=== PATIENT | male | born 1950 | race Caucasian/White ===

== ENCOUNTER 2017-11-27 15:08 | Emergency (ER) | payer MEDICARE | END 2017-11-27 15:33 | disposition home or self-care (01) | LOC: SCSER 15:08 | DX: L03.116 Cellulitis of left lower limb (principal); E11.22 Type 2 diabetes mellitus with diabetic chronic kidney disease; E78.5 Hyperlipidemia, unspecified; F32.9 Major depressive disorder, single episode, unspecified; N18.6 End stage renal disease; I12.0 Hypertensive chronic kidney disease with stage 5 chronic kidney disease or end stage renal disease; K21.9 Gastro-esophageal reflux disease without esophagitis; I25.2 Old myocardial infarction; Z79.899 Other long term (current) drug therapy | CPT/HCPCS: 99283 ==

== ENCOUNTER 2017-11-29 03:04 | Emergency (ER) | payer MEDICARE ==
[2017-11-29] MEDS ORDERED: Naproxen 500 MG TAB ONE (04:30)
--- NOTE | 2017-11-29 08:21 | RAD ---
THREE VIEWS RIGHT SHOULDER: INDICATION: Followup pain and injury. FINDINGS: There is postoperative change of the right shoulder. Moderate arthropathy is seen at the right shoul beena. There is a heterotopic density about the inferomedial aspect of the articular surface of the ri ght humeral head. IMPRESSION: Postoperative change and degenerative arthropathy of the right shoulder. There is a focal heterotopi c density about the inferomedial aspect of the articular surface of the right humeral head. POS: [facility]
--- NOTE | 2017-11-29 08:22 | RAD ---
LEFT KNEE 4 VIEWS: CLINICAL HISTORY: Fall with pain. FINDINGS: No fracture or dislocation of the left knee. No evidence of joint capsular distention. There is mil d osteoarthritis. IMPRESSION: No acute osseous abnormality. POS: [facility]
--- NOTE | 2017-11-29 16:49 | CT ---
PRELIMINARY REPORT/[facility]/EMERGENCY AFTER HOURS PROCEDURE: EXAM: CT Head Without Intravenous Contrast EXAM DATE/TIME: 11/29/2017 3:43 AM CLINICAL HISTORY: 66 years old, male; Injury or trauma; Fall; Initial encounter; Patient HX: Pt fell outside at 6pm, tr ipped, denies lightheadedness, dizziness prior to fall. Hit nose, r shoulder, and l knee. Took tramad ol and tizanidine after the fall. Started having double vision which got worse this evening which pro mpted him to come in. Pt was seen here yesterday for l knee pain, started on bactrim and keflex - sta blanca the redness and pain was mildly improved until he fell and hit it tonight. TECHNIQUE: Axial computed tomography images of the head/brain without intravenous contrast. COMPARISON: No relevant prior studies available. FINDINGS: Brain: No evidence of acute intracranial hemorrhage, extraxial fluid or midline shift. Mild prominenc e of the cerebral sulci and ventricles. Cerebellum atrophic; otherwise, posterior fossa structures wi thin normal limits. No significant white matter disease. Ventricles: See above. Bones/joints: Unremarkable. No acute fracture. Soft tissues: Unremarkable. Sinuses: Mild-moderate bilateral ethmoid, sphenoid and maxillary sinus fluid/soft tissue. Mastoid air cells: Unremarkable as visualized. No mastoid effusion. IMPRESSION: 1. No evidence of acute intracranial hemorrhage, extraxial fluid or midline shift. 2. Mild cerebral atrophy. 3. Mild-moderate bilateral ethmoid, sphenoid and maxillary sinus fluid/soft tissue. Thank you for allowing us to participate in the care of your patient. Dictated and Authenticated by: Deanna Kimble MD 11/29/2017 4:36 AM Central Time ([place] & [place]) FINAL REPORT HEAD CT NONCONTRAST: FINDINGS/IMPRESSION: I agree with the preliminary interpretation. No acute intracranial hemorrhage or mass effect. Opacification of paranasal sinuses. Correlate clinically. POS: [facility]
--- NOTE | 2017-11-29 16:50 | CT ---
PRELIMINARY REPORT/[facility]/EMERGENCY AFTER HOURS PROCEDURE: EXAM: CT Maxillofacial Without Intravenous Contrast EXAM DATE/TIME: 11/29/2017 3:46 AM CLINICAL HISTORY: 66 years old, male; Injury or trauma; Fall; Initial encounter; Concussion /head injury; Without loss of consciousness; Patient HX: Pt fell outside at 6pm, tripped, denies lightheadedness, dizziness prio r to fall. Hit nose, r shoulder, and l knee. Took tramadol and tizanidine after the fall. Started hav ing double vision which got worse this evening which prompted him to come in. Pt was seen here yester day for l knee pain, started on bactrim and keflex - states the redness and pain was mildly improved until he fell and hit it tonight. TECHNIQUE: Axial computed tomography images of the face without intravenous contrast. Coronal and sagittal reformatted images were created and reviewed. COMPARISON: No relevant prior studies available. FINDINGS: Bones/joints: No acute fractures identified. Multilevel mild cervical spondylosis. Soft tissues: Mild left facial and periorbital soft tissue swelling. Orbits: Unremarkable. Sinuses: Mild-moderate bilateral maxillary, ethmoid, sphenoid, frontal sinus fluid/soft tissue. Dental: Dental metallic fillings/hardware creates artifact. IMPRESSION: 1. Dental metallic fillings/hardware creates artifact. 2. No acute fractures identified. 3. Mild left facial and periorbital soft tissue swelling. 4. Mild-moderate bilateral maxillary, ethmoid, sphenoid, frontal sinus fluid/soft tissue. Thank you for allowing us to participate in the care of your patient. Dictated and Authenticated by: Deanna Kimble MD 11/29/2017 4:41 AM Central Time ([place] & [place]) FINAL REPORT CT FACE NONCONTRAST: FINDINGS/IMPRESSION: I agree with the preliminary interpretation. No discrete, displaced facial fracture. POS: [facility]
--- NOTE | 2017-12-20 18:01 | EKG ---
Test Reason : Blood Pressure : / mmHG Vent. Rate : 075 BPM Atrial Rate : 075 BPM P-R Int : 102 ms QRS Dur : 096 ms QT Int : 374 ms P-R-T Axes : 019 017 078 degrees QTc Int : 417 ms Sinus rhythm with occasional Premature ventricular complexes and Possible Premature atrial complexes with Abberant conduction Nonspecific ST and T wave abnormality Abnormal ECG Confirmed by IVY DIAZ D.O. ([id number]), story editor SMOOTH AGUIRRE ([id number]) on 12/20/2017 6:01:08 PM Referred By: JOE Confirmed By:IVY DIAZ D.O.
== END 2017-11-29 04:49 | disposition home or self-care (01) ==
LOC: SCSER 03:04
DX: S09.90XA Unspecified injury of head, initial encounter (principal); M25.562 Pain in left knee; M25.511 Pain in right shoulder; E78.5 Hyperlipidemia, unspecified; I25.2 Old myocardial infarction; F32.9 Major depressive disorder, single episode, unspecified; I12.0 Hypertensive chronic kidney disease with stage 5 chronic kidney disease or end stage renal disease; N18.6 End stage renal disease; W01.0XXA Fall on same level from slipping, tripping and stumbling without subsequent striking against object, initial encounter
CPT/HCPCS: 70450; 70486; 93005

== ENCOUNTER 2017-12-05 15:22 | Emergency (ER) | payer MEDICARE ==
[2017-12-05 16:02] LABS: #Basophils 0.2 thou/uL (0.0-0.2); #Eosinphils 0.1 thou/uL (0.0-0.7); #Lymphocytes 1.4 thou/uL (1.20-3.40); #Monocytes 0.8 thou/uL (0.11-0.59); #Neutrophils 10.4 thou/uL (1.40-6.50); %Basophils 1.2 % (0.0-1.0); %Eosinophils 1.1 % (0.0-10.0); %Lymphocytes 10.5 % (21.0-51.0); %Monocytes 6.1 % (0.0-10.0); Hemoglobin 12.4 g/dL (14.0-18.0); Mean Corpuscular HGB CONC 33.5 g/dL (32.0-36.0); Mean Corpuscular Hemoglobin 30.6 pg (27.0-31.0); Mean Corpuscular Volume 91.3 fl (80.0-94.0); Mean Platelet Volume 8.7 fL (7.4-10.4); Platelet Count 358 thou/uL (130-400); RBC Distribution Width 12.3 % (11.5-14.5); Red Blood Cell (RBC) Count 4.05 mill/uL (4.70-6.10); White Blood Cell (WBC) Count 12.9 thou/uL (4.8-10.8)
[2017-12-05 16:12] LABS: Anion Gap 19 mmol/L (10-20); BUN (Urea Nitrogen) 38 mg/dL (8.4-25.7); Calc. Creatinine Clearance 0 mL/min (70-130); Calcium 10.9 mg/dL (7.8-10.44); Carbon Dioxide 18 mmol/L (23-31); Chloride 98 mmol/L (98-107); Estimated GFR-MDRD 25; Glucose 425 mg/dL (80-115); Potassium 5.4 mmol/L (3.5-5.1); Sodium 130 mmol/L (136-145)
[2017-12-05 16:43] LABS: pH (venous) 7.28 (7.35-7.45)
[2017-12-05 16:52] LABS: Base Excess -7.8 mEq/L (-2 - +2); Hemoglobin (Hb) 11.7 g/dL (12.6-17.4)
[2017-12-05] MEDS ORDERED: Insulin Regular 300 UNITS/3 ML VIAL ONE (17:03)
[2017-12-05] MEDS ORDERED: Acetaminophen 500 MG TAB ONE (17:12)
[2017-12-05 17:30] LABS: Bilirubin Negative (Negative); Blood, Urine Negative (Negative); Clarity Clear (Clear); Glucose, Urine (Dipstick) 500 mg/dL (Negative); Leukocyte Negative (Negative); Nitrite Negative (Negative); Protein, Urine (Dipstick) Negative (Neg-Trace); Urobilinogen 0.2 mg/dL (0.2-1.0); pH, Urine 5.5 (5.0-9.0)
[2017-12-05 17:31] LABS: Specific Gravity, Urine 1.008 (1.005-1.030)
[2017-12-05] MEDS ORDERED: Albuterol Sulfate 2.5 mg/0.5 ml Neb ONE (17:44)
[2017-12-05] MEDS ORDERED: Sodium Chloride For Inhalation 0.9% 3 ML NEB ONE (17:44)
[2017-12-05 18:34] LABS: Anion Gap 17 mmol/L (10-20); BUN (Urea Nitrogen) 34 mg/dL (8.4-25.7); Calc. Creatinine Clearance 0 mL/min (70-130); Calcium 9.6 mg/dL (7.8-10.44); Carbon Dioxide 16 mmol/L (23-31); Chloride 106 mmol/L (98-107); Estimated GFR-MDRD 31; Glucose 270 mg/dL (80-115); Potassium 4.1 mmol/L (3.5-5.1); Sodium 135 mmol/L (136-145)
== END 2017-12-05 18:53 | disposition home or self-care (01) ==
LOC: SCSER 15:22
DX: E86.0 Dehydration (principal); I12.0 Hypertensive chronic kidney disease with stage 5 chronic kidney disease or end stage renal disease; N18.6 End stage renal disease; E11.9 Type 2 diabetes mellitus without complications; F32.9 Major depressive disorder, single episode, unspecified; K21.9 Gastro-esophageal reflux disease without esophagitis
CPT/HCPCS: 80048; 81003; 82010; 82805; 85025; 96360; 96361; J1815; J7611

== ENCOUNTER 2017-12-06 09:29 | Emergency (ER) | payer MEDICARE ==
[2017-12-06 10:19] LABS: Anion Gap 19 mmol/L (10-20); BUN (Urea Nitrogen) 27 mg/dL (8.4-25.7); Calc. Creatinine Clearance 0 mL/min (70-130); Calcium 10.1 mg/dL (7.8-10.44); Carbon Dioxide 16 mmol/L (23-31); Chloride 102 mmol/L (98-107); Estimated GFR-MDRD 35; Glucose 259 mg/dL (80-115); Potassium 4.2 mmol/L (3.5-5.1); Sodium 133 mmol/L (136-145)
--- NOTE | 2017-12-06 10:43 | CT ---
BRAIN CT WITHOUT IV CONTRAST: Date: 12/06/17 HISTORY: 66-year-old male with head injury following a fall 1 week ago with impact to right forehead and orbit region. FINDINGS: There is fluid in the right maxillary sinus, as well as some mucosal disease within the right ethmoid and the sphenoid sinuses. These sinus changes do not appear significantly changed from the prior 05/11 study. There is no focal intracranial mass or midline shift. No intra or extra-axial hemorrhage . IMPRESSION: Stable atrophy and chronic white matter ischemic change. No acute intracranial process. No mass or bl eed. Stable findings in the sinuses. POS: [facility]
[2017-12-06] MEDS ORDERED: Fentanyl 100 MCG/2 ML VIAL ONE (10:53)
== END 2017-12-06 11:16 | disposition home or self-care (01) ==
LOC: SCSER 09:29
DX: S06.0X9A Concussion with loss of consciousness of unspecified duration, initial encounter (principal); E78.5 Hyperlipidemia, unspecified; E11.9 Type 2 diabetes mellitus without complications; I25.2 Old myocardial infarction; I12.0 Hypertensive chronic kidney disease with stage 5 chronic kidney disease or end stage renal disease; N18.6 End stage renal disease; F32.9 Major depressive disorder, single episode, unspecified; Z79.4 Long term (current) use of insulin; Z79.899 Other long term (current) drug therapy; W19.XXXA Unspecified fall, initial encounter
CPT/HCPCS: 70450; 80048; 96372; J3010

== ENCOUNTER 2017-12-08 18:03 | Inpatient (IN) | payer MEDICARE ==
[2017-12-08] MEDS ORDERED: Ondansetron HCl/PF 4 MG/2 ML Vial ONE (19:17)
[2017-12-08] MEDS ORDERED: Morphine 4 MG/ML Carpuject ONE (19:17)
[2017-12-08] MEDS ORDERED: Fentanyl 100 MCG/2 ML VIAL ONE ×2 (19:19→21:21)
[2017-12-08 19:32] LABS: Hemoglobin 12.1 g/dL (14.0-18.0); Mean Corpuscular Hemoglobin 30.7 pg (27.0-31.0); Mean Corpuscular Volume 98.9 fl (80.0-94.0); Platelet Count 467 thou/uL (130-400); RBC Distribution Width 12.4 % (11.5-14.5); Red Blood Cell (RBC) Count 3.95 mill/uL (4.70-6.10); White Blood Cell (WBC) Count 20.5 thou/uL (4.8-10.8)
[2017-12-08 19:45] LABS: Band 8 % (5-11); Lymphocytes 7 % (21-51); MDiff Complete? YES; Monocytes 8 % (0-10); Myelocyte 1 % (0-0); Neutrophil 76 % (42-75); PLT Morphology Comment Appears Increased; Polychromasia SLIGHT = 2-3 cells (100X) (0-2/hpf)
[2017-12-08 19:48] LABS: ALT (SGPT) 12 U/L (8-55); AST (SGOT) 9 U/L (5-34); Albumin 3.5 g/dL (3.4-4.8); Alkaline Phosphatase 80 U/L (40-150); Anion Gap 33 mmol/L (10-20); BUN (Urea Nitrogen) 38 mg/dL (8.4-25.7); Bilirubin, Total 0.4 mg/dL (0.2-1.2); CRP (Inflammatory) 9.25 mg/dL (= or < 0.5); Calc. Creatinine Clearance 0 mL/min (70-130); Chloride 92 mmol/L (98-107); Estimated GFR-MDRD 22; Globulin 3.9 g/dL (2.4-3.5); Glucose 543 mg/dL (80-115); Potassium 5.6 mmol/L (3.5-5.1); Protein, Total 7.4 g/dL (5.8-8.1); Sodium 128 mmol/L (136-145)
[2017-12-08 19:57] LABS: Carbon Dioxide 9 mmol/L (23-31)
[2017-12-08 21:35] LABS: Magnesium 1.7 mg/dL (1.6-2.6); Phosphorus 5.5 mg/dL (2.3-4.7)
[2017-12-08 21:42] LABS: CKMB 0.8 ng/mL (0-6.6); Troponin I Less than 0.010 ng/mL (< 0.028)
[2017-12-08] MEDS ORDERED: Metoclopramide HCl 10 MG/2 ML VIAL ONE (21:43)
[2017-12-08] MEDS ORDERED: Insulin Regular 300 UNITS/3 ML VIAL ONE (21:43)
[2017-12-08] MEDS ORDERED: diphenhydrAMINE 50 MG/ML VIAL ONE (21:43)
[2017-12-08] MEDS ORDERED: Insulin Regular 100 units/100 ml in NS IVPB SCH (21:45)
--- NOTE | 2017-12-08 22:24 | MRI ---
NONCONTRAST BRAIN MRI: Clinical history: Vision loss. History of stage IV renal disease. FINDINGS: There is generalized mild parenchymal atrophy with mild compensatory dilatation of the ventricular sy stem. There is no acute territory infarction or intracranial mass effect. The inaja right intraocula r lens is absent.Mild increase in T2 signal of the right superior rectus muscle may relate to artifac t, There is no obvious expansile mass effect. There is prominent opacification of the right maxillar y sinus, as well as right sided ethmoid air cells. Fluid level is present superimposed upon mucosal t hickening of the sphenoid sinus. There is a moderate right mastoid effusion and mild left mastoid flu id. The imaged skull base flow voids are patent. No significant signal abnormalities of the brain par enchyma. IMPRESSION: 1. No acute intracranial abnormality. 2. Prominent paranasal sinus inflammatory disease with diffuse mucosal thickening as well as fluid le vels of the right maxillary sinus and sphenoid sinus. Correlate for evidence of acute sinusitis. 3. Bilateral mastoid fluid, right greater than left. 4. Absence of inaja right intraocular lens. Correlate clinically. 5. Incomplete assessment of the optic nerves on the basis of this exam. There is suggestion of a slig ht asymmetric dilatation of the right optic nerve. This may be further assessed with dedicated orbita l MRI as clinically indicated. POS: [facility]
[2017-12-08] MEDS: Sodium Bicarbonate 150 MEQ in Dextrose 5% in Water 1,000 ML IV SCH ×2 (22:48)
[2017-12-08 22:58] LABS: Anion Gap 29 mmol/L (10-20); BUN (Urea Nitrogen) 37 mg/dL (8.4-25.7); Calc. Creatinine Clearance 0 mL/min (70-130); Calcium 10.3 mg/dL (7.8-10.44); Chloride 98 mmol/L (98-107); Estimated GFR-MDRD 26; Glucose 450 mg/dL (80-115); Potassium 4.8 mmol/L (3.5-5.1); Sodium 131 mmol/L (136-145)
[2017-12-08 23:06] LABS: Carbon Dioxide 9 mmol/L (23-31)
[2017-12-09 00:59] LABS: Anion Gap 26 mmol/L (10-20); BUN (Urea Nitrogen) 36 mg/dL (8.4-25.7); Calc. Creatinine Clearance 0 mL/min (70-130); Calcium 10.2 mg/dL (7.8-10.44); Carbon Dioxide 10 mmol/L (23-31); Chloride 100 mmol/L (98-107); Estimated GFR-MDRD 27; Glucose 401 mg/dL (80-115); Potassium 4.8 mmol/L (3.5-5.1); Sodium 131 mmol/L (136-145)
[2017-12-09 01:03] LABS: Troponin I 0.014 ng/mL (< 0.028)
[2017-12-09] MEDS ORDERED: Ondansetron HCl/PF 4 MG/2 ML Vial IVP PRN (02:20)
[2017-12-09] MEDS ORDERED: Ondansetron ODT 4 MG TAB SL PRN (02:20)
[2017-12-09] MEDS ORDERED: Sodium Chloride 0.9% 1,000 ML IV SCH (02:20)
[2017-12-09] MEDS ORDERED: Acetaminophen 325 MG TAB PO PRN (02:20)
[2017-12-09 03:37] LABS: #Basophils 0.1 thou/uL (0.0-0.2); #Eosinphils 0.1 thou/uL (0.0-0.7); #Lymphocytes 1.2 thou/uL (1.20-3.40); #Monocytes 0.6 thou/uL (0.11-0.59); #Neutrophils 20.1 thou/uL (1.40-6.50); %Basophils 0.6 % (0.0-1.0); %Eosinophils 0.4 % (0.0-10.0); %Lymphocytes 5.2 % (21.0-51.0); %Monocytes 2.6 % (0.0-10.0); %Neutrophils 91.3 % (42.0-75.0); Hemoglobin 11.7 g/dL (14.0-18.0); Mean Corpuscular HGB CONC 32.8 g/dL (32.0-36.0); Mean Corpuscular Hemoglobin 31.5 pg (27.0-31.0); Mean Corpuscular Volume 96.1 fl (80.0-94.0); Mean Platelet Volume 7.9 fL (7.4-10.4); Platelet Count 403 thou/uL (130-400); RBC Distribution Width 12.3 % (11.5-14.5); White Blood Cell (WBC) Count 22.1 thou/uL (4.8-10.8)
[2017-12-09 03:55] LABS: Anion Gap 23 mmol/L (10-20); BUN (Urea Nitrogen) 35 mg/dL (8.4-25.7); Calc. Creatinine Clearance 30 mL/min (70-130); Carbon Dioxide 13 mmol/L (23-31); Chloride 101 mmol/L (98-107); Estimated GFR-MDRD 26; Glucose 345 mg/dL (80-115); Potassium 4.7 mmol/L (3.5-5.1); Sodium 132 mmol/L (136-145)
[2017-12-09 03:59] LABS: Troponin I 0.014 ng/mL (< 0.028)
[2017-12-09] MEDS: Sodium Bicarbonate 150 MEQ in Dextrose 5% in Water 1,000 ML IV SCH ×2 (04:15)
[2017-12-09] MEDS ORDERED: D5 1/2 NS w/20 mEq KCL 1,000 ML IV PRN (04:49)
[2017-12-09] MEDS ORDERED: Sodium Chloride 0.9% 1,000 ML IV PRN ×4 (04:49)
[2017-12-09] MEDS ORDERED: NS 0.9% w/ 20 MEQ KCL 1,000 ML IV PRN ×2 (04:49)
[2017-12-09] MEDS ORDERED: Dextrose 5 %-0.45 % NaCl 1,000 ML IV PRN (04:49)
[2017-12-09] MEDS ORDERED: methylPREDNISolone Sod Succ/PF 125 MG/2 ML VIAL IVP SCH (04:49)
[2017-12-09] MEDS ORDERED: Ondansetron ODT 4 MG TAB PO PRN (04:49)
[2017-12-09] MEDS ORDERED: hydrALAZINE 20 MG/ML VIAL SLOW IVP PRN (04:49)
[2017-12-09] MEDS ORDERED: cloNIDine 0.1 MG TAB PO PRN (04:49)
[2017-12-09] MEDS ORDERED: CCU Electrolyte Replacement 1 EACH IVPB ONE (04:49)
[2017-12-09] MEDS ORDERED: Potassium Chloride 40 MEQ in Sodium Chloride 0.9% 250 ML 250 ML IVPB PRN (05:20)
[2017-12-09] MEDS ORDERED: Potassium Phosphate 15 MMOL in Sodium Chloride 0.9% 250 ML 250 ML IV PRN (05:20)
[2017-12-09] MEDS ORDERED: CCU ELECTROLYTE REPLACEMENT PROTOCOL FS PRN (05:20)
[2017-12-09] MEDS ORDERED: Potassium Phosphate 12 MMOL in Sodium Chloride 0.9% 250 ML 250 ML IV PRN (05:20)
[2017-12-09] MEDS ORDERED: Potassium Chloride 20 MEQ TAB PO PRN (05:20)
[2017-12-09] MEDS ORDERED: Potassium Phosphate 9 MMOL in Sodium Chloride 0.9% 100 ML IVPB PRN (05:20)
[2017-12-09] MEDS ORDERED: Potassium Chloride 40 MEQ in Premix Bag 1 BAG IVPB PRN (05:20)
[2017-12-09] MEDS ORDERED: Magnesium 2 GM/NS 0.9% 100 ML 2 GM in Premix Bag 1 BAG IVPB PRN (05:20)
[2017-12-09] MEDS ORDERED: Magnesium Oxide 400 MG TAB PO PRN ×2 (05:20)
[2017-12-09] MEDS ORDERED: SODIUM CHLORIDE 0.9% IVPB SCH (05:30)
[2017-12-09] MEDS ORDERED: methylPREDNISolone Sod Succ 0.75 GM in Sodium Chloride 0.9% 250 ML 250 ML IVPB SCH (05:30)
[2017-12-09] MEDS ORDERED: HYDROCORTISONE SOD SUCC IVPB SCH (05:30)
--- NOTE | 2017-12-09 06:20 | HP ---
DATE OF ADMISSION: 12/09/2017 PRIMARY CARE PHYSICIAN: Alfonso Townsend MD CHIEF COMPLAINT: Right-sided vision loss and headache. HISTORY OF PRESENT ILLNESS: This is a 66-year-old male who presents to [facility], referred by his poultry trimmer on 12/08/2017. The patient apparently had complained o f vision loss of the right eye with associated severe head pain and right-sided headache. The patien t states the symptoms progressed over the last 3-4 days, worsening in the last 24 hours. The patient apparently suffered a fall, striking his face, knee, and shoulder while checking his septic system a t home. Patient underwent evaluation including CT imaging of the face showing questionable hairline fracture of the right orbital floor. The patient was evaluated by his primary neurosurgeon after und ergoing a recent back surgery. The patient also was apparently placed on pain medication as well as steroids for a suspected bronchitis in October, beginning a second course of prednisone within the l ast 3-4 days prior to this evaluation. The patient does complain of pain in the right eye region wit h loss of vision and visual clarity. The patient admits to some facial pain, headache, but no vomiti ng, weakness, difficulty with speech or fever. The patient apparently was referred by his neurosurge on to assess his vision at which point the patient was referred to the emergency room for urgent eval uation. The patient's history is complicated and significant for a sigmoid colon adenocarcinoma, sta tus post resection in late 2016. The patient underwent the surgical intervention without further jefry atment followed by the oncology service. In the emergency room, the patient underwent general evalua tion including MRI imaging of the brain, showing a questionable asymmetric dilation of the right opti c nerve with incomplete visualization. Also noted was paranasal sinus disease and fluid levels and a bsence of the osage right intraocular lens. No specific evidence of acute infarct cerebral mass or edema. The patient received multiple medications after patient's glucose was noted in the 400-500 ra nge with associated elevated beta hydroxybutyrate level of 10.29. The patient was treated for diabet ic ketoacidosis with IV fluids, bicarbonate infusion, and insulin drip. The patient was also treated for suspected temporal arteritis with 250 mg of IV Solu-Medrol and multiple doses of fentanyl for pa in control. The patient also received intravenous normal saline, IV Benadryl, Reglan, and Zofran. T he patient was referred to the hospitalist service for further evaluation. PAST MEDICAL HISTORY: 1. Sigmoid colon adenocarcinoma, status post resection. 2. Hyperlipidemia. 3. Hypertension. 4. Diabetes mellitus type 2, insulin requiring. 5. Gastroesophageal reflux. 6. History of pancreatitis. 7. History of myocardial infarction x2. 8. History of gastric ulcer. 9. Osteoarthritis. 10. Status post mechanical fall with closed head injury. 11. Question of hairline fracture of the right orbital floor, status post mechanical fall. PAST SURGICAL HISTORY: 1. Status post right total knee arthroplasty. 2. Status post bilateral shoulder repair. 3. Status post exploratory laparotomy for small bowel resection. 4. Status post left knee surgery. 5. Status post appendectomy. 6. Status post lumbar spine surgery. CURRENT MEDICATIONS: Based on previous admissions in 2013 and 2017; 1. Amlodipine 10 mg 1 tab p.o. daily. 2. Lipitor 20 mg p.o. at bedtime. 3. Wellbutrin-XL 300 mg p.o. daily. 4. Uloric 80 mg p.o. at bedtime. 5. Fenofibrate 145 mg p.o. at bedtime. 6. Amaryl 4 mg 1 tab p.o. b.i.d. 7. Humalog 20 units sliding scale with meals. 8. [place] 10/325 mg 1-2 tabs p.o. q.6 hours p.r.n. for pain. 9. Bystolic 10 mg p.o. daily. 10. Pravachol 20 mg p.o. at bedtime. 11. Aciphex 20 mg p.o. at bedtime. 12. Zanaflex 4 mg p.o. t.i.d. p.r.n. ALLERGIES: MORPHINE SULFATE. FAMILY HISTORY: Father with history of hypertension, diabetes, and coronary artery disease. Mother with history of diabetes, hypertension, and coronary artery disease. SOCIAL HISTORY: Patient is , accompanied by his in the hospital. Resides in [place], [place] . 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 No current alcohol, tobacco, or illicit drug use. REVIEW OF SYSTEMS: The following complete review of systems was negative, unless otherwise mentioned in the HPI or below: Constitutional: Weight loss or gain, ability to conduct usual activities. Sk in: Rash, itching. Eyes: Double vision, pain. ENT/Mouth: Nose bleeding, neck stiffness, pain, te nderness. Cardiovascular: Palpitations, dyspnea on exertion, orthopnea. Respiratory: Shortness of breath, wheezing, cough, hemoptysis, fever or night sweats. Gastrointestinal: Poor appetite, abdom inal pain, heartburn, nausea, vomiting, constipation, or diarrhea. Genitourinary: Urgency, frequenc y, dysuria, nocturia. Musculoskeletal: Pain, swelling. Neurologic/Psychiatric: Anxiety, depressio n. Allergy/Immunologic: Skin rash, bleeding tendency. PHYSICAL EXAMINATION: VITAL SIGNS: Currently, blood pressure 139/69, pulse 72, respiratory rate is 17, temperature 97.8 de grees Fahrenheit, O2 saturation 100% on room air. GENERAL APPEARANCE: This is a 66-year-old male, lethargic, in remp-ay-eroxmyve distress. HEENT: Right pupil approximately 7 mm compared to left pupil at 5 mm. Minimally reactive to light o f the right pupil. Tenderness to palpation of the right scalp and temporal region. No facial asymme try noted. Extraocular muscles are intact. No scleral icterus, no conjunctival injection. Nares pa tent. OP is clear. NECK: Supple. No cervical adenopathy, no thyromegaly, no carotid bruits, no JVD appreciated. Cervi monica spine with full active and passive range of motion. No meningeal signs appreciated. CHEST: Lungs are clear to auscultation bilaterally. CARDIOVASCULAR: S1, S2 without noted murmur. ABDOMEN: Rounded, soft, nontender, nondistended. Bowel sounds are positive in all four quadrants. There is no hepatosplenomegaly, no abdominal bruits, no rebound or guarding appreciated. Bowel sound s are positive in all four quadrants. EXTREMITIES: Warm and dry with fair turgor. No clubbing, cyanosis, or asymmetric edema appreciated. Pulses are palpable distally at the dorsalis pedis, posterior tibial, and popliteal arteries bilate rally. Capillary refill less than 2 seconds. NEUROLOGIC: Cranial nerves II through XII were grossly intact. PERTINENT LABORATORY AND X-RAY FINDINGS: Sodium 132, potassium 4.7, chloride 101, CO2 ranged between 10-13, BUN ranged between 35-36, creatinine ranged between 2.44-2.46, estimated GFR ranging between 26-27, lactic acid level 1.5, calcium 10.0. Phosphorous 5.5, magnesium 1.7. LFTs within normal limi ts. CRP 9.25. CBC showed a white blood cell count of 22.1, hemoglobin 12, hematocrit 36, MCV 96, pl atelet count 403 with 91% neutrophils. ESR ranged between 59 to 113. Beta hydroxybutyrate level 10. 29. CT of the brain without contrast dated on 12/06/2017 showed chronic white matter ischemic change s. No acute intracranial process noted. Right maxillary sinus with mucosal disease and fluid. Also involvement of the ethmoid and sphenoid sinuses with mucosal disease changes. MRI of the brain date d 12/08/2017 showed prominent paranasal sinus disease. Bilateral mastoid fluid, right greater than l eft. Absence of the osage right intraocular lens. Suggestion of slight asymmetric dilation of the right optic nerve. EKG dated 12/08/2017 by my interpretation shows sinus mechanism with heart rates in the 60s. Normal R-wave progression noted in the precordial leads. Normal axis. No acute ST-T wa ve changes appreciated. ASSESSMENT AND PLAN: 1. Diabetic ketoacidosis. We will continue DKA protocol with admission to the IM. We will contin ue aggressive IV fluid hydration per protocol. Serial beta hydroxybutyrate and BMP analysis. Contin ue insulin infusion and serial glucose assessment. Continue bicarbonate infusion due to severe metab olic acidosis. 2. Temporal arteritis. Initial management with Solu-Medrol 250 mg IV x1 dose in the emergency room. We will add additional 750 mg of Solu-Medrol to complete 1 gram. Continue 1 gram IV Solu-Medrol da alysa x3 days. We will consult Neurology Service in the a.m. for further evaluation and recommendation s. Ophthalmology has evaluated the patient in the emergency room and initiated an initial treatment. 3. Acute kidney injury on chronic kidney disease, stage 3-4. We will continue intravenous fluids as outlined previously. Avoid nephrotoxic agents and contrast media. Serial creatinine assessment. 4. Severe metabolic acidosis secondary to #1. We will continue bicarbonate infusion and monitor CO2 levels. 5. Hyponatremia. Secondary to severe hyperglycemia. We will continue serial sodium assessments. 6. Severe headache, secondarily to temporal arteritis. We will continue fentanyl 50-100 mcg IV q.4 hours. p.r.n. for pain. Continue IV fluids as outlined previously. 7. Leukocytosis with neutrophilia. Suspect multifactorial given patient's temporal arteritis and re cent prednisone therapy. Continue serial CBC assessment. 8. Maxillary and sphenoid and ethmoid sinusitis. 9. Acute on chronic. Continue Levaquin 500 mg IV q.24 hours. Flonase 1 spray in each naris daily. Mucinex 600 mg p.o. b.i.d. 10. Hypertension. Continue home blood pressure regimen and monitor clinically. 11. Prophylaxis. Sequential compression devices while in bed. Pepcid 20 mg IV q.12 hours. 12. Code status is FULL. Surrogate medical decision maker is patient's spouse.
[2017-12-09] MEDS ORDERED: Famotidine/PF 20 mg/2ml Vial SLOW IVP SCH (09:00)
[2017-12-09] MEDS ORDERED: methylPREDNISolone Sod Succ 1 GM in Sodium Chloride 0.9% 250 ML 250 ML IVPB SCH (09:00)
[2017-12-09 09:06] LABS: Anion Gap 19 mmol/L (10-20); BUN (Urea Nitrogen) 32 mg/dL (8.4-25.7); Calc. Creatinine Clearance 34 mL/min (70-130); Calcium 9.8 mg/dL (7.8-10.44); Carbon Dioxide 16 mmol/L (23-31); Chloride 104 mmol/L (98-107); Estimated GFR-MDRD 31; Glucose 289 mg/dL (80-115); Potassium 4.4 mmol/L (3.5-5.1); Sodium 135 mmol/L (136-145)
--- NOTE | 2017-12-09 10:39 | CON ---
DATE OF CONSULTATION: 12/09/2017 CONSULTING PHYSICIAN: Raghu Louie D.O. REASON FOR CONSULTATION: DKA. HISTORY OF PRESENT ILLNESS: This 66-year-old male who has been having difficulty for the last week w ith right-sided vision loss and headaches. He was started on steroids sometime last week. Symptoms have progressed. He apparently had a fall last week with imaging showing hairline fracture of the ri t orbital floor. Patient came in last night with extremely elevated blood sugar and had to be plac ed on insulin for management of DKA. He says he does not feel any better today. PAST MEDICAL HISTORY: 1. Sigmoid colon resection for adenocarcinoma. 2. Hyperlipidemia. 3. Hypertension. 4. Diabetes mellitus type 2, which requires insulin and oral hypoglycemics. 5. Gastroesophageal reflux and pancreatitis. 6. Myocardial infarction x2. 7. Gastric ulcer. 8. Osteoarthritis. 9. Recent fall with closed head injury. 10. Hairline fracture of the right orbital floor. 11. Knee arthroplasty. 12. Exploratory laparotomy for small bowel resection. 13. Left knee surgery. 14. Appendectomy. 15. Spinal surgery. MEDICATIONS PRIOR TO ADMISSION: Reviewed and include amlodipine, Lipitor, Wellbutrin, Uloric, fenofi brate, Amaryl, Humalog insulin, [place], Bystolic, Pravachol, Aciphex, Zanaflex and was also taking pre dnisone. ALLERGIES: MORPHINE. FAMILY MEDICAL HISTORY: Remarkable for hypertension, diabetes, and coronary artery disease. SOCIAL HISTORY: He is , lives in [place], works as a marketing sales consultant for chemical industry. Does not smoke. Does not use illicit drugs. REVIEW OF SYSTEMS: Remarkable for vision loss, headache, generalized malaise, and 12-point review is otherwise negative. PHYSICAL EXAMINATION: VITAL SIGNS: Temperature 98.6, pulse 64, respirations 20, O2 sat 96%, and blood pressure 141/65. GENERAL: He is awake and alert and in no acute distress at this time. HEENT: He has ptosis of the right eyelid. His right pupil is sluggishly reactive, 3 mm, left pupil reactive, 3 mm, 2 mm, nares clear. Oropharynx clear. NECK: Without adenopathy or JVD. LUNGS: Clear to auscultation without wheezing. CARDIOVASCULAR: S1, S2 regular, without murmur. ABDOMEN: Soft and nontender. EXTREMITIES: No clubbing, cyanosis, or edema. IMAGING STUDIES: Brain MRI showed no acute intracranial abnormality. He had paranasal sinus disease and bilateral mastoid fluid. Apparently, optic nerves could not be assessed. LABORATORY DATA: White blood cell count 22, hematocrit 35.6, platelet count 403. Sodium 135, potass ium 4.4, chloride 104, CO2 of 16, BUN 32, creatinine 2.2, glucose 289. Sedimentation rate 113. ASSESSMENT: 1. Diabetic ketoacidosis. 2. Temporal arteritis, presumed. RECOMMENDATIONS: 1. He is being evaluated by Neurology, Neurosurgery, and Ophthalmology and transfer to tertiary [facility] may be needed. 2. Continue management of DKA as you are doing. 3. Not much to add from Pulmonary Critical Care standpoint, I am available as needed.
[2017-12-09] MEDS: guaiFENesin ER 600 MG TAB PO SCH ×2 (11:08→21:04)
--- NOTE | 2017-12-09 11:21 | CON ---
DATE OF CONSULTATION: 12/09/2017 NEUROLOGY CONSULTATION CONSULTING PHYSICIAN: Hospitalist Service. IMPRESSION: 1. Probable temporal arteritis. 2. Diabetes. PLAN: 1. Prednisone 60 mg per day. 2. Temporal artery biopsy. 3. Rheumatology followup to pursue nonsteroidal treatment. Mr. Greer 66-year-old man with longstanding history of diabetes. He started experiencing right-s ided headache about 2 weeks ago. Subsequently, developed some double vision and diminished vision in the right eye. He was seen by Ophthalmology and referred over for further evaluation. His sed rate was 113. He had an MRI of the brain done which did not show any obvious retroorbital masses or infl ammatory changes or vascular malformations. He was started on Solu-Medrol and reports that the tempo ral pain is much better. Unfortunately, he has not had any improvement in his ptosis or vision loss. PAST MEDICAL HISTORY: Diabetes. FAMILY HISTORY: Noncontributory. SOCIAL HISTORY: Unremarkable. ALLERGIES: As per chart. REVIEW OF SYSTEMS: No lateralized weakness or numbness, no slurred speech or difficulty swallowing. PHYSICAL EXAMINATION: GENERAL: He is a thin elderly man lying in bed in no apparent distress. HEENT: There is complete ptosis of the right eye. There is complete ophthalmoplegia of the right ey e. He has no light perception in the right eye. There is minimal temporal tenderness on the right. There is no orbital swelling or inflammatory changes. NECK: Supple. NEUROLOGIC: He is alert and appropriate. His speech is fluent and clear. Cranial nerves are intact otherwise. Motor exam showed symmetric strength. Sensation was equal to touch. Gait was not teste d. No abnormal movements were seen. IMAGING DATA: MRI images of the brain shown some sinus inflammatory changes, but otherwise unremarka ble. Given this constellation of symptoms as well as sed rate of 113, temporal arteritis what appears to b e leading prospect. Other retroorbital inflammatory or malignant etiologies are less likely, but wou ld also be treated with steroids. There does not appear to be a vascular malformation that would acc ount for this. Overall, the chances of him regaining sight seemed fairly low. The most important is chavez would be to prevent spread of the inflammatory response to the left eye given the nonsteroidal tr eatments are beyond the comfort level of my experience, I would send him to Rheumatology for followup .
[2017-12-09 13:05] LABS: Anion Gap 18 mmol/L (10-20); BUN (Urea Nitrogen) 30 mg/dL (8.4-25.7); Calc. Creatinine Clearance 37 mL/min (70-130); Calcium 9.8 mg/dL (7.8-10.44); Carbon Dioxide 19 mmol/L (23-31); Chloride 104 mmol/L (98-107); Estimated GFR-MDRD 35; Glucose 227 mg/dL (80-115); Potassium 4.1 mmol/L (3.5-5.1); Sodium 137 mmol/L (136-145)
[2017-12-09] MEDS: Fluticasone Propionate Nasal Spray 16 gm Bottle NASAL SCH (14:24)
--- NOTE | 2017-12-09 14:40 | PDOC.PN ---
- Subjective Encounter Start Date: 12/09/17 Encounter Start Time: 14:38 Mr. Greer was seen today in follow-up. He was admitted with sudden vision loss in the right eye. He still can not see from the right eye. He says the headache has improved. - Objective Resuscitation Status: Resuscitation Status FULL:Full Resuscitation MAR Reviewed: Yes Vital Signs & Weight: Vital Signs (12 hours) Temp Pulse Resp BP Pulse Ox 12/09/17 12:00 98.9 F 71 20 141/65 H 96 12/09/17 08:00 98.6 F 64 20 141/65 H 96 12/09/17 04:00 73 16 141/65 H 97 Weight Weight 156 lb I&O: 12/08/17 12/09/17 12/10/17 06:59 06:59 06:59 Intake Total 1466 1910 Output Total 1075 Balance 1466 835 Result Diagrams: 12/09/17 03:26 12/09/17 12:38 Additional Labs: Accuchecks 12/09/17 12/09/17 12/09/17 14:08 12:54 11:07 POC Glucose 191 H 220 H 211 H 12/09/17 12/09/17 12/09/17 10:23 09:09 08:16 POC Glucose 259 H 237 H 257 H 12/09/17 12/09/17 12/09/17 06:55 06:01 05:17 POC Glucose 255 H 297 H 301 H 12/09/17 12/09/17 12/09/17 04:18 03:19 02:13 POC Glucose 297 H 320 H 292 H 12/09/17 01:01 POC Glucose 383 H Phys Exam - Physical Examination Respiratory: no wheezing Cardiovascular: RRR, no significant murmur Gastrointestinal: soft, non-tender, positive bowel sounds Musculoskeletal: no edema Dx/Plan (1) DKA, type 2 Code(s): E11.10 - TYPE 2 DIABETES MELLITUS WITH KETOACIDOSIS WITHOUT COMA Status: Acute (2) Temporal arteritis Code(s): M31.6 - OTHER GIANT CELL ARTERITIS Status: Acute (3) Mwdux-jb-iqvyobf kidney injury Code(s): N17.9 - ACUTE KIDNEY FAILURE, UNSPECIFIED; N18.9 - CHRONIC KIDNEY DISEASE, UNSPECIFIED Status: Acute (4) HTN (hypertension) Code(s): I10 - ESSENTIAL (PRIMARY) HYPERTENSION Status: Chronic Qualifiers: Hypertension type: essential hypertension Qualified Code(s): I10 - Essential (primary) hypertension - Plan * DKA- will continue Insulin drip until patient returns from CT scan. If this is negative than can try to advance diet, and wean off the drip * Right eye vision loss- Neurology evaluation noted- likely diagnosis is Temporal Arteritis- he is currently receiving high dose steroids * Acute renal failure- ? etiology this is improving * HTN- blood pressure is borderline elevated- will monitor.
--- NOTE | 2017-12-09 15:11 | CT ---
CT OF THE ABDOMEN AND PELVIS WITHOUT CONTRAST: INDICATION: Left abdominal pain with a history of renal failure and acidosis. FINDINGS: Pleural-based densities and linear parenchymal densities are seen at each visualized lower hemithorax . Fat stranding in the central abdomen is present which encompasses the duodenum as well as the panc reas. Solid abdominal organs are limited in assessment without IV contrast. There is free fluid of the abdomen, mild in volume. Fat-containing periumbilical hernia is present. No evidence of small b owel obstruction. Evidence of prior cholecystectomy. There is a hypodensity of the right renal pare nchyma at the superior pole as well as hypodensity of the renal hilum, indicating cyst formation. Th ere is a focal, exophytic hypodensity of the posterolateral left kidney, incompletely assessed on the basis of noncontrast imaging. Mild prominence of the prostate gland. There are patulous fat-inguin al rings bilaterally. Moderate cysts in the unopacified urinary bladder. There is vascular disease. No free air or portal venous gas is identified. The imaged osseous structures demonstrate degenera tive change. IMPRESSION: 1. Central abdominal inflammatory fat stranding and ascites. This most likely relates to pancreatit is given location. Alternatively, this could arise from inflammation of the proximal small bowel. R ecommend clinical correlation as well as evaluation with laboratory values for further analysis. 2. Limited assessment by noncontrast technique, with additional details described above. POS: [facility]
--- NOTE | 2017-12-09 16:02 | CON ---
DATE OF CONSULTAITON: 12/09/2017 NEPHROLOGY CONSULTATION NOTE REASON FOR CONSULTATION: Acute kidney injury and severe metabolic acidosis, consulted by the Emer[facility] Room. HISTORY OF PRESENT ILLNESS: This is a 66-year-old gentleman who presented to the hospital after righ t-sided visual loss and headache. The patient has a baseline creatinine of around 2, which had incre ased to 2.8 yesterday with severe metabolic acidosis. The patient is also having left-sided abdomina l pain. The patient also was admitted for DKA with severe acidosis. The patient at this time denies any nausea, vomiting or chest pain, but does have left-sided abdominal pain, which is exacerbated by touching. PAST MEDICAL HISTORY: Significant for adenocarcinoma of the colon, hyperlipidemia, hypertension, typ e 2 diabetes mellitus, GERD, pancreatitis, history of MO, history of gastric ulcer, osteoarthritis, m echanical fall injury, history of right knee arthroplasty, history of bilateral shoulder repair, hist ory of exploratory laparotomy, history of left knee surgery, appendectomy, history of chronic kidney disease stage 3-4, followed in [place], history of gout. HOME MEDICATIONS: List reviewed. ALLERGIES: Reviewed. FAMILY HISTORY: Negative for ESRD. SOCIAL HISTORY: No alcohol or drug use. PHYSICAL EXAMINATION: GENERAL: Patient is awake, alert. GENERAL APPEARANCE AND MENTAL STATUS: Fair. VITAL SIGNS: Afebrile, pulse 64, breathing 16, blood pressure 144/65. HEAD/NECK: Normocephalic. Atraumatic. EYES: EOMI. No deformity. EARS: Clear. No ulcers. NOSE: Intact. No lesions. MOUTH: Clear. No discharge. THROAT: Clear. No exudate. LUNGS: Clear. No crackles. CARDIAC: S1, S2. No rub. ABDOMEN: Benign. BS+. GENITALIA/RECTUM: Hooper absent. BACK/EXTREMITIES: Edema 0+ Ulcer-. NEUROLOGICAL: Alert and motor intact. SKIN: Rash- Bruise- LYMPHATICS: Edema- Ulcer-. LABORATORY DATA: Show bicarbonate is 9. ASSESSMENT AND RECOMMENDATIONS: 1. Acute kidney injury with chronic kidney disease, most likely due to decreased effective arterial blood volume. We will continue bicarbonate drip. 2. Anemia, stable. 3. Hyponatremia due to renal failure and hyperglycemia. 4. Metabolic acidosis, improving. Continue bicarbonate drip. 5. Hyperkalemia, resolved due of correction of acidosis. No indication for dialysis. Continue gent le hydration and follow labs closely. 6. Medication based on GFR are appropriate at this time. I would avoid NSAIDs. Above findings were discussed with the patient. The patient will follow up to see me once he is discharged from the [facility].
[2017-12-09 17:17] LABS: Calcium 9.8 mg/dL (7.8-10.44); Chloride 104 mmol/L (98-107); Potassium 3.9 mmol/L (3.5-5.1); Sodium 137 mmol/L (136-145)
[2017-12-09 17:18] LABS: Glucose 206 mg/dL (80-115)
[2017-12-09 17:19] LABS: Anion Gap 15 mmol/L (10-20); Carbon Dioxide 22 mmol/L (23-31)
[2017-12-09 17:21] LABS: Calc. Creatinine Clearance 40 mL/min (70-130); Estimated GFR-MDRD 38
[2017-12-09 17:22] LABS: BUN (Urea Nitrogen) 25 mg/dL (8.4-25.7)
[2017-12-09] MEDS ORDERED: Dextrose 5% in Water 1,000 ML IV PRN (17:53)
[2017-12-09] MEDS ORDERED: Dextrose 50% Abboject 50 ML SYRINGE SLOW IVP PRN (17:53)
[2017-12-09] MEDS: Sodium Chloride 0.9% 1,000 ML IV SCH (18:38)
[2017-12-09] MEDS: Acetaminophen 500 MG TAB PO PRN (18:38)
[2017-12-09] MEDS ORDERED: Insulin Detemir 100 UNITS/ML 20 UNITS in Pre-Filled Syringe 1 EACH SC SCH (21:00)
[2017-12-09] MEDS: Temazepam 15 MG CAP PO PRN (21:04)
[2017-12-09] MEDS: Pantoprazole 40 MG VIAL IVP SCH (22:59)
[2017-12-10] MEDS: tiZANidine HCl 4 MG TAB PO PRN ×2 (00:36→09:33)
[2017-12-10] MEDS: Acetaminophen 500 MG TAB PO PRN ×2 (00:36→09:33)
[2017-12-10] MEDS: Sodium Chloride 0.9% 1,000 ML IV SCH ×3 (02:30→19:05)
[2017-12-10 04:23] LABS: Band 4 % (5-11); Hemoglobin 9.9 g/dL (14.0-18.0); Lymphocytes 2 % (21-51); MDiff Complete? YES; Mean Corpuscular Hemoglobin 30.3 pg (27.0-31.0); Mean Corpuscular Volume 94.7 fl (80.0-94.0); Monocytes 6 % (0-10); Neutrophil 88 % (42-75); PLT Morphology Comment Appears Adequate; Platelet Count 313 thou/uL (130-400); RBC Distribution Width 12.4 % (11.5-14.5); Red Blood Cell (RBC) Count 3.26 mill/uL (4.70-6.10); White Blood Cell (WBC) Count 19.1 thou/uL (4.8-10.8)
[2017-12-10 04:37] LABS: Anion Gap 14 mmol/L (10-20); BUN (Urea Nitrogen) 24 mg/dL (8.4-25.7); Calc. Creatinine Clearance 45 mL/min (70-130); Calcium 8.9 mg/dL (7.8-10.44); Carbon Dioxide 21 mmol/L (23-31); Chloride 107 mmol/L (98-107); Estimated GFR-MDRD 43; Glucose 274 mg/dL (80-115); Potassium 3.9 mmol/L (3.5-5.1); Sodium 138 mmol/L (136-145)
[2017-12-10] MEDS ORDERED: predniSONE 20 MG TAB PO SCH (08:00)
[2017-12-10] MEDS ORDERED: Hydrocortisone Sod Succ/PF 1,000 MG in Sodium Chloride 0.9% 250 ML 250 ML IVPB SCH (09:00)
[2017-12-10] MEDS ORDERED: Prevnar 13-Val Conj/PF 0.5 ML SYRINGE IM ONE (09:00)
[2017-12-10] MEDS ORDERED: FLU VACC TS2017-18 (>65YR) 0.5 ML SYRINGE IM ONE (09:00)
[2017-12-10] MEDS ORDERED: methylPREDNISolone Sod Succ/PF 125 MG/2 ML VIAL IVP SCH (09:00)
[2017-12-10] MEDS: guaiFENesin ER 600 MG TAB PO SCH ×2 (09:13→22:20)
--- NOTE | 2017-12-10 10:00 | PDOC.PN ---
- Subjective Encounter Start Date: 12/10/17 Encounter Start Time: 09:58 Mr. Greer was seen today in follow-up. He is having a headache again, and says he has abdominal pain as well. He says it was worse after he drank a little apple juice last night. He has only had a little water since then. - Objective Resuscitation Status: Resuscitation Status FULL:Full Resuscitation MAR Reviewed: Yes Vital Signs & Weight: Vital Signs (12 hours) Temp Pulse Resp BP Pulse Ox 12/10/17 08:00 98.8 F 55 L 18 150/72 H 97 12/10/17 07:57 98.4 F 74 20 Weight Weight 156 lb I&O: 12/09/17 12/10/17 12/11/17 06:59 06:59 06:59 Intake Total 1466 4667 Output Total 3175 Balance 1466 1492 Result Diagrams: 12/10/17 03:43 12/10/17 03:43 Additional Labs: Accuchecks 12/10/17 12/09/17 12/09/17 05:59 21:00 19:13 POC Glucose 229 H 181 H 180 H 12/09/17 12/09/17 12/09/17 18:10 17:19 16:18 POC Glucose 196 H 212 H 196 H 12/09/17 12/09/17 12/09/17 15:04 14:08 12:54 POC Glucose 184 H 191 H 220 H 12/09/17 12/09/17 12/09/17 11:07 10:23 09:09 POC Glucose 211 H 259 H 237 H Phys Exam - Physical Examination Respiratory: no wheezing, no rales, no rhonchi, clear to auscultation bilateral Cardiovascular: RRR, no significant murmur, no rub Gastrointestinal: soft, positive bowel sounds + mid abdominal to left lower abdominal pain, no rebound or guarding Musculoskeletal: no edema Dx/Plan (1) DKA, type 2 Code(s): E11.10 - TYPE 2 DIABETES MELLITUS WITH KETOACIDOSIS WITHOUT COMA Status: Acute (2) Temporal arteritis Code(s): M31.6 - OTHER GIANT CELL ARTERITIS Status: Acute (3) Ygrbc-gb-xefiqrd kidney injury Code(s): N17.9 - ACUTE KIDNEY FAILURE, UNSPECIFIED; N18.9 - CHRONIC KIDNEY DISEASE, UNSPECIFIED Status: Acute (4) HTN (hypertension) Code(s): I10 - ESSENTIAL (PRIMARY) HYPERTENSION Status: Chronic Qualifiers: Hypertension type: essential hypertension Qualified Code(s): I10 - Essential (primary) hypertension (5) Abdominal pain Code(s): R10.9 - UNSPECIFIED ABDOMINAL PAIN Status: Acute (6) Duodenitis Code(s): K29.80 - DUODENITIS WITHOUT BLEEDING Status: Acute (7) Acute pancreatitis Code(s): K85.90 - ACUTE PANCREATITIS WITHOUT NECROSIS OR INFECTION, UNSP Status: Acute Qualifiers: Pancreatitis type: idiopathic - Plan * Abdominal Pain and Duodenitis, as Pancreatitis- will consult GI- He says he has seen Dr. Zamorano before * Will change his diet to NPO * DM- Will need to lower the dose of long acting scheduled insulin, and cover with a SSI. opefully we can avoid having to re-start the insulin drip * Temporal Arteritis- will change steroids to IV * Acute renal failure- renal function is improving- will continue to monitor
[2017-12-10] MEDS ORDERED: Lidocaine 1% w/Epinephrine 1:200K 30 ML VIAL ONE ×2 (10:48→19:58)
[2017-12-10 10:50] LABS: Cardiac Risk 3.7 (Less than 4.5)
[2017-12-10] MEDS ORDERED: Lidocaine 1% w/Epinephrine 1:100K 20 ML VIAL FS SCH (11:15)
[2017-12-10] MEDS: Fluticasone Propionate Nasal Spray 16 gm Bottle NASAL SCH (11:16)
--- NOTE | 2017-12-10 11:42 | PRG ---
DATE OF SERVICE: 12/10/2017 SUBJECTIVE: This is a 66-year-old gentleman being seen for acute kidney injury. The patient denies any nausea, vomiting or chest pain. PHYSICAL EXAMINATION: GENERAL: Patient is awake, alert. VITAL SIGNS: Afebrile, pulse 65, breathing at 16, blood pressure 141/65. GENERAL APPEARANCE AND MENTAL STATUS: Fair. HEAD/NECK: Normocephalic. Atraumatic. EYES: EOMI. No deformity. EARS: Clear. No ulcers. NOSE: Intact. No lesions. MOUTH: Clear. No discharge. THROAT: Clear. No exudate. LUNGS: Clear. No crackles. CARDIAC: S1, S2. No rub. ABDOMEN: Benign. BS+. GENITALIA/RECTUM: Hooper absent. BACK/EXTREMITIES: Edema 0+ Ulcer-. NEUROLOGICAL: Alert and motor intact. SKIN: Rash- Bruise- LYMPHATICS: Edema- Ulcer-. LABORATORY DATA: Show hemoglobin 9.9, creatinine 1.63. ASSESSMENT AND RECOMMENDATIONS: 1. Acute kidney injury, improving. 2. Hypertension, stable. 3. Anemia, stable. 4. Medications based on glomerular filtration rate are appropriate.
[2017-12-10] MEDS: HumaLOG 300 UNITS/3 ML VIAL SC PRN ×2 (12:20→17:53)
[2017-12-10] MEDS ORDERED: Propofol 200 MG/20 ML VIAL ONE (15:18)
[2017-12-10] MEDS ORDERED: Succinylcholine Chloride 20 MG/ML 10 ml SYRINGE FS ONE (15:18)
[2017-12-10] MEDS ORDERED: Ondansetron HCl/PF 4 MG/2 ML Vial ONE (15:18)
[2017-12-10] MEDS ORDERED: Lidocaine 1% PF 5 ML VIAL ONE (15:18)
--- NOTE | 2017-12-10 15:56 | CT ---
CT SINUSES WITHOUT CONTRAST 12/10/17 HISTORY: [facility] protocol for surgery. COMPARISON: None. FINDINGS: Only the axial images were submitted for interpretation. There is mucosal sinus thickening of the rig ht maxillary sinus as well as the right anterior and posterior ethmoids and right frontal sinus. No f racture. No malalignment. The temporomandibular joint alignment is normal. The mastoids are clear. Mo derate vascular calcifications of the supraclinoid carotid arteries. The orbits are unremarkable. Globes are normal. IMPRESSION: 1. Right maxillary, ethmoidal and frontal sinusitis. 2. Recent postsurgical change on the right temporal soft tissues. POS: [facility]
[2017-12-10] MEDS: Acetaminophen/Codeine 30-300mg Tablet PO PRN (17:05)
--- NOTE | 2017-12-10 17:27 | CON ---
DATE OF CONSULTATION: 12/10/2017. GI INPATIENT CONSULTATION NOTE REQUESTING PHYSICIAN: Dr. Bains. REASON FOR CONSULTATION: Pancreatitis and abnormal CT scan. HISTORY OF PRESENT ILLNESS: Valdemar Greer is a very pleasant 66-year-old gentleman whom I met darwin sarabia 04/2017 in hospital consultation for an episode of acute pancreatitis. Mr. Greer has had multi ple episodes of acute pancreatitis through the years, which have been idiopathic in origin. When I m et him in 04/2017, he had a fairly mild self-limited episode which had clinically resolved over the c ourse of 3-4 days. It was noted at that time, LFTs were normal. He is post-cholecystectomy and does not drink alcohol. He does have diabetes. I did send him for endoscopic ultrasound examination on 05/23/2017 and this was a normal post-cholecystectomy exam. 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 He underwent left hemicolectomy. This was early stage with negative lymph nodes and no adjuva nt chemotherapy was needed. The patient did well for the next couple of months. He reports about 10 days ago, he had a fall and hit his head. He has been dealing with severe headac hes as well as some double vision since that time. Through this time due to the pain, his appetite h as not been great and his oral intake has been minimal; however, he had not been having any abdominal pain until yesterday. He was admitted to the hospital 2 days ago with worsening headaches and visio n. Temporal arteritis is suspected and he actually had a temporal artery biopsy earlier today. He h as been treated with steroids. Through all of this yesterday, he had the fairly abrupt onset of worsening pain in the epigastrium as well as a little bi t of pain in the left lower quadrant. This has been associated with nausea and some dry heaves. He has not had a bowel movement for the past couple of days. Laboratory studies are showing significant diabetic ketoacidosis with declining beta hydroxybutyrate levels, acute kidney injury with creatinin e improving, leukocytosis with WBC 19 and elevated lipase is to 1341. LFTs remain normal in this adm ission. Triglycerides were only 129. He had an abdominal CT scan which shows mild amount of free fl uid in the abdomen and central mesenteric stranding consistent with pancreatitis. He is hemodynamica lly stable and getting appropriate for fluid resuscitation and electrolyte replacement. REVIEW OF SYSTEMS: Full review of systems including constitutional, head, eyes, ears, nose, throat, GI, , cardiovascular, respiratory, musculoskeletal, and neurologic systems is negative except as no josé in the HPI. PAST MEDICAL HISTORY: 1. Recurrent episodes of acute pancreatitis. 2. Cholecystectomy. 3. Normal endoscopic ultrasound in 04/2017. 4. Left-sided colon cancer, status post left hemicolectomy 07/2017, no adjuvant chemotherapy needed for a T2N0M0 lesion. 5. Hypertension. 6. Hyperlipidemia. 7. Diabetes type 2. 8. MD. 9. Back surgery. 10. Bilateral shoulder repair. 11. Right total knee arthroplasty. 12. Exploratory laparotomy for small bowel resection. 13. Left knee surgery. 14. Appendectomy. 15. History of gastric ulcer. ALLERGIES: MORPHINE. SOCIAL HISTORY: No alcohol, tobacco or drug use. FAMILY HISTORY: Negative for gastrointestinal malignancy. MEDICATIONS: Tylenol p.r.n., Norvasc, bupropion, fenofibrate, Mucinex, insulin sliding scale, IV lev ofloxacin, methylprednisolone 60 mg IV daily, Bystolic 10 mg daily, Zofran p.r.n., Protonix 40 mg IV q.24 hours, temazepam p.r.n., tizanidine p.r.n. PHYSICAL EXAMINATION: VITAL SIGNS: Temperature 99.1, pulse 56, blood pressure 140/74, 96% oxygen saturation on room air. GENERAL: Ill-appearing 66-year-old man lying in bed comfortably in no distress. SKIN: No jaundice, no rashes were palpable. HEENT: Eyes, his right eye is shut with recent right orbital fracture. He is able to open his left eye. Extraocular movements are intact. He is status post right temporal artery biopsy. This is hea ling well. ENT: Mucous membranes moist, no oral lesions. LYMPH: No submandibular, supraclavicular lymphadenopathy. THYROID: Nontender to palpation. HEART: Regular rate and rhythm. LUNGS: Clear to auscultation bilaterally. ABDOMEN: Nondistended. Bowel sounds are present. The abdomen is soft. There is tenderness to palp ation in the epigastrium and periumbilical area, but no guarding or rebound tenderness. EXTREMITIES: No peripheral edema. VESSELS: Radial pulses 2+ bilaterally. NEUROLOGICAL: Cranial nerves II-XII intact bilaterally. No focal deficits. LABORATORY STUDIES: Lipase 1341, triglycerides 129, BUN 24, creatinine 1.61, glucose 271. WBC 19, h emoglobin 9.9, platelets 313. Beta-hydroxybutyrate initially 10.29, now down to 3.28. CRP 9.25. Re cent sedimentation rate 133, troponin negative. Total bilirubin 0.4, alkaline phosphatase 80, AST 9, ALT 12. ASSESSMENT AND PLAN: 1. Acute recurrent pancreatitis. 2. Diabetic ketoacidosis. 3. Possible temporal arteritis. The patient has had extensive pancreatic workup within the past yea r including endoscopic ultrasound in 04/2017 which was a normal post-cholecystectomy exam. Note, he still does not drink alcohol. Triglycerides are in normal range and LFTs remain in normal range. Hi s pancreatitis is idiopathic. It does seem to occur during times of physical stress. His last prese ntation was directly following back surgery. At any rate, prior episodes have always been clinically mild and resolved without sequelae over the course of 3-4 days. Hopefully, that would be the case w ith this attack. Continue with the IV fluid resuscitation as you are doing. I would have the patien t remain n.p.o. for now. Continue workup for possible temporal arteritis and treatment of diabetic k etoacidosis. GI will follow along. Please call anytime with questions or concerns.
[2017-12-10] MEDS: Micafungin 100 MG in Sodium Chloride 0.9% 100 ML IVPB SCH (17:47)
[2017-12-10] MEDS: DEXTROSE 5% IVPB SCH ×2 (17:48)
[2017-12-10] MEDS: WATER IVPB SCH ×2 (17:48)
[2017-12-10] MEDS: AMBISOME IVPB SCH ×2 (17:48)
[2017-12-10] MEDS: Admixture Fee 1 EACH in Dextrose 5% in Water 10 ML FS SCH ×4 (19:05→22:19)
[2017-12-10] MEDS ORDERED: Fentanyl 100 MCG/2 ML VIAL ONE ×2 (19:53→21:35)
--- NOTE | 2017-12-10 19:57 | CON ---
DATE OF CONSULTATION: 12/10/2017 REASON: Right-sided ocular palsy with blindness and sinusitis in a pt with DKA. HISTORY OF PRESENT ILLNESS: A 66-year-old who has a history of type 2 diabetes mellitus, prior colon cancer, status post resection and in remission as well as hypertension who sustained a fall about 10 or 11 days prior to admission in the home setting and hit the right side of his head and shoulder. He was evaluated with a CT scan which showed a questionable hairline fracture of the right orbital floor and was given analgesic medication and prednisone. Following that , he developed progressively worsening pain in the right eye with then progressive loss of vision associated with worsening pain in the right side of face and temporal region. Patient was referred to Dr. Gaming, Ophthalmology and he was then sent for admission. Initial exam showed BP 130/60, pulse 72, respirations 17, temperature 97.8, O2 sat 100%. Pertinent findings in the exam included dilated right pupil, which was minimally reactive. There was tenderness on palpation of the right scalp and temporal region. Neck was supple. Lungs were clear. LABORATORY DATA: Sodium 132, potassium 4.7, CO2 of 10-13, and creatinine 2.4. Lactic acid 1.5. CRP 9.25. CBC with white cell count 22,000, platelets 403. The beta hydroxybutyrate was elevated. Initial assessment was diabetic ketoacidosis and question of temporal arteritis. I was contacted by Dr. Gaming today because he identified complete ocular motor palsy on the right side and has concern of the possibility of an infection in the right orbit apex. Currently, Mr. Greer is going for a CT scan. He has pain in the right side of face and orbital area, mostly when touched. He is completely blind in the right eye with not even light perception. No sore throat, odynophagia, dysphagia, or toothache. No neck pain. No cough or sputum production or chest pain, no abdominal pain or diarrhea. No genitourinary symptoms. No joint symptoms. PAST MEDICAL HISTORY: Colon cancer in remission after resection last year, hyperlipidemia, hypertension, type 2 diabetes, but now appears he is in DKA, so it will be a type 2 with exacerbation due to the acute infection, coronary artery disease and myocardial infarction x2, gastric ulcer, osteoarthritis, and a recent fall with a hairline fracture, orbital floor. PAST SURGICAL HISTORY: Includes right knee arthroplasty, appendectomy, hemicolectomy for management of colon cancer, shoulder repair. MEDICATIONS: Tylenol, Norvasc, Wellbutrin, Catapres, dextrose, Tricor, Flonase , glucagon, Mucinex, Apresoline, insulin, levofloxacin, methylprednisolone. ALLERGIES: MORPHINE SULFATE. FAMILY HISTORY: Hypertension, diabetes, coronary artery disease. SOCIAL HISTORY: , works in sales as a outside parts sales for [employer], never a smoker. PHYSICAL EXAMINATION: VITAL SIGNS: T-max 98.9, blood 140/74, pulse 56, respirations 18, O2 sat 96%. SKIN: Normal peripheral IV access. No lymphadenopathy. HEENT: Ocular movements show absence of ocular movements on the right side. Normal ocular movements in the left side. Right pupil is about 4 mm and fixed. Funduscopic exam shows sharp disks, some engorgement of the veins, little bit of cloudy posterior intraocular media. The left side is normal. Oral cavity normal, a little bit dry oral cavity. NECK: Supple. LUNGS: Symmetric clear breath sounds. HEART: S1, S2, regular rate. ABDOMEN: Soft, not distended or tender. No ascites. No bladder distention. No genital abnormalities. Pulses 2+ in dorsalis pedis. EXTREMITIES: Moves all extremities equally. NEUROLOGIC: Cognitive function appears to be intact. LABORATORY FINDINGS: White cell count of 20,000 and 19,000, hemoglobin 9.9, platelets 313, 88% neutrophils. Sodium 138, creatinine 1.61, which is improved from admission. The liver profile showed bilirubin 0.4. Transaminases and alkaline phosphatase normal. Lipase was 1341, glucose 464. The initial carbon dioxide was 9 and now is back to 26. MICROBIOLOGY: We have no microbiology sample submitted. IMAGING STUDIES: His abdomen and pelvis CT showed a central abdominal inflammatory fat stranding and ascites, probably from pancreatitis. Brain MRI, generalized parenchymal atrophy with dilation of the ventricular system compensatory, no infarct, mild increase in T2 signal right superior rectus muscle, no mass effect, prominent opacification of right maxillary sinus as well as right-sided ethmoid air cells. Fluid level present upon mucosal thickening of the sphenoid sinus, moderate right mastoid effusion. This was a noncontrast study. A brain CT, stable atrophy, chronic white matter change. ASSESSMENT AND PLAN: 1. Diabetes mellitus type 2, now with diabetic ketoacidosis probably from the acute infectious process. 2. Fall about 10 or 11 days to admission, right side. 3. 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 4. Pansinusitis with sphenoid sinusitis. 5. Leukocytosis. 6. Corticosteroid exposure. DISCUSSION: Differential diagnosis includes sphenoid sinusitis with extension into the right orbital apex with ocular motor palsy and blindness. The major etiologic agents typically involved in this presentation include fungal pathogens, particularly Rhizopus (mucormycosis), Aspergillus sp, as well as bacterial pathogens. Start amphotericin in the form of liposomal amphotericin plus micafungin and switch him to meropenem and vancomycin from levaquin. He will need ENT evaluation plus surgical debridement and cultures. Sometimes those patients require extensive debridement of the involved areas and may develop necrotizing features of the areas of involvement. This is naturally associated with high mortality rates if it is not treated promptly. SEVEN
[2017-12-10] MEDS ORDERED: Oxymetazoline HCl 0.05% ( 15 ML ) ONE (19:58)
[2017-12-10] MEDS ORDERED: Insulin Detemir 100 UNITS/ML 6 UNITS in Pre-Filled Syringe 1 EACH SC SCH (21:00)
[2017-12-10] MEDS ORDERED: Promethazine HCl 25 MG/ML VIAL SLOW IVP PRN (21:27)
[2017-12-10] MEDS ORDERED: Ondansetron HCl/PF 4 MG/2 ML Vial IVP PRN (21:27)
[2017-12-10] MEDS ORDERED: HYDROmorphone 2 MG/ML VIAL SLOW IVP PRN (21:27)
[2017-12-10] MEDS ORDERED: Promethazine HCl 25 MG/ML VIAL IM PRN (21:27)
[2017-12-10] MEDS ORDERED: Meropenem 1 GM in Sodium Chloride 0.9% 100 ML IVPB SCH (22:00)
--- NOTE | 2017-12-10 22:16 | CON ---
DATE OF CONSULTATION: 12/10/2017 Patient was seen in consultation by Dr. Gaming for evaluation of temporal arteritis. BRIEF HISTORY: This is a 66-year-old gentleman who was seen and treated for sinus infection last wee k, sometime during that time, he reported accidentally fallen and hitting his right temporal area his head. Since that time, he developed lateral rectus palsy on the right side, which now has developed into a full blood loss of vision and involvement of cranial nerves 2, 3, 4, 5, and 6. He reports hi s right forehead not moving since that episode is well, is markedly elevated ESR, which had concern f or temporal arteritis. Dr. Gaming has been on the case and observing his ophthalmologic status as w ell as Dr. Jb Cardenas has been evaluated for his neurological status. His previous CT scan, which confirmed paranasal sinus disease. PAST MEDICAL HISTORY: Hypertension. PAST SURGICAL HISTORY: No previous eye or nerve surgery. ALLERGIES: No known drug allergies. MEDICATIONS: IV LEVAQUIN, IV STEROIDS. PHYSICAL EXAMINATION: GENERAL: Patient is resting comfortably in bed. He has a right upper facial nerve paralysis on the right side, otherwise the lower facial nerve is symmetric and fully mobile bilaterally. Pupil is fix ed and dilated on the right side. HEENT: Extraocular muscles on the right side are immobile. There is no tension on the eye. His scl erae is healthy and the conjunctivae are healthy. Nasal cavity, no obvious polyps or debris. ORAL CAVITY AND OROPHARYNX: Very mild lateral pharyngeal banding. Tongue is soft fully mobile. Muc eva is intact. NECK: No lymphadenopathy or masses. EARS: TMs intact. Middle ears well aerated. FACE: There is tenderness on the right temporal artery area. PROCEDURE: At the bedside, risks, benefits, and alternatives were discussed with patient for tempora l artery biopsy. Patient was prepped with Betadine. A 1 mL of 1% lidocaine, 1:100,000 epinephrine w as injected overlying the temporal artery. Incision was made parallel with the hairline and it was c arried down through skin and subcutaneous tissue. The temporalis fascia was identified and temporal artery was identified. A 2 cm segment of this artery was then suture ligated, removed for biopsy and was sent for fresh analysis and taken directly into the path department. ASSESSMENT: 1. Multiple right cranial nerves neuropathies. 2. Paranasal sinus disease. There is possible concern for invasive fungal sinusitis. CT scan of th e sinus is going to be ordered urgently. We will follow up with him after completion of the CT scan of the sinuses. In the meantime, I will also await the pathology results for his right temporal russ ry biopsies.
[2017-12-10] MEDS: Fenofibrate Nanocrystallized 145 MG TAB PO SCH (22:20)
[2017-12-10] MEDS: Linezolid 600 MG in Premix Bag 1 BAG IVPB SCH (22:27)
[2017-12-10] MEDS: Pantoprazole 40 MG VIAL IVP SCH (22:28)
[2017-12-10] MEDS: Meropenem 1 GM in Sterile Water 20 ML SLOW IVP SCH (22:41)
[2017-12-11] MEDS: Acetaminophen/Codeine 30-300mg Tablet PO PRN ×4 (00:38→13:36)
[2017-12-11] MEDS ORDERED: Oxymetazoline HCl 0.05% ( 15 ML ) NASAL PRN (01:09)
[2017-12-11] MEDS: tiZANidine HCl 4 MG TAB PO PRN ×2 (02:26→17:02)
[2017-12-11] MEDS: Sodium Chloride 0.9% 1,000 ML IV SCH ×3 (02:31→20:22)
[2017-12-11 05:20] LABS: #Lymphocytes 1.1 thou/uL (1.20-3.40); #Monocytes 0.7 thou/uL (0.11-0.59); #Neutrophils 14.1 thou/uL (1.40-6.50); %Basophils 0.1 % (0.0-1.0); %Eosinophils 0.2 % (0.0-10.0); %Lymphocytes 6.9 % (21.0-51.0); %Monocytes 4.5 % (0.0-10.0); %Neutrophils 88.4 % (42.0-75.0); Hemoglobin 9.8 g/dL (14.0-18.0); Mean Corpuscular HGB CONC 32.8 g/dL (32.0-36.0); Mean Corpuscular Hemoglobin 31.4 pg (27.0-31.0); Mean Corpuscular Volume 95.8 fl (80.0-94.0); Mean Platelet Volume 8.6 fL (7.4-10.4); Platelet Count 277 thou/uL (130-400); RBC Distribution Width 12.4 % (11.5-14.5); Red Blood Cell (RBC) Count 3.11 mill/uL (4.70-6.10); White Blood Cell (WBC) Count 15.9 thou/uL (4.8-10.8)
[2017-12-11 05:43] LABS: Anion Gap 13 mmol/L (10-20); BUN (Urea Nitrogen) 26 mg/dL (8.4-25.7); Calc. Creatinine Clearance 56 mL/min (70-130); Calcium 8.6 mg/dL (7.8-10.44); Carbon Dioxide 23 mmol/L (23-31); Chloride 106 mmol/L (98-107); Estimated GFR-MDRD 55; Glucose 250 mg/dL (80-115); Potassium 4.1 mmol/L (3.5-5.1); Sodium 138 mmol/L (136-145)
[2017-12-11] MEDS: Meropenem 1 GM in Sterile Water 20 ML SLOW IVP SCH ×2 (07:15→13:37)
[2017-12-11] MEDS: Fluticasone Propionate Nasal Spray 16 gm Bottle NASAL SCH (09:26)
[2017-12-11] MEDS: Amlodipine 10 MG TAB PO SCH (09:26)
[2017-12-11] MEDS: Bupropion 150 MG XL TAB PO SCH (09:26)
[2017-12-11] MEDS: Linezolid 600 MG in Premix Bag 1 BAG IVPB SCH ×2 (09:27→20:27)
[2017-12-11] MEDS: Nebivolol HCl 5 MG TAB PO SCH (09:27)
[2017-12-11] MEDS: guaiFENesin ER 600 MG TAB PO SCH ×2 (09:27→20:25)
[2017-12-11] MEDS: Sodium Chloride 0.9% 1,000 ML TOP SCH ×5 (10:21→23:34)
--- NOTE | 2017-12-11 10:21 | PDOC.PN ---
- Subjective Encounter Start Date: 12/11/17 Encounter Start Time: 10:19 Mr. Greer was seen today in follow-up of DKA and acute pancreatitis. He says he feels a little less " bad" today than yesterday. He says his abdominal pain has improved, and he would like to try and eat something. - Objective Resuscitation Status: Resuscitation Status FULL:Full Resuscitation MAR Reviewed: Yes Vital Signs & Weight: Vital Signs (12 hours) Temp Pulse Resp BP Pulse Ox 12/11/17 09:26 60 12/11/17 08:00 98.2 F 60 20 12/11/17 07:36 98.2 F 60 20 138/60 98 12/11/17 04:00 98.4 F 61 18 146/65 H 98 12/11/17 00:00 98.9 F 60 18 156/66 H 99 Weight Weight 156 lb I&O: 12/10/17 12/11/17 12/12/17 06:59 06:59 06:59 Intake Total 4667 3030 Output Total 3175 2950 Balance 1492 80 Result Diagrams: 12/11/17 03:49 12/11/17 03:49 Additional Labs: Accuchecks 12/11/17 12/10/17 12/10/17 06:19 20:21 17:24 POC Glucose 222 H 224 H 172 H 12/10/17 11:21 POC Glucose 271 H Phys Exam - Physical Examination HEENT: PERRLA Respiratory: no wheezing, no rales, no rhonchi, clear to auscultation bilateral Cardiovascular: RRR, no significant murmur Gastrointestinal: soft, non-tender, no distention, positive bowel sounds Musculoskeletal: no edema Dx/Plan (1) DKA, type 2 Code(s): E11.10 - TYPE 2 DIABETES MELLITUS WITH KETOACIDOSIS WITHOUT COMA Status: Acute (2) Temporal arteritis Code(s): M31.6 - OTHER GIANT CELL ARTERITIS Status: Acute (3) Binew-rq-imhlzmm kidney injury Code(s): N17.9 - ACUTE KIDNEY FAILURE, UNSPECIFIED; N18.9 - CHRONIC KIDNEY DISEASE, UNSPECIFIED Status: Acute (4) HTN (hypertension) Code(s): I10 - ESSENTIAL (PRIMARY) HYPERTENSION Status: Chronic Qualifiers: Hypertension type: essential hypertension Qualified Code(s): I10 - Essential (primary) hypertension (5) Abdominal pain Code(s): R10.9 - UNSPECIFIED ABDOMINAL PAIN Status: Acute (6) Duodenitis Code(s): K29.80 - DUODENITIS WITHOUT BLEEDING Status: Acute (7) Acute pancreatitis Code(s): K85.90 - ACUTE PANCREATITIS WITHOUT NECROSIS OR INFECTION, UNSP Status: Acute Qualifiers: Pancreatitis type: idiopathic - Plan * Acute Pancreatitis- will advance diet to clear liquids * DKA- resolved- and will continue low dose Levemir, and SSI, and titrate as he is able to tolerate a more solid diet * Acute sinusitis- ENT as well as ID recommendations were noted- He went for urgent debridement of his sinus last night. He has been placed on Micafugin, Meropenem, Ambisome, and Zyvox by ID * Vision loss in the right eye- possible Temporal Arteritis- Continue High dose steroids and await biopsy results. * HTN- blood pressure is stable
[2017-12-11] MEDS: Sodium Chloride 0.9% 15 ML NEB NEB SCH ×3 (11:32→20:30)
[2017-12-11] MEDS: HumaLOG 300 UNITS/3 ML VIAL SC PRN ×2 (12:41→19:08)
--- NOTE | 2017-12-11 13:59 | PRG ---
DATE OF SERVICE: 12/11/2017 SUBJECTIVE: This is a 66-year-old gentleman being seen for acute kidney injury with improving creati nine. The patient denies any nausea, vomiting, or chest pain. PHYSICAL EXAMINATION: GENERAL: Patient is awake, alert. VITAL SIGNS: Afebrile, pulse 65, breathing 16, blood pressure 137/58. GENERAL APPEARANCE AND MENTAL STATUS: Fair. HEAD/NECK: Normocephalic. Atraumatic. EYES: EOMI. No deformity. EARS: Clear. No ulcers. NOSE: Intact. No lesions. MOUTH: Clear. No discharge. THROAT: Clear. No exudate. LUNGS: Clear. No crackles. CARDIAC: S1, S2. No rub. ABDOMEN: Benign. BS+. GENITALIA/RECTUM: Hooper absent. BACK/EXTREMITIES: Edema 0+ Ulcer-. NEUROLOGICAL: Alert and motor intact. SKIN: Rash- Bruise- LYMPHATICS: Edema- Ulcer-. LABORATORY DATA: Show hemoglobin 9.8, creatinine 1.3. RECOMMENDATIONS: 1. Acute kidney injury, resolved. 2. Hypertension, stable. 3. Anemia, stable. 4. Renal cysts. Follow up with Urology. I will sign off from this patient. Please reconsult as needed.
--- NOTE | 2017-12-11 14:14 | OP ---
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 PROCEDURES: 1. Bilateral endoscopic sinus surgery, total ethmoidectomies with removal of tissue on the right. 2. Bilateral endoscopic sinus surgery, maxillary antrostomies with removal of tissue on the right. 3. Bilateral frontal sinusotomies, endoscopic. 4. Bilateral endoscopic sinus surgery, sphenoidotomies with removal of tissue on the right. SURGEON: Omar Morel M.D. ESTIMATED BLOOD LOSS: 20 mL. COMPLICATIONS: None. ANESTHESIA: GETA. PROCEDURE IN DETAIL: The patient taken to the operating room and placed supine on the table. Genera l endotracheal anesthesia was obtained by the anesthesia staff. Tube was secured in the left lower l ip and placed in the beach chair position. Afrin pledgets were placed in the nasal cavity as the pat ient was prepped and draped in standard surgical fashion. Following that, 1% lidocaine with 1:100,00 0 epinephrine was injected into the inferior turbinates, middle turbinates, and lateral nasal wall bi laterally. Following this, the middle turbinates were then medialized with a Blackstone elevator. The un cinate process was identified and was anteriorly fractured using the ball-ended probe. The uncinate process was then removed using the straight microdebrider and straight Blakesley forceps bilaterally. Following this, the natural maxillary ostia was identified and was gently widened with a ball-ended probe. Tissue was then removed using the straight Blakesley forceps and the microdebrider. On the right side, there was noted to be necrotic tissue in the medial maxillary sinus wall. This was remov ed using a back biting forceps and a curved microdebrider removing the majority of the medial maxilla ry wall. There was atrophic mucosa present in the posterior wall; however, it did not appear to be n ecrotic. Following this, the ethmoidal bulla was identified bilaterally and was punctured on its med ial and inferior aspect with the microdebrider and was removed on the right side. The ethmoidal bull a along with the inferior portions of the ethmoidal cells appeared to have a necrotic mucosa and bone present. This was removed using upbiting Blakesley forceps and straight forceps. Following this, t he ground lamella was identified and was punctured into the posterior ethmoidal cells, and working fr om posterior to anterior the ethmoidal cells were opened using the microdebrider and Blakesley forcep s. The sphenoid ostia identified on the right side was noted to have purulent material from the sphe noid sinus and the posterior ethmoidal area. This was widened using the microdebrider. The entire p osterior ethmoidal cells were removed using straight Blakesley forceps and the straight microdebrider . The only remnant portion of necrotic mucosa and bone was on the right lateral wall of the sinus, w hich was unable to be safely surgically resected. The remainder of the mucosa of the sphenoid sinus was removed and large sphenoidotomies were created medially and anteriorly, clear of any necrotic bon e. These areas were sent for fungal stain, aerobic and fungal cultures as well as pathological giovani sis. Following this, the nasal cavity was irrigated. MeroPacks were placed within the middle meatus bilaterally.
[2017-12-11] MEDS: Ondansetron HCl/PF 4 MG/2 ML Vial IVP PRN (14:23)
[2017-12-11] MEDS: Lorazepam 0.5 MG TAB PO PRN (14:23)
[2017-12-11 15:54] LABS: Troponin I 0.018 ng/mL (< 0.028)
--- NOTE | 2017-12-11 16:15 | PRG ---
DATE OF SERVICE: 12/11/2017 SUBJECTIVE: Mr. Greer went to the OR for urgent debridement of his sinus last night. He has sta rted on some antifungal and his antibiotics were adjusted. He reports, he still has some epigastric bloating, abdominal discomfort, though it is a bit better today. No nausea or vomiting. He has not passed any bowel movements, but he is passing gas. He was advanced to a [facility] and he is tolerating this well. OBJECTIVE: VITAL SIGNS: Temperature 98.6, pulse 65, blood pressure 137/58, 100% oxygen saturation on room air. GENERAL: No acute distress. HEART: Regular rate and rhythm. LUNGS: Clear to auscultation bilaterally. ABDOMEN: Bowel sounds are present, soft, mild tenderness to palpation in the epigastrium, but no gua rding or rebound tenderness. EXTREMITIES: No peripheral edema. LABORATORY STUDIES: WBC down to 15.9, hemoglobin 9.8, platelets 277. Sodium 138, potassium 4.1, BUN 26, creatinine 1.3, glucose 217. ASSESSMENT AND PLAN: 1. Acute recurrent pancreatitis, clinically improving. 2. Diabetic ketoacidosis, resolved. 3. Sinusitis, severe. 4. Possible temporal arteritis. From a GI standpoint, the patient's pancreatitis seems to be clinically improving. Would remain on a clear liquid diet today, and if he is doing well tomorrow, consider advancing further as tolerated. No evidence of complications from his pancreatitis, without complication as well.
[2017-12-11] MEDS: Micafungin 100 MG in Sodium Chloride 0.9% 100 ML IVPB SCH (16:32)
[2017-12-11 19:00] LABS: Troponin I 0.012 ng/mL (< 0.028)
--- NOTE | 2017-12-11 19:59 | EKG ---
Test Reason : C/O CHEST PAIN Blood Pressure : / mmHG Vent. Rate : 074 BPM Atrial Rate : 074 BPM P-R Int : 122 ms QRS Dur : 094 ms QT Int : 388 ms P-R-T Axes : 062 048 256 degrees QTc Int : 430 ms Sinus rhythm with occasional Premature ventricular complexes Abnormal ECG When compared with ECG of 08-DEC-2017 20:50, (Unconfirmed) Premature ventricular complexes are now Present T wave inversion now evident in Lateral leads Confirmed by LUNA FELDMAN, DR. Trent ([id number]) on 12/11/2017 7:58:25 PM Referred By: SATHYA Confirmed By:DR. Miley CARRASCO MD
[2017-12-11] MEDS: Pantoprazole 40 MG VIAL IVP SCH (20:24)
[2017-12-11] MEDS: Fenofibrate Nanocrystallized 145 MG TAB PO SCH (20:25)
[2017-12-11] MEDS: Temazepam 15 MG CAP PO PRN (21:30)
[2017-12-11] MEDS: Insulin Detemir 100 UNITS/ML 10 UNITS in Pre-Filled Syringe 1 EACH SC SCH (21:30)
--- NOTE | 2017-12-11 22:08 | PRG ---
DATE OF SERVICE: 12/11/2017 BRIEF HISTORY: Patient is postoperative day #1, status post emergent endoscopic debridement of sinus es, nearly all tissue was removed, it was necrotic, pathology is still pending, they are anticipating the final report tomorrow, evaluate for fungal invasion. The patient's steroids have been stopped. His temporal arteritis has been ruled out. His sugars are much improved and his pancreatitis appear s to be improving as he was advanced on liquid diet today. He has had new movement in the right kishore orbital area, the muscles of the right forehead and right eyelid are now showing movement which was n ow present before. PHYSICAL EXAMINATION: HEENT: Nasal cavity slightly congested, no obvious purulence is noted. No bleeding. Extraocular mu scles on his right side still remain paralyzed. There is movement of the right eyelid. He is unable to completely open the eye; however, the right pupil still fixed, not responsive light. ASSESSMENT: Multiple right cranial nerves neuropathy secondary to a likely invasive fungal sinusitis . The patient's In status is now being reversed, his steroids have been stopped. He was also starte d on IV antifungals. At this point, it does not appear there is any progression of his fungal sinusi tis. PLAN: We recommend he continue IV fungals, stop steroids. We will continue close monitoring of this area. We will follow up with him tomorrow.
[2017-12-11] MEDS: WATER IVPB SCH ×2 (22:43)
[2017-12-11] MEDS: AMBISOME IVPB SCH ×2 (22:43)
[2017-12-11] MEDS: Admixture Fee 1 EACH in Dextrose 5% in Water 10 ML FS SCH ×2 (22:43)
[2017-12-11] MEDS: DEXTROSE 5% IVPB SCH ×2 (22:43)
[2017-12-12] MEDS: Acetaminophen/Codeine 30-300mg Tablet PO PRN ×2 (00:25→20:45)
[2017-12-12] MEDS: Meropenem 1 GM in Sterile Water 20 ML SLOW IVP SCH ×4 (00:26→23:29)
[2017-12-12] MEDS: Admixture Fee 1 EACH in Dextrose 5% in Water 10 ML FS SCH ×6 (01:58→20:46)
[2017-12-12] MEDS: tiZANidine HCl 4 MG TAB PO PRN (04:20)
[2017-12-12 04:52] LABS: Anion Gap 9 mmol/L (10-20); BUN (Urea Nitrogen) 22 mg/dL (8.4-25.7); Calc. Creatinine Clearance 52 mL/min (70-130); Calcium 8.4 mg/dL (7.8-10.44); Carbon Dioxide 24 mmol/L (23-31); Chloride 105 mmol/L (98-107); Estimated GFR-MDRD 50; Glucose 232 mg/dL (80-115); Potassium 3.7 mmol/L (3.5-5.1); Sodium 134 mmol/L (136-145)
[2017-12-12] MEDS: Sodium Chloride 0.9% 1,000 ML IV SCH ×3 (05:56→17:50)
[2017-12-12] MEDS ORDERED: Sodium Chloride 0.9% 300 ML IV SCH (06:30)
[2017-12-12] MEDS: HumaLOG 300 UNITS/3 ML VIAL SC PRN ×3 (07:29→17:03)
[2017-12-12] MEDS: guaiFENesin ER 600 MG TAB PO SCH ×2 (08:04→20:45)
[2017-12-12] MEDS: Bupropion 150 MG XL TAB PO SCH (08:05)
[2017-12-12] MEDS: Amlodipine 10 MG TAB PO SCH (08:06)
[2017-12-12] MEDS: Fluticasone Propionate Nasal Spray 16 gm Bottle NASAL SCH (08:06)
[2017-12-12] MEDS: Linezolid 600 MG in Premix Bag 1 BAG IVPB SCH ×2 (08:06→20:51)
[2017-12-12] MEDS: Nebivolol HCl 5 MG TAB PO SCH (08:06)
[2017-12-12] MEDS: Sodium Chloride 0.9% 15 ML NEB NEB SCH ×2 (08:07→10:23)
[2017-12-12] MEDS: Sodium Chloride 0.9% 1,000 ML TOP SCH ×2 (08:18→12:19)
[2017-12-12] MEDS ORDERED: Sodium Chloride 0.9% 1,000 ML IV SCH (09:45)
--- NOTE | 2017-12-12 10:49 | PDOC.PN ---
- Subjective Encounter Start Date: 12/12/17 Encounter Start Time: 10:43 Subjective: Seen and examined very hypotensive systolic in the 70's - Objective Resuscitation Status: Resuscitation Status FULL:Full Resuscitation Vital Signs & Weight: Vital Signs (12 hours) Temp Pulse Resp BP Pulse Ox 12/12/17 08:06 73 12/12/17 07:44 97.3 F L 73 18 92/55 L 95 12/12/17 07:34 74 16 94/54 L 97 12/12/17 06:47 74 14 91/59 L 97 12/12/17 06:15 72 14 89/51 L 93 L 12/12/17 04:51 99.0 F 90 16 117/65 91 L 12/12/17 00:00 98.3 F 91 16 130/67 92 L Weight Weight 156 lb I&O: 12/11/17 12/12/17 12/13/17 06:59 06:59 06:59 Intake Total 3030 4279 360 Output Total 2950 2100 Balance 80 2179 360 Result Diagrams: 12/11/17 03:49 12/12/17 04:06 Additional Labs: Accuchecks 12/12/17 12/12/17 12/11/17 05:39 04:18 20:30 POC Glucose 198 H 215 H 161 H 12/11/17 12/11/17 16:57 11:45 POC Glucose 208 H 217 H Phys Exam - Physical Examination Constitutional: NAD HEENT: PERRLA, sclera anicteric, TM's clear Neck: no nodes, no JVD, supple, full ROM Respiratory: no wheezing, no rales, no rhonchi, clear to auscultation bilateral Cardiovascular: RRR, no significant murmur, no rub Gastrointestinal: soft, non-tender, no distention, positive bowel sounds Dx/Plan (1) Hypotension Status: Acute (2) Sghig-mt-cananhh kidney injury Code(s): N17.9 - ACUTE KIDNEY FAILURE, UNSPECIFIED; N18.9 - CHRONIC KIDNEY DISEASE, UNSPECIFIED Status: Acute (3) Anxiety and depression Code(s): F41.9 - ANXIETY DISORDER, UNSPECIFIED; F32.9 - MAJOR DEPRESSIVE DISORDER, SINGLE EPISODE, UNSPECIFIED Status: Chronic (4) CKD (chronic kidney disease) stage 3, GFR 30-59 ml/min Code(s): N18.3 - CHRONIC KIDNEY DISEASE, STAGE 3 (MODERATE) Status: Chronic (5) DM type 2 (diabetes mellitus, type 2) Status: Chronic Qualifiers: Diabetes mellitus complication status: with kidney complications Diabetes mellitus complication detail: with chronic kidney disease Diabetes mellitus technician terminal and repeater insulin use: with technician terminal and repeater use Chronic kidney disease stage: stage 3 (moderate) Qualified Code(s): E11.22 - Type 2 diabetes mellitus with diabetic chronic kidney disease; N18.3 - Chronic kidney disease, stage 3 ( moderate); N18.3 - Chronic kidney disease, stage 3 (moderate); Z79.4 - technician terminal and repeater (current) use of insulin; Z79.4 - technician terminal and repeater (current) use of insulin; Z79.4 - technician terminal and repeater (current) use of insulin; Z79.4 - technician terminal and repeater (current) use of insulin (6) GERD (gastroesophageal reflux disease) Code(s): K21.9 - GASTRO-ESOPHAGEAL REFLUX DISEASE WITHOUT ESOPHAGITIS Status: Chronic (7) HTN (hypertension) Code(s): I10 - ESSENTIAL (PRIMARY) HYPERTENSION Status: Chronic Qualifiers: Hypertension type: essential hypertension Qualified Code(s): I10 - Essential (primary) hypertension (8) DKA, type 2 Code(s): E11.10 - TYPE 2 DIABETES MELLITUS WITH KETOACIDOSIS WITHOUT COMA Status: Acute - Plan plan discussed w/ family, san catheter, continue antibiotics, PT/OT, social work specialist, respiratory therapy Normal saline bolus -: check cortisol level -: D/c all Bp meds -: May need stress dose cortisol * .
--- NOTE | 2017-12-12 12:43 | PRG ---
DATE OF SERVICE: 12/12/2017 GI INPATIENT DAILY PROGRESS NOTE SUBJECTIVE: Mr. Greer has been a bit hypotensive through this morning with systolic blood pressu res in the 70s-90s. He has been tolerating his clear liquid diet pretty well. He reports no nausea or vomiting. Really, no abdominal pain either. His appetite is still poor. He has continued to pas s gas. OBJECTIVE: VITAL SIGNS: Temperature 97.3, pulse 73, blood pressure 97/55, 97% oxygen saturation on 2 liters evonne al cannula. GENERAL: No acute distress. HEART: Regular rate and rhythm. LUNGS: Clear to auscultation bilaterally. ABDOMEN: Soft and nontender to palpation. Bowel sounds present. EXTREMITIES: No peripheral edema. LABORATORY STUDIES: WBC down to 15.9, hemoglobin 9.8, platelets 277. Cortisol 11.8. ASSESSMENT AND PLAN: 1. Acute recurrent pancreatitis, clinically improving. 2. Diabetic ketoacidosis, resolved. 3. Sinusitis, severe. 4. Hypotension, likely at least some component of adrenal insufficiency given the recent discontinua tion of steroids. His pancreatitis seems to be continuing to improve. We will advance his diet to f ull liquid diet today. Continue with IV fluid resuscitation as needed. Dr. Ernst is covering for GI this weekend.
--- NOTE | 2017-12-12 13:01 | PRG ---
DATE OF SERVICE: 12/12/2017 SUBJECTIVE: The patient is about the same feeling a little weak, still with steady moderate headache s, particularly on the right side. No vision/light perception right eye, still unable to move the ri ght eye. No sore throat, odynophagia or dysphagia. No dyspnea or cough. No abdominal pain or chest pain. No genital symptoms. No joint symptoms. OBJECTIVE: VITAL SIGNS: T-max 99, is currently 97.3, BP 92/55, pulse 73, respirations 18 and O2 sat 97%. HEENT: Right orbit again with no movement, whatsoever. Sclerae are white. Pupil is fixed about 3.5 mm. The right temporal artery biopsy site appears normal. NECK: Supple. LUNGS: With symmetric clear breath sounds. HEART: S1 and S2, regular rate. ABDOMEN: Soft, not distended. EXTREMITIES: Moves all extremities equally. Cognitive function appears to be intact. LABORATORY DATA: White cell count 15.9, hemoglobin 9.8 and platelets 277. Sodium 134 and creatinine is up a bit to 1.41. The patient continues on amphotericin B liposomal product plus micafungin and broad-spectrum coverage. Cultures are still pending. I expect the cultures to be negative though if it turns out to be mucormycosis. ASSESSMENT AND DISCUSSION: Type 2 diabetes, progressive blindness, ophthalmoplegia right side comple te with ptosis, pansinusitis with necrotic features, status post debridement by Dr. Morel, diabetic ketoacidosis. 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 Continue current regimen, monitor potential complicati ons, particularly the renal insufficiency and hypokalemia, hypomagnesemia.
[2017-12-12] MEDS: Acetaminophen 500 MG TAB PO PRN (15:09)
[2017-12-12] MEDS: Sodium Chloride 0.9% 500 ML IVPB SCH (16:20)
[2017-12-12] MEDS: Micafungin 100 MG in Sodium Chloride 0.9% 100 ML IVPB SCH (16:20)
[2017-12-12] MEDS: Sodium Chloride 0.9% 15 ML NEB NASAL SCH ×2 (16:21→23:35)
[2017-12-12] MEDS: DEXTROSE 5% IVPB SCH ×2 (17:50)
[2017-12-12] MEDS: WATER IVPB SCH ×2 (17:50)
[2017-12-12] MEDS: AMBISOME IVPB SCH ×2 (17:50)
[2017-12-12] MEDS: Fenofibrate Nanocrystallized 145 MG TAB PO SCH (20:45)
[2017-12-12] MEDS: Pantoprazole 40 MG VIAL IVP SCH (20:51)
[2017-12-12] MEDS: Insulin Detemir 100 UNITS/ML 10 UNITS in Pre-Filled Syringe 1 EACH SC SCH (21:00)
[2017-12-12] MEDS ORDERED: traMADol HCl 50 MG TAB PO PRN (23:10)
[2017-12-13] MEDS: Temazepam 15 MG CAP PO PRN ×2 (02:22→21:35)
[2017-12-13] MEDS: Acetaminophen 500 MG TAB PO PRN (02:22)
[2017-12-13] MEDS: Sodium Chloride 0.9% 1,000 ML IV SCH ×3 (02:23→14:05)
[2017-12-13 05:35] LABS: Anion Gap 9 mmol/L (10-20); BUN (Urea Nitrogen) 21 mg/dL (8.4-25.7); Calc. Creatinine Clearance 59 mL/min (70-130); Calcium 8.2 mg/dL (7.8-10.44); Carbon Dioxide 19 mmol/L (23-31); Chloride 109 mmol/L (98-107); Estimated GFR-MDRD 53; Glucose 182 mg/dL (80-115); Magnesium 1.4 mg/dL (1.6-2.6); Potassium 3.4 mmol/L (3.5-5.1); Sodium 134 mmol/L (136-145)
[2017-12-13] MEDS: Meropenem 1 GM in Sterile Water 20 ML SLOW IVP SCH ×3 (06:13→23:21)
[2017-12-13] MEDS: HumaLOG 300 UNITS/3 ML VIAL SC PRN (06:19)
[2017-12-13] MEDS ORDERED: Ketorolac Tromethamine 60 MG/2 ML VIAL IVP SCH (06:45)
[2017-12-13] MEDS: Fluticasone Propionate Nasal Spray 16 gm Bottle NASAL SCH (08:31)
[2017-12-13] MEDS: Bupropion 150 MG XL TAB PO SCH (08:31)
[2017-12-13] MEDS: Linezolid 600 MG in Premix Bag 1 BAG IVPB SCH ×2 (08:32→21:38)
[2017-12-13] MEDS: Nebivolol HCl 5 MG TAB PO SCH (08:32)
[2017-12-13] MEDS: Sodium Chloride 0.9% 15 ML NEB NASAL SCH ×4 (08:32→21:38)
[2017-12-13] MEDS: guaiFENesin ER 600 MG TAB PO SCH ×2 (08:35→21:35)
--- NOTE | 2017-12-13 11:59 | CON ---
DATE OF SERVICE: 12/13/2017 SUBJECTIVE: The patient is doing fairly well. Physical Therapy has come by and now the patient is a ble to ambulate across the room and back, otherwise eye movement remains stable. There is some nichol nal movement of upper facial nerve branch on the right side. No extraocular muscles movement or visi on at this point. 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 OBJECTIVE: VITAL SIGNS: Stable, afebrile. GENERAL: Unchanged, right eyelid still remaining closed. He does show some twitching of the supraor bital and infraorbital muscles. The right globe is fixed, not responsive to light. Nasal cavity wit h some crusting and debris from his recent surgery, anterior rhinoscopy was performed at the bedside which shows a fairly viable tissue in the visualized portions of the sinuses, no obvious pale mucosa or necrotic debris is seen. There is some fresh red blood consistent with postoperative changes aft er regular endoscopic sinus surgery. ASSESSMENT: Invasive acute fungal sinusitis with cranial nerve involvement. PLAN: At this point, surgical debridement has been performed to its fullness extent. I see no new n ecrotic tissue at the maxillary sinus area. The only residual area of concern was the right lateral sphenoid sinus wall which would be surgically unresectable. Dr. Caal is on board and is helping wit h IV antifungals. His DKA status has been reversed and blood sugars remained blood 200. We will continue to observe for any necessary surgical debridement, otherwise continued IV antifungal s and care by the medical team and Infectious Disease team.
--- NOTE | 2017-12-13 12:50 | PDOC.PN ---
- Subjective Encounter Start Date: 12/13/17 Encounter Start Time: 12:48 Subjective: Seen and examined seems to be feeling a little bit better - Objective Resuscitation Status: Resuscitation Status FULL:Full Resuscitation Vital Signs & Weight: Vital Signs (12 hours) Temp Pulse Resp BP BP Pulse Ox 12/13/17 12:40 97.6 F 73 20 102/63 95 12/13/17 07:41 97.8 F 77 18 96 12/13/17 07:34 97.8 F 77 18 128/70 96 12/13/17 04:00 79 18 132/70 98 Weight Weight 170 lb 6.4 oz I&O: 12/12/17 12/13/17 12/14/17 06:59 06:59 06:59 Intake Total 4279 6440 480 Output Total 2100 2160 Balance 2179 4280 480 Result Diagrams: 12/11/17 03:49 12/13/17 05:01 Additional Labs: Accuchecks 12/13/17 12/13/17 12/12/17 10:52 06:19 21:00 POC Glucose 157 H 175 H 249 H 12/12/17 16:41 POC Glucose 180 H Phys Exam - Physical Examination Constitutional: NAD HEENT: PERRLA, sclera anicteric, TM's clear Neck: no nodes, no JVD, supple, full ROM Respiratory: no wheezing, no rales, no rhonchi, clear to auscultation bilateral Cardiovascular: RRR, no significant murmur, no rub Gastrointestinal: soft, non-tender, no distention, positive bowel sounds Musculoskeletal: no edema, pulses present Dx/Plan (1) Hypotension Status: Acute (2) [id number] kidney injury Code(s): N17.9 - ACUTE KIDNEY FAILURE, UNSPECIFIED; N18.9 - CHRONIC KIDNEY DISEASE, UNSPECIFIED Status: Acute (3) Anxiety and depression Code(s): F41.9 - ANXIETY DISORDER, UNSPECIFIED; F32.9 - MAJOR DEPRESSIVE DISORDER, SINGLE EPISODE, UNSPECIFIED Status: Chronic (4) CKD (chronic kidney disease) stage 3, GFR 30-59 ml/min Code(s): N18.3 - CHRONIC KIDNEY DISEASE, STAGE 3 (MODERATE) Status: Chronic (5) DM type 2 (diabetes mellitus, type 2) Status: Chronic Qualifiers: Diabetes mellitus complication status: with kidney complications Diabetes mellitus complication detail: with chronic kidney disease Diabetes mellitus termite renewal inspector insulin use: with termite renewal inspector use Chronic kidney disease stage: stage 3 (moderate) Qualified Code(s): E11.22 - Type 2 diabetes mellitus with diabetic chronic kidney disease; N18.3 - Chronic kidney disease, stage 3 ( moderate); N18.3 - Chronic kidney disease, stage 3 (moderate); Z79.4 - [facility] (current) use of insulin; Z79.4 - watermaster (current) use of insulin; Z79.4 - [facility] (current) use of insulin; Z79.4 - watermaster (current) use of insulin (6) GERD (gastroesophageal reflux disease) Code(s): K21.9 - GASTRO-ESOPHAGEAL REFLUX DISEASE WITHOUT ESOPHAGITIS Status: Chronic (7) HTN (hypertension) Code(s): I10 - ESSENTIAL (PRIMARY) HYPERTENSION Status: Chronic Qualifiers: Hypertension type: essential hypertension Qualified Code(s): I10 - Essential (primary) hypertension (8) DKA, type 2 Code(s): E11.10 - TYPE 2 DIABETES MELLITUS WITH KETOACIDOSIS WITHOUT COMA Status: Acute (9) Acute fungal sinusitis Code(s): J01.90 - ACUTE SINUSITIS, UNSPECIFIED; B49 - UNSPECIFIED MYCOSIS Status: Acute - Plan plan discussed w/ family, san catheter, continue antibiotics, PT/OT, social work program coordinator, respiratory therapy Appreciate ENT and ID input -: Continue antifungal per Dr Caal * .
[2017-12-13] MEDS ORDERED: AMBISOME IVPB SCH ×2 (13:00)
[2017-12-13] MEDS ORDERED: DEXTROSE 5% IVPB SCH ×2 (13:00)
[2017-12-13] MEDS ORDERED: WATER IVPB SCH ×2 (13:00)
[2017-12-13] MEDS ORDERED: Potassium Chloride 20 MEQ TAB PO SCH (13:15)
[2017-12-13] MEDS: Potassium Chloride 20 MEQ TAB PO SCH (16:31)
[2017-12-13] MEDS: Acetaminophen/Codeine 30-300mg Tablet PO PRN (16:31)
[2017-12-13] MEDS: Micafungin 100 MG in Sodium Chloride 0.9% 100 ML IVPB SCH (16:32)
[2017-12-13] MEDS: Sodium Chloride 0.9% 500 ML IVPB SCH (16:32)
[2017-12-13] MEDS: DEXTROSE 5% IVPB SCH ×2 (17:57)
[2017-12-13] MEDS: AMBISOME IVPB SCH ×2 (17:57)
[2017-12-13] MEDS: WATER IVPB SCH ×2 (17:57)
[2017-12-13] MEDS: Admixture Fee 1 EACH in Dextrose 5% in Water 10 ML FS SCH ×4 (17:58→21:35)
--- NOTE | 2017-12-13 18:04 | PRG ---
DATE OF SERVICE: 12/13/2017 SUBJECTIVE: Mr. Greer is feeling better. He had potato soup this morning and like that his stom ach pain is much better. He thinks his pancreatitis has resolved. PHYSICAL EXAMINATION: VITAL SIGNS: Temperature is 97, pulse 73, blood pressure 130/67. ABDOMEN: Soft and nontender. LABORATORY DATA: No CBC since . Today, sodium is 134, potassium 3.4, BUN and creatinine are 21 and 1.35. Magnesium was 1.4. Lipase was last checked on 12/10/2017 it was 1341. Liver tests were l ast checked on the and were normal. ASSESSMENT: 1. Pancreatitis of unclear etiology. This seems to be improving. History of diabetic ketoacidosis, resolved. 2. Sinusitis severe fungal, requiring surgery. 3. Hypertension, likely component of adrenal insufficiency. PLAN: We will advance diet to low fat. He has tolerated liquids. We will check lipase again tomorr ow as well as electrolytes and CBC.
[2017-12-13] MEDS: Fenofibrate Nanocrystallized 145 MG TAB PO SCH (21:35)
[2017-12-13] MEDS: Pantoprazole 40 MG VIAL IVP SCH (21:35)
[2017-12-13] MEDS: Insulin Detemir 100 UNITS/ML 10 UNITS in Pre-Filled Syringe 1 EACH SC SCH (21:45)
[2017-12-13] MEDS ORDERED: traMADol HCl 50 MG TAB PO PRN (23:01)
[2017-12-13] MEDS ORDERED: HYDROcodone/Acetaminophen 5/325 mg Tablet PO PRN (23:02)
[2017-12-14] MEDS: Acetaminophen/Codeine 30-300mg Tablet PO PRN ×3 (01:53→22:24)
[2017-12-14 04:38] LABS: Anion Gap 12 mmol/L (10-20); BUN (Urea Nitrogen) 18 mg/dL (8.4-25.7); Calc. Creatinine Clearance 60 mL/min (70-130); Calcium 8.8 mg/dL (7.8-10.44); Carbon Dioxide 20 mmol/L (23-31); Chloride 107 mmol/L (98-107); Estimated GFR-MDRD 54; Glucose 167 mg/dL (80-115); Lipase 118 U/L (8-78); Potassium 4.1 mmol/L (3.5-5.1); Sodium 135 mmol/L (136-145)
[2017-12-14 05:09] LABS: Band 5 % (5-11); Eosinophils 1 % (0-10); Hemoglobin 9.7 g/dL (14.0-18.0); Lymphocytes 11 % (21-51); MDiff Complete? YES; Mean Corpuscular HGB CONC 31.6 g/dL (32.0-36.0); Mean Corpuscular Hemoglobin 30.1 pg (27.0-31.0); Mean Corpuscular Volume 95.4 fl (80.0-94.0); Mean Platelet Volume 8.8 fL (7.4-10.4); Monocytes 2 % (0-10); Neutrophil 81 % (42-75); Platelet Count 248 thou/uL (130-400); RBC Distribution Width 12.4 % (11.5-14.5)
[2017-12-14] MEDS: Sodium Chloride 0.9% 1,000 ML IV SCH (05:34)
[2017-12-14] MEDS: Meropenem 1 GM in Sterile Water 20 ML SLOW IVP SCH (05:35)
[2017-12-14] MEDS: Bupropion 150 MG XL TAB PO SCH (08:51)
[2017-12-14] MEDS: Linezolid 600 MG in Premix Bag 1 BAG IVPB SCH ×2 (08:52→22:25)
[2017-12-14] MEDS: Nebivolol HCl 5 MG TAB PO SCH (08:52)
[2017-12-14] MEDS: Magnesium Oxide 400 MG TAB PO SCH (08:52)
[2017-12-14] MEDS: Potassium Chloride 20 MEQ TAB PO SCH ×2 (08:52→17:28)
[2017-12-14] MEDS: guaiFENesin ER 600 MG TAB PO SCH ×2 (08:52→21:09)
[2017-12-14] MEDS: Fluticasone Propionate Nasal Spray 16 gm Bottle NASAL SCH (08:56)
[2017-12-14] MEDS: Sodium Chloride 0.9% 15 ML NEB NASAL SCH ×4 (08:56→23:07)
--- NOTE | 2017-12-14 09:02 | PDOC.PN ---
- Subjective Encounter Start Date: 12/14/17 Encounter Start Time: 09:01 Subjective: Seen and examined c/o constipation - Objective Resuscitation Status: Resuscitation Status FULL:Full Resuscitation Vital Signs & Weight: Vital Signs (12 hours) Temp Pulse Resp BP Pulse Ox 12/14/17 04:01 95 18 138/73 95 12/14/17 00:01 98 F 98 16 143/80 H 94 L Weight Weight 168 lb 14.4 oz I&O: 12/13/17 12/14/17 12/15/17 06:59 06:59 06:59 Intake Total 6440 2770 Output Total 2160 1270 Balance 4280 1500 Result Diagrams: 12/14/17 04:08 12/14/17 03:30 Additional Labs: Accuchecks 12/14/17 12/13/17 12/13/17 05:41 21:46 17:17 POC Glucose 148 H 229 H 144 H 12/13/17 10:52 POC Glucose 157 H Phys Exam - Physical Examination Constitutional: NAD HEENT: PERRLA, moist MMs, sclera anicteric, TM's clear, oral pharynx no lesions Neck: no nodes, no JVD, supple, full ROM Respiratory: no wheezing, no rales, no rhonchi Cardiovascular: RRR, no significant murmur, no rub Gastrointestinal: soft, non-tender, positive bowel sounds Musculoskeletal: pulses present, edema present Neurological: non-focal, normal sensation, moves all 4 limbs Dx/Plan (1) Hypotension Status: Acute (2) Jcrzv-pu-ikjsrrm kidney injury Code(s): N17.9 - ACUTE KIDNEY FAILURE, UNSPECIFIED; N18.9 - CHRONIC KIDNEY DISEASE, UNSPECIFIED Status: Acute (3) Anxiety and depression Code(s): F41.9 - ANXIETY DISORDER, UNSPECIFIED; F32.9 - MAJOR DEPRESSIVE DISORDER, SINGLE EPISODE, UNSPECIFIED Status: Chronic (4) CKD (chronic kidney disease) stage 3, GFR 30-59 ml/min Code(s): N18.3 - CHRONIC KIDNEY DISEASE, STAGE 3 (MODERATE) Status: Chronic (5) DM type 2 (diabetes mellitus, type 2) Status: Chronic Qualifiers: Diabetes mellitus complication status: with kidney complications Diabetes mellitus complication detail: with chronic kidney disease Diabetes mellitus local company intermodal truck driver insulin use: with intermediate use Chronic kidney disease stage: stage 3 (moderate) Qualified Code(s): E11.22 - Type 2 diabetes mellitus with diabetic chronic kidney disease; N18.3 - Chronic kidney disease, stage 3 ( moderate); N18.3 - Chronic kidney disease, stage 3 (moderate); Z79.4 - petroleum terminal plant operator (current) use of insulin; Z79.4 - nursing home (current) use of insulin; Z79.4 - petroleum terminal plant operator (current) use of insulin; Z79.4 - nursing home (current) use of insulin (6) GERD (gastroesophageal reflux disease) Code(s): K21.9 - GASTRO-ESOPHAGEAL REFLUX DISEASE WITHOUT ESOPHAGITIS Status: Chronic (7) HTN (hypertension) Code(s): I10 - ESSENTIAL (PRIMARY) HYPERTENSION Status: Chronic Qualifiers: Hypertension type: essential hypertension Qualified Code(s): I10 - Essential (primary) hypertension (8) DKA, type 2 Code(s): E11.10 - TYPE 2 DIABETES MELLITUS WITH KETOACIDOSIS WITHOUT COMA Status: Acute (9) Acute fungal sinusitis Code(s): J01.90 - ACUTE SINUSITIS, UNSPECIFIED; B49 - UNSPECIFIED MYCOSIS Status: Acute - Plan plan discussed w/ family, san catheter, PT/OT, high school social science teacher Gradaually advancing diet -: D/c IVF -: Magcitrate 300mls x1 * .
[2017-12-14] MEDS ORDERED: Magnesium Citrate 300 ML BOT PO SCH (09:30)
[2017-12-14] MEDS ORDERED: Simethicone Chewable 80 MG TAB PO PRN (12:14)
--- NOTE | 2017-12-14 16:27 | PRG ---
DATE OF SERVICE: 12/14/2017 SUBJECTIVE: Awake, alert, oriented, having still headaches, lower back pain. He feels that perception of dryness of the right side of his lips and mouth, which makes a little hard to swallow crackers for example. No chest pain, dyspnea or abdominal pain. Constipated, voiding without difficulty. OBJECTIVE: VITAL SIGNS: T-max 98.2, BP 160/69, pulse 98, respirations 20, O2 sat 98%. GENERAL: Appears in no distress. Right eye again with no eye movements. Pupils still fixed, not moving. The upper eyelid is moving well, but is not able to open the eyelid or lift to expose the orbit. Oral cavity did not appear particularly dry. NECK: Supple. LUNGS: Clear to auscultation and percussion. HEART: Normal. ABDOMEN: Soft, not distended. EXTREMITIES: Moving all extremities equally. LABORATORY DATA: White cell count is 19,000, hemoglobin 9.7, platelets 248 with 81% neutrophils and sodium 135, creatinine 1.33, which is stable, a little bit less than previous. Magnesium was low, but is probably improving, now on replacement. The pathology showed findings that are consistent with mucormycosis. There was MRSA related from the sinus cultures. 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 Methicillin-resistant Staphylococcus aureus was isolated too. The patient to continue on AmBisome, the dose has been increased to 7.5 mg/kg daily and micafungin to be continued. Vancomycin will be continued. Meropenem has been discontinued. Once disease is controlled, we could step down to either posaconazole or isavuconazole as a step-down therapy to allow oral treatment for discharge planning. [facility]
--- NOTE | 2017-12-14 16:36 | PRG ---
DATE OF SERVICE: 12/14/2017 SUBJECTIVE: Mr. Greer today notes that he has had some discomfort in his left upper quadrant aft er eating. He does not feel like this is typical pancreatitis. He felt like he needed to have a bow el movement earlier, but could not. He was started on some hydrocodone yesterday, but this has been discontinued. His IV fluids were stopped yesterday and he was started on some mag citrate today for possible constipation. He reports his last bowel movement was on the . OBJECTIVE: VITAL SIGNS: Temperature is 98, pulse 98, blood pressure 160/69. GENERAL: Patient is sitting up and trying to brush his teeth. His notes that his mouth is dry on the right side. He has good secretions in the left, but has a difficult time swallowing dry foods . ABDOMEN: Slightly protuberant. There is no rebound. There is no guarding. LABORATORY DATA: Sodium 135, potassium 4.1, BUN and creatinine are 18 and 1.33. Lipase is 118 today . White count 19,000, hemoglobin 9.7, platelet count 254, 81 segs. ASSESSMENT: 1. Pancreatitis, resolved. 2. Constipation. 3. Ongoing leukocytosis of unclear etiology, possibly related to acute fungal sinusitis. 4. Diabetes type 2, recent DKA resolved. 5. Hypertension, improved. 6. Reflux. RECOMMENDATINOS: With abdominal pain, I have asked the nurse to give him suppository for his constipation if the mag c itrate does not work. The patient is going to back off to a liquid diet. Nurse placed him on to Ens ure Clear for nutrition. We will continue Protonix. If he is not eating, we will need to restart IV fluids. I have discussed this with the nurse.
[2017-12-14] MEDS: Micafungin 100 MG in Sodium Chloride 0.9% 100 ML IVPB SCH (17:27)
[2017-12-14] MEDS: Sodium Chloride 0.9% 500 ML IVPB SCH (17:29)
[2017-12-14] MEDS: HumaLOG 300 UNITS/3 ML VIAL SC PRN ×2 (18:43→21:08)
[2017-12-14] MEDS: Admixture Fee 1 EACH in Dextrose 5% in Water 10 ML FS SCH ×4 (19:07→22:23)
[2017-12-14] MEDS: AMBISOME IVPB SCH ×2 (19:07)
[2017-12-14] MEDS: DEXTROSE 5% IVPB SCH ×2 (19:07)
[2017-12-14] MEDS: WATER IVPB SCH ×2 (19:07)
[2017-12-14] MEDS: Insulin Detemir 100 UNITS/ML 10 UNITS in Pre-Filled Syringe 1 EACH SC SCH (21:06)
[2017-12-14] MEDS: Fenofibrate Nanocrystallized 145 MG TAB PO SCH (21:09)
[2017-12-14] MEDS: Temazepam 15 MG CAP PO PRN (21:15)
[2017-12-14] MEDS: Pantoprazole 40 MG VIAL IVP SCH (22:24)
[2017-12-15 04:46] LABS: Anion Gap 10 mmol/L (10-20); BUN (Urea Nitrogen) 17 mg/dL (8.4-25.7); Calc. Creatinine Clearance 62 mL/min (70-130); Calcium 8.9 mg/dL (7.8-10.44); Carbon Dioxide 22 mmol/L (23-31); Chloride 107 mmol/L (98-107); Estimated GFR-MDRD 57; Glucose 178 mg/dL (80-115); Potassium 4.2 mmol/L (3.5-5.1); Sodium 135 mmol/L (136-145)
[2017-12-15] MEDS: Bupropion 150 MG XL TAB PO SCH (08:50)
[2017-12-15] MEDS: Potassium Chloride 20 MEQ TAB PO SCH ×2 (08:50→17:15)
[2017-12-15] MEDS: Magnesium Oxide 400 MG TAB PO SCH (08:51)
[2017-12-15] MEDS: guaiFENesin ER 600 MG TAB PO SCH ×2 (08:51→21:36)
[2017-12-15] MEDS: Nebivolol HCl 5 MG TAB PO SCH (08:51)
[2017-12-15] MEDS: Fluticasone Propionate Nasal Spray 16 gm Bottle NASAL SCH (08:51)
[2017-12-15] MEDS: Linezolid 600 MG in Premix Bag 1 BAG IVPB SCH ×2 (08:51→21:54)
[2017-12-15] MEDS: Sodium Chloride 0.9% 15 ML NEB NASAL SCH ×3 (08:52→22:50)
[2017-12-15 09:10] LABS: Fungus Stain Final report (.)
[2017-12-15] MEDS: Acetaminophen/Codeine 30-300mg Tablet PO PRN ×2 (10:37→21:35)
[2017-12-15] MEDS: HumaLOG 300 UNITS/3 ML VIAL SC PRN (10:41)
--- NOTE | 2017-12-15 13:18 | PRG ---
DATE OF SERVICE: 12/15/2017 SUBJECTIVE: Mr. Greer had a large bowel movement last night, and with that he had resolution of his abdominal pain. He has had no recurrence of pain today. No nausea or vomiting. He has gone ailyn k to a low-fat diet and is tolerating this well. He is eating macaroni and cheese and potato soup an d feeling good. OBJECTIVE: VITAL SIGNS: Temperature 99.0, pulse 83, blood pressure 138/61, 98% oxygen saturation on room air. GENERAL: In no acute distress. HEART: Regular rate and rhythm. LUNGS: Clear to auscultation bilaterally. ABDOMEN: Nondistended, bowel sounds present, soft and nontender to palpation. EXTREMITIES: No peripheral edema. LABORATORY STUDIES: Sodium 135, potassium 4.2, BUN 17, creatinine 1.26, glucose 199, WBC 19, hemoglo bin 9.7, platelets 248. Lipase rechecked yesterday was down to 118. ASSESSMENT AND PLAN: 1. Acute recurrent pancreatitis, resolved. 2. Constipation, improved. The patient's pancreatitis seems to have clinically resolved. Abdominal pain yesterday was likely fr om acute constipation to which he has responded well to laxatives. Continue with his low-fat diet. Gastrointestinal will sign off at this time, but please call back any time with questions or concerns .
--- NOTE | 2017-12-15 13:35 | PRG ---
DATE OF SERVICE: 12/15/2017 The patient is getting ready to eat lunch. He is awake and oriented. Still with some headaches. The eye symptoms are the same on the right side, still with that sensation of dryness and numbness in the right side of his mouth. No chest symptoms. No abdominal pain. Voiding without difficulty. PHYSICAL EXAMINATION: VITAL SIGNS: T-max 99, blood pressure 130/60, pulse 83, respirations 17-19, O2 sat 98%. HEENT: The right eye is unchanged from previous findings. LUNGS: Lungs are clear. CARDIOVASCULAR: S1, S2, regular rate. ABDOMEN: Soft and not distended. EXTREMITIES: Moves all extremities equally. LABORATORY: Labs are from yesterday. White cell count 19,000. Chemistry from today with improvement in creatinine to 1.26, potassium is 4.2 still. 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 The patient will continue on AmBisome dose increased to 7.5 mg/kg and micafungin. Vancomycin will be continued as well. Eventual transition to a step down therapy with oral antifungals such as posaconazole or is isavuconazole. [facility]TD[facility]
--- NOTE | 2017-12-15 13:54 | PDOC.PN ---
- Subjective Encounter Start Date: 12/15/17 Encounter Start Time: 14:00 Subjective: No more abdominal pain since bowel movement. Taking food well. - Objective Resuscitation Status: Resuscitation Status FULL:Full Resuscitation MAR Reviewed: Yes Vital Signs & Weight: Vital Signs (12 hours) Temp Pulse Resp BP Pulse Ox 12/15/17 11:25 99.0 F 83 17 138/61 98 12/15/17 08:00 97.6 F 85 19 98 12/15/17 07:32 97.6 F 85 19 145/97 H 98 12/15/17 04:00 86 18 144/74 H 96 12/15/17 02:30 81 18 131/67 95 Weight Weight 168 lb 14.4 oz I&O: 12/14/17 12/15/17 12/16/17 06:59 06:59 06:59 Intake Total 2770 480 Output Total 1270 2250 Balance 1500 -1770 Result Diagrams: 12/14/17 04:08 12/15/17 03:50 Additional Labs: Accuchecks 12/15/17 12/15/17 12/14/17 10:41 05:59 21:07 POC Glucose 199 H 154 H 274 H 12/14/17 17:16 POC Glucose 213 H Phys Exam - Physical Examination Constitutional: NAD HEENT: moist MMs Right eye remains closed, some movement of surrounding facial muscles Respiratory: no wheezing, no rales, no rhonchi Cardiovascular: RRR, no significant murmur Gastrointestinal: soft, positive bowel sounds mild TTP PEREZ, no guarding or masses Neurological: moves all 4 limbs Psychiatric: normal affect, A&O x 3 Dx/Plan (1) Acute fungal sinusitis Code(s): J01.90 - ACUTE SINUSITIS, UNSPECIFIED; B49 - UNSPECIFIED MYCOSIS Status: Acute Comment: Mucormycosis, on IV antifungals (2) Acute pancreatitis Code(s): K85.90 - ACUTE PANCREATITIS WITHOUT NECROSIS OR INFECTION, UNSP Status: Resolved Qualifiers: Pancreatitis type: idiopathic (3) Jhner-ny-zehaszf kidney injury Code(s): N17.9 - ACUTE KIDNEY FAILURE, UNSPECIFIED; N18.9 - CHRONIC KIDNEY DISEASE, UNSPECIFIED Status: Acute Qualifiers: Chronic kidney disease stage: stage 3 (moderate) (4) DM type 2 (diabetes mellitus, type 2) Status: Chronic Qualifiers: Diabetes mellitus complication status: with kidney complications Diabetes mellitus complication detail: with chronic kidney disease Diabetes mellitus intermediate card tender insulin use: with intermediate card tender use Chronic kidney disease stage: stage 3 (moderate) Qualified Code(s): E11.22 - Type 2 diabetes mellitus with diabetic chronic kidney disease; N18.3 - Chronic kidney disease, stage 3 ( moderate); N18.3 - Chronic kidney disease, stage 3 (moderate); Z79.4 - termite technician (current) use of insulin; Z79.4 - termite technician (current) use of insulin; Z79.4 - termite technician (current) use of insulin; Z79.4 - termite technician (current) use of insulin (5) Dyslipidemia Code(s): E78.5 - HYPERLIPIDEMIA, UNSPECIFIED Status: Chronic (6) HTN (hypertension) Code(s): I10 - ESSENTIAL (PRIMARY) HYPERTENSION Status: Chronic Qualifiers: Hypertension type: essential hypertension Qualified Code(s): I10 - Essential (primary) hypertension - Plan cont current plan of care, continue antibiotics * . - Discharge Day Encounter end time: 14:20
[2017-12-15] MEDS: Sodium Chloride 0.9% 500 ML IVPB SCH (16:05)
[2017-12-15] MEDS: Micafungin 100 MG in Sodium Chloride 0.9% 100 ML IVPB SCH (17:15)
[2017-12-15] MEDS: WATER IVPB SCH ×2 (18:09)
[2017-12-15] MEDS: AMBISOME IVPB SCH ×2 (18:09)
[2017-12-15] MEDS: Admixture Fee 1 EACH in Dextrose 5% in Water 10 ML FS SCH ×4 (18:09→21:37)
[2017-12-15] MEDS: DEXTROSE 5% IVPB SCH ×2 (18:09)
[2017-12-15] MEDS: Temazepam 15 MG CAP PO PRN (21:36)
[2017-12-15] MEDS: Fenofibrate Nanocrystallized 145 MG TAB PO SCH (21:36)
[2017-12-15] MEDS: Insulin Detemir 100 UNITS/ML 10 UNITS in Pre-Filled Syringe 1 EACH SC SCH (21:38)
[2017-12-15] MEDS: Pantoprazole 40 MG VIAL IVP SCH (21:51)
[2017-12-16] MEDS: Acetaminophen/Codeine 30-300mg Tablet PO PRN ×4 (03:07→21:43)
[2017-12-16 05:02] LABS: Anion Gap 14 mmol/L (10-20); BUN (Urea Nitrogen) 17 mg/dL (8.4-25.7); Calc. Creatinine Clearance 54 mL/min (70-130); Calcium 8.8 mg/dL (7.8-10.44); Carbon Dioxide 20 mmol/L (23-31); Chloride 104 mmol/L (98-107); Estimated GFR-MDRD 49; Glucose 189 mg/dL (80-115); Potassium 4.8 mmol/L (3.5-5.1); Sodium 133 mmol/L (136-145)
[2017-12-16] MEDS: Potassium Chloride 20 MEQ TAB PO SCH ×2 (08:51→17:33)
[2017-12-16] MEDS: guaiFENesin ER 600 MG TAB PO SCH ×2 (08:52→20:59)
[2017-12-16] MEDS: Magnesium Oxide 400 MG TAB PO SCH (08:52)
[2017-12-16] MEDS: Nebivolol HCl 5 MG TAB PO SCH (08:52)
[2017-12-16] MEDS: Bupropion 150 MG XL TAB PO SCH (08:52)
[2017-12-16] MEDS: Fluticasone Propionate Nasal Spray 16 gm Bottle NASAL SCH (08:53)
[2017-12-16] MEDS: Linezolid 600 MG in Premix Bag 1 BAG IVPB SCH ×2 (08:59→22:11)
[2017-12-16] MEDS: Sodium Chloride 0.9% 15 ML NEB NASAL SCH ×4 (09:03→22:14)
[2017-12-16] MEDS: HumaLOG 300 UNITS/3 ML VIAL SC PRN ×3 (11:01→20:58)
--- NOTE | 2017-12-16 11:56 | PDOC.PN ---
- Subjective Encounter Start Date: 12/16/17 Encounter Start Time: 13:30 Subjective: Still can't open right eye or see anything with it. No more abdominal -: pain. Tolerating soft foods well. No other complaints. - Objective Resuscitation Status: Resuscitation Status FULL:Full Resuscitation MAR Reviewed: Yes Vital Signs & Weight: Vital Signs (12 hours) Temp Pulse Resp BP Pulse Ox 12/16/17 08:00 98.2 F 81 20 148/75 H 97 12/16/17 04:00 98.0 F 77 18 131/70 94 L 12/16/17 00:00 98.6 F 83 20 151/73 H 93 L Weight Weight 165 lb 3 oz I&O: 12/15/17 12/16/17 12/17/17 06:59 06:59 06:59 Intake Total 480 1920 Output Total 2250 1950 Balance -1769 Result Diagrams: 12/14/17 04:08 12/16/17 04:25 Additional Labs: Accuchecks 12/16/17 12/16/17 12/15/17 10:28 05:41 20:37 POC Glucose 208 H 171 H 167 H 12/15/17 16:27 POC Glucose 117 H Phys Exam - Physical Examination Constitutional: NAD HEENT: moist MMs right pupil fixed, unreactive, left pupil round and reactive Respiratory: no wheezing, no rales, no rhonchi, clear to auscultation bilateral Cardiovascular: RRR Gastrointestinal: soft, non-tender, positive bowel sounds Musculoskeletal: edema present trace pretibial Neurological: non-focal, moves all 4 limbs Psychiatric: normal affect, A&O x 3 Dx/Plan (1) Acute fungal sinusitis Code(s): J01.90 - ACUTE SINUSITIS, UNSPECIFIED; B49 - UNSPECIFIED MYCOSIS Status: Acute Comment: Mucormycosis, on IV antifungals (2) Acute pancreatitis Code(s): K85.90 - ACUTE PANCREATITIS WITHOUT NECROSIS OR INFECTION, UNSP Status: Resolved Qualifiers: Pancreatitis type: idiopathic (3) Rbdyx-vg-majsebv kidney injury Code(s): N17.9 - ACUTE KIDNEY FAILURE, UNSPECIFIED; N18.9 - CHRONIC KIDNEY DISEASE, UNSPECIFIED Status: Acute Qualifiers: Chronic kidney disease stage: stage 3 (moderate) (4) DM type 2 (diabetes mellitus, type 2) Status: Chronic Qualifiers: Diabetes mellitus complication status: with kidney complications Diabetes mellitus complication detail: with chronic kidney disease 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: with longterm use Chronic kidney disease stage: stage 3 (moderate) Qualified Code(s): E11.22 - Type 2 diabetes mellitus with diabetic chronic kidney disease; N18.3 - Chronic kidney disease, stage 3 ( moderate); N18.3 - Chronic kidney disease, stage 3 (moderate); Z79.4 - valet service attendant (current) use of insulin; Z79.4 - valet service attendant (current) use of insulin; Z79.4 - valet service attendant (current) use of insulin; Z79.4 - [facility] (current) use of insulin (5) Dyslipidemia Code(s): E78.5 - HYPERLIPIDEMIA, UNSPECIFIED Status: Chronic (6) HTN (hypertension) Code(s): I10 - ESSENTIAL (PRIMARY) HYPERTENSION Status: Chronic Qualifiers: Hypertension type: essential hypertension Qualified Code(s): I10 - Essential (primary) hypertension - Plan cont current plan of care, continue antibiotics * . - Discharge Day Encounter end time: 14:00
[2017-12-16] MEDS: Sodium Chloride 0.9% 500 ML IVPB SCH (16:41)
[2017-12-16] MEDS: Micafungin 100 MG in Sodium Chloride 0.9% 100 ML IVPB SCH (17:17)
[2017-12-16] MEDS: Admixture Fee 1 EACH in Dextrose 5% in Water 10 ML FS SCH ×4 (19:02→22:08)
[2017-12-16] MEDS: AMBISOME IVPB SCH ×2 (19:02)
[2017-12-16] MEDS: DEXTROSE 5% IVPB SCH ×2 (19:02)
[2017-12-16] MEDS: WATER IVPB SCH ×2 (19:02)
--- NOTE | 2017-12-16 19:26 | PRG ---
DATE OF SERVICE: 12/16/2017 SUBJECTIVE: Mr. Greer is about the same. Still quite intense headache in the right eye and retr oorbital. No vomiting. No sore throat. No dyspnea or chest pain. No abdominal pain or diarrhea. No genitourinary symptoms. OBJECTIVE: VITAL SIGNS: T-max 98.2, blood pressure 150/82, pulse 80, respirations 20, O2 saturation 97%. HEENT: The right orbit is unchanged. He is still not able to lift the eyelid although there are armando e contractions. NECK: Supple. LUNGS: Symmetric clear breath sounds. CARDIOVASCULAR: S1, S2, regular rate. No S3, no S4. ABDOMEN: Soft and not distended. EXTREMITIES: Moves all extremities equally. LABORATORY DATA: White cell count has not been repeated from two days ago. Sodium 133, creatinine 1 .43, little bit higher. Potassium 4.8. 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 There was necrosis in the optic nerve and the artery. The orbital artery may menendez ve been involved by the fungal infection. He may never recover his eyesight or movements in the righ t eye.
[2017-12-16] MEDS: Insulin Detemir 100 UNITS/ML 10 UNITS in Pre-Filled Syringe 1 EACH SC SCH (20:57)
[2017-12-16] MEDS: Fenofibrate Nanocrystallized 145 MG TAB PO SCH (20:59)
[2017-12-16] MEDS: Temazepam 15 MG CAP PO PRN (21:43)
[2017-12-16] MEDS: Pantoprazole 40 MG VIAL IVP SCH (22:09)
[2017-12-17] MEDS: Acetaminophen/Codeine 30-300mg Tablet PO PRN ×3 (02:12→23:13)
[2017-12-17 04:59] LABS: Anion Gap 11 mmol/L (10-20); BUN (Urea Nitrogen) 17 mg/dL (8.4-25.7); Calc. Creatinine Clearance 53 mL/min (70-130); Calcium 9.2 mg/dL (7.8-10.44); Carbon Dioxide 23 mmol/L (23-31); Chloride 105 mmol/L (98-107); Estimated GFR-MDRD 49; Glucose 108 mg/dL (80-115); Potassium 4.5 mmol/L (3.5-5.1); Sodium 134 mmol/L (136-145)
[2017-12-17] MEDS: Acetaminophen 500 MG TAB PO PRN (06:15)
[2017-12-17] MEDS ORDERED: Oxymetazoline HCl 0.05% ( 15 ML ) ONE (10:50)
[2017-12-17] MEDS ORDERED: Bacitracin Zinc Ointment 30 gm TUBE ONE (10:50)
[2017-12-17] MEDS ORDERED: Lidocaine 1% w/Epinephrine 1:200K 30 ML VIAL ONE (10:50)
[2017-12-17] MEDS ORDERED: Fentanyl 100 MCG/2 ML VIAL ONE (10:54)
[2017-12-17] MEDS ORDERED: Midazolam HCl 2 mg/2 ml Vial ONE (10:59)
[2017-12-17] MEDS ORDERED: Meperidine HCl/PF 25 MG/ML VIAL SLOW IVP PRN (11:50)
[2017-12-17] MEDS ORDERED: Promethazine HCl 25 MG/ML VIAL SLOW IVP PRN (11:50)
[2017-12-17] MEDS ORDERED: HYDROmorphone 2 MG/ML VIAL SLOW IVP PRN (11:50)
[2017-12-17] MEDS ORDERED: Ondansetron HCl/PF 4 MG/2 ML Vial IVP PRN (11:50)
--- NOTE | 2017-12-17 11:59 | PDOC.PN ---
- Subjective Encounter Start Date: 12/17/17 Encounter Start Time: 09:30 -: old records requested/rev Patient seen and examined. No new complaints. No overnight events - Objective Resuscitation Status: Resuscitation Status FULL:Full Resuscitation MAR Reviewed: Yes Vital Signs & Weight: Vital Signs (12 hours) Temp Pulse Resp BP Pulse Ox 12/17/17 08:01 98.0 F 67 18 96 12/17/17 08:00 98.2 F 77 18 136/76 96 12/17/17 04:34 98.0 F 67 18 145/70 H 95 12/17/17 00:05 97.8 F 71 18 147/77 H 97 Weight Weight 163 lb I&O: 12/16/17 12/17/17 12/18/17 06:59 06:59 06:59 Intake Total 1920 2070 Output Total 1950 3100 Balance -30 -1030 Result Diagrams: 12/14/17 04:08 12/17/17 04:25 Additional Labs: Accuchecks 12/17/17 12/16/17 12/16/17 06:13 20:58 17:19 POC Glucose 88 236 H 173 H EKG Reviewed by me: Yes (nsr) Phys Exam - Physical Examination Constitutional: NAD HEENT: moist MMs, sclera anicteric right eye opthalmoplegia Neck: no JVD, supple Respiratory: no wheezing, no rales, no rhonchi Cardiovascular: RRR, no significant murmur, no rub Gastrointestinal: soft, non-tender, no distention, positive bowel sounds Musculoskeletal: no edema, pulses present Neurological: non-focal, normal sensation, moves all 4 limbs Psychiatric: normal affect, A&O x 3 Skin: no rash, normal turgor Dx/Plan (1) Acute fungal sinusitis Code(s): J01.90 - ACUTE SINUSITIS, UNSPECIFIED; B49 - UNSPECIFIED MYCOSIS Status: Acute Comment: Mucormycosis, on IV antifungals 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, right eye (3) Mucormycosis rhinosinusitis Code(s): B46.5 - MUCORMYCOSIS, UNSPECIFIED Status: Acute (4) Anxiety and depression Code(s): F41.9 - ANXIETY DISORDER, UNSPECIFIED; F32.9 - MAJOR DEPRESSIVE DISORDER, SINGLE EPISODE, UNSPECIFIED Status: Chronic (5) CKD (chronic kidney disease) stage 3, GFR 30-59 ml/min Code(s): N18.3 - CHRONIC KIDNEY DISEASE, STAGE 3 (MODERATE) Status: Chronic (6) DM type 2 (diabetes mellitus, type 2) Status: Chronic Qualifiers: Diabetes mellitus complication status: with kidney complications Diabetes mellitus complication detail: with chronic kidney disease Diabetes mellitus extermination inspector insulin use: with extermination inspector use Chronic kidney disease stage: stage 3 (moderate) Qualified Code(s): E11.22 - Type 2 diabetes mellitus with diabetic chronic kidney disease; N18.3 - Chronic kidney disease, stage 3 ( moderate); N18.3 - Chronic kidney disease, stage 3 (moderate); Z79.4 - [facility] (current) use of insulin; Z79.4 - [facility] (current) use of insulin; Z79.4 - [facility] (current) use of insulin; Z79.4 - vermin exterminator (current) use of insulin (7) Dyslipidemia Code(s): E78.5 - HYPERLIPIDEMIA, UNSPECIFIED Status: Chronic (8) GERD (gastroesophageal reflux disease) Code(s): K21.9 - GASTRO-ESOPHAGEAL REFLUX DISEASE WITHOUT ESOPHAGITIS Status: Chronic (9) HTN (hypertension) Code(s): I10 - ESSENTIAL (PRIMARY) HYPERTENSION Status: Chronic Qualifiers: Hypertension type: essential hypertension Qualified Code(s): I10 - Essential (primary) hypertension (10) Acute pancreatitis Code(s): K85.90 - ACUTE PANCREATITIS WITHOUT NECROSIS OR INFECTION, UNSP Status: Resolved Qualifiers: Pancreatitis type: idiopathic (11) DKA, type 2 Code(s): E11.10 - TYPE 2 DIABETES MELLITUS WITH KETOACIDOSIS WITHOUT COMA Status: Resolved (12) Hypotension Status: Resolved - Plan cont current plan of care, continue antibiotics * today plan for sinus surgery * continue vancomycin and ambisome * medication reviewed as below * symptomatic treatment * ID, ENT following. Review of Systems - Review of Systems Constitutional: negative: fever, chills, sweats, weakness, malaise, other ENT: Nose Congestion. negative: Ear Pain, Ear Discharge, Nose Pain, Nose Discharge, Mouth Pain, Mouth Swelling, Throat Pain, Throat Swelling, Other Respiratory: negative: Cough, Dry, Shortness of Breath, Hemoptysis, SOB with Excertion, Pleuritic Pain, Sputum, Wheezing Cardiovascular: negative: chest pain, palpitations, orthopnea, paroxysmal nocturnal dyspnea, edema, light headedness, other Gastrointestinal: negative: Nausea, Vomiting, Abdominal Pain, Diarrhea, Constipation, Melena, Hematochezia, Other Genitourinary: negative: Dysuria, Frequency, Incontinence, Hematuria, Retention , Other Musculoskeletal: negative: Neck Pain, Shoulder Pain, Arm Pain, Back Pain, Hand Pain, Leg Pain, Foot Pain, Other Skin: negative: Rash, Lesions, Steve, Bruising, Other - Medications/Allergies Allergies/Adverse Reactions: Allergies Allergy/AdvReac Type Severity Reaction Status Date / Time morphine Allergy Verified 06/25/17 16:00 tizanidine [From Zanaflex] AdvReac hypotension Verified 12/12/17 16:32 Medications: Current Medications Acetaminophen (Tylenol) 1,000 mg PO Q6H PRN PRN Reason: Headache/Fever or Mild Pain Last Admin: 12/17/17 06:15 Dose: 1,000 mg Acetaminophen/Codeine Phosphate (Tylenol #3) 1 tab PO Q4H PRN PRN Reason: Moderate Pain (4-6) Last Admin: 12/11/17 00:38 Dose: 1 tab Acetaminophen/Codeine Phosphate (Tylenol #3) 2 tab PO Q4H PRN PRN Reason: .SEVERE Pain 7-10 Last Admin: 12/17/17 02:12 Dose: 2 tab Bupropion HCl (Wellbutrin Xl) 300 mg PO DAILY [facility] Last Admin: 12/16/17 08:52 Dose: 300 mg Clonidine (Catapres) 0.1 mg PO Q4H PRN PRN Reason: Systolic BP > 180 Dextrose/Water (Dextrose 50%) 25 gm SLOW IVP PRN PRN PRN Reason: Hypoglycemia Fenofibrate (Tricor) 145 mg PO HS [facility] Last Admin: 12/16/17 20:59 Dose: 145 mg Fentanyl (Pacu-Sublimaze) 50 mcg SLOW IVP Q10MIN PRN PRN Reason: Moderate to Severe Pain (6-10) Stop: 12/17/17 14:50 Fluticasone Propionate (Flonase Nasal Lenore) 0 gm NASAL DAILY [facility] Last Admin: 12/16/17 08:53 Dose: 1 spray Glucagon (Glucagon) 1 mg IM PRN PRN PRN Reason: Hypoglycemia Guaifenesin (Mucinex) 600 mg PO Q12HR [facility] Last Admin: 12/16/17 20:59 Dose: 600 mg Hydralazine HCl (Apresoline) 10 mg SLOW IVP Q4H PRN PRN Reason: Systolic BP > 180 Hydromorphone HCl (Pacu-Dilaudid) 0.2 mg SLOW IVP Q10MIN PRN PRN Reason: Moderate to Severe Pain (6-10) Stop: 12/17/17 14:50 Potassium Chloride 40 meq/ (Sodium Chloride) 270 mls @ 135 mls/hr IVPB ASDIR PRN PRN Reason: FOR SERUM K+ 2.5 - 3.5 Potassium Chloride 40 meq/ (Device) 100 mls @ 50 mls/hr IVPB ASDIR PRN PRN Reason: FOR SERUM K+ 2.5 - 3.5 Magnesium Sulfate 1 gm/ Sodium (Chloride) 102 mls @ 102 mls/hr IV PRN PRN PRN Reason: MAG LEVEL 1.4 - 2.0 Magnesium Sulfate 2 gm/ Device 100 mls @ 100 mls/hr IVPB ASDIR PRN PRN Reason: MAGNESIUM < 1.4 Potassium Phosphate 9 mmol/ (Sodium Chloride) 103 mls @ 25.75 mls/hr IVPB ASDIR PRN PRN Reason: Phosphate 1.0-1.8 Potassium Phosphate 12 mmol/ (Sodium Chloride) 254 mls @ 63.5 mls/hr IV ASDIR PRN PRN Reason: Serum phosphate 0.5-0.9 Potassium Phosphate 15 mmol/ (Sodium Chloride) 255 mls @ 63.75 mls/hr IV ASDIR PRN PRN Reason: Serum Phos < 0.5 Dextrose/Water (D5w) 1,000 mls @ 0 mls/hr IV .Q0M PRN; As Directed PRN Reason: Hypoglycemia Linezolid 600 mg/ Device 300 mls @ 150 mls/hr IVPB Q12HR [facility] Last Admin: 12/16/17 22:11 Dose: 300 mls Micafungin Sodium 100 mg/ (Sodium Chloride) 100 mls @ 100 mls/hr IVPB Q24HR [facility] Last Admin: 12/16/17 17:17 Dose: 100 mls Miscellaneous Medication 1 (each/ Dextrose/Water) 10 mls @ 0 mls/hr FS 1800, 2000 [facility] PRN Reason: As Directed Last Admin: 12/16/17 22:08 Dose: 10 mls Insulin Detemir 10 units/ (Miscellaneous Medication) 0.1 mls @ 0 mls/hr SC HS [facility] Last Admin: 12/16/17 20:57 Dose: 0.1 mls Sodium Chloride (Normal Saline 0.9%) 500 mls @ 0 mls/hr IVPB 1600 [facility] PRN Reason: As Directed Last Admin: 12/16/17 16:41 Dose: Not Given Amphotericin B 600 mg/ (Dextrose/Water) 250 mls @ 125 mls/hr IVPB Q24HR [facility] Last Admin: 12/16/17 19:02 Dose: 250 mls Insulin Human Lispro (Humalog) 0 units SC .MODERATE SLIDING SC PRN PRN Reason: Moderate Correctional Scale Last Admin: 12/16/17 17:17 Dose: 2 unit Insulin Human Lispro (Humalog) 0 units SC .BEDTIME SLIDING SC PRN PRN Reason: Bedtime Correctional Scale Last Admin: 12/16/17 20:58 Dose: 2 unit Lorazepam (Ativan) 0.5 mg PO Q4H PRN PRN Reason: Anxiety Last Admin: 12/11/17 14:23 Dose: 0.5 mg Magnesium Oxide (Magnesium Oxide) 400 mg PO BIDPRN PRN PRN Reason: FOR SERUM MAG 1.4 - 2.0 Magnesium Oxide (Magnesium Oxide) 800 mg PO PRN PRN PRN Reason: FOR SERUM MAG < 1.4 Magnesium Oxide (Magnesium Oxide) 400 mg PO DAILY [facility] Last Admin: 12/16/17 08:52 Dose: 400 mg Meperidine HCl (Pacu-Demerol) 25 mg SLOW IVP ONE PRN PRN Reason: Shivering Stop: 12/17/17 14:50 Miscellaneous Medication (Phos-Nak) 1 pkt PO TIDPRN PRN PRN Reason: FOR PHOS LEVEL 1.0 - 1.8 Miscellaneous Medication (Phos-Nak) 2 pkt PO TIDPRN PRN PRN Reason: FOR PHOS LEVEL 0.5 - 1.0 Nebivolol (Bystolic) 10 mg PO DAILY [facility] Last Admin: 12/16/17 08:52 Dose: 10 mg Ccu Electrolyte (Replacement Protocol) 0 each FS PRN PRN PRN Reason: FOR ELECTROLYTE REPLACEMENT Ondansetron HCl (Zofran Odt) 4 mg PO Q6H PRN PRN Reason: Nausea/Vomiting Ondansetron HCl (Zofran) 4 mg IVP Q6H PRN PRN Reason: Nausea/Vomiting Last Admin: 12/11/17 14:23 Dose: 4 mg Ondansetron HCl (Pacu-Zofran) 4 mg IVP ONE PRN PRN Reason: Nausea/Vomiting Stop: 12/17/17 14:50 Oxymetazoline HCl (Oxymetazoline Hcl) 0 sprays NASAL Q2H PRN PRN Reason: NASAL BLEEDING Pantoprazole Sodium (Protonix) 40 mg IVP 2100 [facility] Last Admin: 12/16/17 22:09 Dose: 40 mg Potassium Chloride (K-Dur) 40 meq PO ASDIR PRN PRN Reason: FOR SERUM K+ 2.5 - 3.5 Potassium Chloride (Klor-Con) 40 meq PER TUBE ASDIR PRN PRN Reason: FOR SERUM K+ 2.5-3.5 Potassium Chloride (K-Dur) 20 meq PO BID-WM [facility] Last Admin: 12/16/17 17:33 Dose: 20 meq Promethazine HCl (Pacu-Phenergan) 6.25 mg SLOW IVP ONE PRN PRN Reason: Nausea/Vomiting Stop: 12/17/17 14:50 Simethicone (Mylicon Chewable) 80 mg PO TIDPRN PRN PRN Reason: Gas Pain Last Admin: 12/14/17 13:42 Dose: 80 mg Sodium Chloride (Sodium Chloride 0.9%) 30 ml NASAL QID [facility] Last Admin: 12/16/17 22:14 Dose: Not Given Temazepam (Restoril) 15 mg PO HSPRN PRN PRN Reason: Insomnia Last Admin: 12/16/17 21:43 Dose: 15 mg Tramadol HCl (Ultram) 50 mg PO Q6H PRN PRN Reason: Pain Last Admin: 12/12/17 23:29 Dose: 50 mg
[2017-12-17] MEDS: Linezolid 600 MG in Premix Bag 1 BAG IVPB SCH ×2 (15:36→21:05)
[2017-12-17] MEDS: Magnesium Oxide 400 MG TAB PO SCH (15:37)
[2017-12-17] MEDS: Bupropion 150 MG XL TAB PO SCH (15:37)
[2017-12-17] MEDS: Sodium Chloride 0.9% 15 ML NEB NASAL SCH ×4 (15:37→21:05)
[2017-12-17] MEDS: Nebivolol HCl 5 MG TAB PO SCH (15:37)
[2017-12-17] MEDS: Fluticasone Propionate Nasal Spray 16 gm Bottle NASAL SCH (15:37)
[2017-12-17] MEDS: Potassium Chloride 20 MEQ TAB PO SCH ×2 (15:37→17:00)
[2017-12-17] MEDS: guaiFENesin ER 600 MG TAB PO SCH ×2 (15:37→21:03)
[2017-12-17] MEDS ORDERED: Lidocaine 1% PF 5 ML VIAL ONE (15:39)
[2017-12-17] MEDS ORDERED: Succinylcholine Chloride 20 MG/ML 10 ml SYRINGE FS ONE (15:39)
[2017-12-17] MEDS ORDERED: Metoclopramide HCl 10 MG/2 ML VIAL ONE (15:39)
[2017-12-17] MEDS ORDERED: Propofol 200 MG/20 ML VIAL ONE (15:39)
[2017-12-17] MEDS ORDERED: PHENYLEPHRINE-NS 100 MCG/ML 10 ML SYRINGE ONE (15:39)
[2017-12-17] MEDS ORDERED: Dexamethasone 20 MG/5 ML VIAL ONE (15:39)
[2017-12-17] MEDS ORDERED: Ondansetron HCl/PF 4 MG/2 ML Vial ONE ×2 (15:39)
[2017-12-17] MEDS: Micafungin 100 MG in Sodium Chloride 0.9% 100 ML IVPB SCH (17:00)
[2017-12-17] MEDS: Sodium Chloride 0.9% 500 ML IVPB SCH (17:00)
[2017-12-17] MEDS: Admixture Fee 1 EACH in Dextrose 5% in Water 10 ML FS SCH ×4 (19:46→23:11)
[2017-12-17] MEDS: DEXTROSE 5% IVPB SCH ×2 (19:47)
[2017-12-17] MEDS: WATER IVPB SCH ×2 (19:47)
[2017-12-17] MEDS: AMBISOME IVPB SCH ×2 (19:47)
[2017-12-17] MEDS: Insulin Detemir 100 UNITS/ML 10 UNITS in Pre-Filled Syringe 1 EACH SC SCH (21:00)
[2017-12-17] MEDS: HumaLOG 300 UNITS/3 ML VIAL SC PRN (21:02)
[2017-12-17] MEDS: Fenofibrate Nanocrystallized 145 MG TAB PO SCH (21:03)
[2017-12-17] MEDS: Pantoprazole 40 MG VIAL IVP SCH (21:03)
[2017-12-18] MEDS: HumaLOG 300 UNITS/3 ML VIAL SC PRN ×2 (06:00→20:14)
[2017-12-18 07:57] LABS: Anion Gap 13 mmol/L (10-20); BUN (Urea Nitrogen) 25 mg/dL (8.4-25.7); Calc. Creatinine Clearance 46 mL/min (70-130); Calcium 8.8 mg/dL (7.8-10.44); Carbon Dioxide 23 mmol/L (23-31); Chloride 103 mmol/L (98-107); Estimated GFR-MDRD 41; Glucose 249 mg/dL (80-115); Potassium 4.7 mmol/L (3.5-5.1); Sodium 134 mmol/L (136-145)
[2017-12-18] MEDS: Potassium Chloride 20 MEQ TAB PO SCH ×2 (09:16→16:43)
[2017-12-18] MEDS: guaiFENesin ER 600 MG TAB PO SCH ×2 (09:16→20:02)
[2017-12-18] MEDS: Sodium Chloride 0.9% 15 ML NEB NASAL SCH ×4 (09:17→20:04)
[2017-12-18] MEDS: Bupropion 150 MG XL TAB PO SCH (09:17)
[2017-12-18] MEDS: Magnesium Oxide 400 MG TAB PO SCH (09:17)
[2017-12-18] MEDS: Nebivolol HCl 5 MG TAB PO SCH (09:17)
[2017-12-18] MEDS: Linezolid 600 MG in Premix Bag 1 BAG IVPB SCH (09:17)
[2017-12-18] MEDS: Fluticasone Propionate Nasal Spray 16 gm Bottle NASAL SCH (09:18)
[2017-12-18] MEDS: Acetaminophen/Codeine 30-300mg Tablet PO PRN ×2 (10:09→20:17)
--- NOTE | 2017-12-18 15:42 | PDOC.PN ---
- Subjective Encounter Start Date: 12/18/17 Encounter Start Time: 15:30 Subjective: No complaints. Eating well with abdominal pain. - Objective Resuscitation Status: Resuscitation Status FULL:Full Resuscitation MAR Reviewed: Yes Vital Signs & Weight: Vital Signs (12 hours) Temp Pulse Pulse Pulse Resp BP BP 12/18/17 12:02 97.6 F 75 18 12/18/17 10:50 74 73 127/70 129/71 12/18/17 07:54 97.8 F 82 18 12/18/17 07:44 97.8 F 82 18 12/18/17 04:25 98.4 F 84 19 BP BP Pulse Ox Pulse Ox Pulse Ox 12/18/17 12:02 129/71 100 12/18/17 10:50 98 98 12/18/17 07:54 95 12/18/17 07:44 125/68 98 12/18/17 04:25 124/63 95 Weight Admit Weight 156 lb Weight 165 lb 3.2 oz I&O: 12/17/17 12/18/17 12/19/17 06:59 06:59 06:59 Intake Total 2070 1070 Output Total 3100 580 Balance -1030 490 Result Diagrams: 12/14/17 04:08 12/18/17 05:57 Additional Labs: Accuchecks 12/18/17 12/18/17 12/17/17 11:24 05:41 21:01 POC Glucose 253 H 232 H 317 H 12/17/17 17:21 POC Glucose 158 H Phys Exam - Physical Examination Constitutional: NAD HEENT: moist 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 Caal managing (2) Acute pancreatitis Code(s): K85.90 - ACUTE PANCREATITIS WITHOUT NECROSIS OR INFECTION, UNSP Status: Resolved Qualifiers: Pancreatitis type: idiopathic (3) [id number]-[id number] kidney injury Code(s): N17.9 - ACUTE KIDNEY FAILURE, UNSPECIFIED; N18.9 - CHRONIC KIDNEY DISEASE, UNSPECIFIED Status: Acute Qualifiers: Chronic kidney disease stage: stage 3 (moderate) Comment: creatinine back up today (4) DM type 2 (diabetes mellitus, type 2) Status: Chronic Qualifiers: Diabetes mellitus complication status: with kidney complications Diabetes mellitus complication detail: with chronic kidney disease Diabetes mellitus silver cleaner insulin use: with silver cleaner use Chronic kidney disease stage: stage 3 (moderate) Qualified Code(s): E11.22 - Type 2 diabetes mellitus with diabetic chronic kidney disease; N18.3 - Chronic kidney disease, stage 3 ( moderate); N18.3 - Chronic kidney disease, stage 3 (moderate); Z79.4 - assisted (current) use of insulin; Z79.4 - test fixture designer (current) use of insulin; Z79.4 - test fixture designer (current) use of insulin; Z79.4 - assisted (current) use of insulin (5) Dyslipidemia Code(s): E78.5 - HYPERLIPIDEMIA, UNSPECIFIED Status: Chronic (6) HTN (hypertension) Code(s): I10 - ESSENTIAL (PRIMARY) HYPERTENSION Status: Chronic Qualifiers: Hypertension type: essential hypertension Qualified Code(s): I10 - Essential (primary) hypertension - Plan cont current plan of care, continue antibiotics * . - Discharge Day Encounter end time: 16:00
[2017-12-18] MEDS: Micafungin 100 MG in Sodium Chloride 0.9% 100 ML IVPB SCH (16:44)
[2017-12-18] MEDS: Sodium Chloride 0.9% 500 ML IVPB SCH (16:45)
--- NOTE | 2017-12-18 17:27 | PRG ---
DATE OF SERVICE: 12/18/2017 SUBJECTIVE: The patient is sitting up at the bedside, feeling better, was able to walk longer distan shun today. Headache is markedly improved. The eye findings are unchanged. No swallowing difficulty . No dyspnea or chest pain, no abdominal pain or diarrhea. OBJECTIVE: VITAL SIGNS: Temperature is normal, BP 120/66, pulse 74, respirations 18 to 20, O2 saturation 99%. EYES: Patient in the right eye, still with unable to open the lid, eye is fixed, not moving. Pupils fixed. The oral cavity is normal. NECK: Supple. LUNGS: Clear. S1, S2, regular rate. ABDOMEN: Soft, and not distended. Moves all extremities equally. LABORATORY DATA: White cell count is 19,000, has not been repeated for the past 3 days, the creatini ne has bumped a little bit to 1.69 today. 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 We will switch him to isavuconazole loading dose first and then transitioned to the maintenance phase given orally. Continue treatment for a protracted period of time. Discontinue AmBisome and mi cafungin. Continue Zyvox for the time being.
[2017-12-18] MEDS: Admixture Fee 1 EACH in Dextrose 5% in Water 10 ML FS SCH ×4 (19:38→23:33)
[2017-12-18] MEDS: DEXTROSE 5% IVPB SCH ×2 (19:42)
[2017-12-18] MEDS: AMBISOME IVPB SCH ×2 (19:42)
[2017-12-18] MEDS: WATER IVPB SCH ×2 (19:42)
[2017-12-18] MEDS: Linezolid 600 MG TAB PO SCH (20:02)
[2017-12-18] MEDS: Fenofibrate Nanocrystallized 145 MG TAB PO SCH (20:02)
[2017-12-18] MEDS: Pantoprazole 40 MG VIAL IVP SCH (20:02)
[2017-12-18] MEDS: Insulin Detemir 100 UNITS/ML 10 UNITS in Pre-Filled Syringe 1 EACH SC SCH (20:03)
[2017-12-18] MEDS: Docusate 100 MG CAP PO SCH (20:04)
[2017-12-18] MEDS: Temazepam 15 MG CAP PO PRN (23:38)
[2017-12-19] MEDS: Acetaminophen/Codeine 30-300mg Tablet PO PRN ×4 (00:11→21:55)
[2017-12-19 05:27] LABS: Anion Gap 12 mmol/L (10-20); BUN (Urea Nitrogen) 27 mg/dL (8.4-25.7); Calc. Creatinine Clearance 35 mL/min (70-130); Calcium 8.8 mg/dL (7.8-10.44); Carbon Dioxide 23 mmol/L (23-31); Chloride 100 mmol/L (98-107); Estimated GFR-MDRD 30; Glucose 282 mg/dL (80-115); Magnesium 1.4 mg/dL (1.6-2.6); Phosphorus 3.8 mg/dL (2.3-4.7); Potassium 4.5 mmol/L (3.5-5.1); Sodium 130 mmol/L (136-145)
[2017-12-19] MEDS: HumaLOG 300 UNITS/3 ML VIAL SC PRN (05:34)
[2017-12-19 07:34] LABS: #Eosinphils 0.2 thou/uL (0.0-0.7); #Lymphocytes 1.7 thou/uL (1.20-3.40); #Monocytes 0.7 thou/uL (0.11-0.59); #Neutrophils 9.9 thou/uL (1.40-6.50); %Basophils 0.2 % (0.0-1.0); %Eosinophils 1.5 % (0.0-10.0); %Lymphocytes 13.4 % (21.0-51.0); %Monocytes 5.6 % (0.0-10.0); %Neutrophils 79.2 % (42.0-75.0); Mean Corpuscular Hemoglobin 31.5 pg (27.0-31.0); Mean Corpuscular Volume 95.4 fl (80.0-94.0); Mean Platelet Volume 7.1 fL (7.4-10.4); Platelet Count 284 thou/uL (130-400); RBC Distribution Width 12.5 % (11.5-14.5); Red Blood Cell (RBC) Count 2.54 mill/uL (4.70-6.10); White Blood Cell (WBC) Count 12.5 thou/uL (4.8-10.8)
[2017-12-19] MEDS: Potassium Chloride 20 MEQ TAB PO SCH ×2 (07:45→16:40)
[2017-12-19] MEDS: Docusate 100 MG CAP PO SCH ×2 (07:45→22:12)
[2017-12-19] MEDS: guaiFENesin ER 600 MG TAB PO SCH ×2 (07:45→21:55)
[2017-12-19] MEDS: Linezolid 600 MG TAB PO SCH ×2 (07:45→21:59)
[2017-12-19] MEDS: Nebivolol HCl 5 MG TAB PO SCH (07:45)
[2017-12-19] MEDS: Bupropion 150 MG XL TAB PO SCH (07:48)
[2017-12-19] MEDS: Fluticasone Propionate Nasal Spray 16 gm Bottle NASAL SCH (07:50)
[2017-12-19] MEDS: Sodium Chloride 0.9% 15 ML NEB NASAL SCH ×4 (09:04→22:12)
[2017-12-19] MEDS: Ondansetron HCl/PF 4 MG/2 ML Vial IVP PRN ×2 (09:05→22:01)
[2017-12-19] MEDS: Magnesium Oxide 400 MG TAB PO SCH ×2 (09:07→21:59)
[2017-12-19] MEDS: Glimepiride 4 MG TAB PO SCH ×2 (09:07→21:54)
[2017-12-19] MEDS: Sodium Chloride 0.9% 1,000 ML IV SCH ×2 (11:52→22:12)
--- NOTE | 2017-12-19 12:12 | PDOC.PN ---
- Subjective Encounter Start Date: 12/19/17 Encounter Start Time: 12:11 Subjective: "feeling great" today. No acute events overnight. - Objective Resuscitation Status: Resuscitation Status FULL:Full Resuscitation MAR Reviewed: Yes Vital Signs & Weight: Vital Signs (12 hours) Temp Pulse Resp BP Pulse Ox 12/19/17 08:00 97.5 F L 77 20 97 12/19/17 07:10 97.5 F L 77 20 129/77 94 L 12/19/17 04:00 97.7 F 81 16 133/72 94 L Weight Admit Weight 156 lb Weight 166 lb 1.6 oz I&O: 12/18/17 12/19/17 12/20/17 06:59 06:59 06:59 Intake Total 1070 1390 240 Output Total 580 Balance 490 1390 240 Result Diagrams: 12/19/17 04:41 12/19/17 04:41 Additional Labs: Accuchecks 12/19/17 12/19/17 12/18/17 11:21 04:44 19:16 POC Glucose 117 H 278 H 384 H 12/18/17 12/18/17 16:49 11:24 POC Glucose 350 H 253 H Phys Exam - Physical Examination Constitutional: NAD HEENT: PERRLA, moist MMs, sclera anicteric Visually impaired R eye Neck: supple, full ROM Respiratory: no wheezing, no rales, no rhonchi, clear to auscultation bilateral Cardiovascular: RRR, no significant murmur, no rub Gastrointestinal: soft, non-tender, no distention, positive bowel sounds Musculoskeletal: no edema, pulses present Neurological: non-focal, moves all 4 limbs Psychiatric: normal affect, A&O x 3 Skin: no rash, normal turgor Dx/Plan (1) DM type 2 (diabetes mellitus, type 2) Status: Chronic Qualifiers: Diabetes mellitus complication status: with kidney complications Diabetes mellitus complication detail: with chronic kidney disease Diabetes mellitus director long term care insulin use: with care home use Chronic kidney disease stage: stage 3 (moderate) Qualified Code(s): E11.22 - Type 2 diabetes mellitus with diabetic chronic kidney disease; N18.3 - Chronic kidney disease, stage 3 ( moderate); N18.3 - Chronic kidney disease, stage 3 (moderate); Z79.4 - prison (current) use of insulin; Z79.4 - director long term care (current) use of insulin; Z79.4 - director long term care (current) use of insulin; Z79.4 - prison (current) use of insulin Comment: Uncontrolled. Started home Amaryl. Continue sliding scale insulin. (2) Acute fungal sinusitis Code(s): J01.90 - ACUTE SINUSITIS, UNSPECIFIED; B49 - UNSPECIFIED MYCOSIS Status: Acute Plan: cONTINUE antibiotics. Comment: Mucormycosis, on IV antifungals, Dr. Caal managing (3) Dyslipidemia Code(s): E78.5 - HYPERLIPIDEMIA, UNSPECIFIED Status: Chronic (4) Acute pancreatitis Code(s): K85.90 - ACUTE PANCREATITIS WITHOUT NECROSIS OR INFECTION, UNSP Status: Resolved Qualifiers: Pancreatitis type: idiopathic Acute pancreatitis complication: no infection or necrosis Qualified Code(s): K85.00 - Idiopathic acute pancreatitis without necrosis or infection Comment: RESOLVED. (5) HTN (hypertension) Code(s): I10 - ESSENTIAL (PRIMARY) HYPERTENSION Status: Chronic Qualifiers: Hypertension type: essential hypertension Qualified Code(s): I10 - Essential (primary) hypertension Comment: Well controlled. Continue home meds. (6) [id number] kidney injury Code(s): N17.9 - ACUTE KIDNEY FAILURE, UNSPECIFIED; N18.9 - CHRONIC KIDNEY DISEASE, UNSPECIFIED Status: Acute Qualifiers: Acute renal failure type: unspecified Chronic kidney disease stage: stage 3 (moderate) Qualified Code(s): N17.9 - Acute kidney failure, unspecified; N18.3 - Chronic kidney disease, stage 3 (moderate); N18.3 - Chronic kidney disease, stage 3 (moderate) Plan: Bolus NS Continue IVF Comment: creatinine trending upwards. Saud lgive a bolus of NS. Retroperitoneal US if not improving Continue IVF and encourage on oral fluid intake. - Plan cont current plan of care, continue antibiotics, PT/OT, DVT proph w/heparin * .
[2017-12-19] MEDS ORDERED: Sodium Chloride 0.9% 500 ML IV SCH (12:15)
--- NOTE | 2017-12-19 13:18 | OP ---
PREOPERATIVE DIAGNOSIS: Invasive right fungal sinusitis. SURGEON: Omar Morel M.D. ESTIMATED BLOOD LOSS: 10 mL COMPLICATIONS: None. ANESTHESIA: GETA. PROCEDURE: The patient was taken to the operating room and placed supine on the table. General endo tracheal anesthesia was obtained by the Anesthesia staff. The patient was then placed in the beach c hair position. Afrin pledgets were placed in the nasal cavity. Following this, the patient was prep ped and draped for standard nasal procedure. The Afrin pledgets were then removed and the 0 degree s cope was advanced in the nasal cavity. The straight suction along with the curved suction was used t o remove any residual clotted blood and previous nasal packing material. There was some remnant muco sa left on the medial maxillary wall as well as some small areas in the ethmoidal sinuses. These wer e removed gently using the straight microdebrider and straight Blakesley forceps. There were only mi nimal amounts of necrotic tissue present. These areas were resected until fresh bleeding was encount ered. In general, the ethmoidal cells had been cleared of any invasive fungal disease on the right s juan m and the right sphenoid sinus was further opened inferiorly until bleeding tissue was encountered. There was still a very mild amount of remnant concern for necrotic tissue in the right lateral sphe noid sinus wall. Other than that nasal cavity was irrigated. The patient tolerated the procedure we ll.
[2017-12-19] MEDS: Heparin 5,000 UNITS/ML VIAL SC SCH ×2 (14:17→21:57)
--- NOTE | 2017-12-19 18:13 | PRG ---
DATE OF SERVICE: 12/19/2017 SUBJECTIVE: Patient was seen and examined at bedside and overnight events noted. Patient denies any shortness of breath or chest pain or palpitation. No history of nausea or vomiting or diarrhea or f ever or chills or cramps. OBJECTIVE: GENERAL: This is a well-built white male in no apparent distress. The patient complaining of nausea during examination today. VITAL SIGNS: Temperature 97, pulse 77, respiratory rate 20, blood pressure 133/72. HEENT: Atraumatic, normocephalic, Oral mucosa is moist. Neck: Supple. Cardiovascular: S1and S2 heard. Rate and rhythm regular. Respiratory: Clear to auscultation. Gastrointestinal: Abdomen is soft Musculoskeletal: No tenderness. No edema. Dermatologic: No skin rash. Neurologic: Alert and awake and oriented X3. No focal neurologic deficits. Moving all the extremit ies. Psychiatric: Mood and affect normal. LABORATORY DATA: Creatinine is 2.2, with baseline around 1.2 to 1.4. Sodium is 130. ASSESSMENT AND PLAN: 1. Acute kidney injury on chronic kidney disease. Renal function is getting worse, most likely ____ _ patient is also having some nausea. We will start back on IV fluids. Avoid nephrotoxins. His med ication list reviewed, all the medicines. We will stop fenofibrate and okay to continue other medications. Continue supportive care. 2. Hypokalemia, on potassium supplements. 3. Edema, controlled. 4. Hypertension. 5. Anemia. 6. History of renal cysts. 7. Plan is to start IV fluids as tolerated. We will follow.
[2017-12-19] MEDS: Pantoprazole 40 MG VIAL IVP SCH (21:55)
[2017-12-19] MEDS: Insulin Detemir 100 UNITS/ML 10 UNITS in Pre-Filled Syringe 1 EACH SC SCH (22:01)
[2017-12-20] MEDS: Acetaminophen/Codeine 30-300mg Tablet PO PRN ×4 (04:06→23:40)
[2017-12-20 04:47] LABS: #Eosinphils 0.1 thou/uL (0.0-0.7); #Lymphocytes 1.4 thou/uL (1.20-3.40); #Monocytes 0.4 thou/uL (0.11-0.59); #Neutrophils 6.8 thou/uL (1.40-6.50); %Basophils 0.2 % (0.0-1.0); %Eosinophils 0.9 % (0.0-10.0); %Lymphocytes 16.3 % (21.0-51.0); %Monocytes 4.9 % (0.0-10.0); %Neutrophils 77.7 % (42.0-75.0); Hemoglobin 7.9 g/dL (14.0-18.0); Mean Corpuscular HGB CONC 32.7 g/dL (32.0-36.0); Mean Corpuscular Hemoglobin 31.1 pg (27.0-31.0); Mean Corpuscular Volume 95.2 fl (80.0-94.0); Mean Platelet Volume 6.9 fL (7.4-10.4); Platelet Count 277 thou/uL (130-400); RBC Distribution Width 12.4 % (11.5-14.5); Red Blood Cell (RBC) Count 2.54 mill/uL (4.70-6.10); White Blood Cell (WBC) Count 8.7 thou/uL (4.8-10.8)
[2017-12-20 05:02] LABS: Anion Gap 10 mmol/L (10-20); BUN (Urea Nitrogen) 24 mg/dL (8.4-25.7); Calc. Creatinine Clearance 41 mL/min (70-130); Calcium 8.8 mg/dL (7.8-10.44); Carbon Dioxide 25 mmol/L (23-31); Chloride 104 mmol/L (98-107); Estimated GFR-MDRD 36; Glucose 141 mg/dL (80-115); Potassium 4.2 mmol/L (3.5-5.1); Sodium 135 mmol/L (136-145)
[2017-12-20] MEDS: Ondansetron HCl/PF 4 MG/2 ML Vial IVP PRN ×2 (06:43→10:52)
[2017-12-20] MEDS: Sodium Chloride 0.9% 1,000 ML IV SCH ×2 (08:01→13:56)
[2017-12-20] MEDS: Bupropion 150 MG XL TAB PO SCH (08:02)
[2017-12-20] MEDS: Glimepiride 4 MG TAB PO SCH ×2 (08:02→19:53)
[2017-12-20] MEDS: guaiFENesin ER 600 MG TAB PO SCH ×2 (08:02→19:53)
[2017-12-20] MEDS: Nebivolol HCl 5 MG TAB PO SCH (08:02)
[2017-12-20] MEDS: Potassium Chloride 20 MEQ TAB PO SCH ×2 (08:03→17:51)
[2017-12-20] MEDS: Magnesium Oxide 400 MG TAB PO SCH ×2 (08:03→19:54)
[2017-12-20] MEDS: Heparin 5,000 UNITS/ML VIAL SC SCH ×3 (08:03→19:54)
[2017-12-20] MEDS: Docusate 100 MG CAP PO SCH ×2 (08:03→19:53)
[2017-12-20] MEDS: Sodium Chloride 0.9% 15 ML NEB NASAL SCH ×4 (08:13→21:39)
[2017-12-20] MEDS: Fluticasone Propionate Nasal Spray 16 gm Bottle NASAL SCH (08:13)
[2017-12-20] MEDS: Linezolid 600 MG TAB PO SCH (09:26)
[2017-12-20] MEDS ORDERED: [UNRECOGNIZED DRUG - OTHER] SLOW IVP PRN (12:51)
--- NOTE | 2017-12-20 12:53 | PDOC.PN ---
- Subjective Encounter Start Date: 12/20/17 Encounter Start Time: 13:01 Subjective: c/o abdominal pain, started this am with nausea. NO fevers, chills. - Objective Resuscitation Status: Resuscitation Status FULL:Full Resuscitation MAR Reviewed: Yes Vital Signs & Weight: Vital Signs (12 hours) Temp Pulse Resp BP Pulse Ox 12/20/17 11:44 97.6 F 76 16 138/71 88 L 12/20/17 08:00 97.8 F 77 16 98 12/20/17 07:14 97.8 F 77 16 127/77 91 L Weight Admit Weight 156 lb Weight 165 lb 3.2 oz I&O: 12/19/17 12/20/17 12/21/17 06:59 06:59 06:59 Intake Total 1390 720 360 Balance 1390 720 360 Result Diagrams: 12/20/17 04:02 12/20/17 04:02 Additional Labs: Accuchecks 12/20/17 12/20/17 12/19/17 10:53 04:08 19:45 POC Glucose 110 142 H 207 H 12/19/17 16:14 POC Glucose 173 H Phys Exam - Physical Examination Mild distress 2/2 abdominal pain HEENT: PERRLA, moist MMs, sclera anicteric Neck: supple, full ROM Respiratory: no wheezing, no rales, no rhonchi, clear to auscultation bilateral Cardiovascular: RRR, no significant murmur, no rub Gastrointestinal: soft, no distention, positive bowel sounds epigastric tenderness,no rebound or guarding. Musculoskeletal: no edema, pulses present Neurological: non-focal, moves all 4 limbs Psychiatric: normal affect, A&O x 3 Dx/Plan (1) Mucormycosis rhinosinusitis Code(s): B46.5 - MUCORMYCOSIS, UNSPECIFIED Status: Acute Comment: s/p necrotic tissue removal (2 visits to the OR; 12/11 and 12/19) On PO Zyvix and Isavuconazonium f/u ID recs regarding duration of therapy. 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 Achieving better control- at goal today. Continue sliding scale insulin. (3) Acute pancreatitis Code(s): K85.90 - ACUTE PANCREATITIS WITHOUT NECROSIS OR INFECTION, UNSP Status: Resolved Qualifiers: Pancreatitis type: idiopathic Acute pancreatitis complication: no infection or necrosis Qualified Code(s): K85.00 - Idiopathic acute pancreatitis without necrosis or infection Comment: c/o Andominal pain Obtain lipase, make NPO and ensure adequate pain control. (4) HTN (hypertension) Code(s): I10 - ESSENTIAL (PRIMARY) HYPERTENSION Status: Chronic Qualifiers: Hypertension type: essential hypertension Qualified Code(s): I10 - Essential (primary) hypertension Comment: Well controlled. Continue home meds. (5) Sxurv-nr-mnfdpzz kidney injury Code(s): N17.9 - ACUTE KIDNEY FAILURE, UNSPECIFIED; N18.9 - CHRONIC KIDNEY DISEASE, UNSPECIFIED Status: Acute Qualifiers: Acute renal failure type: unspecified Chronic kidney disease stage: stage 3 (moderate) Qualified Code(s): N17.9 - Acute kidney failure, unspecified; N18.3 - Chronic kidney disease, stage 3 (moderate); N18.3 - Chronic kidney disease, stage 3 (moderate) Comment: creatinine improving after bolus of NS. Continue IVF. (6) Hypoxia Code(s): R09.02 - HYPOXEMIA Status: Acute Comment: Unclear origin. Likely 2/ 2 recent procedure. No resp symptoms. Obtain CXR Nebs PRN - Plan cont current plan of care, continue antibiotics, PT/OT, socially responsible investment adviser, respiratory therapy * .
[2017-12-20] MEDS ORDERED: Albuterol Sulfate 2.5 mg/3 ml Neb NEB PRN (12:59)
[2017-12-20] MEDS: Lorazepam 0.5 MG TAB PO PRN (13:15)
--- NOTE | 2017-12-20 14:07 | RAD ---
CHEST 1 VIEW: Date: 12/20/17 HISTORY: Hypoxia. COMPARISON: Chest 1 view dated 02/04/10. FINDINGS: There is left basilar air space opacity with small effusion. No pneumothorax. Cardiac silhouette is u nremarkable. Moderate to severe degenerative disease of both shoulder joints. IMPRESSION: Left basilar air space opacity with small effusion. This is concerning for infection. Follow-up is st johnyg[facility] recommended. POS: [facility]
[2017-12-20] MEDS ORDERED: Morphine 2 MG/ML SYRINGE SLOW IVP PRN (15:02)
--- NOTE | 2017-12-20 15:03 | PRG ---
DATE OF SERVICE: 12/20/2017 GI INPATIENT DAILY PROGRESS NOTE SUBJECTIVE: Mr. Greer had been doing really well from a GI perspective over the past several day s. Even last night, he was eating solid food with no problems, nausea and vomiting or pain. However , overnight he became nauseated again and had an episode of vomiting, then starting around 10:00 this morning he began to have severe abdominal pain. He says this is in the epigastrium and periumbilica l area. He had another episode of vomiting today, this is nonbloody emesis. He says he had a normal bowel movement today without bleeding. He had a chest x-ray and this shows left-sided lung infiltra te, no recent abdominal imaging. It appears he has indeed been on daily IV Protonix 40 mg through time. His antifungal medications have been switched around a bit. OBJECTIVE: VITAL SIGNS: Temperature 97.6, pulse 76, blood pressure 138/71, 88% oxygen saturation. GENERAL: A 66-year-old man lying in bed in mild to moderate discomfort from abdominal pain. HEART: Regular rate and rhythm. LUNGS: Clear to auscultation bilaterally. ABDOMEN: Nondistended. Bowel sounds are hypoactive. Tender to palpation in the epigastrium and per iumbilical area, possible nonpulsatile mass felt in the epigastrium. EXTREMITIES: No peripheral edema. LABORATORY STUDIES: WBC down to 8.7, hemoglobin 7.9, and platelets 277. Sodium 135, potassium 4.2, BUN 24, creatinine 1.87, and glucose 110. Lipase was rechecked today and is down to normal range at only 76. ASSESSMENT AND PLAN: 1. Acute periumbilical abdominal pain, severe, just recurred this morning. 2. Recent acute recurrent pancreatitis, though now seems to be resolved. 3. Severe fungal sinusitis, status post multiple debridement procedures now on antifungal medication s. The acute onset of recurrent abdominal pain today is a little bit puzzling. His lipase level was normal at this time. Need to consider possibility of complication of his pancreatitis such as enlar ging pseudocyst or hemorrhage in the pancreatic bed. He has been on GI prophylaxis this whole time. I have gone ahead and ordered a repeat CT of the abdomen with contrast for this evening. If this is unrevealing, then we will consider upper endoscopy tomorrow. Remain n.p.o. at this time. Pain cont rol as needed. Please call with questions or concerns.
[2017-12-20] MEDS: Fentanyl 100 MCG/2 ML VIAL SLOW IVP SCH ×7 (16:55→23:21)
--- NOTE | 2017-12-20 17:27 | CT ---
ABDOMEN CT WITHOUT CONTRAST PELVIC CT WITHOUT CONTRAST 12/20/17 COMPARISON: 12/09/17. HISTORY: Abdominal pain. Recent pancreatitis. TECHNIQUE: An abdomen and pelvic CT are performed without IV or oral contrast. Coronal reformatted images are jean-baptiste bmitted for interpretation. FINDINGS: ABDOMEN CT: Interval development of bilateral small pleural effusions. Adjacent parenchymal changes due to atelec tasis or pneumonia. Additionally, there is opacification of the lingula which may be atelectasis, asp iration or pneumonia. Heart size is normal. There is a small amount of pericardial fluid. The descend ing thoracic aorta and abdominal aorta have an overall normal caliber. No periaortic fat stranding. No gastrohepatic, retrocrural or periportal lymphadenopathy. Gallbladder is surgically absent. Limited evaluation of the solid organs due to the absence of IV contrast administration. Grossly no s olid organ abnormality, with the exception of the pancreas. There continues to be peripancreatic infl ammatory change with mild edematous change of the pancreatic parenchyma. No definite evidence of absc ess, cyst or pseudocyst. Evaluation is limited by the lack of IV contrast administration. Redemonstration of hypodensity within the right renal pelvis and involving the superior cortex of the right kidney. Bilaterally, no hydronephrosis, nephrolithiasis or perinephric fat stranding. No evide nce of obstructive uropathy bilaterally. Stable hypodensity emanating from the mid pole left kidney. Small amount of fluid in both pericolic gutters. No mesenteric mass, lymphadenopathy or free air. Jose tral abdominal wall hernia containing mesenteric fat is noted. Adequate contrast opacification of the stomach, duodenum, and small bowel loops. No evidence of bowel obstruction. Ileocecal junction is normal. Fecalization of the terminal ileum is felt to be due to i ncompetent ileocecal valve, rather than an obstructive process. The cecal apex is unremarkable. The visualized colon is also unremarkable. No evidence of colonic obstruction. There is a suture chain at the level of the distal sigmoid colon and rectum. PELVIC CT: No mass, lymphadenopathy, free air or free fluid. No lytic or blastic lesions in the osseous structures. IMPRESSION: Redemonstration of inflammatory changes due to pancreatitis. No evidence of abscess, cyst or pseudocy st. Evaluation is limited by noncontrast technique. POS: [facility]
[2017-12-20] MEDS: Admixture Fee 1 EACH in Dextrose 5% in Water 10 ML FS SCH ×4 (17:54→21:14)
--- NOTE | 2017-12-20 17:59 | PRG ---
DATE OF SERVICE: 12/20/2017 SUBJECTIVE: The patient has developed diffuse abdominal pain. Dr. Zamorano has ordered a CT of abdomen and pelvis having liquid stools as well and some vomiting x1. No headaches. The eye symptoms are im proved with less pain, but still unable to see from the right side. No eye movements. OBJECTIVE: VITAL SIGNS: T-max 98.9, currently 97.6, little bit diaphoretic. HEENT: The right eye without any movements. As previously noted, the pupil is fixed and eyelid does not lift. Oral cavity is normal. LUNGS: With symmetric, clear breath sounds. CARDIOVASCULAR: S1, S2, regular rate. ABDOMEN: Moderately distended and diffusely tender with rebound tenderness. Bowel sounds are presen t. No bladder distention. EXTREMITIES: he is able to move extremities. LABORATORY DATA: The white cell count is down to 8.7, hemoglobin 7.9, platelets 277, 77% neutrophils . The creatinine is down to 1.87, GFR 36. C. diff test has not been submitted on stool yet. 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 The patient has been switched to his isavuconazole, but now is having s ome gastrointestinal issues which could be secondary to Clostridium difficile colitis or an alternate process. Clostridium difficile colitis is the more likely scenario. CT abdomen and pelvis is pendi ng. We will check his stool for Clostridium difficile and I have asked the pharmacist to switch his isavuconazole the intravenous route soon as possible. In view of the questions regarding ability to absorb his isavuconazole via the oral route. Discontinue linezolid.
[2017-12-20] MEDS ORDERED: AMBISOME IVPB SCH ×2 (18:00)
[2017-12-20] MEDS ORDERED: WATER IVPB SCH ×2 (18:00)
[2017-12-20] MEDS ORDERED: DEXTROSE 5% IVPB SCH ×2 (18:00)
--- NOTE | 2017-12-20 19:52 | PRG ---
DATE OF SERVICE: 12/20/2017 SUBJECTIVE: Patient was seen and examined at bedside and overnight events noted. Patient denies any shortness of breath or chest pain or palpitation. No history of nausea or vomiting or diarrhea or f ever or chills or cramps. OBJECTIVE: GENERAL: This is a well-built male, in no apparent distress. VITAL SIGNS: Temperature 98.0, pulse 82, respiration 18, blood pressure 138/71. HEENT: Atraumatic, normocephalic, oral mucosa is moist. NECK: Supple. CARDIOVASCULAR: S1, S2 heard, rate and rhythm regular. RESPIRATORY: Clear to auscultation. GASTROINTESTINAL: Abdomen is soft. MUSCULOSKELETAL: No tenderness, no edema. DERMATOLOGIC: No skin rash. NEUROLOGIC: Alert and awake and oriented x3. No focal neurologic deficits. Moving all the extremit ies. PSYCHIATRIC: Mood and affect normal. LABORATORY DATA: Potassium is 4.2, BUN 74, creatinine is 1.8. ASSESSMENT AND PLAN: 1. Acute kidney injury on chronic kidney disease, much better. 2. Cardiorenal syndrome. 3. Edema. 4. Hypertension. 5. History of renal cysts. Renal function seems to be getting better. This patient is having some edema. We will reduce IV flu ids to 50 mL per hour. Avoid nephrotoxins.
[2017-12-20] MEDS: Pantoprazole 40 MG VIAL IVP SCH (19:55)
[2017-12-20] MEDS: Insulin Detemir 100 UNITS/ML 10 UNITS in Pre-Filled Syringe 1 EACH SC SCH (20:02)
[2017-12-21] MEDS: Fentanyl 100 MCG/2 ML VIAL SLOW IVP SCH ×4 (01:01→02:10)
[2017-12-21] MEDS ORDERED: diphenhydrAMINE 25 MG CAP PO PRN (01:52)
[2017-12-21] MEDS ORDERED: diphenhydrAMINE 50 MG/ML VIAL IM PRN (01:52)
[2017-12-21] MEDS ORDERED: Fentanyl 5000 MCG/250 ML CADD IVPB PRN (01:52)
[2017-12-21] MEDS ORDERED: Naloxone HCl 0.4 mg/ml Vial IV PRN (01:52)
[2017-12-21] MEDS ORDERED: Ondansetron HCl/PF 4 MG/2 ML Vial IVP PRN ×2 (01:52→11:09)
[2017-12-21] MEDS ORDERED: diphenhydrAMINE 50 MG/ML VIAL IVP PRN (01:52)
[2017-12-21] MEDS ORDERED: Promethazine HCl 25 MG/ML VIAL IM PRN ×2 (01:52→11:09)
[2017-12-21] MEDS ORDERED: Communication Order-Pharmacy FS SCH (02:00)
[2017-12-21 05:08] LABS: #Eosinphils 0.1 thou/uL (0.0-0.7); #Lymphocytes 1.5 thou/uL (1.20-3.40); #Monocytes 0.7 thou/uL (0.11-0.59); #Neutrophils 16.1 thou/uL (1.40-6.50); %Basophils 0.2 % (0.0-1.0); %Eosinophils 0.6 % (0.0-10.0); %Lymphocytes 8.3 % (21.0-51.0); %Monocytes 3.8 % (0.0-10.0); %Neutrophils 87.1 % (42.0-75.0); Hemoglobin 8.1 g/dL (14.0-18.0); Mean Corpuscular HGB CONC 32.6 g/dL (32.0-36.0); Mean Corpuscular Hemoglobin 30.9 pg (27.0-31.0); Mean Corpuscular Volume 94.6 fl (80.0-94.0); Mean Platelet Volume 7.1 fL (7.4-10.4); Platelet Count 307 thou/uL (130-400); RBC Distribution Width 12.5 % (11.5-14.5); Red Blood Cell (RBC) Count 2.63 mill/uL (4.70-6.10); White Blood Cell (WBC) Count 18.4 thou/uL (4.8-10.8)
[2017-12-21 05:34] LABS: Anion Gap 14 mmol/L (10-20); BUN (Urea Nitrogen) 18 mg/dL (8.4-25.7); Calc. Creatinine Clearance 43 mL/min (70-130); Calcium 8.6 mg/dL (7.8-10.44); Carbon Dioxide 21 mmol/L (23-31); Chloride 100 mmol/L (98-107); Estimated GFR-MDRD 38; Glucose 187 mg/dL (80-115); Iron 70 ug/dL (65-175); Iron Binding Capacity, Total 176 mcg/dL (261-462); Potassium 4.1 mmol/L (3.5-5.1); Sodium 131 mmol/L (136-145)
[2017-12-21 06:06] LABS: Folate (Folic Acid) 5.3 ng/mL (7.0-31.4)
[2017-12-21] MEDS: Nebivolol HCl 5 MG TAB PO SCH (07:26)
[2017-12-21] MEDS: Docusate 100 MG CAP PO SCH ×2 (07:48→21:12)
[2017-12-21] MEDS: Fluticasone Propionate Nasal Spray 16 gm Bottle NASAL SCH (07:48)
[2017-12-21] MEDS: Potassium Chloride 20 MEQ TAB PO SCH ×2 (07:48→16:06)
[2017-12-21] MEDS: Bupropion 150 MG XL TAB PO SCH (07:48)
[2017-12-21] MEDS: guaiFENesin ER 600 MG TAB PO SCH ×2 (07:49→21:13)
[2017-12-21] MEDS: Glimepiride 4 MG TAB PO SCH (07:49)
[2017-12-21] MEDS: Heparin 5,000 UNITS/ML VIAL SC SCH ×3 (07:49→21:12)
[2017-12-21] MEDS: Magnesium Oxide 400 MG TAB PO SCH ×2 (07:49→21:13)
[2017-12-21] MEDS: Sodium Chloride 0.9% 1,000 ML IV SCH (07:50)
[2017-12-21] MEDS ORDERED: Fentanyl 100 MCG/2 ML VIAL ONE (09:41)
[2017-12-21] MEDS ORDERED: Promethazine HCl 25 MG/ML VIAL SLOW IVP PRN (11:09)
[2017-12-21] MEDS: Sodium Chloride 0.9% 15 ML NEB NASAL SCH ×4 (11:59→21:00)
--- NOTE | 2017-12-21 13:43 | PDOC.PN ---
- Subjective Encounter Start Date: 12/21/17 Encounter Start Time: 13:41 Subjective: Pain better controlled with GRADER MARKER pump. -: CT abdomen redemonstrated inflammatory changes 2/2 pancreatitis. - Objective Resuscitation Status: Resuscitation Status FULL:Full Resuscitation MAR Reviewed: Yes Vital Signs & Weight: Vital Signs (12 hours) Temp Pulse Resp BP Pulse Ox 12/21/17 12:00 97.8 F 82 18 163/78 H 100 12/21/17 07:42 97.8 F 84 16 12/21/17 07:39 97.8 F 84 16 150/84 H 95 12/21/17 04:00 97.8 F 86 18 163/78 H 99 Weight Admit Weight 156 lb Weight 165 lb 3.2 oz I&O: 12/20/17 12/21/17 12/22/17 06:59 06:59 06:59 Intake Total 720 1690 Balance 720 1690 Result Diagrams: 12/21/17 04:22 12/21/17 04:22 Additional Labs: Accuchecks 12/21/17 12/21/17 12/20/17 11:43 00:49 19:53 POC Glucose 135 H 239 H 265 H 12/20/17 17:16 POC Glucose 178 H Radiology Reviewed by me: Yes Phys Exam - Physical Examination Constitutional: NAD HEENT: PERRLA, moist MMs, sclera anicteric Neck: supple, full ROM Respiratory: no wheezing, no rales, no rhonchi, clear to auscultation bilateral Cardiovascular: RRR, no significant murmur, no rub Gastrointestinal: positive bowel sounds Diffuse tenderness, worse in epigastric region. Mild guarding but no reboun Musculoskeletal: edema present 1+ b/l lower extremities Psychiatric: normal affect, A&O x 3 Skin: no rash, normal turgor Dx/Plan (1) Acute pancreatitis Code(s): K85.90 - ACUTE PANCREATITIS WITHOUT NECROSIS OR INFECTION, UNSP Status: Resolved Qualifiers: Pancreatitis type: idiopathic Acute pancreatitis complication: no infection or necrosis Qualified Code(s): K85.00 - Idiopathic acute pancreatitis without necrosis or infection Comment: Lipase not elevated but CT adomen redemonstrated inflammatory changes from pancreatitis. Had EGD 12/21. Will f/u with results. Maintain NPO status Continue pain control (2) Mucormycosis rhinosinusitis Code(s): B46.5 - MUCORMYCOSIS, UNSPECIFIED Status: Acute Comment: s/p necrotic tissue removal (2 visits to the OR; 12/11 and 12/19) Pt was placed on PO Zyvox and Isavuconazonium (discontinued 12/21) (3) DM type 2 (diabetes mellitus, type 2) Status: Chronic Qualifiers: Diabetes mellitus complication status: with kidney complications Diabetes mellitus complication detail: with chronic kidney disease Diabetes mellitus intermodal truck driver insulin use: with senior living use Chronic kidney disease stage: stage 3 (moderate) Qualified Code(s): E11.22 - Type 2 diabetes mellitus with diabetic chronic kidney disease; N18.3 - Chronic kidney disease, stage 3 ( moderate); N18.3 - Chronic kidney disease, stage 3 (moderate); Z79.4 - equipment operator intermodal yard (current) use of insulin; Z79.4 - [facility] (current) use of insulin; Z79.4 - equipment operator intermodal yard (current) use of insulin; Z79.4 - equipment operator intermodal yard (current) use of insulin Comment: Achieving better control- at goal today. Continue sliding scale insulin. Amaryl held 2/2 NPO status (4) HTN (hypertension) Code(s): I10 - ESSENTIAL (PRIMARY) HYPERTENSION Status: Chronic Qualifiers: Hypertension type: essential hypertension Qualified Code(s): I10 - Essential (primary) hypertension Comment: Well controlled. Continue home meds. (5) Dopqi-nd-uoireel kidney injury Code(s): N17.9 - ACUTE KIDNEY FAILURE, UNSPECIFIED; N18.9 - CHRONIC KIDNEY DISEASE, UNSPECIFIED Status: Acute Qualifiers: Acute renal failure type: unspecified Chronic kidney disease stage: stage 3 (moderate) Qualified Code(s): N17.9 - Acute kidney failure, unspecified; N18.3 - Chronic kidney disease, stage 3 (moderate); N18.3 - Chronic kidney disease, stage 3 (moderate) Comment: creatinine improving after bolus of NS. Continue IVF. (6) Hypoxia Code(s): R09.02 - HYPOXEMIA Status: Resolved Comment: CXR negative Nebs PRN Resolved. - Plan cont current plan of care, PT/OT * .
--- NOTE | 2017-12-21 13:46 | OP ---
DATE OF PROCEDURE: 12/21/2017 GI ENDOSCOPY NOTE SURGEON: Julio Zamorano M.D. CHURN DRILLER HELPER SURGEON: None. PROCEDURE: Esophagogastroduodenoscopy with biopsies. INDICATION: Abdominal pain. MEDICATIONS: See anesthesia record. FINDINGS: After discussion of the risks, benefits and alternatives of the procedure, informed consen t was obtained and witnessed. Pre-endoscopic cardiopulmonary examination was satisfactory. Timeout was performed before sedation was achieved. Sedation was achieved with anesthesia assistance in the endoscopy unit. A Pentax adult upper endoscope was placed into the oropharynx and passed through the cricopharyngeus under direct visualization. The esophageal mucosa appeared normal throughout with a normal-appearing Z-line. The endoscope was then advanced into the stomach. Forward and retroflexed views of the entire gastric mucosa were obtained. There was a large amount of retained fluid within the gastric fundus. This was able to be completely suctioned. The gastric mucosa appeared essentia lly normal throughout. The endoscope was advanced through a widely patent pylorus and into the first and second portions of the duodenum. At the apex of the duodenal bulb, there is erosive duodenitis characterized primarily by edema, but also by some erythema and friability and shallow erosion. The second portion of the duodenum appears normal. Biopsies were obtained from the duodenal bulb apex fo r histology. The upper endoscope was then completely withdrawn and the patient allowed to recover. The patient tolerated the procedure well. There were no immediate post-procedure complications. IMPRESSION: 1. Erosive duodenitis with edema at the apex of the duodenal bulb, biopsied. 2. Retained fluid in the gastric fundus, completely suctioned. 3. Otherwise, normal esophagogastroduodenoscopy. RECOMMENDATIONS: 1. Increase the Protonix to twice daily dosing. 2. N.p.o. today and hopefully advance diet tomorrow. 3. Note, the essentially negative CT showing only persistence of inflammatory changes of the pancrea s, as well as negative Clostridium difficile testing. Overall, symptoms likely attributable to ongoi ng pancreatitis as well as associated duodenitis with edema in that area.
[2017-12-21] MEDS ORDERED: Sodium Chloride 0.45% 1,000 ML IV SCH (14:00)
[2017-12-21] MEDS ORDERED: Lidocaine 1% PF 5 ML VIAL ONE (16:42)
[2017-12-21] MEDS ORDERED: Propofol 200 MG/20 ML VIAL ONE (16:42)
--- NOTE | 2017-12-21 17:23 | PRG ---
DATE OF SERVICE: 12/21/2017 SUBJECTIVE: Patient was seen and examined at bedside and overnight events noted. Patient denies any shortness of breath or chest pain or palpitation. No history of nausea or vomiting or diarrhea or f ever or chills or cramps. OBJECTIVE: GENERAL: This is an elderly male in no apparent distress. VITAL SIGNS: Temperature 97.8, pulse 82, respiratory rate 18, blood pressure 163/78. HEENT: Atraumatic, normocephalic. Oral mucosa is moist. NECK: Supple. CARDIOVASCULAR: S1, S2 heard. Rate and rhythm regular. RESPIRATORY: Clear to auscultation. GASTROINTESTINAL: Abdomen is soft. MUSCULOSKELETAL: 2+ edema. DERMATOLOGIC: No skin rash. NEUROLOGIC: Alert and awake and oriented x3. No focal neurologic deficits. Moving all the extremiti es. PSYCHIATRIC: Mood and affect normal. LABORATORY DATA: Potassium is 4.1, BUN is 18, and creatinine is 1.7. ASSESSMENT AND PLAN: 1. Acute kidney injury on chronic kidney disease. Renal function continues to get better, we will s top IV fluids. Patient is getting edema. 2. Edema. We will stop IV fluids. 3. Cardiorenal syndrome. 4. Hypotension. 5. History of renal cysts. 6. Renal function is getting better. We will stop IV fluids. Avoid nephrotoxins and okay to use La six if needed. Limit fluid and salt intake.
[2017-12-21] MEDS: ISAVUCONAZONIUM SULFATE IVPB SCH (19:11)
[2017-12-21] MEDS: SODIUM CHLORIDE 0.9% IVPB SCH (19:11)
[2017-12-21] MEDS: Insulin Detemir 100 UNITS/ML 10 UNITS in Pre-Filled Syringe 1 EACH SC SCH (21:11)
[2017-12-21] MEDS: Pantoprazole 40 MG VIAL IVP SCH (21:13)
--- NOTE | 2017-12-21 21:33 | PRG ---
DATE OF SERVICE: 12/21/2017 SUBJECTIVE: The patient had an EGD by Dr. Zamorano and it showed duodenitis with edema at the apex of the duodenal bulb, retained fluid in the gastric fundus, has been placed n.p.o. and is on Protonix. His abdomen and pelvis CT showed inflammatory changes due to pancreatitis, but no abscess or pseudocyst. He is feeling a little better now, the eye is about the same. No respiratory symptoms , moving all extremities. OBJECTIVE: VITAL SIGNS: He is afebrile. Blood pressure 160/78, pulse 82, respirations 18 , O2 sat 100. GENERAL: He appears in no distress. 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 Pupil is fixed in the right side. Oral cavity is normal. LUNGS: Clear. HEART: S1, S2, regular rate. ABDOMEN: Slightly distended and mild to moderately tender in the epigastric area. Bowel sounds are diminished. EXTREMITIES: Moves all extremities equally. LABORATORY DATA: White cell count 18,000, hemoglobin 8.1, platelets 307, and lipase was actually down to 76. 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 and follow. We will switch him to IV AmBisome again. Hopefully, we will be able to put him on isavuconazole intravenously starting Friday. [facility]
[2017-12-22] MEDS: SODIUM CHLORIDE 0.9% IVPB SCH (02:14)
[2017-12-22] MEDS: ISAVUCONAZONIUM SULFATE IVPB SCH (02:14)
[2017-12-22] MEDS: Lorazepam 0.5 MG TAB PO PRN (02:20)
[2017-12-22 05:28] LABS: #Lymphocytes 1.1 thou/uL (1.20-3.40); #Monocytes 0.7 thou/uL (0.11-0.59); #Neutrophils 11.4 thou/uL (1.40-6.50); %Basophils 0.2 % (0.0-1.0); %Eosinophils 0.3 % (0.0-10.0); %Lymphocytes 8.1 % (21.0-51.0); %Monocytes 5.2 % (0.0-10.0); %Neutrophils 86.3 % (42.0-75.0); Mean Corpuscular HGB CONC 32.2 g/dL (32.0-36.0); Mean Corpuscular Volume 96.3 fl (80.0-94.0); Mean Platelet Volume 7.2 fL (7.4-10.4); Platelet Count 213 thou/uL (130-400); RBC Distribution Width 12.6 % (11.5-14.5); Red Blood Cell (RBC) Count 2.59 mill/uL (4.70-6.10); White Blood Cell (WBC) Count 13.2 thou/uL (4.8-10.8)
[2017-12-22 05:33] LABS: Anion Gap 18 mmol/L (10-20); BUN (Urea Nitrogen) 14 mg/dL (8.4-25.7); Calc. Creatinine Clearance 51 mL/min (70-130); Calcium 8.6 mg/dL (7.8-10.44); Carbon Dioxide 18 mmol/L (23-31); Chloride 98 mmol/L (98-107); Estimated GFR-MDRD 46; Glucose 149 mg/dL (80-115); Potassium 4.6 mmol/L (3.5-5.1); Sodium 129 mmol/L (136-145)
[2017-12-22] MEDS: Heparin 5,000 UNITS/ML VIAL SC SCH ×3 (07:41→22:43)
[2017-12-22] MEDS: Pantoprazole 40 MG VIAL IVP SCH ×2 (07:41→20:10)
[2017-12-22] MEDS: Fluticasone Propionate Nasal Spray 16 gm Bottle NASAL SCH (08:05)
[2017-12-22] MEDS: Bupropion 150 MG XL TAB PO SCH (08:05)
[2017-12-22] MEDS: Potassium Chloride 20 MEQ TAB PO SCH ×2 (08:05→16:49)
[2017-12-22] MEDS: Docusate 100 MG CAP PO SCH ×2 (08:05→22:42)
[2017-12-22] MEDS: Magnesium Oxide 400 MG TAB PO SCH ×2 (08:06→22:43)
[2017-12-22] MEDS: Folic Acid 1 MG TAB PO SCH (08:06)
[2017-12-22] MEDS: guaiFENesin ER 600 MG TAB PO SCH ×2 (08:06→22:43)
[2017-12-22] MEDS: Nebivolol HCl 5 MG TAB PO SCH (08:06)
--- NOTE | 2017-12-22 10:03 | PRG ---
DATE OF SERVICE: 12/22/2017 SUBJECTIVE: This is a 66-year-old gentleman being seen for acute kidney injury. The patient denies any nausea, vomiting, or chest pain. PHYSICAL EXAMINATION: GENERAL: Patient is awake, alert. VITAL SIGNS: Afebrile, pulse 92, breathing at 16, blood pressure 144/75. HEAD/NECK: Normocephalic. Atraumatic. EYES: EOMI. No deformity. EARS: Clear. No ulcers. NOSE: Intact. No lesions. MOUTH: Clear. No discharge. THROAT: Clear. No exudate. LUNGS: Clear. No crackles. CARDIAC: S1, S2. No rub. ABDOMEN: Benign. BS+. GENITALIA/RECTUM: Hooper absent. BACK/EXTREMITIES: Edema 0+ Ulcer- NEUROLOGICAL: Alert and motor intact. SKIN: Rash- Bruise- LYMPHATICS: Edema- Ulcer- LABORATORY DATA: Show hemoglobin 8 and creatinine 1.5. ASSESSMENT AND PLAN: 1. Acute kidney injury with chronic kidney disease, stable. 2. Hypertension, stable. 3. Anemia, stable. 4. Medications based on glomerular filtration rate are appropriate. No indication for dialysis at t his time.
--- NOTE | 2017-12-22 10:08 | PRG ---
DATE OF SERVICE: 12/22/2017 SUBJECTIVE: Mr. Greer was able to get some sleep last night. He still did have to use the fenta nyl SODA DRIER FEEDER a couple of times. He says he is feeling a bit better today, but abdominal pain persists. N o nausea, but he does not have any appetite either. PHYSICAL EXAMINATION: VITAL SIGNS: Temperature 98.4, pulse 83, blood pressure 144/75, 93% oxygen saturation on room air. GENERAL: No acute distress. HEART: Regular rate and rhythm. LUNGS: Clear to auscultation bilaterally. ABDOMEN: Bowel sounds present but hypoactive. Soft, tender to palpation in the epigastrium. No gua rding or rebound tenderness. EXTREMITIES: No peripheral edema. LABORATORY STUDIES: Sodium 129, potassium 4.6, BUN 14, creatinine down to 1.52. WBC 13.2, hemoglobi n 8.0, platelets 213. ASSESSMENT AND PLAN: 1. Pancreatitis. 2. Erosive duodenitis. Continue with a PPI twice daily. Would keep him n.p.o. this morning, but if doing better with less p ain requirement this afternoon, he could potentially be advanced to clear liquids.
[2017-12-22] MEDS: Sodium Chloride 0.9% 15 ML NEB NASAL SCH ×3 (10:58→17:32)
--- NOTE | 2017-12-22 12:56 | PDOC.PN ---
- Subjective Encounter Start Date: 12/22/17 Encounter Start Time: 12:53 Subjective: No complaints today. In much less pain -: No acute events overnight. - Objective Resuscitation Status: Resuscitation Status FULL:Full Resuscitation MAR Reviewed: Yes Vital Signs & Weight: Vital Signs (12 hours) Temp Pulse Resp BP BP Pulse Ox Pulse Ox 12/22/17 11:48 98.5 F 85 20 134/70 96 12/22/17 10:00 90 L 12/22/17 08:34 98.4 F 83 18 144/75 H 93 L 12/22/17 08:00 98.5 F 83 18 12/22/17 04:00 98.5 F 83 18 145/70 H 93 L Pulse Ox 12/22/17 11:48 12/22/17 10:00 91 L 12/22/17 08:34 12/22/17 08:00 12/22/17 04:00 Weight Admit Weight 156 lb Weight 162 lb 2 oz I&O: 12/21/17 12/22/17 12/23/17 06:59 06:59 06:59 Intake Total 1690 461.4 Balance 1690 461.4 Result Diagrams: 12/22/17 04:33 12/22/17 04:33 Additional Labs: Accuchecks 12/22/17 12/22/17 12/21/17 11:23 04:28 19:53 POC Glucose 134 H 133 H 124 H 12/21/17 17:09 POC Glucose 128 H Phys Exam - Physical Examination Constitutional: NAD HEENT: PERRLA, moist MMs, sclera anicteric R vision impairment Neck: supple, full ROM Respiratory: no wheezing, no rales, no rhonchi, clear to auscultation bilateral Cardiovascular: RRR, no significant murmur, no rub Gastrointestinal: soft, no distention, positive bowel sounds Mild tenderness but no ebound or guarding Musculoskeletal: edema present (1+ (improved)) Neurological: non-focal, moves all 4 limbs Psychiatric: normal affect, A&O x 3 Skin: no rash, normal turgor Dx/Plan (1) Acute pancreatitis Code(s): K85.90 - ACUTE PANCREATITIS WITHOUT NECROSIS OR INFECTION, UNSP Status: Resolved Qualifiers: Pancreatitis type: idiopathic Acute pancreatitis complication: no infection or necrosis Qualified Code(s): K85.00 - Idiopathic acute pancreatitis without necrosis or infection Comment: Improving Lipase not elevated but CT adomen redemonstrated inflammatory changes from pancreatitis. Had EGD 12/21. Will f/u with results. 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.5 - MUCORMYCOSIS, UNSPECIFIED Status: Acute Comment: s/p necrotic tissue removal (2 visits to the OR; 12/11 and 12/19) Pt was placed on PO Zyvox and Isavuconazonium (discontinued 12/21) Plan by ID to recommence Isavuconazole on Friday (3) DM type 2 (diabetes mellitus, type 2) Status: Chronic Qualifiers: Diabetes mellitus complication status: with kidney complications Diabetes mellitus complication detail: with chronic kidney disease Diabetes mellitus intermediate manager insulin use: with penitentiary use Chronic kidney disease stage: stage 3 (moderate) Qualified Code(s): E11.22 - Type 2 diabetes mellitus with diabetic chronic kidney disease; N18.3 - Chronic kidney disease, stage 3 ( moderate); N18.3 - Chronic kidney disease, stage 3 (moderate); Z79.4 - middle or intermediate school principal (current) use of insulin; Z79.4 - long-term (current) use of insulin; Z79.4 - middle or intermediate school principal (current) use of insulin; Z79.4 - long-term (current) use of insulin Comment: At goal Continue sliding scale insulin. Amaryl held 2/ NPO status (4) HTN (hypertension) Code(s): I10 - ESSENTIAL (PRIMARY) HYPERTENSION Status: Chronic Qualifiers: Hypertension type: essential hypertension Qualified Code(s): I10 - Essential (primary) hypertension Comment: Well controlled. Continue home meds. (5) Yurrf-ca-lpbeeou kidney injury Code(s): N17.9 - ACUTE KIDNEY FAILURE, UNSPECIFIED; N18.9 - CHRONIC KIDNEY DISEASE, UNSPECIFIED Status: Acute Qualifiers: Acute renal failure type: unspecified Chronic kidney disease stage: stage 3 (moderate) Qualified Code(s): N17.9 - Acute kidney failure, unspecified; N18.3 - Chronic kidney disease, stage 3 (moderate); N18.3 - Chronic kidney disease, stage 3 (moderate) Comment: IMproving with hydration. (6) Hypoxia Code(s): R09.02 - HYPOXEMIA Status: Resolved Comment: CXR negative Nebs PRN Resolved. - Plan cont current plan of care, plan discussed w/ family, PT/OT, DVT proph w/heparin * .
--- NOTE | 2017-12-22 17:40 | PRG ---
DATE OF SERVICE: 12/22/2017 SUBJECTIVE: Pain has improved markedly, has not required fentanyl very often. In fact has not had o ne today yet. No headaches, so the visual changes are the same in the right eye, no vomiting. Oral intake has been restarted with broth. No diarrhea. OBJECTIVE: VITAL SIGNS: Normal except for slight tachycardia, right ophthalmoplegia. SKIN: As previously noted, pupils not reactive on the right side. No light perception. LUNGS: Clear. HEART: S1, S2, regular rate. ABDOMEN: Not tender or distended, able to move all extremities. LABORATORY DATA: White cell count down to 13.2, hemoglobin 8, platelets 213. Sodium 129, creatinine 1.52. 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 After that, we will need a followup imaging study of probably a CT of the orbit and the sinu ses for followup. Duration of therapy will be quite a few months.
[2017-12-22] MEDS: Insulin Detemir 100 UNITS/ML 10 UNITS in Pre-Filled Syringe 1 EACH SC SCH (20:10)
[2017-12-22] MEDS: Zolpidem Tartrate 5 MG TAB PO PRN (20:20)
[2017-12-22] MEDS: Acetaminophen 500 MG TAB PO PRN (20:20)
[2017-12-23] MEDS: SODIUM CHLORIDE 0.9% IVPB SCH (02:49)
[2017-12-23] MEDS: ISAVUCONAZONIUM SULFATE IVPB SCH (02:49)
[2017-12-23 05:50] LABS: #Eosinphils 0.1 thou/uL (0.0-0.7); #Lymphocytes 0.7 thou/uL (1.20-3.40); #Neutrophils 12.7 thou/uL (1.40-6.50); %Eosinophils 0.5 % (0.0-10.0); %Lymphocytes 4.8 % (21.0-51.0); %Monocytes 7.2 % (0.0-10.0); %Neutrophils 87.4 % (42.0-75.0); Hemoglobin 8.1 g/dL (14.0-18.0); Mean Corpuscular HGB CONC 32.4 g/dL (32.0-36.0); Mean Corpuscular Hemoglobin 30.8 pg (27.0-31.0); Mean Platelet Volume 7.1 fL (7.4-10.4); Platelet Count 172 thou/uL (130-400); RBC Distribution Width 12.4 % (11.5-14.5); Red Blood Cell (RBC) Count 2.64 mill/uL (4.70-6.10); White Blood Cell (WBC) Count 14.5 thou/uL (4.8-10.8)
[2017-12-23 06:07] LABS: Anion Gap 13 mmol/L (10-20); BUN (Urea Nitrogen) 13 mg/dL (8.4-25.7); Calc. Creatinine Clearance 42 mL/min (70-130); Calcium 8.9 mg/dL (7.8-10.44); Carbon Dioxide 23 mmol/L (23-31); Chloride 101 mmol/L (98-107); Estimated GFR-MDRD 38; Potassium 3.8 mmol/L (3.5-5.1); Sodium 133 mmol/L (136-145)
[2017-12-23 06:14] LABS: Glucose 44 mg/dL (80-115)
[2017-12-23] MEDS: Potassium Chloride 20 MEQ TAB PO SCH ×2 (07:51→20:48)
[2017-12-23] MEDS: Magnesium Oxide 400 MG TAB PO SCH ×2 (07:52→20:13)
[2017-12-23] MEDS: Nebivolol HCl 5 MG TAB PO SCH (07:52)
[2017-12-23] MEDS: Folic Acid 1 MG TAB PO SCH (07:52)
[2017-12-23] MEDS: guaiFENesin ER 600 MG TAB PO SCH ×2 (07:52→20:13)
[2017-12-23] MEDS: Docusate 100 MG CAP PO SCH ×2 (07:52→20:12)
[2017-12-23] MEDS: Pantoprazole 40 MG VIAL IVP SCH ×2 (07:53→20:13)
[2017-12-23] MEDS: Bupropion 150 MG XL TAB PO SCH (07:57)
[2017-12-23] MEDS: Heparin 5,000 UNITS/ML VIAL SC SCH ×3 (07:58→20:12)
[2017-12-23] MEDS: Sodium Chloride 0.9% 15 ML NEB NASAL SCH ×5 (08:02→22:09)
[2017-12-23 08:51] VITALS: BMI 24.6
[2017-12-23] MEDS ORDERED: Fentanyl 100 MCG/2 ML VIAL SLOW IVP PRN (11:17)
--- NOTE | 2017-12-23 12:23 | PRG ---
DATE OF SERVICE: 12/23/2017 SUBJECTIVE: This is a 66-year-old gentleman being seen for acute kidney injury. The patient denies any nausea, vomiting, or chest pain. PHYSICAL EXAMINATION: GENERAL: Patient is awake and alert. VITAL SIGNS: Afebrile, pulse 91, breathing 16, and blood pressure 114/63. GENERAL APPEARANCE AND MENTAL STATUS: Fair. HEAD/NECK: Normocephalic. Atraumatic. EYES: EOMI. No deformity. EARS: Clear. No ulcers. NOSE: Intact. No lesions. MOUTH: Clear. No discharge. THROAT: Clear. No exudate. LUNGS: Clear. No crackles. CARDIAC: S1, S2. No rub. ABDOMEN: Benign. BS+. GENITALIA/RECTUM: Hooper absent. BACK/EXTREMITIES: Edema 0+ Ulcer- NEUROLOGICAL: Alert and motor intact. SKIN: Rash- Bruise-. LYMPHATICS: Edema- Ulcer-. LABORATORY DATA: Hemoglobin 8.1, creatinine 1.8. RECOMMENDATIONS: 1. Acute kidney injury with chronic kidney disease, most likely and progressive chronic kidne y disease, no urgent indication for dialysis. Continue hydration. 2. Anemia, stable. 3. Hypertension, stable. 4. Medications based on GFR are appropriate.
--- NOTE | 2017-12-23 14:57 | PDOC.PN ---
- Subjective Encounter Start Date: 12/23/17 Encounter Start Time: 15:19 Subjective: Looks better today. Reports no complaints. -: No acute events overnight. -: Tolerating clears. - Objective Resuscitation Status: Resuscitation Status FULL:Full Resuscitation MAR Reviewed: Yes Vital Signs & Weight: Vital Signs (12 hours) Temp Pulse Resp BP Pulse Ox 12/23/17 12:00 99.1 F 81 18 125/72 94 L 12/23/17 08:00 98.0 F 91 16 12/23/17 07:47 98.0 F 91 16 114/63 96 12/23/17 07:36 98.8 F 92 20 128/67 92 L 12/23/17 04:00 98.6 F 87 20 105/63 92 L Weight Admit Weight 156 lb Weight 162 lb 2 oz I&O: 12/22/17 12/23/17 12/24/17 06:59 06:59 06:59 Intake Total 461.4 1 Balance 461.4 1 Result Diagrams: 12/23/17 05:29 12/23/17 05:29 Additional Labs: Accuchecks 12/23/17 12/23/17 12/23/17 11:46 07:08 06:24 POC Glucose 183 H 82 38 L* 12/23/17 12/22/17 12/22/17 04:04 19:32 16:33 POC Glucose 185 H 146 H 138 H Phys Exam - Physical Examination Constitutional: NAD HEENT: PERRLA, moist MMs, sclera anicteric Neck: supple, full ROM Respiratory: no wheezing, no rales, no rhonchi, clear to auscultation bilateral Cardiovascular: RRR, no significant murmur, no rub Gastrointestinal: soft, non-tender, no distention, positive bowel sounds Musculoskeletal: no edema, pulses present Neurological: non-focal, moves all 4 limbs Psychiatric: normal affect, A&O x 3 Skin: no rash, normal turgor Dx/Plan (1) Acute pancreatitis Code(s): K85.90 - ACUTE PANCREATITIS WITHOUT NECROSIS OR INFECTION, UNSP Status: Resolved Qualifiers: Pancreatitis type: idiopathic Acute pancreatitis complication: no infection or necrosis Qualified Code(s): K85.00 - Idiopathic acute pancreatitis without necrosis or infection Plan: Able to tolerate clears. Will advance diet. Continue IVF for now. Comment: Improving Lipase not elevated but CT adomen redemonstrated inflammatory changes from pancreatitis. Continue pain control Tolerating diet. Will advance. (2) Mucormycosis rhinosinusitis Code(s): B46.5 - MUCORMYCOSIS, UNSPECIFIED Status: Acute Comment: s/p necrotic tissue removal (2 visits to the OR; 12/11 and 12/19) Pt was placed on PO Zyvox and Isavuconazonium (discontinued 12/21) Cresemba restarted IV 12/23. Will be transitioned to PO. Duration of tx expected to be months. Will need repeat imaging (CT orbit and sinuses) before discharge. (3) Jhckp-ry-zhouozd kidney injury Code(s): N17.9 - ACUTE KIDNEY FAILURE, UNSPECIFIED; N18.9 - CHRONIC KIDNEY DISEASE, UNSPECIFIED Status: Acute Qualifiers: Acute renal failure type: unspecified Chronic kidney disease stage: stage 3 (moderate) Qualified Code(s): N17.9 - Acute kidney failure, unspecified; N18.3 - Chronic kidney disease, stage 3 (moderate); N18.3 - Chronic kidney disease, stage 3 (moderate) Comment: Fluctuating renal function. Nephrology on board. Recommend to continue hydration. (4) DM type 2 (diabetes mellitus, type 2) Status: Chronic Qualifiers: Diabetes mellitus complication status: with kidney complications Diabetes mellitus complication detail: with chronic kidney disease Diabetes mellitus longterm insulin use: with longterm use Chronic kidney disease stage: stage 3 (moderate) Qualified Code(s): E11.22 - Type 2 diabetes mellitus with diabetic chronic kidney disease; N18.3 - Chronic kidney disease, stage 3 ( moderate); N18.3 - Chronic kidney disease, stage 3 (moderate); Z79.4 - FPC (current) use of insulin; Z79.4 - FPC (current) use of insulin; Z79.4 - FPC (current) use of insulin; Z79.4 - FPC (current) use of insulin Plan: Well controlled. Comment: At goal Continue sliding scale insulin. Amaryl held 2/2 NPO status (5) HTN (hypertension) Code(s): I10 - ESSENTIAL (PRIMARY) HYPERTENSION Status: Chronic Qualifiers: Hypertension type: essential hypertension Qualified Code(s): I10 - Essential (primary) hypertension Comment: Well controlled. Continue home meds. - Plan cont current plan of care, plan discussed w/ family, PT/OT, DVT proph w/lovenox * .
--- NOTE | 2017-12-23 16:39 | PRG ---
DATE OF SERVICE: 12/23/2017 GI INPATIENT DAILY PROGRESS NOTE SUBJECTIVE: Mr. Greer has had essentially resolution of his abdominal pain and nausea. He is no t having to use the WIRELESS TELEGRAPHER at all. He has had some bowel movements and has been passing gas. He was ad vanced to a clear liquid diet this morning and he tolerated that very well for breakfast and lunch. He did have an episode of low blood sugars overnight which has since been corrected. He continues to feel overall weak. OBJECTIVE: VITAL SIGNS: Temperature 99.1, pulse 81, blood pressure 125/72, 94% oxygen saturation on room air. GENERAL: No acute distress. HEART: Regular rate and rhythm. LUNGS: Clear to auscultation bilaterally. ABDOMEN: Bowel sounds present, soft, nontender to palpation throughout today. EXTREMITIES: No peripheral edema. LABORATORY STUDIES: Glucose 183, sodium 133, potassium 3.8, BUN 13, creatinine 1.80. WBC 14.5; hemo globin 8.1, this has been stable for the past 4 days; platelets 172. ASSESSMENT AND PLAN: 1. Pancreatitis. 2. Duodenitis. Symptomatically, he is improving again. Okay to advance diet slowly as tolerated. He wants to stick with a full liquid diet tonight and can cautiously advance to more solid food tomor row if he does well overnight. Hopefully, as he advances his diet, blood sugar fluctuations will be less pronounced. 3. Anemia. This has been stable over the past 4 days. There is no evidence of gastrointestinal ble eding. Suspect this is likely mostly reactive to his systemic illness.
[2017-12-23] MEDS: Fluticasone Propionate Nasal Spray 16 gm Bottle NASAL SCH (17:58)
[2017-12-23] MEDS: HumaLOG 300 UNITS/3 ML VIAL SC PRN (17:59)
[2017-12-23] MEDS: Insulin Detemir 100 UNITS/ML 10 UNITS in Pre-Filled Syringe 1 EACH SC SCH (20:50)
[2017-12-23] MEDS: Zolpidem Tartrate 5 MG TAB PO PRN (22:48)
[2017-12-24] MEDS: ISAVUCONAZONIUM SULFATE IVPB SCH (02:06)
[2017-12-24] MEDS: SODIUM CHLORIDE 0.9% IVPB SCH (02:06)
[2017-12-24 05:52] LABS: #Eosinphils 0.1 thou/uL (0.0-0.7); #Lymphocytes 0.7 thou/uL (1.20-3.40); #Monocytes 0.7 thou/uL (0.11-0.59); #Neutrophils 5.5 thou/uL (1.40-6.50); %Basophils 0.3 % (0.0-1.0); %Lymphocytes 10.1 % (21.0-51.0); %Monocytes 9.5 % (0.0-10.0); %Neutrophils 79.1 % (42.0-75.0); Hemoglobin 7.3 g/dL (14.0-18.0); Mean Corpuscular HGB CONC 32.4 g/dL (32.0-36.0); Mean Corpuscular Volume 95.9 fl (80.0-94.0); Mean Platelet Volume 7.8 fL (7.4-10.4); Platelet Count 142 thou/uL (130-400); RBC Distribution Width 12.5 % (11.5-14.5); Red Blood Cell (RBC) Count 2.35 mill/uL (4.70-6.10); White Blood Cell (WBC) Count 6.9 thou/uL (4.8-10.8)
[2017-12-24] MEDS: HumaLOG 300 UNITS/3 ML VIAL SC PRN ×4 (05:53→20:47)
[2017-12-24 06:06] LABS: Anion Gap 16 mmol/L (10-20); BUN (Urea Nitrogen) 13 mg/dL (8.4-25.7); Calc. Creatinine Clearance 46 mL/min (70-130); Calcium 8.2 mg/dL (7.8-10.44); Carbon Dioxide 19 mmol/L (23-31); Chloride 102 mmol/L (98-107); Estimated GFR-MDRD 42; Glucose 306 mg/dL (80-115); Potassium 4.6 mmol/L (3.5-5.1); Sodium 132 mmol/L (136-145)
[2017-12-24] MEDS: Potassium Chloride 20 MEQ TAB PO SCH ×2 (08:56→17:12)
[2017-12-24] MEDS: Bupropion 150 MG XL TAB PO SCH (08:56)
[2017-12-24] MEDS: Nebivolol HCl 5 MG TAB PO SCH (08:56)
[2017-12-24] MEDS: Folic Acid 1 MG TAB PO SCH (08:57)
[2017-12-24] MEDS: Docusate 100 MG CAP PO SCH ×2 (08:57→20:41)
[2017-12-24] MEDS: Pantoprazole 40 MG VIAL IVP SCH ×2 (08:58→20:40)
[2017-12-24] MEDS: Magnesium Oxide 400 MG TAB PO SCH ×2 (08:58→20:41)
[2017-12-24] MEDS: guaiFENesin ER 600 MG TAB PO SCH ×2 (08:58→20:41)
[2017-12-24] MEDS: Heparin 5,000 UNITS/ML VIAL SC SCH ×3 (08:58→20:41)
[2017-12-24] MEDS: Sodium Chloride 0.9% 15 ML NEB NASAL SCH ×4 (08:59→20:56)
--- NOTE | 2017-12-24 10:06 | PRG ---
DATE OF SERVICE: 12/24/2017 SUBJECTIVE: This is a 67-year-old male being seen for acute kidney injury. The patient denies any n ausea, vomiting or chest pain. PHYSICAL EXAMINATION: GENERAL: Patient is awake, alert. VITAL SIGNS: Afebrile, pulse 80, breathing at 16, blood pressure 126/72. HEAD/NECK: Normocephalic. Atraumatic. EYES: EOMI. No deformity. EARS: Clear. No ulcers. NOSE: Intact. No lesions. MOUTH: Clear. No discharge. THROAT: Clear. No exudate. LUNGS: Clear. No crackles. CARDIAC: S1, S2. No rub. ABDOMEN: Benign. BS+. GENITALIA/RECTUM: Hooper absent. BACK/EXTREMITIES: Edema 0+ Ulcer- NEUROLOGICAL: Alert and motor intact. SKIN: Rash- Bruise- LYMPHATICS: Edema- Ulcer- LABORATORY DATA: Show hemoglobin 7.3, creatinine 1.6. ASSESSMENT AND RECOMMENDATIONS: 1. Chronic kidney disease, stage 3, stable. 2. Hypertension, stable. 3. Acute kidney injury, stable. 4. Anemia, would recommend transfusion.
[2017-12-24] MEDS: Fluticasone Propionate Nasal Spray 16 gm Bottle NASAL SCH (12:54)
--- NOTE | 2017-12-24 14:55 | PDOC.PN ---
- Subjective Encounter Start Date: 12/24/17 Encounter Start Time: 15:00 Subjective: No acute events. Tolerating diet well. No complaints. - Objective Resuscitation Status: Resuscitation Status FULL:Full Resuscitation Vital Signs & Weight: Vital Signs (12 hours) Temp Pulse Resp BP Pulse Ox 12/24/17 11:17 98.4 F 85 16 131/80 92 L 12/24/17 08:00 98.4 F 85 16 92 L Weight Admit Weight 156 lb Weight 162 lb 2 oz I&O: 12/23/17 12/24/17 12/25/17 06:59 06:59 06:59 Intake Total 1 900 Output Total 1000 Balance 1 -100 Result Diagrams: 12/24/17 05:01 12/24/17 05:01 Additional Labs: Accuchecks 12/24/17 12/24/17 12/23/17 11:14 04:24 19:26 POC Glucose 223 H 328 H 195 H 12/23/17 16:39 POC Glucose 286 H Phys Exam - Physical Examination Constitutional: NAD HEENT: PERRLA, moist MMs, sclera anicteric Neck: supple, full ROM Respiratory: no wheezing, no rales, no rhonchi, clear to auscultation bilateral Cardiovascular: RRR, no significant murmur, no rub Gastrointestinal: soft, non-tender, no distention, positive bowel sounds Musculoskeletal: no edema, pulses present Neurological: non-focal, moves all 4 limbs Psychiatric: normal affect, A&O x 3 Skin: no rash, normal turgor Dx/Plan (1) Mucormycosis rhinosinusitis Code(s): B46.5 - MUCORMYCOSIS, UNSPECIFIED Status: Acute Comment: s/p necrotic tissue removal (2 visits to the OR; 12/11 and 12/19) Cresemba restarted IV 12/23. Will be transitioned to PO. Duration of tx expected to be months. Will need repeat imaging (CT orbit and sinuses) before discharge. (2) Acute pancreatitis Code(s): K85.90 - ACUTE PANCREATITIS WITHOUT NECROSIS OR INFECTION, UNSP Status: Resolved Qualifiers: Pancreatitis type: idiopathic Acute pancreatitis complication: no infection or necrosis Qualified Code(s): K85.00 - Idiopathic acute pancreatitis without necrosis or infection Comment: Improving Lipase not elevated but CT adomen redemonstrated inflammatory changes from pancreatitis. Continue pain control (3) Kyvpz-ul-nulzubn kidney injury Code(s): N17.9 - ACUTE KIDNEY FAILURE, UNSPECIFIED; N18.9 - CHRONIC KIDNEY DISEASE, UNSPECIFIED Status: Acute Qualifiers: Acute renal failure type: unspecified Chronic kidney disease stage: stage 3 (moderate) Qualified Code(s): N17.9 - Acute kidney failure, unspecified; N18.3 - Chronic kidney disease, stage 3 (moderate); N18.3 - Chronic kidney disease, stage 3 (moderate) Comment: Fluctuating renal function. Nephrology on board. Ensure adequate hydration. (4) DM type 2 (diabetes mellitus, type 2) Status: Chronic Qualifiers: Diabetes mellitus complication status: with kidney complications Diabetes mellitus complication detail: with chronic kidney disease Diabetes mellitus care home insulin use: with terminal operations manager use Chronic kidney disease stage: stage 3 (moderate) Qualified Code(s): E11.22 - Type 2 diabetes mellitus with diabetic chronic kidney disease; N18.3 - Chronic kidney disease, stage 3 ( moderate); N18.3 - Chronic kidney disease, stage 3 (moderate); Z79.4 - terminal operations manager (current) use of insulin; Z79.4 - retirement (current) use of insulin; Z79.4 - terminal operations manager (current) use of insulin; Z79.4 - terminal operations manager (current) use of insulin Comment: At goal Continue sliding scale insulin. Amaryl held initially 2/2 NPO status Will resume. (5) HTN (hypertension) Code(s): I10 - ESSENTIAL (PRIMARY) HYPERTENSION Status: Chronic Qualifiers: Hypertension type: essential hypertension Qualified Code(s): I10 - Essential (primary) hypertension Comment: Well controlled. Continue home meds. (6) Normocytic anemia Code(s): D64.9 - ANEMIA, UNSPECIFIED Status: Acute Comment: Hb trended downwards. Anemia panel revealed anemia of chronic inflammation. EGD showed erosive duodenitis. Will monitor and transfuse if Hb < 7 - Plan cont current plan of care, PT/OT * .
--- NOTE | 2017-12-24 18:54 | PRG ---
DATE OF SERVICE: 12/24/2017 SUBJECTIVE: He has developed pain retroorbital again, he grades as 7 out of 10. Otherwise, no respi ratory symptoms or abdominal pain. Voiding without difficulty. PHYSICAL EXAMINATION: VITAL SIGNS: His temperature is normal. HEENT: Right eye exam shows again the ophthalmoplegia. Pupil is not reactive, but no hyperemia note d. LUNGS: Clear. ABDOMEN: Soft. NEUROLGIC: Moves all extremities. LABORATORY DATA: White cell count down to 6.9, hemoglobin 7.3, platelets 142, 79% neutrophils. Sodi um 132, creatinine 1.63, GFR at 42. Last imaging study of the area included sinus CT from 12/10. Th is was without contrast. 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 Currently on Cresemba, to be transitioned to oral intake soon. Also, pancreatitis and duodenitis wit h improvement. Now there has been recrudescence of the pain and we will repeat CT of the orbit and C T of sinus to evaluate that area.
--- NOTE | 2017-12-24 19:48 | PRG ---
DATE OF SERVICE: 12/24/2017 GI INPATIENT DAILY PROGRESS NOTE SUBJECTIVE: Mr. Greer says his abdominal pain and nausea have completely resolved. He has kt nued to pass gas. He is not having any melena or hematochezia. He continues to feel overall weak. He has been tolerating his full liquid diet without any difficulty. PHYSICAL EXAMINATION: VITAL SIGNS: Temperature 98.9, pulse 85, blood pressure 130/69, 93% oxygen saturation on room air. GENERAL: No acute distress. HEART: Regular rate and rhythm. LUNGS: Clear to auscultation bilaterally. ABDOMEN: Bowel sounds present, soft and nontender to palpation. EXTREMITIES: No peripheral edema. LABORATORY STUDIES: WBC down to 6.9, hemoglobin 7.3, platelets 142. Sodium 132, potassium 4.6, BUN 13, creatinine 1.63. ASSESSMENT AND PLAN: 1. Pancreatitis, clinically resolving. 2. Duodenitis. He seems to be doing well again from a GI perspective. Continue the PPI. We will go ahead and advan ce his diet tomorrow morning. GI will sign off at this time, but please call back any time with ques tions or concerns.
[2017-12-24] MEDS: Temazepam 15 MG CAP PO PRN (20:40)
[2017-12-24] MEDS: Acetaminophen 500 MG TAB PO PRN (20:41)
[2017-12-24] MEDS: Insulin Detemir 100 UNITS/ML 10 UNITS in Pre-Filled Syringe 1 EACH SC SCH (20:41)
--- NOTE | 2017-12-24 20:48 | CT ---
CT OF THE SINUSES PERFORMED WITHOUT CONTRAST ENHANCEMENT: 12/24/17 HISTORY: Followup sinus infection, mucormycosis. COMPARISON: 12/10/17 study. The visualized brain parenchyma shows atrophic changes. There has been progression of the sinus disea se. The right sided fluid and mucosal changes are felt to be fairly stable. However now, there is muc h more extensive opacification of the left maxillary sinus. Sphenoid air cells remain opacified as do the posterior ethmoid air cells. There are postoperative changes of the right ethmoid air cells note d since the prior examination with interval clearing of the changes in this area. IMPRESSION: Postoperative changes of the right ethmoid air cells. The right maxillary sinus changes are stable an d there has now been development of fairly extensive left sided mucosal change and some associated fl uid and small air bubbles. Left posterior ethmoid air cell changes have progressed as compared to the prior exam and the sphenoid changes are similar. There is also frontal sinus disease which is more l eft sided. This is more extensive than on the previous examination. POS: RICHARDSON
--- NOTE | 2017-12-25 00:15 | PRG ---
DATE OF SERVICE: 12/24/2017. SUBJECTIVE: The patient continues to improve. He is still on anti-fungal and antibiotics. He repor ts much improved movement of his upper facial nerve now. Facial nerve root is completely intact; how ever, he is unable to open his right eye. Still persistent blindness in his right side. No visual i mprovement at all. Headache is much improved now, a 1-2/10. PHYSICAL EXAMINATION: NOSE: Nasal cavity was visualized anteriorly. Mucosa appeared to be healing well. Minimal amounts of crusting, which would appear fairly atypical for a postoperative period patient. No concerns for any invasive fungal mucosa or residue at this time. ORAL CAVITY AND OROPHARYNX: Mild lateral pharyngeal banding. NECK: No lymphadenopathy or masses. 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 He is stable and is much improved from before. Unfortunately, his blindness and ability to open the eye is not resolving . He is still showing some clinical improvement in his other cranial nerve systems that were affecte d. We will continue to follow up with him. Otherwise, if he is discharged in the next few days, we will make sure he follows up with us as outpatient.
[2017-12-25 05:08] LABS: #Eosinphils 0.1 thou/uL (0.0-0.7); #Lymphocytes 1.3 thou/uL (1.20-3.40); #Monocytes 0.7 thou/uL (0.11-0.59); #Neutrophils 3.4 thou/uL (1.40-6.50); %Basophils 0.6 % (0.0-1.0); %Eosinophils 1.6 % (0.0-10.0); %Lymphocytes 23.4 % (21.0-51.0); %Monocytes 12.4 % (0.0-10.0); %Neutrophils 62.1 % (42.0-75.0); Hemoglobin 7.3 g/dL (14.0-18.0); Mean Corpuscular HGB CONC 33.3 g/dL (32.0-36.0); Mean Corpuscular Hemoglobin 31.5 pg (27.0-31.0); Mean Corpuscular Volume 94.5 fl (80.0-94.0); Mean Platelet Volume 8.1 fL (7.4-10.4); Platelet Count 165 thou/uL (130-400); RBC Distribution Width 12.3 % (11.5-14.5); Red Blood Cell (RBC) Count 2.32 mill/uL (4.70-6.10); White Blood Cell (WBC) Count 5.5 thou/uL (4.8-10.8)
[2017-12-25 05:31] LABS: Anion Gap 10 mmol/L (10-20); BUN (Urea Nitrogen) 10 mg/dL (8.4-25.7); Calc. Creatinine Clearance 58 mL/min (70-130); Calcium 8.8 mg/dL (7.8-10.44); Carbon Dioxide 26 mmol/L (23-31); Chloride 105 mmol/L (98-107); Estimated GFR-MDRD 56; Potassium 3.9 mmol/L (3.5-5.1); Sodium 137 mmol/L (136-145)
[2017-12-25 05:35] LABS: Glucose 47 mg/dL (80-115)
[2017-12-25] MEDS: Heparin 5,000 UNITS/ML VIAL SC SCH ×3 (08:47→21:25)
[2017-12-25] MEDS: Pantoprazole 40 MG VIAL IVP SCH ×2 (08:47→21:27)
[2017-12-25] MEDS: Magnesium Oxide 400 MG TAB PO SCH ×2 (08:47→21:27)
[2017-12-25] MEDS: Potassium Chloride 20 MEQ TAB PO SCH ×2 (08:47→17:46)
[2017-12-25] MEDS: guaiFENesin ER 600 MG TAB PO SCH ×2 (08:48→21:25)
[2017-12-25] MEDS: Nebivolol HCl 5 MG TAB PO SCH (08:48)
[2017-12-25] MEDS: Folic Acid 1 MG TAB PO SCH (08:48)
[2017-12-25] MEDS: Glimepiride 4 MG TAB PO SCH (08:48)
[2017-12-25] MEDS: Bupropion 150 MG XL TAB PO SCH (08:49)
[2017-12-25] MEDS: Docusate 100 MG CAP PO SCH ×2 (08:49→21:24)
[2017-12-25] MEDS: Fluticasone Propionate Nasal Spray 16 gm Bottle NASAL SCH (08:50)
[2017-12-25] MEDS: Sodium Chloride 0.9% 15 ML NEB NASAL SCH ×4 (10:54→21:45)
--- NOTE | 2017-12-25 13:30 | PDOC.PN ---
- Subjective Encounter Start Date: 12/25/17 Encounter Start Time: 13:33 Subjective: No complaints. Sleeping comfortably in bed. Easily arousible. -: No acute events overnight. - Objective Resuscitation Status: Resuscitation Status FULL:Full Resuscitation MAR Reviewed: Yes Vital Signs & Weight: Vital Signs (12 hours) Temp Pulse Resp BP BP Pulse Ox 12/25/17 08:00 97.7 F 72 16 143/78 H 92 L 12/25/17 04:00 98.4 F 76 16 126/78 95 Weight Admit Weight 156 lb Weight 162 lb 2 oz I&O: 12/24/17 12/25/17 12/26/17 06:59 06:59 06:59 Intake Total 900 1289 240 Output Total 1000 975 Balance -100 314 240 Result Diagrams: 12/25/17 04:14 12/25/17 04:14 Additional Labs: Accuchecks 12/25/17 12/25/17 12/25/17 11:37 06:21 05:58 POC Glucose 223 H 99 63 L 12/24/17 12/24/17 20:12 16:11 POC Glucose 315 H 243 H Phys Exam - Physical Examination Constitutional: NAD HEENT: PERRLA, moist MMs, sclera anicteric R Ophthalmoplegia, severely visually impaired. Neck: supple, full ROM Respiratory: no wheezing, no rales, no rhonchi, clear to auscultation bilateral Cardiovascular: RRR, no significant murmur, no rub Gastrointestinal: soft, non-tender, no distention, positive bowel sounds Musculoskeletal: pulses present, edema present trace b/l lower extremities. Neurological: non-focal, moves all 4 limbs Psychiatric: normal affect, A&O x 3 Skin: no rash, normal turgor Dx/Plan (1) Mucormycosis rhinosinusitis Code(s): B46.5 - MUCORMYCOSIS, UNSPECIFIED Status: Acute Comment: Invasive fungal infection s/p necrotic tissue removal (2 visits to the OR; 12/11 and 12/19) Cresemba restarted IV 12/23. Transitioned to PO 12/24. Duration of tx expected to be months. Will likely need repeat imaging (CT orbit and sinuses) before discharge per ID. f/u ID recs. (2) [id number] kidney injury Code(s): N17.9 - ACUTE KIDNEY FAILURE, UNSPECIFIED; N18.9 - CHRONIC KIDNEY DISEASE, UNSPECIFIED Status: Resolved Qualifiers: Acute renal failure type: unspecified Chronic kidney disease stage: stage 3 (moderate) Qualified Code(s): N17.9 - Acute kidney failure, unspecified; N18.3 - Chronic kidney disease, stage 3 (moderate); N18.3 - Chronic kidney disease, stage 3 (moderate) Comment: Resolved. Nephrology on board. Ensure adequate hydration. (3) Acute pancreatitis Code(s): K85.90 - ACUTE PANCREATITIS WITHOUT NECROSIS OR INFECTION, UNSP Status: Resolved Qualifiers: Pancreatitis type: idiopathic Acute pancreatitis complication: no infection or necrosis Qualified Code(s): K85.00 - Idiopathic acute pancreatitis without necrosis or infection Comment: Resolved. Tolerating regular meals. Continue pain control and encourage patient to keep hydrated. (4) DM type 2 (diabetes mellitus, type 2) Status: Chronic Qualifiers: Diabetes mellitus complication status: with kidney complications Diabetes mellitus complication detail: with chronic kidney disease Diabetes mellitus advertising copywriter insulin use: with custodial use Chronic kidney disease stage: stage 3 (moderate) Qualified Code(s): E11.22 - Type 2 diabetes mellitus with diabetic chronic kidney disease; N18.3 - Chronic kidney disease, stage 3 ( moderate); N18.3 - Chronic kidney disease, stage 3 (moderate); Z79.4 - retirement (current) use of insulin; Z79.4 - search engine optimization specialist (current) use of insulin; Z79.4 - search engine optimization specialist (current) use of insulin; Z79.4 - search engine optimization specialist (current) use of insulin Comment: Continue sliding scale insulin. Amaryl held 2/2 hypoglycemia episodes. (5) HTN (hypertension) Code(s): I10 - ESSENTIAL (PRIMARY) HYPERTENSION Status: Chronic Qualifiers: Hypertension type: essential hypertension Qualified Code(s): I10 - Essential (primary) hypertension Comment: Well controlled. Continue home meds. (6) Normocytic anemia Code(s): D64.9 - ANEMIA, UNSPECIFIED Status: Acute Comment: Hb trended downwards. Anemia panel revealed anemia of chronic inflammation. EGD showed erosive duodenitis. Will monitor and transfuse if Hb < 7 (7) Hypoglycemia Code(s): E16.2 - HYPOGLYCEMIA, UNSPECIFIED Status: Acute Comment: Amaryl held. Insulin detemir also discontinued. Continue SSI. Monitor. - Plan cont current plan of care, plan discussed w/ family, PT/OT f/u with ID for discharge recs * .
--- NOTE | 2017-12-25 13:33 | PRG ---
DATE OF SERVICE: 12/25/2017 SUBJECTIVE: This is a 67-year-old gentleman being seen for acute kidney injury. The patient denies any nausea, vomiting or chest pain. PHYSICAL EXAMINATION: GENERAL: Patient is awake, alert. VITAL SIGNS: Afebrile, pulse 77, breathing at 16, blood pressure 126/70. GENERAL APPEARANCE AND MENTAL STATUS: Fair. HEAD/NECK: Normocephalic, atraumatic. EYES: EOMI. No deformity. EARS: Clear. No ulcers. NOSE: Intact. No lesions. MOUTH: Clear. No discharge. THROAT: Clear. No exudate. LUNGS: Clear. No crackles. CARDIAC: S1, S2. No rub. ABDOMEN: Benign. BS+. GENITALIA/RECTUM: Hooper absent. BACK/EXTREMITIES: Edema 0+ Ulcer-. NEUROLOGICAL: Alert and motor intact. SKIN: Rash- Bruise- LYMPHATICS: Edema- Ulcer-. LABORATORY DATA: Show hemoglobin 7.3, creatinine 1.2. RECOMMENDATIONS: 1. Acute kidney injury, stable. 2. Hypertension, stable. 3. Anemia, stable. 4. Medications based on glomerular filtration rate are appropriate. I will sign off on this patient. Please reconsult as needed.
[2017-12-25] MEDS: Acetaminophen 500 MG TAB PO PRN ×2 (14:34→22:07)
[2017-12-25] MEDS: HumaLOG 300 UNITS/3 ML VIAL SC PRN (17:47)
[2017-12-25] MEDS: Temazepam 15 MG CAP PO PRN (22:08)
[2017-12-26 05:09] LABS: Anion Gap 12 mmol/L (10-20); BUN (Urea Nitrogen) 10 mg/dL (8.4-25.7); Calc. Creatinine Clearance 47 mL/min (70-130); Calcium 8.5 mg/dL (7.8-10.44); Carbon Dioxide 23 mmol/L (23-31); Chloride 102 mmol/L (98-107); Estimated GFR-MDRD 44; Glucose 289 mg/dL (80-115); Potassium 4.9 mmol/L (3.5-5.1); Sodium 132 mmol/L (136-145)
[2017-12-26 06:08] LABS: #Basophils 0.1 thou/uL (0.0-0.2); #Eosinphils 0.2 thou/uL (0.0-0.7); #Lymphocytes 1.4 thou/uL (1.20-3.40); #Monocytes 0.5 thou/uL (0.11-0.59); #Neutrophils 3.2 thou/uL (1.40-6.50); %Basophils 1.1 % (0.0-1.0); %Eosinophils 2.9 % (0.0-10.0); %Lymphocytes 26.1 % (21.0-51.0); %Monocytes 8.6 % (0.0-10.0); %Neutrophils 61.3 % (42.0-75.0); Hemoglobin 7.7 g/dL (14.0-18.0); Mean Corpuscular HGB CONC 32.2 g/dL (32.0-36.0); Mean Corpuscular Hemoglobin 30.6 pg (27.0-31.0); Mean Corpuscular Volume 94.9 fl (80.0-94.0); Mean Platelet Volume 8.4 fL (7.4-10.4); PLT Morphology Comment Appears Adequate; Platelet Count 201 thou/uL (130-400); RBC Distribution Width 12.4 % (11.5-14.5); RBC Morphology Normal; Red Blood Cell (RBC) Count 2.52 mill/uL (4.70-6.10); White Blood Cell (WBC) Count 5.2 thou/uL (4.8-10.8)
[2017-12-26] MEDS: HumaLOG 300 UNITS/3 ML VIAL SC PRN ×2 (06:25→12:38)
[2017-12-26] MEDS: Sodium Chloride 0.9% 15 ML NEB NASAL SCH ×4 (08:47→20:33)
[2017-12-26] MEDS: Docusate 100 MG CAP PO SCH ×2 (08:47→20:31)
[2017-12-26] MEDS: Bupropion 150 MG XL TAB PO SCH (08:50)
[2017-12-26] MEDS: guaiFENesin ER 600 MG TAB PO SCH ×2 (08:50→20:30)
[2017-12-26] MEDS: Potassium Chloride 20 MEQ TAB PO SCH ×2 (08:50→17:09)
[2017-12-26] MEDS: Folic Acid 1 MG TAB PO SCH (08:51)
[2017-12-26] MEDS: Nebivolol HCl 5 MG TAB PO SCH (08:51)
[2017-12-26] MEDS: Pantoprazole 40 MG VIAL IVP SCH ×2 (08:51→20:31)
[2017-12-26] MEDS: Heparin 5,000 UNITS/ML VIAL SC SCH ×3 (08:51→20:31)
[2017-12-26] MEDS: Magnesium Oxide 400 MG TAB PO SCH ×2 (08:51→20:30)
[2017-12-26] MEDS: Fluticasone Propionate Nasal Spray 16 gm Bottle NASAL SCH (08:52)
--- NOTE | 2017-12-26 14:11 | PDOC.PN ---
- Subjective Encounter Start Date: 12/26/17 Encounter Start Time: 10:50 Subjective: feels better, is amb in room - Objective Resuscitation Status: Resuscitation Status FULL:Full Resuscitation MAR Reviewed: Yes Vital Signs & Weight: Vital Signs (12 hours) Temp Pulse Resp BP Pulse Ox 12/26/17 11:19 98.8 F 78 18 137/82 92 L 12/26/17 08:00 98.7 F 77 18 95 12/26/17 07:53 98.7 F 77 18 136/79 95 12/26/17 04:00 98.5 F 76 16 139/76 94 L Weight Admit Weight 156 lb Weight 162 lb 2 oz I&O: 12/25/17 12/26/17 12/27/17 06:59 06:59 06:59 Intake Total 1289 660 420 Output Total 975 Balance 314 660 420 Result Diagrams: 12/26/17 04:09 12/26/17 04:09 Additional Labs: Accuchecks 12/26/17 12/26/17 12/25/17 11:06 06:23 21:40 POC Glucose 303 H 304 H 196 H 12/25/17 16:11 POC Glucose 290 H Phys Exam - Physical Examination HEENT: moist MMs, sclera anicteric right eye blind Neck: no JVD, supple Respiratory: no wheezing, no rales Cardiovascular: RRR, no significant murmur Gastrointestinal: soft, non-tender, positive bowel sounds Musculoskeletal: no edema, pulses present Neurological: non-focal, moves all 4 limbs Psychiatric: A&O x 3 Dx/Plan (1) Mucormycosis rhinosinusitis Code(s): B46.5 - MUCORMYCOSIS, UNSPECIFIED Status: Acute Comment: Invasive fungal infection s/p necrotic tissue removal (2 visits to the OR; 12/11 and 12/19) Cresemba restarted IV 12/23. Transitioned to PO 12/24. Duration of tx expected to be months. Will likely need repeat imaging (CT orbit and sinuses) before discharge per ID. f/u ID recs. 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 (3) Anxiety and depression Code(s): F41.9 - ANXIETY DISORDER, UNSPECIFIED; F32.9 - MAJOR DEPRESSIVE DISORDER, SINGLE EPISODE, UNSPECIFIED Status: Chronic (4) CKD (chronic kidney disease) stage 3, GFR 30-59 ml/min Code(s): N18.3 - CHRONIC KIDNEY DISEASE, STAGE 3 (MODERATE) Status: Chronic (5) DM type 2 (diabetes mellitus, type 2) Status: Chronic Qualifiers: Diabetes mellitus complication status: with kidney complications Diabetes mellitus complication detail: with chronic kidney disease Diabetes mellitus identity management developer insulin use: with senior care use Chronic kidney disease stage: stage 3 (moderate) Qualified Code(s): E11.22 - Type 2 diabetes mellitus with diabetic chronic kidney disease; N18.3 - Chronic kidney disease, stage 3 ( moderate); N18.3 - Chronic kidney disease, stage 3 (moderate); Z79.4 - focusing machine operator (current) use of insulin; Z79.4 - halfway (current) use of insulin; Z79.4 - focusing machine operator (current) use of insulin; Z79.4 - halfway (current) use of insulin Comment: Continue sliding scale insulin. Amaryl held 2/2 hypoglycemia episodes. (6) Dyslipidemia Code(s): E78.5 - HYPERLIPIDEMIA, UNSPECIFIED Status: Chronic (7) GERD (gastroesophageal reflux disease) Code(s): K21.9 - GASTRO-ESOPHAGEAL REFLUX DISEASE WITHOUT ESOPHAGITIS Status: Chronic Qualifiers: Esophagitis presence: with esophagitis Qualified Code(s): K21.0 - Gastro- esophageal reflux disease with esophagitis (8) HTN (hypertension) Code(s): I10 - ESSENTIAL (PRIMARY) HYPERTENSION Status: Chronic Qualifiers: Hypertension type: essential hypertension Qualified Code(s): I10 - Essential (primary) hypertension Comment: Well controlled. Continue home meds. (9) Acute pancreatitis Code(s): K85.90 - ACUTE PANCREATITIS WITHOUT NECROSIS OR INFECTION, UNSP Status: Resolved Qualifiers: Pancreatitis type: idiopathic Acute pancreatitis complication: no infection or necrosis Qualified Code(s): K85.00 - Idiopathic acute pancreatitis without necrosis or infection Comment: Resolved. Tolerating regular meals. Continue pain control and encourage patient to keep hydrated. (10) Acute blood loss anemia Code(s): D62 - ACUTE POSTHEMORRHAGIC ANEMIA Status: Acute Comment: Hb drop from 12g to 7g from admission - Plan hemostable -: is on cresemba 372mg daily -: transfuse if Hb less than 7g -: dc plan per ID and ent advice * . Review of Systems - Medications/Allergies Allergies/Adverse Reactions: Allergies Allergy/AdvReac Type Severity Reaction Status Date / Time morphine Allergy Verified 06/25/17 16:00 tizanidine [From Zanaflex] AdvReac hypotension Verified 12/12/17 16:32 Medications: Current Medications Acetaminophen (Tylenol) 1,000 mg PO Q6H PRN PRN Reason: Headache/Fever or Mild Pain Last Admin: 12/25/17 22:07 Dose: 1,000 mg Albuterol Sulfate (Ventolin) 2.5 mg NEB [id number] PRN PRN Reason: Wheezing Bupropion HCl (Wellbutrin Xl) 300 mg PO DAILY [facility] Last Admin: 12/26/17 08:50 Dose: 300 mg Clonidine (Catapres) 0.1 mg PO Q4H PRN PRN Reason: Systolic BP > 180 Dextrose/Water (Dextrose 50%) 25 gm SLOW IVP PRN PRN PRN Reason: Hypoglycemia Diphenhydramine HCl (Benadryl) 25 mg IVP Q3H PRN PRN Reason: Itching Diphenhydramine HCl (Benadryl) 25 mg PO Q3H PRN PRN Reason: Itching Diphenhydramine HCl (Benadryl) 25 mg IM Q3H PRN PRN Reason: Itching Docusate Sodium (Colace) 100 mg PO BID [facility] Last Admin: 12/26/17 08:47 Dose: Not Given Fentanyl (Sublimaze) 50 mcg SLOW IVP Q1H PRN PRN Reason: PAIN 7-10 Last Admin: 12/25/17 03:25 Dose: 50 mcg Fluticasone Propionate (Flonase Nasal [place]) 0 gm NASAL DAILY [facility] Last Admin: 12/26/17 08:52 Dose: 1 spray Folic Acid (Folvite) 1 mg PO DAILY [facility] Last Admin: 12/26/17 08:51 Dose: 1 mg Glucagon (Glucagon) 1 mg IM PRN PRN PRN Reason: Hypoglycemia Guaifenesin (Mucinex) 600 mg PO Q12HR [facility] Last Admin: 12/26/17 08:50 Dose: 600 mg Heparin Sodium (Porcine) (Heparin) 5,000 units SC TID [facility] Last Admin: 12/26/17 14:03 Dose: 5,000 units Hydralazine HCl (Apresoline) 10 mg SLOW IVP Q4H PRN PRN Reason: Systolic BP > 180 Dextrose/Water (D5w) 1,000 mls @ 0 mls/hr IV .Q0M PRN; As Directed PRN Reason: Hypoglycemia Insulin Human Lispro (Humalog) 0 units SC .MODERATE SLIDING SC PRN PRN Reason: Moderate Correctional Scale Last Admin: 12/26/17 12:38 Dose: 8 unit Insulin Human Lispro (Humalog) 0 units SC .BEDTIME SLIDING SC PRN PRN Reason: Bedtime Correctional Scale Last Admin: 12/24/17 20:47 Dose: 4 unit Lorazepam (Ativan) 0.5 mg PO Q4H PRN PRN Reason: Anxiety Last Admin: 12/22/17 02:20 Dose: 0.5 mg Magnesium Oxide (Magnesium Oxide) 400 mg PO BID [facility] Last Admin: 12/26/17 08:51 Dose: 400 mg Miscellaneous (Cresemba) 372 mg PO 2100 [facility] Last Admin: 12/25/17 21:25 Dose: 372 mg Naloxone HCl (Narcan) 0.2 mg IV Q5MIN PRN PRN Reason: Opiate Reversal Nebivolol (Bystolic) 10 mg PO DAILY [facility] Last Admin: 12/26/17 08:51 Dose: 10 mg Ondansetron HCl (Zofran Odt) 4 mg PO Q6H PRN PRN Reason: Nausea/Vomiting Ondansetron HCl (Zofran) 4 mg IVP Q6H PRN PRN Reason: Nausea/Vomiting Oxymetazoline HCl (Oxymetazoline Hcl) 0 sprays NASAL Q2H PRN PRN Reason: NASAL BLEEDING Pantoprazole Sodium (Protonix) 40 mg IVP Q12HR [facility] Last Admin: 12/26/17 08:51 Dose: 40 mg [facility] Last Admin: 12/26/17 08:50 Dose: 20 meq Promethazine HCl (Phenergan) 12.5 mg IM Q4H PRN PRN Reason: Nausea/Vomiting Simethicone (Mylicon Chewable) 80 mg PO TIDPRN PRN PRN Reason: Gas Pain Last Admin: 12/14/17 13:42 Dose: 80 mg Sodium Chloride (Sodium Chloride 0.9%) 30 ml NASAL QID [facility] Last Admin: 12/26/17 10:32 Dose: Not Given Sodium Chloride (Flush - Normal Saline) 10 ml IVF Q12HR [facility] Last Admin: 12/26/17 08:52 Dose: 10 ml Sodium Chloride (Flush - Normal Saline) 10 ml IVF PRN PRN PRN Reason: Saline Flush Sodium Chloride (Flush - Normal Saline) 10 ml IVF 0200,0330 [facility] Last Admin: 12/26/17 03:30 Dose: Not Given Temazepam (Restoril) 15 mg PO HSPRN PRN PRN Reason: Insomnia Last Admin: 12/25/17 22:08 Dose: 15 mg Zolpidem Tartrate (Ambien) 5 mg PO HSPRN PRN PRN Reason: Insomnia Last Admin: 12/23/17 22:48 Dose: 5 mg
[2017-12-26] MEDS: Acetaminophen 500 MG TAB PO PRN (20:30)
[2017-12-26] MEDS: Temazepam 15 MG CAP PO PRN (20:30)
[2017-12-27 05:52] LABS: Anion Gap 15 mmol/L (10-20); Carbon Dioxide 20 mmol/L (23-31); Chloride 101 mmol/L (98-107); Potassium 4.3 mmol/L (3.5-5.1); Sodium 132 mmol/L (136-145)
[2017-12-27 05:53] LABS: BUN (Urea Nitrogen) 13 mg/dL (8.4-25.7); Calc. Creatinine Clearance 48 mL/min (70-130); Calcium 8.9 mg/dL (7.8-10.44); Estimated GFR-MDRD 45; Glucose 312 mg/dL (80-115)
[2017-12-27] MEDS: HumaLOG 300 UNITS/3 ML VIAL SC PRN ×2 (06:28→17:43)
[2017-12-27] MEDS: Nebivolol HCl 5 MG TAB PO SCH (09:47)
[2017-12-27] MEDS: Potassium Chloride 20 MEQ TAB PO SCH ×2 (09:47→17:45)
[2017-12-27] MEDS: Bupropion 150 MG XL TAB PO SCH (09:47)
[2017-12-27] MEDS: guaiFENesin ER 600 MG TAB PO SCH ×2 (09:47→20:45)
[2017-12-27] MEDS: Docusate 100 MG CAP PO SCH ×2 (09:47→20:45)
[2017-12-27] MEDS: Folic Acid 1 MG TAB PO SCH (09:48)
[2017-12-27] MEDS: Magnesium Oxide 400 MG TAB PO SCH ×2 (09:48→20:45)
[2017-12-27] MEDS: Heparin 5,000 UNITS/ML VIAL SC SCH ×3 (09:49→20:48)
[2017-12-27] MEDS: Fluticasone Propionate Nasal Spray 16 gm Bottle NASAL SCH (09:54)
[2017-12-27] MEDS: Sodium Chloride 0.9% 15 ML NEB NASAL SCH ×4 (10:13→23:08)
[2017-12-27] MEDS ORDERED: Insulin Detemir 100 UNITS/ML 10 UNITS in Pre-Filled Syringe 1 EACH SC SCH (10:15)
--- NOTE | 2017-12-27 12:57 | PDOC.PN ---
- Subjective Encounter Start Date: 12/27/17 Encounter Start Time: 08:20 Subjective: no new complaints -: is amb and eating better - Objective Resuscitation Status: Resuscitation Status FULL:Full Resuscitation MAR Reviewed: Yes Vital Signs & Weight: Vital Signs (12 hours) Temp Pulse Resp BP BP Pulse Ox 12/27/17 11:58 98.6 F 76 18 127/81 95 12/27/17 08:00 98.6 F 76 18 127/80 95 Weight Admit Weight 156 lb Weight 162 lb 2 oz I&O: 12/26/17 12/27/17 12/28/17 06:59 06:59 06:59 Intake Total 660 1000 Balance 660 1000 Result Diagrams: 12/26/17 04:09 12/27/17 04:25 Additional Labs: Accuchecks 12/27/17 12/27/17 12/26/17 10:51 06:24 20:36 POC Glucose 224 H 332 H 260 H 12/26/17 16:13 POC Glucose 146 H Phys Exam - Physical Examination HEENT: moist MMs, 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 Transitioned to PO 12/24. Duration of tx expected to be months. Will likely need repeat imaging (CT orbit and sinuses) before discharge per ID. f/u ID recs. 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 (3) Anxiety and depression Code(s): F41.9 - ANXIETY DISORDER, UNSPECIFIED; F32.9 - MAJOR DEPRESSIVE DISORDER, SINGLE EPISODE, UNSPECIFIED Status: Chronic (4) CKD (chronic kidney disease) stage 3, GFR 30-59 ml/min Code(s): N18.3 - CHRONIC KIDNEY DISEASE, STAGE 3 (MODERATE) Status: Chronic (5) DM type 2 (diabetes mellitus, type 2) Status: Chronic Qualifiers: Diabetes mellitus complication status: with kidney complications Diabetes mellitus complication detail: with chronic kidney disease Diabetes mellitus terminal computer operator insulin use: with terminal computer operator use Chronic kidney disease stage: stage 3 (moderate) Qualified Code(s): E11.22 - Type 2 diabetes mellitus with diabetic chronic kidney disease; N18.3 - Chronic kidney disease, stage 3 ( moderate); N18.3 - Chronic kidney disease, stage 3 (moderate); Z79.4 - longterm (current) use of insulin; Z79.4 - exterminator helper (current) use of insulin; Z79.4 - exterminator helper (current) use of insulin; Z79.4 - longterm (current) use of insulin Comment: Continue sliding scale insulin. Amaryl held 2/2 hypoglycemia episodes. (6) Dyslipidemia Code(s): E78.5 - HYPERLIPIDEMIA, UNSPECIFIED Status: Chronic (7) GERD (gastroesophageal reflux disease) Code(s): K21.9 - GASTRO-ESOPHAGEAL REFLUX DISEASE WITHOUT ESOPHAGITIS Status: Chronic Qualifiers: Esophagitis presence: with esophagitis Qualified Code(s): K21.0 - Gastro- esophageal reflux disease with esophagitis (8) HTN (hypertension) Code(s): I10 - ESSENTIAL (PRIMARY) HYPERTENSION Status: Chronic Qualifiers: Hypertension type: essential hypertension Qualified Code(s): I10 - Essential (primary) hypertension Comment: Well controlled. Continue home meds. (9) Acute pancreatitis Code(s): K85.90 - ACUTE PANCREATITIS WITHOUT NECROSIS OR INFECTION, UNSP Status: Resolved Qualifiers: Pancreatitis type: idiopathic Acute pancreatitis complication: no infection or necrosis Qualified Code(s): K85.00 - Idiopathic acute pancreatitis without necrosis or infection Comment: Resolved. Tolerating regular meals. Continue pain control and encourage patient to keep hydrated. (10) Acute blood loss anemia Code(s): D62 - ACUTE POSTHEMORRHAGIC ANEMIA Status: Acute Comment: Hb drop from 12g to 7g from admission - Plan on cresemba 372mg daily -: start levemir 10u bid -: dc fentanyl -: dc plan per ID and ENT advice * . Review of Systems - Medications/Allergies Allergies/Adverse Reactions: Allergies Allergy/AdvReac Type Severity Reaction Status Date / Time morphine Allergy Verified 06/25/17 16:00 tizanidine [From Zanaflex] AdvReac hypotension Verified 12/12/17 16:32 Medications: Current Medications Acetaminophen (Tylenol) 1,000 mg PO Q6H PRN PRN Reason: Headache/Fever or Mild Pain Last Admin: 12/26/17 20:30 Dose: 1,000 mg Albuterol Sulfate (Ventolin) 2.5 mg NEB [id number] PRN PRN Reason: Wheezing Bupropion HCl (Wellbutrin Xl) 300 mg PO DAILY [facility] Last Admin: 12/27/17 09:47 Dose: 300 mg Clonidine (Catapres) 0.1 mg PO Q4H PRN PRN Reason: Systolic BP > 180 Dextrose/Water (Dextrose 50%) 25 gm SLOW IVP PRN PRN PRN Reason: Hypoglycemia Docusate Sodium (Colace) 100 mg PO BID [facility] Last Admin: 12/27/17 09:47 Dose: 100 mg Fluticasone Propionate (Flonase Nasal [place]) 0 gm NASAL DAILY [facility] Last Admin: 12/27/17 09:54 Dose: 1 spray Folic Acid (Folvite) 1 mg PO DAILY [facility] Last Admin: 12/27/17 09:48 Dose: 1 mg Glucagon (Glucagon) 1 mg IM PRN PRN PRN Reason: Hypoglycemia Guaifenesin (Mucinex) 600 mg PO Q12HR [facility] Last Admin: 12/27/17 09:47 Dose: 600 mg Heparin Sodium (Porcine) (Heparin) 5,000 units SC TID [facility] Last Admin: 12/27/17 09:49 Dose: 5,000 units Hydralazine HCl (Apresoline) 10 mg SLOW IVP Q4H PRN PRN Reason: Systolic BP > 180 Dextrose/Water (D5w) 1,000 mls @ 0 mls/hr IV .Q0M PRN; As Directed PRN Reason: Hypoglycemia Insulin Detemir 10 units/ (Miscellaneous Medication) 0.1 mls @ 0 mls/hr SC BID [facility] Insulin Human Lispro (Humalog) 0 units SC .MODERATE SLIDING SC PRN PRN Reason: Moderate Correctional Scale Last Admin: 12/27/17 06:28 Dose: 8 unit Insulin Human Lispro (Humalog) 0 units SC .BEDTIME SLIDING SC PRN PRN Reason: Bedtime Correctional Scale Last Admin: 12/24/17 20:47 Dose: 4 unit Lorazepam (Ativan) 0.5 mg PO Q4H PRN PRN Reason: Anxiety Last Admin: 12/22/17 02:20 Dose: 0.5 mg Magnesium Oxide (Magnesium Oxide) 400 mg PO BID [facility] Last Admin: 12/27/17 09:48 Dose: 400 mg Miscellaneous (Cresemba) 372 mg PO 2100 [facility] Last Admin: 12/26/17 20:30 Dose: 372 mg Nebivolol (Bystolic) 10 mg PO DAILY [facility] Last Admin: 12/27/17 09:47 Dose: 10 mg Ondansetron HCl (Zofran Odt) 4 mg PO Q6H PRN PRN Reason: Nausea/Vomiting Oxymetazoline HCl (Oxymetazoline Hcl) 0 sprays NASAL Q2H PRN PRN Reason: NASAL BLEEDING Pantoprazole Sodium (Protonix) 40 mg PO BID [facility] Potassium Chloride (K-Dur) 20 meq PO BID[facility] Last Admin: 12/27/17 09:47 Dose: 20 meq Simethicone (Mylicon Chewable) 80 mg PO TIDPRN PRN PRN Reason: Gas Pain Last Admin: 12/14/17 13:42 Dose: 80 mg Sodium Chloride (Sodium Chloride 0.9%) 30 ml NASAL QID [facility] Last Admin: 12/27/17 10:13 Dose: 30 ml Sodium Chloride (Flush - Normal Saline) 10 ml IVF Q12HR [facility] Last Admin: 12/27/17 09:49 Dose: 10 ml Sodium Chloride (Flush - Normal Saline) 10 ml IVF PRN PRN PRN Reason: Saline Flush Sodium Chloride (Flush - Normal Saline) 10 ml IVF 0200,0330 [facility] Last Admin: 12/27/17 03:32 Dose: Not Given Temazepam (Restoril) 15 mg PO HSPRN PRN PRN Reason: Insomnia Last Admin: 12/26/17 20:30 Dose: 15 mg
--- NOTE | 2017-12-27 13:07 | EKG ---
Test Reason : Blood Pressure : / mmHG Vent. Rate : 062 BPM Atrial Rate : 062 BPM P-R Int : 132 ms QRS Dur : 090 ms QT Int : 404 ms P-R-T Axes : 065 033 058 degrees QTc Int : 410 ms Normal sinus rhythm Possible Left atrial enlargement Nonspecific ST abnormality Abnormal ECG Confirmed by CITLALY FELDMAN, RAMIN ([id number]), film editor MARCO LERNER ([id number]) on 12/27/2017 1:07:20 PM Referred By: Confirmed By:RAMIN BOUCHER MD
--- NOTE | 2017-12-27 13:08 | PRG ---
DATE OF SERVICE: 12/27/2017 SUBJECTIVE: Mr. Greer has moderate pain in the right orbital region. Otherwise, he feels well, eating, has no abdominal pain, no respiratory symptoms. OBJECTIVE: VITAL SIGNS: Essentially normal. Blood pressure 120/81. HEENT: The right eye findings are unchanged with ophthalmoplegia and blindness. LUNGS: Clear. HEART: S1 and S2, regular rate. ABDOMEN: Soft, not distended. EXTREMITIES: Moves all extremities equally. LABORATORY DATA: Showed a white cell count of 5.2, hemoglobin 7.7, platelets 201, 61% neutrophils an d 26% lymphocytes. Creatinine is stabilized at 1.54, sodium 132 and potassium 4.3. 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 I believe the patient is stable to be discharged and we will go ahead and write antifungal prescription and follow up in the clinic in 2-3 weeks.
[2017-12-27] MEDS: Insulin Detemir 100 UNITS/ML 10 UNITS in Pre-Filled Syringe 1 EACH SC SCH (20:48)
[2017-12-27] MEDS: Lorazepam 0.5 MG TAB PO PRN (23:09)
[2017-12-28] MEDS: Temazepam 15 MG CAP PO PRN ×2 (01:32→21:13)
[2017-12-28] MEDS: HumaLOG 300 UNITS/3 ML VIAL SC PRN ×2 (05:41→20:56)
[2017-12-28 06:21] LABS: Anion Gap 10 mmol/L (10-20); BUN (Urea Nitrogen) 14 mg/dL (8.4-25.7); Calc. Creatinine Clearance 46 mL/min (70-130); Calcium 8.6 mg/dL (7.8-10.44); Carbon Dioxide 24 mmol/L (23-31); Chloride 103 mmol/L (98-107); Estimated GFR-MDRD 43; Glucose 143 mg/dL (80-115); Potassium 4.1 mmol/L (3.5-5.1); Sodium 133 mmol/L (136-145)
[2017-12-28] MEDS: Heparin 5,000 UNITS/ML VIAL SC SCH ×3 (08:16→20:57)
[2017-12-28] MEDS: Bupropion 150 MG XL TAB PO SCH (08:17)
[2017-12-28] MEDS: Potassium Chloride 20 MEQ TAB PO SCH ×2 (08:17→18:21)
[2017-12-28] MEDS: Nebivolol HCl 5 MG TAB PO SCH (08:17)
[2017-12-28] MEDS: guaiFENesin ER 600 MG TAB PO SCH ×2 (08:18→20:50)
[2017-12-28] MEDS: Folic Acid 1 MG TAB PO SCH (08:18)
[2017-12-28] MEDS: Docusate 100 MG CAP PO SCH ×2 (08:18→20:50)
[2017-12-28] MEDS: Magnesium Oxide 400 MG TAB PO SCH ×2 (08:18→20:50)
[2017-12-28] MEDS: Fluticasone Propionate Nasal Spray 16 gm Bottle NASAL SCH (08:18)
[2017-12-28] MEDS: Sodium Chloride 0.9% 15 ML NEB NASAL SCH ×3 (08:19→20:55)
[2017-12-28] MEDS: Insulin Detemir 100 UNITS/ML 10 UNITS in Pre-Filled Syringe 1 EACH SC SCH ×2 (08:25→20:57)
[2017-12-28] MEDS ORDERED: Glimepiride 4 MG TAB PO SCH (09:00)
--- NOTE | 2017-12-28 11:08 | PDOC.PN ---
- Subjective Encounter Start Date: 12/28/17 Encounter Start Time: 08:50 -: old records requested/rev Patient seen and examined. No new complaints. No overnight events - Objective Resuscitation Status: Resuscitation Status FULL:Full Resuscitation MAR Reviewed: Yes Vital Signs & Weight: Vital Signs (12 hours) Temp Pulse Resp BP Pulse Ox 12/28/17 08:00 97.9 F 91 16 97 12/28/17 07:48 97.9 F 91 16 130/83 97 Weight Admit Weight 156 lb Weight 162 lb 2 oz I&O: 12/27/17 12/28/17 12/29/17 06:59 06:59 06:59 Intake Total 1000 490 Balance 1000 490 Result Diagrams: 12/26/17 04:09 12/28/17 04:47 Additional Labs: Accuchecks 12/28/17 12/27/17 12/27/17 04:19 19:23 16:01 POC Glucose 155 H 195 H 217 H Phys Exam - Physical Examination Constitutional: NAD HEENT: moist MMs right eye opthalmoplegia Neck: no JVD, supple Respiratory: no wheezing, no rales, no rhonchi Cardiovascular: RRR, no significant murmur, no rub Gastrointestinal: soft, non-tender, no distention, positive bowel sounds Musculoskeletal: no edema, pulses present Neurological: non-focal, normal sensation, moves all 4 limbs Psychiatric: normal affect, A&O x 3 Skin: no rash, normal turgor Dx/Plan (1) Acute fungal sinusitis Code(s): J01.90 - ACUTE SINUSITIS, UNSPECIFIED; B49 - UNSPECIFIED MYCOSIS Status: Acute Comment: 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 (3) Mucormycosis rhinosinusitis Code(s): B46.5 - MUCORMYCOSIS, UNSPECIFIED Status: Acute Comment: (4) Anxiety and depression Code(s): F41.9 - ANXIETY DISORDER, UNSPECIFIED; F32.9 - MAJOR DEPRESSIVE DISORDER, SINGLE EPISODE, UNSPECIFIED Status: Chronic (5) CKD (chronic kidney disease) stage 3, GFR 30-59 ml/min Code(s): N18.3 - CHRONIC KIDNEY DISEASE, STAGE 3 (MODERATE) Status: Chronic (6) DM type 2 (diabetes mellitus, type 2) Status: Chronic Qualifiers: Diabetes mellitus complication status: with kidney complications Diabetes mellitus complication detail: with chronic kidney disease Diabetes mellitus intermediate teacher insulin use: with intermediate teacher use Chronic kidney disease stage: stage 3 (moderate) Qualified Code(s): E11.22 - Type 2 diabetes mellitus with diabetic chronic kidney disease; N18.3 - Chronic kidney disease, stage 3 ( moderate); N18.3 - Chronic kidney disease, stage 3 (moderate); Z79.4 - MCC (current) use of insulin; Z79.4 - buttermaker continuous churn (current) use of insulin; Z79.4 - buttermaker continuous churn (current) use of insulin; Z79.4 - buttermaker continuous churn (current) use of insulin Comment: (7) Dyslipidemia Code(s): E78.5 - HYPERLIPIDEMIA, UNSPECIFIED Status: Chronic (8) GERD (gastroesophageal reflux disease) Code(s): K21.9 - GASTRO-ESOPHAGEAL REFLUX DISEASE WITHOUT ESOPHAGITIS Status: Chronic Qualifiers: Esophagitis presence: with esophagitis Qualified Code(s): K21.0 - Gastro- esophageal reflux disease with esophagitis (9) HTN (hypertension) Code(s): I10 - ESSENTIAL (PRIMARY) HYPERTENSION Status: Chronic Qualifiers: Hypertension type: essential hypertension Qualified Code(s): I10 - Essential (primary) hypertension Comment: Well controlled. Continue home meds. (10) Acute pancreatitis Code(s): K85.90 - ACUTE PANCREATITIS WITHOUT NECROSIS OR INFECTION, UNSP Status: Resolved Qualifiers: Pancreatitis type: idiopathic Acute pancreatitis complication: no infection or necrosis Qualified Code(s): K85.00 - Idiopathic acute pancreatitis without necrosis or infection Comment: (11) DKA, type 2 Code(s): E11.10 - TYPE 2 DIABETES MELLITUS WITH KETOACIDOSIS WITHOUT COMA Status: Resolved (12) Hypotension Status: Resolved - Plan cont current plan of care * cresemba is not available locally in outside pharmacy so will keep in hospital until he fills his prescription. * otherwise he is medically stable * medication reviewed as below * symptomatic treatment Review of Systems - Review of Systems ENT: negative: Ear Pain, Ear Discharge, Nose Pain, Nose Discharge, Nose Congestion, Mouth Pain, Mouth Swelling, Throat Pain, Throat Swelling, Other Respiratory: negative: Cough, Dry, Shortness of Breath, Hemoptysis, SOB with Excertion, Pleuritic Pain, Sputum, Wheezing Cardiovascular: negative: chest pain, palpitations, orthopnea, paroxysmal nocturnal dyspnea, edema, light headedness, other Gastrointestinal: negative: Nausea, Vomiting, Abdominal Pain, Diarrhea, Constipation, Melena, Hematochezia, Other Genitourinary: negative: Dysuria, Frequency, Incontinence, Hematuria, Retention , Other Musculoskeletal: negative: Neck Pain, Shoulder Pain, Arm Pain, Back Pain, Hand Pain, Leg Pain, Foot Pain, Other Skin: negative: Rash, Lesions, Steve, Bruising, Other - Medications/Allergies Allergies/Adverse Reactions: Allergies Allergy/AdvReac Type Severity Reaction Status Date / Time morphine Allergy Verified 06/25/17 16:00 tizanidine [From Zanaflex] AdvReac hypotension Verified 12/12/17 16:32 Medications: Current Medications Acetaminophen (Tylenol) 1,000 mg PO Q6H PRN PRN Reason: Headache/Fever or Mild Pain Last Admin: 12/26/17 20:30 Dose: 1,000 mg Albuterol Sulfate (Ventolin) 2.5 mg NEB [id number] PRN PRN Reason: Wheezing Bupropion HCl (Wellbutrin Xl) 300 mg PO DAILY [facility] Last Admin: 12/28/17 08:17 Dose: 300 mg Clonidine (Catapres) 0.1 mg PO Q4H PRN PRN Reason: Systolic BP > 180 Dextrose/Water (Dextrose 50%) 25 gm SLOW IVP PRN PRN PRN Reason: Hypoglycemia Docusate Sodium (Colace) 100 mg PO BID [facility] Last Admin: 12/28/17 08:18 Dose: Not Given Fluticasone Propionate (Flonase Nasal [place]) 0 gm NASAL DAILY [facility] Last Admin: 12/28/17 08:18 Dose: 1 spray Folic Acid (Folvite) 1 mg PO DAILY [facility] Last Admin: 12/28/17 08:18 Dose: 1 mg Glucagon (Glucagon) 1 mg IM PRN PRN PRN Reason: Hypoglycemia Guaifenesin (Mucinex) 600 mg PO Q12HR [facility] Last Admin: 12/28/17 08:18 Dose: 600 mg Heparin Sodium (Porcine) (Heparin) 5,000 units SC TID [facility] Last Admin: 12/28/17 08:16 Dose: 5,000 units Hydralazine HCl (Apresoline) 10 mg SLOW IVP Q4H PRN PRN Reason: Systolic BP > 180 Dextrose/Water (D5w) 1,000 mls @ 0 mls/hr IV .Q0M PRN; As Directed PRN Reason: Hypoglycemia Insulin Detemir 10 units/ (Miscellaneous Medication) 0.1 mls @ 0 mls/hr SC BID [facility] Last Admin: 12/28/17 08:25 Dose: 0.1 mls Insulin Human Lispro (Humalog) 0 units SC .MODERATE SLIDING SC PRN PRN Reason: Moderate Correctional Scale Last Admin: 12/28/17 05:41 Dose: 2 unit Insulin Human Lispro (Humalog) 0 units SC .BEDTIME SLIDING SC PRN PRN Reason: Bedtime Correctional Scale Last Admin: 12/24/17 20:47 Dose: 4 unit Lorazepam (Ativan) 0.5 mg PO Q4H PRN PRN Reason: Anxiety Last Admin: 12/27/17 23:09 Dose: 0.5 mg Magnesium Oxide (Magnesium Oxide) 400 mg PO BID [facility] Last Admin: 12/28/17 08:18 Dose: 400 mg Miscellaneous (Cresemba) 372 mg PO 2100 [facility] Last Admin: 12/27/17 20:45 Dose: 372 mg Nebivolol (Bystolic) 10 mg PO DAILY [facility] Last Admin: 12/28/17 08:17 Dose: 10 mg Ondansetron HCl (Zofran Odt) 4 mg PO Q6H PRN PRN Reason: Nausea/Vomiting Oxymetazoline HCl (Oxymetazoline Hcl) 0 sprays NASAL Q2H PRN PRN Reason: NASAL BLEEDING Pantoprazole Sodium (Protonix) 40 mg PO BID [facility] Last Admin: 12/28/17 08:17 Dose: 40 mg Potassium Chloride (K-Dur) 20 meq PO BID-[facility] Last Admin: 12/28/17 08:17 Dose: 20 meq Simethicone (Mylicon Chewable) 80 mg PO TIDPRN PRN PRN Reason: Gas Pain Last Admin: 12/14/17 13:42 Dose: 80 mg Sodium Chloride (Sodium Chloride 0.9%) 30 ml NASAL QID [facility] Last Admin: 12/28/17 08:19 Dose: Not Given Sodium Chloride (Flush - Normal Saline) 10 ml IVF Q12HR [facility] Last Admin: 12/28/17 08:19 Dose: 10 ml Sodium Chloride (Flush - Normal Saline) 10 ml IVF PRN PRN PRN Reason: Saline Flush Sodium Chloride (Flush - Normal Saline) 10 ml IVF 0200,0330 [facility] Last Admin: 12/28/17 05:39 Dose: Not Given Temazepam (Restoril) 15 mg PO HSPRN PRN PRN Reason: Insomnia Last Admin: 12/28/17 01:32 Dose: 15 mg
[2017-12-28] MEDS: Acetaminophen 500 MG TAB PO PRN (21:13)
[2017-12-29 05:28] LABS: Anion Gap 11 mmol/L (10-20); BUN (Urea Nitrogen) 15 mg/dL (8.4-25.7); Calc. Creatinine Clearance 45 mL/min (70-130); Carbon Dioxide 24 mmol/L (23-31); Chloride 105 mmol/L (98-107); Estimated GFR-MDRD 42; Glucose 82 mg/dL (80-115); Potassium 4.2 mmol/L (3.5-5.1); Sodium 136 mmol/L (136-145)
[2017-12-29] MEDS: Insulin Detemir 100 UNITS/ML 10 UNITS in Pre-Filled Syringe 1 EACH SC SCH (08:58)
[2017-12-29] MEDS: Bupropion 150 MG XL TAB PO SCH (09:00)
[2017-12-29] MEDS: Potassium Chloride 20 MEQ TAB PO SCH (09:00)
[2017-12-29] MEDS: guaiFENesin ER 600 MG TAB PO SCH (09:00)
[2017-12-29] MEDS: Magnesium Oxide 400 MG TAB PO SCH (09:00)
[2017-12-29] MEDS: Nebivolol HCl 5 MG TAB PO SCH (09:00)
[2017-12-29] MEDS: Folic Acid 1 MG TAB PO SCH (09:00)
[2017-12-29] MEDS: Fluticasone Propionate Nasal Spray 16 gm Bottle NASAL SCH (09:01)
[2017-12-29] MEDS: Docusate 100 MG CAP PO SCH (09:01)
[2017-12-29] MEDS: Sodium Chloride 0.9% 15 ML NEB NASAL SCH ×2 (09:07→16:53)
[2017-12-29] MEDS: Heparin 5,000 UNITS/ML VIAL SC SCH ×2 (09:13→16:53)
--- NOTE | 2017-12-29 11:39 | PDOC.PN ---
- Subjective Encounter Start Date: 12/29/17 Encounter Start Time: 08:10 Patient seen and examined. No new complaints. No overnight events - Objective Resuscitation Status: Resuscitation Status FULL:Full Resuscitation MAR Reviewed: Yes Vital Signs & Weight: Vital Signs (12 hours) Temp Pulse Resp BP Pulse Ox 12/29/17 11:26 98.4 F 81 18 138/83 97 12/29/17 08:00 98.5 F 89 22 H 94 L 12/29/17 07:27 98.5 F 89 22 H 137/83 94 L Weight Admit Weight 156 lb Weight 162 lb 2 oz I&O: 12/28/17 12/29/17 12/30/17 06:59 06:59 06:59 Intake Total 490 490 Balance 490 490 Result Diagrams: 12/26/17 04:09 12/29/17 03:55 Additional Labs: Accuchecks 12/29/17 12/28/17 12/28/17 04:27 19:08 16:49 POC Glucose 80 297 H 212 H 12/28/17 11:37 POC Glucose 166 H Phys Exam - Physical Examination Constitutional: NAD HEENT: moist MMs right eye opthalmoplegia Neck: no JVD, supple Respiratory: no wheezing, no rales, no rhonchi Cardiovascular: RRR, no significant murmur, no rub Gastrointestinal: soft, non-tender, no distention, positive bowel sounds Musculoskeletal: no edema, pulses present Neurological: non-focal, normal sensation Lymphatic: no nodes Psychiatric: normal affect, A&O x 3 Skin: no rash, normal turgor Dx/Plan (1) Acute fungal sinusitis Code(s): J01.90 - ACUTE SINUSITIS, UNSPECIFIED; B49 - UNSPECIFIED MYCOSIS Status: Acute Comment: 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 (3) Mucormycosis rhinosinusitis Code(s): B46.5 - MUCORMYCOSIS, UNSPECIFIED Status: Acute Comment: (4) Anxiety and depression Code(s): F41.9 - ANXIETY DISORDER, UNSPECIFIED; F32.9 - MAJOR DEPRESSIVE DISORDER, SINGLE EPISODE, UNSPECIFIED Status: Chronic (5) CKD (chronic kidney disease) stage 3, GFR 30-59 ml/min Code(s): N18.3 - CHRONIC KIDNEY DISEASE, STAGE 3 (MODERATE) Status: Chronic (6) DM type 2 (diabetes mellitus, type 2) Status: Chronic Qualifiers: Diabetes mellitus complication status: with kidney complications Diabetes mellitus complication detail: with chronic kidney disease Diabetes mellitus termite exterminator insulin use: with halfway use Chronic kidney disease stage: stage 3 (moderate) Qualified Code(s): E11.22 - Type 2 diabetes mellitus with diabetic chronic kidney disease; N18.3 - Chronic kidney disease, stage 3 ( moderate); N18.3 - Chronic kidney disease, stage 3 (moderate); Z79.4 - bed bug exterminator (current) use of insulin; Z79.4 - bed bug exterminator (current) use of insulin; Z79.4 - half-way (current) use of insulin; Z79.4 - bed bug exterminator (current) use of insulin Comment: (7) Dyslipidemia Code(s): E78.5 - HYPERLIPIDEMIA, UNSPECIFIED Status: Chronic (8) GERD (gastroesophageal reflux disease) Code(s): K21.9 - GASTRO-ESOPHAGEAL REFLUX DISEASE WITHOUT ESOPHAGITIS Status: Chronic Qualifiers: Esophagitis presence: with esophagitis Qualified Code(s): K21.0 - Gastro- esophageal reflux disease with esophagitis (9) HTN (hypertension) Code(s): I10 - ESSENTIAL (PRIMARY) HYPERTENSION Status: Chronic Qualifiers: Hypertension type: essential hypertension Qualified Code(s): I10 - Essential (primary) hypertension Comment: Well controlled. Continue home meds. (10) Acute pancreatitis Code(s): K85.90 - ACUTE PANCREATITIS WITHOUT NECROSIS OR INFECTION, UNSP Status: Resolved Qualifiers: Pancreatitis type: idiopathic Acute pancreatitis complication: no infection or necrosis Qualified Code(s): K85.00 - Idiopathic acute pancreatitis without necrosis or infection Comment: (11) DKA, type 2 Code(s): E11.10 - TYPE 2 DIABETES MELLITUS WITH KETOACIDOSIS WITHOUT COMA Status: Resolved (12) Hypotension Status: Resolved - Plan cont current plan of care * discussed with dr newton * once [facility] arranged, will consider discharge to home and follow up with ENT and ID * medication reviewed as below * symptomatic treatment. Review of Systems - Review of Systems ENT: negative: Ear Pain, Ear Discharge, Nose Pain, Nose Discharge, Nose Congestion, Mouth Pain, Mouth Swelling, Throat Pain, Throat Swelling, Other Respiratory: negative: Cough, Dry, Shortness of Breath, Hemoptysis, SOB with Excertion, Pleuritic Pain, Sputum, Wheezing Cardiovascular: negative: chest pain, palpitations, orthopnea, paroxysmal nocturnal dyspnea, edema, light headedness, other Gastrointestinal: negative: Nausea, Vomiting, Abdominal Pain, Diarrhea, Constipation, Melena, Hematochezia, Other Genitourinary: negative: Dysuria, Frequency, Incontinence, Hematuria, Retention , Other Musculoskeletal: negative: Neck Pain, Shoulder Pain, Arm Pain, Back Pain, Hand Pain, Leg Pain, Foot Pain, Other Skin: negative: Rash, Lesions, Steve, Bruising, Other - Medications/Allergies Allergies/Adverse Reactions: Allergies Allergy/AdvReac Type Severity Reaction Status Date / Time morphine Allergy Verified 06/25/17 16:00 tizanidine [From Zanaflex] AdvReac hypotension Verified 12/12/17 16:32 Medications: Current Medications Acetaminophen (Tylenol) 1,000 mg PO Q6H PRN PRN Reason: Headache/Fever or Mild Pain Last Admin: 12/28/17 21:13 Dose: 1,000 mg Albuterol Sulfate (Ventolin) 2.5 mg NEB [id number] PRN PRN Reason: Wheezing Bupropion HCl (Wellbutrin Xl) 300 mg PO DAILY [facility] Last Admin: 12/29/17 09:00 Dose: 300 mg Clonidine (Catapres) 0.1 mg PO Q4H PRN PRN Reason: Systolic BP > 180 Dextrose/Water (Dextrose 50%) 25 gm SLOW IVP PRN PRN PRN Reason: Hypoglycemia Docusate Sodium (Colace) 100 mg PO BID [facility] Last Admin: 12/29/17 09:01 Dose: Not Given Fluticasone Propionate (Flonase Nasal [place]) 0 gm NASAL DAILY [facility] Last Admin: 12/29/17 09:01 Dose: 1 spray Folic Acid (Folvite) 1 mg PO DAILY [facility] Last Admin: 12/29/17 09:00 Dose: 1 mg Glucagon (Glucagon) 1 mg IM PRN PRN PRN Reason: Hypoglycemia Guaifenesin (Mucinex) 600 mg PO Q12HR [facility] Last Admin: 12/29/17 09:00 Dose: 600 mg Heparin Sodium (Porcine) (Heparin) 5,000 units SC TID [facility] Last Admin: 12/29/17 09:13 Dose: 5,000 units Hydralazine HCl (Apresoline) 10 mg SLOW IVP Q4H PRN PRN Reason: Systolic BP > 180 Dextrose/Water (D5w) 1,000 mls @ 0 mls/hr IV .Q0M PRN; As Directed PRN Reason: Hypoglycemia Insulin Detemir 10 units/ (Miscellaneous Medication) 0.1 mls @ 0 mls/hr SC BID [facility] Last Admin: 12/29/17 08:58 Dose: 0.1 mls Insulin Human Lispro (Humalog) 0 units SC .MODERATE SLIDING SC PRN PRN Reason: Moderate Correctional Scale Last Admin: 12/28/17 05:41 Dose: 2 unit Insulin Human Lispro (Humalog) 0 units SC .BEDTIME SLIDING SC PRN PRN Reason: Bedtime Correctional Scale Last Admin: 12/28/17 20:56 Dose: 3 unit Lorazepam (Ativan) 0.5 mg PO Q4H PRN PRN Reason: Anxiety Last Admin: 12/27/17 23:09 Dose: 0.5 mg Magnesium Oxide (Magnesium Oxide) 400 mg PO BID [facility] Last Admin: 12/29/17 09:00 Dose: 400 mg Miscellaneous (Cresemba) 372 mg PO 2100 [facility] Last Admin: 12/28/17 20:50 Dose: 372 mg Nebivolol (Bystolic) 10 mg PO DAILY [facility] Last Admin: 12/29/17 09:00 Dose: 10 mg Ondansetron HCl (Zofran Odt) 4 mg PO Q6H PRN PRN Reason: Nausea/Vomiting Oxymetazoline HCl (Oxymetazoline Hcl) 0 sprays NASAL Q2H PRN PRN Reason: NASAL BLEEDING Pantoprazole Sodium (Protonix) 40 mg PO BID [facility] Last Admin: 12/29/17 09:00 Dose: 40 mg Potassium Chloride (K-Dur) 20 meq PO BID[facility] Last Admin: 12/29/17 09:00 Dose: 20 meq Simethicone (Mylicon Chewable) 80 mg PO TIDPRN PRN PRN Reason: Gas Pain Last Admin: 12/14/17 13:42 Dose: 80 mg Sodium Chloride (Sodium Chloride 0.9%) 30 ml NASAL QID [facility] Last Admin: 12/29/17 09:07 Dose: 30 ml Sodium Chloride (Flush - Normal Saline) 10 ml IVF Q12HR [facility] Last Admin: 12/29/17 09:07 Dose: 10 ml Sodium Chloride (Flush - Normal Saline) 10 ml IVF PRN PRN PRN Reason: Saline Flush Sodium Chloride (Flush - Normal Saline) 10 ml IVF 0200,0330 [facility] Last Admin: 12/29/17 02:05 Dose: Not Given Temazepam (Restoril) 15 mg PO HSPRN PRN PRN Reason: Insomnia Last Admin: 12/28/17 21:13 Dose: 15 mg
[2017-12-29 15:51] VITALS: BP 128/77; TEMP 98.2
--- NOTE | 2017-12-29 17:28 | DIS ---
PRIMARY CARE PHYSICIAN: Alfonso Townsend M.D DATE OF ADMISSION: 12/08/2017 DATE OF DISCHARGE: 12/29/2017 DISCHARGE DISPOSITION: Home. PRIMARY DISCHARGE DIAGNOSES: Acute fungal mucormycosis sinusitis, external hemiplegia right eye; rc betic ketoacidosis, resolved; hypotension, resolved; hypoxia, resolved; acute on chronic kidney failu re, resolved; acute pancreatitis, resolved. SECONDARY DISCHARGE DIAGNOSES: Hypertension, gastroesophageal reflux disease, dyslipidemia, diabetes type 2, chronic kidney disease stage III, anxiety and depression. PRIMARY PROCEDURE AND OPERATION: The patient underwent upper endoscopy by Dr. Zamorano for upper GI blee d and found with duodenitis. Patient underwent I&D of sinus by Dr. Omar Morel. RADIOLOGICAL INVESTIGATION: MRI brain, abdomen and pelvis CT scan, sinus CT scan, repeat abdomen and pelvis CT scan, chest x-ray, sinus CT. SIGNIFICANT LABORATORY DATA: Hemoglobin 7.7, creatinine 1.64, C. diff negative. DISCHARGE MEDICATIONS: Cresemba 372 mg p.o. daily (duration will be decided by Dr. Caal), Lipitor 2 0 mg p.o. at bedtime, Wellbutrin-XL 300 mg p.o. daily, Uloric 80 mg p.o. at bedtime, Tricor 145 mg p. o. at bedtime, Flonase nasal spray daily, Humalog insulin as per sliding scale, Bystolic 10 mg p.o. d aily, oxymetazoline nasal spray as directed, Protonix 40 mg p.o. daily. CONTRAINDICATIONS: None. CODE STATUS: FULL CODE. INPATIENT CONSULTANTS: Dr. Omar Morel was following while in hospital. Dr. Cortez was following ile in hospital. Dr. Zamorano was following while in hospital. Dr. Caal was following while in [facility]. Dr. Jb Cardenas was also consulted while in the hospital. Dr. Celestin saw this patient while in hospital. TEST RESULTS PENDING ON DISCHARGE: None. ALLERGIES: MORPHINE, ZANAFLEX. DISCHARGE PLAN: Post hospital, the patient will follow up with primary care physician and Dr. Caal in [address] Omar Morel in 2 weeks. HOSPITAL COURSE: This patient has no hospital history. Please see entire chart from the hospital sy stem. This patient was admitted by Dr. Louie and at that time, the patient was having DKA. He was menendez ving sepsis, multiorgan failure type of picture. He was also complaining of right-sided vision loss and headache. He was diagnosed with diabetic ketoacidosis suspected for temporal arteritis. He had acute on chronic kidney failure and metabolic acidosis. This patient also found with sinusitis. Thi s patient was started on broad spectrum antibiotics. Pulmonology saw this patient. Neurology was co nsulted. Dr. Cortez was consulted. Subsequently, we did abdomen and pelvis CT scan. There was no suspicious for temporal arteritis, but the patient was found with fungal sinusitis. He was treated with IV antifungal medication in the IMCU. Subsequently, he was changed to Cresemba. Dr Tobin Caal will follow up with the patient as an outpatient basis and he will decide about Cresemba ther apy and the patient will also follow up with Dr. Omar Morel to follow up on his fungal sinusitis. At this point, the patient is medically stable. All consult cleared him for discharge, patient also wants to go home today. All new medication patient has received. Discharge medication reconciliati on done. The patient is medically stable for discharge today.
== END 2017-12-29 16:49 | disposition home or self-care (01) | DRG 853 ==
LOC: ERS 18:03 → IMCU/EMU 23:45 → T4-B 12-18 18:35
PROVIDERS: ADMIT Family Medicine; ATTEND Family Medicine
PROC: 09BW8ZZ Excision of Right Sphenoid Sinus, Via Natural or Artificial Opening Endoscopic (ICD-10-PCS; 2017-12-10)
PROC: 09TU8ZZ Resection of Right Ethmoid Sinus, Via Natural or Artificial Opening Endoscopic (ICD-10-PCS; 2017-12-10)
PROC: 09TV8ZZ Resection of Left Ethmoid Sinus, Via Natural or Artificial Opening Endoscopic (ICD-10-PCS; 2017-12-10)
PROC: 09BX8ZZ Excision of Left Sphenoid Sinus, Via Natural or Artificial Opening Endoscopic (ICD-10-PCS; 2017-12-10)
PROC: 099R8ZZ Drainage of Left Maxillary Sinus, Via Natural or Artificial Opening Endoscopic (ICD-10-PCS; 2017-12-10)
PROC: 099Q8ZZ Drainage of Right Maxillary Sinus, Via Natural or Artificial Opening Endoscopic (ICD-10-PCS; 2017-12-10)
PROC: 09DQ4ZZ Extraction of Right Maxillary Sinus, Percutaneous Endoscopic Approach (ICD-10-PCS; 2017-12-19)
PROC: 09DU4ZZ Extraction of Right Ethmoid Sinus, Percutaneous Endoscopic Approach (ICD-10-PCS; 2017-12-19)
PROC: 0DB98ZX Excision of Duodenum, Via Natural or Artificial Opening Endoscopic, Diagnostic (ICD-10-PCS; principal; 2017-12-21)
DX: A41.9 Sepsis, unspecified organism (principal); B46.5 Mucormycosis, unspecified; N17.9 Acute kidney failure, unspecified; K85.90 Acute pancreatitis without necrosis or infection, unspecified; E11.10 Type 2 diabetes mellitus with ketoacidosis without coma; E11.22 Type 2 diabetes mellitus with diabetic chronic kidney disease; N18.3 Chronic kidney disease, stage 3 (moderate); E87.1 Hypo-osmolality and hyponatremia; D62 Acute posthemorrhagic anemia; K86.1 Other chronic pancreatitis; S02.31XA Fracture of orbital floor, right side, initial encounter for closed fracture; R65.20 Severe sepsis without septic shock; J01.00 Acute maxillary sinusitis, unspecified; J01.20 Acute ethmoidal sinusitis, unspecified; E78.5 Hyperlipidemia, unspecified; W19.XXXA Unspecified fall, initial encounter; Z85.038 Personal history of other malignant neoplasm of large intestine; K21.9 Gastro-esophageal reflux disease without esophagitis; I25.2 Old myocardial infarction; M19.90 Unspecified osteoarthritis, unspecified site; I12.9 Hypertensive chronic kidney disease with stage 1 through stage 4 chronic kidney disease, or unspecified chronic kidney disease; J32.0 Chronic maxillary sinusitis; J32.2 Chronic ethmoidal sinusitis; K29.80 Duodenitis without bleeding; J32.9 Chronic sinusitis, unspecified; H49.9 Unspecified paralytic strabismus; D64.9 Anemia, unspecified; E87.6 Hypokalemia; B95.62 Methicillin resistant Staphylococcus aureus infection as the cause of diseases classified elsewhere; N28.1 Cyst of kidney, acquired; G62.9 Polyneuropathy, unspecified
CPT/HCPCS: 36415; 36416; 70450; 70551; 71045; 74176; 80048; 80053; 80061; 81003; 82010; 82533; 82553; 82607; 82728; 82746; 82805; 83540; 83550; 83605; 83690; 83735; 83880; 84100; 84484; 85007; 85025; 85027; 85652; 86140; 86141; 87070; 87077; 87102; 87186; 87205; 87206; 87324; 87449; 88305; 88312; 88313; 88342; 93005; 93010; 94640; 96360; 96361; 96365; 96366; 96367; 96372; 96375; 96376; A4216; C9113; G8978-GP-CL; G8979-GP-CJ; G8987-GO-CH; G8988-GO-CH; G8989-GO-CH; J0289; J1100; J1200; J1644; J1720; J1815; J1833; J1885; J1956; J2001; J2020; J2185; J2248; J2250; J2270; J2405; J2704; J2765; J2930; J3010; J7050; J7070; J7611

== ENCOUNTER 2018-02-10 09:58 | Outpatient (CLI) | payer MEDICARE ==
--- NOTE | 2018-02-10 13:08 | MRI ---
BRAIN MRI WITHOUT CONTRAST: Date: 02/10/18 COMPARISON: 12/08/17. HISTORY: Possible mucormycosis. 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 Hist ory of sinus surgery in November. TECHNIQUE: Brain MRI is performed without intravenous Gadolinium administration. Multisequential, multiplanar im aging is performed. FINDINGS: [place] and appropriately positioned left ocular lens is noted. Prostatic, appropriately positioned ri ght ocular lens is noted. Central arterial flow-voids are maintained. Absent restricted diffusion. Bilateral maxillary sinus mucosal thickening. There is mucosal thickening of the sphenoid sinus. Part ial opacification of the right mastoid air cells. Calvarium has a normal T1 marrow signal intensity. Midline brain parenchymal structures are unremarka ble. No significant T2 or FLAIR white matter hyperintensity. No hemorrhage on the axial gradient echo sequence. The optic chiasm and prechiasmatic optic nerves have a normal appearance. The posterior right orbital apex appears to have loss of normal fat signal intensity. There is suboptimal evaluation of the righ t intraorbital optic nerve as it enters the right orbital apex. Mid to distal right optic nerve appea rs to be unremarkable and has symmetric signal intensity as the contralateral side. The left optic ne rve is normal in signal intensity. There is abnormal signal intensity extending into the right pteryg opalatine canal and fossa. Findings may represent progression of infection. Neoplastic process cannot be excluded. Better interrogation with postcontrast imaging would be beneficial. IMPRESSION: Abnormal soft tissue signal intensity in the right orbital apex, right pterygopalatine canal, and ext ending into the right pterygopalatine fossa. There is obscuration of the structures in the right orbi jose apex. Better evaluation with post contrast imaging is recommended. POS: [place]
== END 2018-02-10 09:59 | disposition home or self-care (01) ==
LOC: SCSMRI 09:58
PROVIDERS: ATTEND Internal Medicine Infectious Disease
DX: B46.5 Mucormycosis, unspecified (principal); R93.0 Abnormal findings on diagnostic imaging of skull and head, not elsewhere classified
CPT/HCPCS: 70551

== ENCOUNTER 2018-03-11 15:20 | Outpatient (CLI) | payer MEDICARE ==
[~2018-03-11 15:20] MED LIST: Gadobenate Dimeglumine 529 MG/1 ML (20ML VIAL) ONE
--- NOTE | 2018-03-12 09:37 | MRI ---
BRAIN MRI WITH CONTRAST: Date: 03/11/18 HISTORY: Previous sinus infection with mucormycosis. 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 COMPARISON: 02/10/18. TECHNIQUE: Postcontrast brain MRI/orbit MRI performed. Multisequential, multiplanar imaging is performed. FINDINGS: Calvarium has a normal T1 marrow signal intensity. Midline brain parenchymal structures are unremarka ble. Central arterial flow-voids are maintained. There is mucosal disease with mucosal thickening involving bilateral maxillary sinuses, right ethmoid air cells, and the sphenoid sinuses. There is also an air fluid level in the left maxillary sinus. P artial opacification of the right mastoid air cells. Right ocular lens implant is noted. [place] left ocular lens is identified. Postcontrast images demonstrate abnormal enhancing tissue along the course of the intracanalicular an d intraorbital right optic nerve. There is abnormal enhancing tissue in the right orbital apex. Abnor mal enhancement extends posteriorly and is just lateral to the right sphenoid sinus. Abnormal enhance ment also appear to involve the right pterygopalatine fossa and right pterygopalatine canal. Abnormal enhancement also appears to extend into the right nasopharynx, down to the level of the fossa of Ros enmuller with partial effacement, which results in the partial opacification of the right mastoid air cells. Correlate clinically and evaluate for possible underlying neoplastic process in this region b y direct visualization. IMPRESSION: Abnormal enhancement as detailed above suggesting areas of infection/inflammation. Given involvement of the right nasopharynx, direct visualization is recommended to exclude a possible superimposed neop lastic process. POS: [facility]
== END 2018-03-11 15:21 | disposition home or self-care (01) ==
LOC: SCSMRI 15:20
PROVIDERS: ATTEND Otolaryngology Plastic Surgery within the Head & Neck
DX: G52.9 Cranial nerve disorder, unspecified (principal)
CPT/HCPCS: 70552; 82565; A9579

== ENCOUNTER 2018-05-29 11:07 | Outpatient (CLI) | payer MEDICARE ==
[2018-05-29 11:51] LABS: #Basophils 0.1 thou/uL (0.0-0.2); #Eosinphils 0.1 thou/uL (0.0-0.7); #Lymphocytes 1.6 thou/uL (1.20-3.40); #Monocytes 0.4 thou/uL (0.11-0.59); #Neutrophils 3.9 thou/uL (1.40-6.50); %Eosinophils 1.2 % (0.0-10.0); %Lymphocytes 26.8 % (21.0-51.0); Mean Corpuscular HGB CONC 33.1 g/dL (32.0-36.0); Mean Corpuscular Hemoglobin 30.9 pg (27.0-31.0); Mean Corpuscular Volume 93.6 fL (78.0-98.0); Mean Platelet Volume 8.8 fL (7.4-10.4); Platelet Count 222 thou/uL (130-400); RBC Distribution Width 16.5 % (11.5-14.5); Red Blood Cell (RBC) Count 3.54 mill/uL (4.70-6.10)
[2018-05-29 12:10] LABS: Anion Gap 10 mmol/L (10-20); BUN (Urea Nitrogen) 52 mg/dL (8.4-25.7); Calc. Creatinine Clearance 0 mL/min (70-130); Calcium 9.2 mg/dL (7.8-10.44); Carbon Dioxide 22 mmol/L (23-31); Chloride 109 mmol/L (98-107); Estimated GFR-MDRD 23; Glucose 189 mg/dL (80-115); Potassium 5.2 mmol/L (3.5-5.1); Sodium 136 mmol/L (136-145)
--- NOTE | 2018-05-29 17:18 | EKG ---
Test Reason : Blood Pressure : / mmHG Vent. Rate : 055 BPM Atrial Rate : 055 BPM P-R Int : 148 ms QRS Dur : 100 ms QT Int : 416 ms P-R-T Axes : 064 043 017 degrees QTc Int : 397 ms Sinus bradycardia Otherwise normal ECG When compared with ECG of 11-DEC-2017 13:58, Premature ventricular complexes are no longer Present T wave inversion no longer evident in Lateral leads Confirmed by DR. Robby PICKENS ([id number]) on 05/29/2018 5:18:26 PM Referred By: MARIELY Confirmed By:DR. Robby PICKENS
== END 2018-05-29 11:08 | disposition home or self-care (01) ==
LOC: LABBT 11:07
PROVIDERS: ATTEND Surgery
DX: Z01.812 Encounter for preprocedural laboratory examination (principal); B46.5 Mucormycosis, unspecified
CPT/HCPCS: 80048; 85025; 93005; 93010

== ENCOUNTER 2018-06-01 06:53 | Day surgery (SDC) | payer MEDICARE ==
[2018-05-29 11:56] VITALS: BMI 23.6
[2018-06-01] MEDS ORDERED: CEFAZOLIN/Water 2 GM/20 ML SYRINGE ONE (07:47)
[2018-06-01] MEDS ORDERED: Bupivacaine/Epinephrine 0.25% 30 ML VIAL ONE (08:34)
[2018-06-01] MEDS ORDERED: Fentanyl 100 MCG/2 ML VIAL ONE (08:35)
[2018-06-01] MEDS ORDERED: Lidocaine 2% 10 ML INJ ONE (08:35)
[2018-06-01] MEDS ORDERED: Propofol 500 MG/50 ML VIAL ONE (08:36)
--- NOTE | 2018-06-01 11:49 | OP ---
DATE OF PROCEDURE: 06/01/2018 PREOPERATIVE DIAGNOSIS: Mucormycosis of the left sphenoid sinus. SURGEON: Solis Awad M.D. PROCEDURE PERFORMED: Left subclavian Castaneda catheter placement. INDICATIONS: A 67-year-old male who is undergoing treatment for mucormycosis of the sphenoid sinus, who needed a central access. FINDINGS: Good backflow of venous blood. J-wire threaded easily. Good placement by fluoroscopy. PROCEDURE: After informed consent was obtained, the patient was taken to the operating room, given t otal intravenous anesthesia, placed in the Trendelenburg position. His chest and neck were prepped a nd draped in the usual fashion. Local anesthesia infiltrated subcutaneously and deep. An aspirating needle was inserted. Good backflow of venous blood, left subclavian, J wire threaded easily. Fluor oscopy was used that initially the wire was going up his neck. I had them positioned him more revers e Trendelenburg and under fluoroscopy was able to direct the wire back into the superior vena cava. The skin and subcu was anesthetized and incision made on the left chest wall. The tunneling device u sed to connect the two incisions and the catheter brought through the tunnel. The cuff was then posi tioned just at the subclavian incision. The catheter cut to size. The peel-away introducer inserted over the wire. The wire was removed. The catheter inserted through the peel-away introducer and th e peel-away introducer removed. Fluoroscopy again used showed good placement in superior vena cava. The system was accessed and aspirated. Good backflow of venous blood, flushed with heparinized sali ne. The catheter was sutured in place with a 2-0 Prolene suture. The skin closed with a 4-0 Rapide. Dermabond applied. Sterile bandage applied. The patient tolerated the procedure well and was chang sferred to recovery in good condition. Sponge and needle count verified correct x2.
[2018-06-01] MEDS ORDERED: Micafungin 100 MG in Sodium Chloride 0.9% 100 ML IVPB SCH (12:00)
--- NOTE | 2018-06-01 12:10 | RAD ---
SINGLE VIEW CHEST: Date: 06/01/18 COMPARISON: 12/20/17. HISTORY: Line placement. FINDINGS: Single view of the chest shows a normal sized cardiomediastinal silhouette. There is a left subclavia n central venous catheter with its tip in the superior vena cava. No pneumothorax is seen. There is n o evidence of consolidation, mass, or pleural effusion. IMPRESSION: Status post central line placement without evidence of complication. POS: [facility]
[2018-06-01] MEDS ORDERED: Sodium Chloride 0.9% 10 ML ONE (13:07)
[2018-06-01] MEDS ORDERED: Metoclopramide HCl 10 MG/2 ML VIAL ONE (15:03)
[2018-06-01] MEDS ORDERED: ePHEDrine/0.9% NaCl/PF SYRINGE 50 mg/10 ml ONE (15:03)
[2018-06-01] MEDS ORDERED: Ondansetron HCl/PF 4 MG/2 ML Vial ONE (15:03)
[2018-06-01] MEDS ORDERED: Lidocaine 1% PF 5 ML VIAL ONE (15:03)
[2018-06-01] MEDS ORDERED: PROPOFOL 200 MG/20 ML VIAL ONE (15:03)
== END 2018-06-01 13:20 | disposition home or self-care (01) ==
LOC: SDC 06:53
PROVIDERS: ATTEND Surgery
PROC: 05H633Z Insertion of Infusion Device into Left Subclavian Vein, Percutaneous Approach (ICD-10-PCS; principal; 2018-06-01)
DX: B46.5 Mucormycosis, unspecified (principal); C18.9 Malignant neoplasm of colon, unspecified; E11.9 Type 2 diabetes mellitus without complications; I25.2 Old myocardial infarction; Z79.899 Other long term (current) drug therapy; Z79.4 Long term (current) use of insulin; Z88.5 Allergy status to narcotic agent
CPT/HCPCS: 36558; 71045; 96374; C1751; J1642; J2001; J2248; J2405; J2704; J2765; J3010; J7050

== ENCOUNTER 2018-06-03 08:47 | Observation (INO) | payer MEDICARE ==
[2018-06-03 09:27] LABS: #Basophils 0.1 thou/uL (0.0-0.2); #Eosinphils 0.1 thou/uL (0.0-0.7); #Lymphocytes 1.2 thou/uL (1.20-3.40); #Monocytes 0.4 thou/uL (0.11-0.59); #Neutrophils 6.9 thou/uL (1.40-6.50); %Basophils 0.8 % (0.0-1.0); %Eosinophils 1.2 % (0.0-10.0); %Lymphocytes 13.6 % (21.0-51.0); %Monocytes 4.4 % (0.0-10.0); %Neutrophils 80.1 % (42.0-75.0); Hemoglobin 11.4 g/dL (14.0-18.0); Mean Corpuscular HGB CONC 31.7 g/dL (32.0-36.0); Mean Corpuscular Hemoglobin 29.1 pg (27.0-31.0); Mean Corpuscular Volume 91.8 fL (78.0-98.0); Mean Platelet Volume 8.6 fL (7.4-10.4); Platelet Count 226 thou/uL (130-400); RBC Distribution Width 16.7 % (11.5-14.5); Red Blood Cell (RBC) Count 3.92 mill/uL (4.70-6.10); White Blood Cell (WBC) Count 8.6 thou/uL (4.8-10.8)
[2018-06-03 09:37] LABS: ALT (SGPT) 13 U/L (8-55); AST (SGOT) 24 U/L (5-34); Albumin 4.2 g/dL (3.4-4.8); Alkaline Phosphatase 54 U/L (40-150); Anion Gap 18 mmol/L (10-20); BUN (Urea Nitrogen) 35 mg/dL (8.4-25.7); Bilirubin, Total 0.7 mg/dL (0.2-1.2); Calc. Creatinine Clearance 0 mL/min (70-130); Calcium 10.4 mg/dL (7.8-10.44); Carbon Dioxide 21 mmol/L (23-31); Chloride 108 mmol/L (98-107); Estimated GFR-MDRD 30; Globulin 3.1 g/dL (2.4-3.5); Glucose 132 mg/dL (80-115); Potassium 4.5 mmol/L (3.5-5.1); Protein, Total 7.3 g/dL (5.8-8.1); Sodium 142 mmol/L (136-145)
[2018-06-03 09:41] LABS: CKMB 2.1 ng/mL (0-6.6); Troponin I 0.016 ng/mL (< 0.028)
--- NOTE | 2018-06-03 10:09 | RAD ---
PA AND LATERAL CHEST: Date: 06/03/18 INDICATION: Left-sided pain after PICC line placement. COMPARISON: Prior single view of chest dated 06/01/18. FINDINGS: There is a left subclavian venous catheter in place. The tip of the catheter resides in the region of the SVC and appears unchanged from the comparison. There has been interval development of a small le ft apical pneumothorax, new from the comparison dated 06/01/18. Heart and pulmonary vasculature appe ars within normal limits. The right lung is clear. No acute osseous abnormality seen. IMPRESSION: New small left apical pneumothorax. This is new from comparison dated 06/01/18. Findings called to the emergency room to Griselda Lindsay RN, charge nurse, at 0958 hours on 8. Findings also called to Dr. Awad's answering service at 0955 hours on 06/03/18. CODE CR. POS: [facility]
[2018-06-03] MEDS ORDERED: Fentanyl 100 MCG/2 ML VIAL ONE (10:30)
[2018-06-03 14:59] VITALS: BMI 23.6
[2018-06-03] MEDS ORDERED: FEBUXOSTAT 80 MG PO SCH (16:30)
[2018-06-03] MEDS ORDERED: Fentanyl 100 MCG/2 ML VIAL SLOW IVP SCH (16:30)
[2018-06-03] MEDS: Micafungin 100 MG in Sodium Chloride 0.9% 100 ML IVPB SCH (16:53)
--- NOTE | 2018-06-03 17:43 | RAD ---
CHEST ONE VIEW: 06/03/18 COMPARISON: 06/01/18, 06/03/18. HISTORY: Heimlich valve placement. Chest wall pain. FINDINGS: Persistent small left apical pneumothorax. There is a stable catheter projecting over the left hemith orax terminating in the region of the superior vena cava. There has been interval placement of small bore chest tube in the left hemithorax. Stable aeration of the right lung. Stable cardiac silhouette. Stable linear densities in the left low er lobe likely representing areas of atelectasis. IMPRESSION: Redemonstration of a small left apical pneumothorax. There has been interval placement of a left side d small bore chest tube. POS: [facility]
[2018-06-03] MEDS: HumaLOG 300 UNITS/3 ML VIAL SC SCH (18:02)
[2018-06-03] MEDS: Zolpidem Tartrate 5 MG TAB PO SCH (21:17)
[2018-06-03] MEDS: Atorvastatin Calcium 20 MG TAB PO SCH (21:17)
[2018-06-03] MEDS: Insulin Glargine 20 UNITS in Pre-Filled Syringe 1 EACH SC SCH (21:17)
[2018-06-03] MEDS: Fenofibrate Nanocrystallized 145 MG TAB PO SCH (21:29)
--- NOTE | 2018-06-03 22:27 | OP ---
PREOPERATIVE DIAGNOSIS: Left pneumothorax. SURGEON: Solis Awad M.D. PROCEDURE PERFORMED: Left Heimlich valve chest tube placement. INDICATIONS: This is a 67-year-old male 2 days status post Castaneda catheter placement, who started h aving shortness of breath and chest pain, went to the ER showed a 20% left pneumothorax. FINDINGS: Placed in the left anterior axillary line directed towards the apex. PROCEDURE: After informed consent was obtained, the patient was placed in the semi upright position. His chest was prepped and draped in usual fashion. Local anesthesia was infiltrated subcutaneously and deep with 1% lidocaine and skin incision was performed with an 11 blade. The perforating cathet er was inserted using aspiration until we got air and then advanced the catheter towards the apex. I t was secured with interrupted 3-0 silk suture connected to the Heimlich valve. Sterile bandage appl ied. Patient tolerated the procedure well and was transferred to recovery in good condition. Chest x-ray was obtained.
--- NOTE | 2018-06-03 22:42 | HP ---
CHIEF COMPLAINT: Left chest pain. HISTORY OF PRESENT ILLNESS: This is a 67-year-old male who had a Castaneda catheter placed 2 days ago. Postop chest x-ray was okay, yesterday started having some chest pain and mild dyspnea, came to the ER today showing about 20% left pneumothorax. PAST MEDICAL HISTORY: Diabetes, coronary artery disease, hypertension. He has colon cancer, peptic ulcer disease and he has a fungal sinus infection. PAST SURGICAL HISTORY: Right knee surgery, appendectomy, he had a sigmoid colectomy, endoscopic sinu s surgery. MEDICATIONS: TriCor, Lantus, Humalog, Bystolic, Lipitor, vitamin D, Procrit, Flonase. ALLERGIES: Prednisone. PHYSICAL EXAMINATION: VITAL SIGNS: Temperature 97.8, pulse 78, blood pressure 166/94, he is 94% sat on room air. GENERAL: He is in no apparent distress. HEENT: Unremarkable. LUNGS: Clear. HEART: Regular rate and rhythm. ABDOMEN: Soft, nontender. He has a chest x-ray showed about 20% left pneumothorax. ASSESSMENT: Left pneumothorax. PLAN: Heimlich valve chest tube placement.
[2018-06-04] MEDS: Fentanyl 100 MCG/2 ML VIAL SLOW IVP PRN ×3 (02:20→15:48)
--- NOTE | 2018-06-04 07:47 | RAD ---
UPRIGHT PORTABLE CHEST 1 VIEW: HISTORY: A 67-year-old male with a history of followup chest tube and followup left side pneumothorax. FINDINGS: A left subclavian catheter and injection port. Small-caliber left-sided chest tube. Persistent prob ably slightly smaller left apical pneumothorax. Parenchymal changes in the left lower lobe. IMPRESSION: Persistent slightly smaller small left apical pneumothorax with small-caliber left chest tube in plac e. Persistent linear parenchymal changes in the left lung base. Followup for clearing is suggested. POS: [facility]
[2018-06-04] MEDS: HumaLOG 300 UNITS/3 ML VIAL SC SCH ×3 (08:26→16:42)
[2018-06-04] MEDS: Nebivolol HCl 5 MG TAB PO SCH (08:28)
[2018-06-04] MEDS: Lisinopril 5 MG TAB PO SCH (08:29)
[2018-06-04] MEDS: Bupropion 150 MG XL TAB PO SCH (08:29)
[2018-06-04] MEDS: Gabapentin 300 MG CAP PO SCH (08:30)
[2018-06-04] MEDS: ISAVUCONAZONIUM 186 MG PO SCH (15:40)
--- NOTE | 2018-06-04 16:01 | RAD ---
CHEST PA AND LATERAL: 06/04/18 HISTORY: 67-year-old male with history of followup pneumothorax. Left subclavian catheter and injection port. Small caliber left chest tube in place. There has been p rogressive subcutaneous emphysema in the left chest near the chest tube insertion. There is a persist ent small left sided pneumothorax. Pleural and parenchymal opacity changes in the left base appear li ttle change. Small air fluid level in the left costophrenic angle consistent with a small hydropneumo thorax at this location. IMPRESSION: Persistent small left sided pneumothorax. Small caliber left chest tube in place. Progressive subcut aneous emphysema in the left chest. Small left costophrenic angle hydropneumothorax with air fluid le elvis. Persistent pleural and parenchymal changes in the left base. POS: [facility]
[2018-06-04] MEDS: Micafungin 100 MG in Sodium Chloride 0.9% 100 ML IVPB SCH (16:40)
[2018-06-04] MEDS ORDERED: Acetaminophen/Codeine 30-300mg Tablet PO PRN (16:46)
[2018-06-04] MEDS: Acetaminophen/Codeine 30-300mg Tablet PO PRN (18:29)
[2018-06-04] MEDS: Atorvastatin Calcium 20 MG TAB PO SCH (20:10)
[2018-06-04] MEDS: Fenofibrate Nanocrystallized 145 MG TAB PO SCH (20:10)
[2018-06-04] MEDS: Insulin Glargine 20 UNITS in Pre-Filled Syringe 1 EACH SC SCH (20:11)
[2018-06-04] MEDS ORDERED: Dextrose 5% in Water 1,000 ML IV PRN (20:34)
[2018-06-04] MEDS ORDERED: Dextrose 50% Abboject 50 ML SYRINGE SLOW IVP PRN (20:34)
[2018-06-04] MEDS ORDERED: Insulin Regular 300 UNITS/3 ML VIAL SC PRN ×2 (20:34)
[2018-06-04] MEDS ORDERED: cloNIDine 0.1 MG TAB PO PRN (20:34)
[2018-06-04] MEDS ORDERED: hydrALAZINE 20 MG/ML VIAL SLOW IVP PRN (20:34)
[2018-06-04] MEDS: Zolpidem Tartrate 5 MG TAB PO SCH (22:54)
[2018-06-05 04:32] LABS: Platelet Count 197 thou/uL (130-400)
[2018-06-05 04:50] LABS: Anion Gap 10 mmol/L (10-20); BUN (Urea Nitrogen) 31 mg/dL (8.4-25.7); Calc. Creatinine Clearance 36 mL/min (70-130); Calcium 9.9 mg/dL (7.8-10.44); Carbon Dioxide 28 mmol/L (23-31); Chloride 105 mmol/L (98-107); Estimated GFR-MDRD 33; Glucose 125 mg/dL (80-115); Potassium 3.9 mmol/L (3.5-5.1); Sodium 139 mmol/L (136-145)
[2018-06-05] MEDS: Acetaminophen/Codeine 30-300mg Tablet PO PRN (06:31)
--- NOTE | 2018-06-05 07:56 | RAD ---
TWO VIEW CHEST: COMPARISON: 06/04/18. CLINICAL HISTORY: Followup, pneumothorax. FINDINGS: Again demonstrated, there are small-caliber catheters overlying the left chest. The laterally locate d pneumocath is grossly stable. There is a vascular catheter again projecting over the SVC region. Small volume left hydropneumothorax remains. The cardiac silhouette is prominent. IMPRESSION: Left side hydropneumothorax, grossly stable. Left side pneumocath remains in place. POS: [facility]
[2018-06-05] MEDS: Gabapentin 300 MG CAP PO SCH (09:45)
[2018-06-05] MEDS: Bupropion 150 MG XL TAB PO SCH (09:45)
[2018-06-05] MEDS: Nebivolol HCl 5 MG TAB PO SCH (09:46)
[2018-06-05] MEDS: Lisinopril 5 MG TAB PO SCH (09:46)
--- NOTE | 2018-06-05 10:43 | DIS ---
DISCHARGE DIAGNOSIS: Left pneumothorax. PROCEDURES DURING ADMISSION: Chest tube placement. HOSPITAL COURSE: The patient was admitted, had about a 20% pneumothorax on the left. A percutaneous arrow chest tube was placed. It came back up to about 10% pneumothorax, it has been fairly stable s nina, he feels much better. He is being discharged home with the Heimlich valve. He will follow up with me Friday after he gets a chest x-ray Friday morning.
[2018-06-05 11:17] VITALS: BP 152/83; TEMP 97.5
[2018-06-05] MEDS: ISAVUCONAZONIUM 186 MG PO SCH (11:18)
== END 2018-06-05 12:46 | disposition home or self-care (01) ==
LOC: SCSER 08:47 → SURG A 13:21
PROVIDERS: ADMIT Surgery; ATTEND Surgery
PROC: 0W9B00Z Drainage of Left Pleural Cavity with Drainage Device, Open Approach (ICD-10-PCS; principal; 2018-06-03)
DX: J93.9 Pneumothorax, unspecified (principal); E11.9 Type 2 diabetes mellitus without complications; I25.10 Atherosclerotic heart disease of native coronary artery without angina pectoris; I10 Essential (primary) hypertension; Z88.8 Allergy status to other drugs, medicaments and biological substances
CPT/HCPCS: 32551; 71045 ×2; 71046 ×3; 80048; 80053; 82553; 82962 ×3; 83880; 84484; 85014; 85018; 85025; 85049; 87040; 93005; 96374; 99285; J2248 ×2; 36415; 36416; A4216; J1642; J2270; J3010; J7050

== ENCOUNTER 2018-06-08 08:54 | Day surgery (SDC) | payer MEDICARE ==
[2018-06-08] MEDS ORDERED: Sodium Chloride 0.9% 30 ML ONE (08:59)
--- NOTE | 2018-06-08 10:05 | RAD ---
TWO VIEWS CHEST: DATE: 06/08/18. COMPARISON: Comparison is made to the exam from 06/05/18. FINDINGS: Two views chest again demonstrate left subclavian central line in place. Air fluid level is seen in the left lung base. A small left apical pneumothorax is again seen. Subcutaneous emphysema has decreased compared to the previous exam. A left-sided pneumocath is sligh tly changed in position. I am not sure if the distal aspect is within the left pleural space. The right lung is well aerated. IMPRESSION: Persistent left apical pneumothorax with decreased left chest wall subcutaneous emphysema. Right timothy ulder rotator cuff screws in place. IMPRESSION: Decreased left-sided subcutaneous emphysema. Left apical pneumothorax is stable and unchanged. Left -sided pneumocath is in place, slightly having changed in position. POS: [facility]
[2018-06-08 12:47] LABS: #Eosinphils 0.3 thou/uL (0.0-0.7); #Lymphocytes 1.6 thou/uL (1.20-3.40); #Monocytes 0.4 thou/uL (0.11-0.59); #Neutrophils 5.6 thou/uL (1.40-6.50); %Basophils 0.4 % (0.0-1.0); %Eosinophils 3.3 % (0.0-10.0); %Lymphocytes 20.3 % (21.0-51.0); %Monocytes 5.3 % (0.0-10.0); %Neutrophils 70.7 % (42.0-75.0); Hemoglobin 10.6 g/dL (14.0-18.0); Mean Corpuscular HGB CONC 32.8 g/dL (32.0-36.0); Mean Corpuscular Volume 94.4 fL (78.0-98.0); Mean Platelet Volume 8.5 fL (7.4-10.4); Platelet Count 302 thou/uL (130-400); RBC Distribution Width 15.9 % (11.5-14.5); Red Blood Cell (RBC) Count 3.42 mill/uL (4.70-6.10); White Blood Cell (WBC) Count 7.9 thou/uL (4.8-10.8)
[2018-06-08 13:04] LABS: ALT (SGPT) 13 U/L (8-55); AST (SGOT) 21 U/L (5-34); Albumin 3.7 g/dL (3.4-4.8); Alkaline Phosphatase 61 U/L (40-150); Anion Gap 16 mmol/L (10-20); BUN (Urea Nitrogen) 44 mg/dL (8.4-25.7); Bilirubin, Direct 0.2 mg/dL (0.1-0.3); Bilirubin, Total 0.4 mg/dL (0.2-1.2); Calc. Creatinine Clearance 0 mL/min (70-130); Carbon Dioxide 21 mmol/L (23-31); Chloride 105 mmol/L (98-107); Estimated GFR-MDRD 28; Glucose 200 mg/dL (80-115); Potassium 4.1 mmol/L (3.5-5.1); Protein, Total 6.6 g/dL (5.8-8.1); Sodium 138 mmol/L (136-145)
== END 2018-06-08 09:30 | disposition home or self-care (01) ==
LOC: ONC/OP 08:54 → RAD 09:30
PROVIDERS: ATTEND Internal Medicine Infectious Disease
DX: J43.9 Emphysema, unspecified (principal); J93.9 Pneumothorax, unspecified; Z79.2 Long term (current) use of antibiotics; Z88.5 Allergy status to narcotic agent; Z88.8 Allergy status to other drugs, medicaments and biological substances; Z95.828 Presence of other vascular implants and grafts
CPT/HCPCS: 36592; 71046; 80048; 80076; 85025; A4216; J1642

== ENCOUNTER 2018-07-08 11:47 | Outpatient (CLI) | payer MEDICARE ==
--- NOTE | 2018-07-08 14:44 | MRI ---
MRI BRAIN WITHOUT CONTRAST: Technique: Multiplanar, multisequence MRI images were obtained of the brain according to brain protoc ol. Indication: Mucormycosis. Comparison: MRI brain with contrast 03-11-18. FINDINGS: The ventricles remain normal size and position. No evidence of restricted diffusion. No evidence of i ntraparenchymal mass or edema. Mild ischemic white matter change. On today's exam there continues to be mucosal thickening in the maxillary sinuses with small bilatera l air fluid levels. Prior exam reveals abnormal signal enhancement in the right palatine fossa with e xtension into the right orbital apex. There continues to be abnormal signal in the region of the righ t orbital apex, however, the signal in the right palatine tonsil appears less pronounced today althou gh it is difficult to compared without IV contrast. There is abnormal signal in the sigmoid air cells consistent with mucosal edema. There is lack of flow void and abnormal signal noted in the right intracranial internal carotid arter y suggesting occlusion. There is abnormal edema in the right mastoid air cells. The anterior cerebral and middle cerebral arteries do show flow voids indicating a patent [place] of [place]. The basilar ar kwasi shows flow voids. Dural venous sinuses are patent. IMPRESSION: 1. Mucosal disease of the paranasal sinuses again noted with small air fluid levels in both maxillary sinuses and mucosal edema seen in the maxillary and sphenoid air cells. There continues to be abnorm al signal in the region of the apex of the right orbit. This was previously shown to represent area o f diffuse abnormal enhancement. The abnormal enhancement seen in the right palatine fossa on the prio r exam is less well defined today on this noncontrast study. 2. There is also flow void in the intracranial right internal carotid arteries suggesting occlusion. The visualized anterior and middle cerebral arteries show flow voids indicating a patent [place] of Wi llis. CT angiogram study could be performed for further evaluation if indicated. 3. There is mucosal edema in the right mastoid air cells which has a similar appearance to the prior exam. POS: [facility]
== END 2018-07-08 11:48 | disposition home or self-care (01) ==
LOC: SCSMRI 11:47
PROVIDERS: ATTEND Internal Medicine Infectious Disease
DX: B46.5 Mucormycosis, unspecified (principal); J32.0 Chronic maxillary sinusitis; R60.0 Localized edema; H74.8X1 Other specified disorders of right middle ear and mastoid
CPT/HCPCS: 70551

== ENCOUNTER 2018-08-17 10:07 | Outpatient (CLI) | payer MEDICARE ==
--- NOTE | 2018-08-17 15:13 | MRI ---
MRI BRAIN WITHOUT CONTRAST: COMPARISON: 07/08/2018, 03/11/2018, 02/10/2018 TECHNIQUE: A brain MRI is performed without intravenous Gadolinium administration. Multisequential, multiplanar imaging is performed. FINDINGS: The calvarium has a normal T2 marrow signal intensity. Midline brain parenchymal structures are unre markable. No hemorrhage on the axial gradient echo sequence. No parenchymal mass, mass effect, or midline shift. Brain volume is age appropriate. Cortical weaver white matter differential is preserved. The ventricles and sulci are patent and symmetric. Persistent lack of a flow void involving the right intracranial internal carotid artery. There is a flow-related signal in the right A1 and M1 segments, likely due to collateral flow. There is partial opacification of the right mastoid air cells, unchanged. A right ocular lens implant is noted. There appears to be irregular signal intensity at the right ap ex (axial image #11, series 3). Evaluation of the right orbit is limited on this examination. Pre an d post contrast orbit MRI is recommended. There is mucosal thickening involving the bilateral maxillary sinuses and the right sphenoid sinus. There appear to be surgical changes in both ethmoid air cells. There appears to be abnormal signal intensity in the right pterygopalatine fossa, best demonstrated o n axial image #7, series 3. IMPRESSION: 1. Limited evaluation of the right orbital apex. Pre and post contrast orbit MRI is recommended. 2. 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 3. Mucosal disease as detailed above. The degree of mucosal opacification has not changed. 4. Abnormal signal intensity in the right pterygopalatine fossa. POS: [facility]
== END 2018-08-17 10:08 | disposition home or self-care (01) ==
LOC: SCSMRI 10:07
PROVIDERS: ATTEND Internal Medicine Infectious Disease
DX: B46.5 Mucormycosis, unspecified (principal); I65.21 Occlusion and stenosis of right carotid artery; R90.89 Other abnormal findings on diagnostic imaging of central nervous system; J34.89 Other specified disorders of nose and nasal sinuses
CPT/HCPCS: 70551

== ENCOUNTER 2018-09-14 14:16 | Outpatient (CLI) | payer MEDICARE | END 2018-09-14 14:17 | disposition home or self-care (01) | LOC: CTENTCT 14:16 | PROVIDERS: ATTEND Otolaryngology Plastic Surgery within the Head & Neck | DX: J32.9 Chronic sinusitis, unspecified (principal); B49 Unspecified mycosis | CPT/HCPCS: 70486 ==

== ENCOUNTER 2018-09-16 08:18 | Day surgery (SDC) | payer MEDICARE ==
[2018-09-15 16:04] VITALS: BMI 23.6
[2018-09-16 09:09] LABS: Hemoglobin 11.8 g/dL (14.0-18.0)
[2018-09-16] MEDS ORDERED: Oxymetazoline HCl 0.05% ( 15 ML ) ONE (09:10)
[2018-09-16 09:18] LABS: Anion Gap 11 mmol/L (10-20); BUN (Urea Nitrogen) 59 mg/dL (8.4-25.7); Calc. Creatinine Clearance 27 mL/min (70-130); Calcium 9.7 mg/dL (7.8-10.44); Carbon Dioxide 22 mmol/L (23-31); Chloride 114 mmol/L (98-107); Estimated GFR-MDRD 25; Glucose 109 mg/dL (80-115); Potassium 4.1 mmol/L (3.5-5.1); Sodium 143 mmol/L (136-145)
[2018-09-16] MEDS ORDERED: Fentanyl 100 MCG/2 ML VIAL ONE (10:33)
[2018-09-16] MEDS ORDERED: Lidocaine 1% w/Epinephrine 1:100K 30 ML VIAL ONE (10:41)
[2018-09-16] MEDS ORDERED: Ondansetron PF 4 MG/2 ML Vial ONE (15:16)
[2018-09-16] MEDS ORDERED: Lidocaine 1% PF 5 ML VIAL ONE (15:16)
[2018-09-16] MEDS ORDERED: PROPOFOL 200 MG/20 ML VIAL ONE (15:16)
[2018-09-16] MEDS ORDERED: Dexamethasone 20 MG/5 ML VIAL ONE (15:16)
--- NOTE | 2018-09-17 13:00 | OP ---
DATE OF PROCEDURE: 09/18/2018 PREOPERATIVE DIAGNOSES: 1. Invasive fungal sinusitis. 2. 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 POSTOPERATIVE DIAGNOSES: 1. Invasive fungal sinusitis. 2. 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 PROCEDURES: Right endoscopic sinus surgery, total ethmoidectomies with removal of tissue. SURGEON: Omar Morel M.D. ESTIMATED BLOOD LOSS: 10 mL. COMPLICATIONS: None. ANESTHESIA: GETA. DESCRIPTION OF PROCEDURE: The patient is taken to the operating room and placed supine on the table. LMA anesthesia was obtained by the Anesthesia staff. The patient was placed in the beach chair pos ition and was prepped and draped for standard nasal procedure. Following this, the 0 degree scope wa s advanced in the nasal cavity and the right middle turbinate was identified and gently medialized wi th a [place] elevator. Following this, the necrotic portions of bone and the posterior ethmoidal cells were identified and were gently removed using Blakesley forceps. There is no other fungal disease n oted. The adjacent mucosa was noted to be healthy and bleeding. Afrin pledgets were placed in the n stefan cavity. The patient tolerated the procedure well.
== END 2018-09-16 14:00 | disposition home or self-care (01) ==
LOC: SDC 08:18
PROVIDERS: ATTEND Otolaryngology Plastic Surgery within the Head & Neck
PROC: 09TV8ZZ Resection of Left Ethmoid Sinus, Via Natural or Artificial Opening Endoscopic (ICD-10-PCS; principal; 2018-09-16)
PROC: 09TU8ZZ Resection of Right Ethmoid Sinus, Via Natural or Artificial Opening Endoscopic (ICD-10-PCS; 2018-09-16)
DX: J32.2 Chronic ethmoidal sinusitis (principal); J32.8 Other chronic sinusitis; B48.8 Other specified mycoses; E11.9 Type 2 diabetes mellitus without complications; Z85.038 Personal history of other malignant neoplasm of large intestine; Z79.4 Long term (current) use of insulin; Z79.899 Other long term (current) drug therapy; Z88.5 Allergy status to narcotic agent; Z88.8 Allergy status to other drugs, medicaments and biological substances; Z98.890 Other specified postprocedural states
CPT/HCPCS: 80048; 85014; 85018; 87102; 93005; 93010; J1100; J2001; J2405; J2704; J3010

== ENCOUNTER 2018-09-26 11:15 | Inpatient (IN) | payer MEDICARE ==
[2018-09-26] MEDS ORDERED: Fentanyl 100 MCG/2 ML VIAL ONE ×2 (12:03→15:20)
[2018-09-26] MEDS ORDERED: Ondansetron PF 4 MG/2 ML Vial ONE (12:10)
[2018-09-26 12:17] LABS: #Basophils 0.1 thou/uL (0.0-0.2); #Eosinphils 0.1 thou/uL (0.0-0.7); #Lymphocytes 1.6 thou/uL (1.20-3.40); #Monocytes 0.4 thou/uL (0.11-0.59); #Neutrophils 7.2 thou/uL (1.40-6.50); %Basophils 0.6 % (0.0-1.0); %Lymphocytes 17.5 % (21.0-51.0); %Monocytes 3.9 % (0.0-10.0); Hemoglobin 12.2 g/dL (14.0-18.0); Mean Corpuscular HGB CONC 30.6 g/dL (32.0-36.0); Mean Corpuscular Hemoglobin 28.7 pg (27.0-31.0); Mean Corpuscular Volume 93.6 fL (78.0-98.0); Mean Platelet Volume 9.4 fL (7.4-10.4); Platelet Count 248 thou/uL (130-400); RBC Distribution Width 17.4 % (11.5-14.5); Red Blood Cell (RBC) Count 4.24 mill/uL (4.70-6.10); White Blood Cell (WBC) Count 9.3 thou/uL (4.8-10.8)
[2018-09-26 12:24] LABS: CKMB 1.5 ng/mL (0-6.6); Troponin I Less than 0.010 ng/mL (< 0.028)
[2018-09-26 12:36] LABS: ALT (SGPT) 15 U/L (8-55); AST (SGOT) 20 U/L (5-34); Alkaline Phosphatase 52 U/L (40-150); Anion Gap 15 mmol/L (10-20); BUN (Urea Nitrogen) 43 mg/dL (8.4-25.7); Bilirubin, Total 0.6 mg/dL (0.2-1.2); Calc. Creatinine Clearance 0 mL/min (70-130); Calcium 10.1 mg/dL (7.8-10.44); Carbon Dioxide 18 mmol/L (23-31); Chloride 112 mmol/L (98-107); Estimated GFR-MDRD 28; Glucose 169 mg/dL (80-115); Lipase 2309 U/L (8-78); Potassium 4.7 mmol/L (3.5-5.1); Sodium 140 mmol/L (136-145)
[2018-09-26 13:02] LABS: Magnesium 1.9 mg/dL (1.6-2.6); Phosphorus 2.7 mg/dL (2.3-4.7)
[2018-09-26 13:07] LABS: Base Excess-Venous -6.5 mmol/L (0 (+/- 2.5)); Bicarbonate (HCO3v) 20.3 mmol/L (1.0-85.0); CO2 Tension (PvCO2) 44.5 mmHg (41.0-51.0); Calcium, Ionized 1.32 mmol/L (1.12-1.32); Hemoglobin - Calc 12.4 g/dL (12.0-18.0); O2 Tension (PvO2) 20.4 mmHg (35.0-45.0); Potassium 4.6 mmol/L (3.4-4.7); T. Carbon Dioxide 21.7 mmol/L (1.0-85.0); pH (Venous) 7.268 (7.35-7.45); vO2 Saturation-calc 26.4 % (94-98)
[2018-09-26] MEDS ORDERED: GASTROGRAFIN 30 ML BOT ONE (13:59)
--- NOTE | 2018-09-26 14:14 | RAD ---
PORTABLE CHEST 1 VIEW: DATE: 09/26/2018. TIME: 12:29 p.m. HISTORY: Abdominal pain. FINDINGS: The heart size is normal. The lungs are expanded without focal areas of consolidation, pneumothorax, amrit pulmonary edema, or pleural effusions. There are postop changes of bilateral rotator cuff rep air. IMPRESSION: No acute process. POS: [facility]
[2018-09-26 15:13] LABS: Bilirubin Negative (Negative); Blood, Urine Negative (Negative); Clarity Clear (Clear); Glucose, Urine (Dipstick) 100 mg/dL (Negative); Leukocyte Negative (Negative); Nitrite Negative (Negative); Protein, Urine (Dipstick) Negative (Neg-Trace); Urobilinogen 0.2 mg/dL (0.2-1.0); pH, Urine 5.5 (5.0-9.0)
--- NOTE | 2018-09-26 15:38 | CT ---
CT OF ABDOMEN AND PELVIS PERFORMED WITHOUT CONTRAST ENHANCEMENT: HISTORY: Abdominal pain that began 3 days ago. History of colon cancer surgery in June of 2017. COMPARISON: A 12/20/2017 CT examination. FINDINGS: The lung bases are clear of any infiltrative process. The liver and spleen are normal in appearance. There is peripancreatic fat stranding slightly less p ronounced than on the prior examination but suggestive of pancreatitis. The gallbladder has been rem davin. No free fluid is demonstrated. Right and left adrenal glands are normal in appearance. There is a stable hypodense lesion involving the superior aspect of the right renal pelvis extending into the right cortex probably related to a cyst. There is a smaller hypodensity within the mid pole region of the left kidney. It has CT Houns field unit numbers that would also suggest a cyst. No obstruction. No significant periaortic or mes enteric adenopathy. Postoperative changes of the proximal ileum are noted. The jejunum is actually to the right of midline. Associated with this focal dilatation are some chain-type sutures. This is a similar appearance to the previous exam. The dilatation is slightly more pronounced but is probab ly transitory related to the oral contrast. CT OF PELVIS PERFORMED WITHOUT CONTRAST ENHANCEMENT: Chain-type sutures are noted of the rectosigmoid region. The bladder is mildly distended. Cecum is high in position. I do not identify an appendix, but see no inflammatory change. IMPRESSION: 1. Postop cholecystectomy change and postoperative change of the rectosigmoid colon and proximal ile um with the proximal ileum and jejunum to the right of midline. The dilatation to the proximal ileum is related to some chain-type sutures. This appears to be a fairly similar appearance to the prior exam. The degree of dilatation is slightly more pronounced but probably transitory. 2. CT findings that are compatible with pancreatitis. POS: [facility]
[2018-09-26 16:22] VITALS: BMI 21.9
[2018-09-26] MEDS ORDERED: Fentanyl 100 MCG/2 ML VIAL SLOW IVP PRN (16:52)
[2018-09-26] MEDS ORDERED: Ondansetron PF 4 MG/2 ML Vial IVP PRN ×2 (16:53→17:17)
[2018-09-26] MEDS ORDERED: Ondansetron ODT 4 MG TAB SL PRN (16:53)
[2018-09-26] MEDS ORDERED: Acetaminophen 325 MG TAB PO PRN (16:53)
[2018-09-26] MEDS ORDERED: Dextrose 5% in Water 1,000 ML IV PRN (17:17)
[2018-09-26] MEDS ORDERED: Sodium Chloride 0.9% 1,000 ML IV SCH (17:30)
[2018-09-26] MEDS ORDERED: FEBUXOSTAT PO SCH (17:45)
--- NOTE | 2018-09-26 19:22 | HP ---
PRIMARY CARE PROVIDER: Alfonso Townsend M.D. CHIEF COMPLAINT: Abdominal pain. HISTORY OF PRESENT ILLNESS: Mr. Greer is a pleasant 67-year-old gentleman, who was seen at [facility] on 09/26/2018. There is a fairly complicated medical history. He repor ts that he received multiple steroid injections into the spinal canal for chronic back pain. In 08/25, he underwent L3-L4 and L4-L5 laminectomies, partial facetectomies and foraminotomies. In , he underwent a right L4-L5 hemilaminectomy for resection of synovial cyst and diskectomy. In 06/25, he underwent laparoscopic left colectomy for sigmoid colon cancer. 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 He reports that the infection was extendi ng to the brain and partially occluded internal carotid artery, likely due to pressure from the funga l infection. He developed right eye blindness. He also reports that his right eye movements were af fected, but he reports that has improved. In 05/2018, he had a left subclavian Castaneda catheter placed. This was followed by chest tube placem ent on the left side for pneumothorax. On 09/18/2018, he underwent right endoscopic sinus surgery, t otal ethmoidectomy with removal of tissue. The pathology report is pending. He also has a history of diabetes mellitus type 2. He reports that in the past, he had episodes of h ypoglycemia. He uses Dexcom continuous glucose monitoring unit. For the last 3 days, he has been feeling unwell. He reports having abdominal pain. Reports that it started as a "ball" in his stomach. He reports that the pain was initially dull, subsequently, sharp , worse with moving around and stepping. He reports nausea and vomited 2 days ago. His last bowel m ovement was 3 days ago, but he is passing flatus. He reports ongoing abdominal pain, currently 5/10. He denies any fevers or chills. PAST MEDICAL HISTORY: Mucoid mycosis sinusitis, external hemiplegia of the right eye, diabetic ketoa cidosis, hypertension, recurrent acute pancreatitis, chronic kidney disease stage 4, gastroesophageal reflux disease, dyslipidemia, diabetes mellitus type 2, anxiety and depression. PAST SURGICAL HISTORY: Status post right total knee arthroplasty, status post bilateral shoulder rep air, status post sigmoid colon resection, status post left knee surgery, status post appendectomy, st atus post lumbar spine surgery, status post chest tube placement, status post sinus surgery, status p ost Castaneda catheter placement and removal 3 weeks ago and cholecystectomy. SOCIAL HISTORY: Patient denies tobacco use, alcohol use or recreational drug use. FAMILY HISTORY: Father with history of hypertension, diabetes mellitus, and coronary artery disease. Mother with history of diabetes, hypertension, and coronary artery disease. REVIEW OF SYSTEMS: All other systems reviewed and found to be negative. CODE STATUS: I discussed his code status. He is FULL CODE. ALLERGIES: MORPHINE and TIZANIDINE. CURRENT MEDICATIONS: Include Bystolic 10 mg daily, bupropion 300 mg daily, vitamin D3 50,000 units w eekly, Protonix 40 mg daily, atorvastatin 20 mg daily, Uloric 80 mg every 4 days, lisinopril 5 mg jory ly, gabapentin 300 mg daily, TriCor 145 mg daily, Lunesta 3 mg daily, betamethasone as needed, Lantus insulin 20 units in the evening, Humalog insulin by sliding scale, Flonase 1 spray to each naris as needed, oxymetazoline nasal drops every 2 hours as needed, hydralazine 25 mg 2 times a day and cresem ba 372 mg at bedtime. PHYSICAL EXAMINATION: GENERAL: On examination, Mr. Greer is awake and alert, not in acute distress. VITAL SIGNS: Blood pressure is 150/83, pulse 59, respiratory rate 18, and he is afebrile. He is yonathan ntaining good oxygen saturations on room air. EYES: Right eye blindness, no scleral icterus, no conjunctival pallor. ENT: Moist mucous membranes, no oropharyngeal erythema or exudates. NECK: Supple, nontender. Trachea is midline. RESPIRATORY: Accessory muscles of breathing are not active. Chest wall movements are symmetric bila terally. LUNGS: Clear to auscultation without wheeze, rhonchi or crepitations. CARDIOVASCULAR: S1 and S2 are heard, regular. Peripheral pulses are palpable. No carotid bruit. N o pericardial rub. ABDOMEN: Mild tenderness in the epigastric and left lower quadrants. No guarding or rigidity. Neelima l sounds are heard. No hepatomegaly, no splenomegaly. LYMPHATIC: No cervical lymphadenopathy. SKIN: Faint bruise over the left arm. NEUROLOGIC: Right eye blindness. Otherwise, cranial nerves II-XII intact, deep tendon reflexes 2+. PSYCHIATRIC: Normal mood, normal affect, patient is oriented to person, place, and time. MUSCULOSKELETAL: Power is 5/5 in all 4 extremities. IMAGING DATA AND LABORATORY DATA: Mr. Greer's labs and investigations were reviewed. I reviewed his electrocardiogram, which shows sinus bradycardia, no ST changes to suggest an acute coronary syn drome. I also reviewed his chest x-ray, which does not show any pulmonary infiltrates. He has a nor mal white count, normocytic anemia with hemoglobin 12.2, last known hemoglobin 11.8 on 09/16/2018, no rmal platelet count, elevated blood urea nitrogen of 43, elevated creatinine of 2.32, last known crea tinine 2.60 in 09/16/2018, unremarkable liver profile and elevated lipase of 2309. Sodium and potass ium levels are normal. Urinalysis is positive for glucose, but is otherwise negative. Beta hydroxyb utyrate is mildly elevated at 0.28. ASSESSMENT AND PLAN: Mr. Greer is a pleasant 67-year-old gentleman who was seen at [facility] on 09/26/2018. His problem list includes: 1. Abdominal pain: Most likely related to acute pancreatitis. 2. Acute pancreatitis: The patient had a CT scan of the abdomen and pelvis at [facility], without contrast enhancement, CT findings that are compatible with pancreatitis. He also has an elevated lipase. He will be admitted to the hospital for treatment of acute pancreatiti s, with intravenous fluids, pain medications, n.p.o. except for ice chips and medications with sips o f water. Gastroenterology Service has been consulted. We will also recheck his lipase level in the morning. 3. Diabetes mellitus type 2. We will continue patient on continuous glucose monitoring through his Dexcom system. We will decrease Lantus insulin to 5 units for now and go up on it cautiously, given episodes of hypoglycemia in the past. 4. Hypertension: We will resume home medications and monitor vital signs and titrate antihypertensi ves as needed. 5. History of mucoid mycosis sinusitis: We will continue him on cresemba. 6. Dyslipidemia: Continue statin. 7. History of anxiety and depression: Continue bupropion. Many thanks for allowing me to participate in your patient's care. Please feel free to contact me wi th any questions or concerns.. LEVEL OF RISK: High. LEVEL OF COMPLEXITY: High.
--- NOTE | 2018-09-26 20:05 | CON ---
DATE OF CONSULTATION: 09/26/2018 GI INPATIENT CONSULTATION NOTE REQUESTING PHYSICIAN: Dr. Salter. REASON FOR CONSULTATION: Pancreatitis. HISTORY OF PRESENT ILLNESS: Valdemar Greer is a very pleasant 67-year-old gentleman being admitted today for recurrent acute pancreatitis. I met him in 04/2017 in hospital consultation for an episod e of acute pancreatitis. He has had multiple episodes of acute pancreatitis through the years which have been idiopathic in origin. In 04/2017, he had a fairly mild self-limited episode which resolved over the course of 3-4 days. His LFTs have been normal throughout with each presentation of pancrea titis. He has post-cholecystectomy and he does not drink any alcohol. He had an endoscopic ultrasou nd examination in 04/2017 and this was a normal post-cholecystectomy exam. On 06/2017, I performed s creening colonoscopy and diagnosed him with early stage invasive adenocarcinoma of the sigmoid colon, for which he subsequently underwent left hemicolectomy. This was early stage with negative lymph no delmy and no adjuvant chemotherapy was needed. 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 He has been treated long-term with antifungal medication s and has required several surgeries. He has lost vision in his right eye. At the time of that hosp italization in November, he again had pancreatitis with lipase getting up to 1341. Again, triglycerid es were only 129. CT scan has showed a mild amount of free fluid in the abdomen and central mesenter ic stranding consistent with pancreatitis. His pancreatitis resolved during that hospitalization aga in within 3-4 days. I last saw him in 07/2018 for surveillance colonoscopy. This was essentially a normal exam. He had a single polyp removed, but it was only hyperplastic and I recommended surveillance colonoscopy at a 3-year interval. Two days ago, he had a fairly sudden onset of upper generalized abdominal pain characterized as sharp and cramping, constant, but waxing and waning in intensity, worse with trying to eat or drink anythi ng. This is accompanied by nausea and he did have a large episode of emesis a couple of days ago. [place] clarke has had cold sweats and fluctuations in blood glucose with this. It does feel similar to his prior episodes of pancreatitis. Today, he tried to take some Ensure, but it made the pain much worse and he presented for evaluation. His lipase was found to be elevated to 2309, again with LFTs normal. C reatinine is elevated, but at baseline at 2.32. He is hemodynamically stable. [facility] and analgesia. He has no other complaints. REVIEW OF SYSTEMS: Full review of systems including constitutional, head, eyes, ears, nose, throat, GI, , cardiovascular, respiratory, musculoskeletal, and neurologic systems is negative except as no josé in the HPI. PAST MEDICAL HISTORY: 1. Recurrent acute pancreatitis, idiopathic. 2. Cholecystectomy. 3. Normal endoscopic ultrasound in 04/2017. 4. Left side colon cancer, status post left hemicolectomy 07/2017 with no adjuvant chemotherapy need ed for a T2 N0 M0 lesion. 5. Hypertension. 6. Hyperlipidemia. 7. Diabetes type 2. 8. Myocardial infarction. 9. Back surgery. 10. Bilateral shoulder repair. 11. Right total knee arthroplasty. 12. Exploratory laparotomy for small bowel resection. 13. Left knee surgery. 14. Appendectomy. 15. History of peptic ulcer disease. ALLERGIES: MORPHINE and TIZANIDINE. SOCIAL HISTORY: No alcohol, tobacco or drug use. FAMILY HISTORY: Negative for gastrointestinal malignancy. OUTPATIENT MEDICATIONS: Uloric, eszopiclone, vitamin D3, atorvastatin, Lantus insulin, Humalog insul in sliding scale, gabapentin, TriCor, Zestril, cresemba, hydralazine, bupropion, Protonix 40 mg daily , Bystolic. PHYSICAL EXAMINATION: VITAL SIGNS: Temperature 97.5, pulse 59, blood pressure 155/83, respirations 18 per minute. GENERAL: A 67-year-old man lying in bed comfortably in no acute distress. SKIN: No jaundice, no rash visible or palpable. EYES: He is status post a right-sided lens implant. Extraocular movements intact on the left. No s cleral icterus. ENT: Mucous membranes moist, no oral lesions. LYMPH: No submandibular or supraclavicular lymphadenopathy. THYROID: Nontender to palpation. HEART: Regular rate and rhythm. LUNGS: Clear to auscultation bilaterally. ABDOMEN: Bowel sounds are hypoactive. The abdomen is nondistended. It is soft, but tender to palpa tion in the upper abdomen. No guarding, but some rebound tenderness. EXTREMITIES: No peripheral edema. VESSELS: Radial pulses 2+ bilaterally. NEUROLOGIC: No focal deficits. LABORATORY STUDIES: WBC 9.3, hemoglobin 12.2, MCV 93.6, platelets 248. Sodium 143, potassium 4.6, B UN 43, creatinine 2.32, glucose 169. Lactic acid 1.0, calcium 10.1. LFTs all normal with total bili glass 0.6, alkaline phosphatase 52, AST 20, ALT 15. Troponin negative. Albumin 4.0, lipase is eleva josé to 2309. Urinalysis is negative. Beta hydroxybutyrate 0.28. IMAGING STUDIES: Chest x-ray shows no acute processes. CT of the abdomen and pelvis demonstrates pe ripancreatic fat stranding suggestive of pancreatitis, absent gallbladder. No free fluid, normal jaime earing liver and spleen. He has postoperative changes of the proximal ileum. ASSESSMENT AND PLAN: Recurrent acute pancreatitis, idiopathic. The patient's presentation is consis tent with prior presentations of recurrent acute pancreatitis. I am calling this idiopathic as his p revious presentations. He has already had an endoscopic ultrasound examination last year. He does n ot drink alcohol. Liver tests are normal. He is post-cholecystectomy. Triglyceride levels have alw ays been in normal range. Note, these episodes do seem to come on during times of significant physic al stress. At any rate, at any rate, this appears to be uncomplicated at this time. Hopefully, it w ill resolve within the next 3-4 days as his prior episodes have. For now, would keep him n.p.o. supp ort with IV fluids and analgesia. No other diagnostics needed from a GI standpoint at this time. GI can continue to follow along. Thank you for the consultation. Please call any time with questions or concerns.
[2018-09-26] MEDS: Gabapentin 300 MG CAP PO SCH (20:18)
[2018-09-26] MEDS: hydrALAZINE 25 MG TAB PO SCH (20:19)
[2018-09-26] MEDS: Fenofibrate Nanocrystallized 145 MG TAB PO SCH (20:19)
[2018-09-26] MEDS: Heparin 5,000 UNITS/ML VIAL SC SCH (20:20)
[2018-09-26] MEDS: Atorvastatin Calcium 20 MG TAB PO SCH (20:20)
[2018-09-26] MEDS: Zolpidem Tartrate 5 MG TAB PO SCH (20:20)
[2018-09-26] MEDS: Dextrose 50% Abboject 50 ML SYRINGE SLOW IVP PRN (20:20)
[2018-09-26] MEDS: Sodium Chloride 0.9% 1,000 ML IV SCH ×2 (20:33→21:44)
[2018-09-26] MEDS ORDERED: ISAVUCONAZONIUM SULFATE PO SCH (21:00)
[2018-09-26] MEDS ORDERED: Non-Formulary Item 1 EACH (Eszopiclone [Eszopiclone] 1 TAB) PO SCH (21:00)
[2018-09-26] MEDS ORDERED: Insulin Glargine 5 UNITS in Pre-Filled Syringe 1 EACH SC SCH (21:00)
[2018-09-26] MEDS: Fentanyl 100 MCG/2 ML VIAL SLOW IVP PRN (21:36)
[2018-09-27] MEDS: Sodium Chloride 0.9% 1,000 ML IV SCH ×4 (00:43→15:00)
[2018-09-27] MEDS: Fentanyl 100 MCG/2 ML VIAL SLOW IVP PRN ×3 (02:31→15:07)
[2018-09-27 04:42] LABS: #Eosinphils 0.1 thou/uL (0.0-0.7); #Lymphocytes 1.6 thou/uL (1.20-3.40); #Monocytes 0.4 thou/uL (0.11-0.59); #Neutrophils 4.4 thou/uL (1.40-6.50); %Basophils 0.3 % (0.0-1.0); %Eosinophils 1.3 % (0.0-10.0); %Lymphocytes 24.3 % (21.0-51.0); %Monocytes 6.5 % (0.0-10.0); %Neutrophils 67.6 % (42.0-75.0); Mean Corpuscular HGB CONC 31.6 g/dL (32.0-36.0); Mean Corpuscular Hemoglobin 30.2 pg (27.0-31.0); Mean Corpuscular Volume 95.5 fL (78.0-98.0); Mean Platelet Volume 8.8 fL (7.4-10.4); Platelet Count 237 thou/uL (130-400); RBC Distribution Width 16.2 % (11.5-14.5); Red Blood Cell (RBC) Count 3.32 mill/uL (4.70-6.10); White Blood Cell (WBC) Count 6.5 thou/uL (4.8-10.8)
[2018-09-27 05:04] LABS: Anion Gap 9 mmol/L (10-20); BUN (Urea Nitrogen) 28 mg/dL (8.4-25.7); Calc. Creatinine Clearance 40 mL/min (70-130); Calcium 8.4 mg/dL (7.8-10.44); Carbon Dioxide 19 mmol/L (23-31); Chloride 115 mmol/L (98-107); Estimated GFR-MDRD 42; Glucose 80 mg/dL (80-115); Potassium 3.7 mmol/L (3.5-5.1); Sodium 139 mmol/L (136-145)
[2018-09-27 05:17] LABS: Lipase 1359 U/L (8-78)
[2018-09-27] MEDS: Bupropion 150 MG XL TAB PO SCH (08:43)
[2018-09-27] MEDS: Nebivolol HCl 5 MG TAB PO SCH (08:43)
[2018-09-27] MEDS: Heparin 5,000 UNITS/ML VIAL SC SCH ×3 (08:44→20:14)
[2018-09-27] MEDS: hydrALAZINE 25 MG TAB PO SCH ×2 (08:46→20:13)
[2018-09-27] MEDS: Lisinopril 5 MG TAB PO SCH (08:46)
[2018-09-27] MEDS: HumaLOG 300 UNITS/3 ML VIAL SC SCH ×3 (08:47→17:03)
--- NOTE | 2018-09-27 11:46 | PDOC.PN ---
- Subjective Encounter Start Date: 09/27/18 Encounter Start Time: 07:20 Pt seen for followup re: acute pancreatitis. Denies chest pain. Abdo pain is better. - Objective Resuscitation Status: Resuscitation Status FULL:Full Resuscitation MAR Reviewed: Yes Vital Signs & Weight: Vital Signs (12 hours) Temp Pulse Resp BP BP Pulse Ox 09/27/18 10:54 98.3 F 62 16 157/90 H 96 09/27/18 08:46 72 158/68 H 09/27/18 07:00 98.3 F 72 18 159/88 H 94 L 09/27/18 04:00 98.1 F 67 16 159/83 H 95 Weight Weight 144 lb I&O: 09/26/18 09/27/18 09/28/18 07:59 06:59 06:59 Intake Total Output Total Balance Result Diagrams: 09/27/18 04:01 09/27/18 04:01 Additional Labs: Accuchecks 09/27/18 09/27/18 09/27/18 10:54 05:54 04:36 POC Glucose 76 79 78 09/26/18 09/26/18 09/26/18 21:47 20:08 19:34 POC Glucose 130 H 68 L 70 09/26/18 18:12 POC Glucose 83 labs reviewed by me Phys Exam - Physical Examination Constitutional: NAD HEENT: moist MMs, sclera anicteric, oral pharynx no lesions, 2+ tonsils Neck: no nodes, no JVD, supple, full ROM Respiratory: no wheezing, no rales, no rhonchi, clear to auscultation bilateral Cardiovascular: RRR, no rub S1, S2 Gastrointestinal: soft, non-tender, no distention, positive bowel sounds Neurological: moves all 4 limbs Psychiatric: normal affect, A&O x 3 Dx/Plan (1) Acute pancreatitis Code(s): K85.90 - ACUTE PANCREATITIS WITHOUT NECROSIS OR INFECTION, UNSP Status: Acute Comment: lipase improved to 1359 (2) CKD (chronic kidney disease) stage 3, GFR 30-59 ml/min Code(s): N18.3 - CHRONIC KIDNEY DISEASE, STAGE 3 (MODERATE) Status: Chronic Comment: creatinine improved to 1.66 (2.32 yesterday) (3) DM type 2 (diabetes mellitus, type 2) Status: Chronic Qualifiers: Diabetes mellitus snf insulin use: with snf use Diabetes mellitus complication status: with kidney complications Diabetes mellitus complication detail: with chronic kidney disease Chronic kidney disease stage : stage 3 (moderate) Qualified Code(s): E11.22 - Type 2 diabetes mellitus with diabetic chronic kidney disease; N18.3 - Chronic kidney disease, stage 3 ( moderate); N18.3 - Chronic kidney disease, stage 3 (moderate); Z79.4 - middle or intermediate school principal (current) use of insulin; Z79.4 - middle or intermediate school principal (current) use of insulin; Z79.4 - middle or intermediate school principal (current) use of insulin; Z79.4 - alf (current) use of insulin Comment: Discontinue Lantus; episodes of hypoglycemia, on hypoglycemia protocol. (4) HTN (hypertension) Code(s): I10 - ESSENTIAL (PRIMARY) HYPERTENSION Status: Chronic Qualifiers: Hypertension type: essential hypertension Qualified Code(s): I10 - Essential (primary) hypertension Comment: Continue home meds, monitor vital signs and titrate antihypertensives as needed. (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 Review of Systems - Review of Systems Constitutional: negative: fever, chills, sweats, weakness, malaise Respiratory: negative: Cough, Shortness of Breath, SOB with Excertion, Pleuritic Pain, Wheezing Cardiovascular: negative: chest pain, palpitations, orthopnea, paroxysmal nocturnal dyspnea, edema, light headedness Gastrointestinal: Abdominal Pain. negative: Nausea, Vomiting, Diarrhea, Constipation, Melena, Hematochezia Genitourinary: negative: Dysuria, Frequency, Incontinence, Hematuria, Retention Skin: negative: Rash, Lesions, Steve, Bruising - Medications/Allergies Allergies/Adverse Reactions: Allergies Allergy/AdvReac Type Severity Reaction Status Date / Time morphine Allergy Severe Emesis Verified 09/15/18 16:06 tizanidine [From Zanaflex] AdvReac hypotension Verified 05/29/18 11:21 Medications: Current Medications Atorvastatin Calcium (Lipitor) 20 mg PO [facility] Last Admin: 09/26/18 20:20 Dose: 20 mg Bupropion HCl (Wellbutrin Xl) 300 mg PO [facility] Last Admin: 11/04/18 08:43 Dose: 300 mg Cholecalciferol (Vitamin D3) 2,000 units PO BID [facility] Last Admin: 09/27/18 08:47 Dose: 2,000 units Dextrose/Water (Dextrose 50%) 25 gm SLOW IVP PRN PRN PRN Reason: Hypoglycemia Last Admin: 09/26/18 20:20 Dose: 25 gm Fenofibrate (Tricor) 145 mg PO [facility] Last Admin: 09/26/18 20:19 Dose: 145 mg Fentanyl (Sublimaze) 12.5 mcg SLOW IVP Q6H PRN PRN Reason: Pain Last Admin: 09/27/18 08:44 Dose: 12.5 mcg Gabapentin (Neurontin) 300 mg PO [facility] Last Admin: 09/26/18 20:18 Dose: 300 mg Glucagon (Glucagon) 1 mg IM PRN PRN PRN Reason: Hypoglycemia Heparin Sodium (Porcine) (Heparin) 5,000 units SC TID [facility] Last Admin: 09/27/18 08:44 Dose: 5,000 units Hydralazine HCl (Apresoline) 25 mg PO BID [facility] Last Admin: 09/27/18 08:46 Dose: 25 mg Dextrose/Water (D5w) 1,000 mls @ 0 mls/hr IV .Q0M PRN PRN Reason: Hypoglycemia Sodium Chloride (Normal Saline 0.9%) 1,000 mls @ 150 mls/hr IV .Q6H40M [facility] Last Admin: 09/27/18 09:18 Dose: 1,000 mls Insulin Human Lispro (Humalog) 0 units SC .MILD SLIDING SCALE PRN PRN Reason: Mild Correctional Scale Insulin Human Lispro (Humalog) 3 units SC TID[facility] Last Admin: 09/27/18 11:43 Dose: Not Given Lisinopril (Zestril) 5 mg PO DAILY [facility] Last Admin: 09/27/18 08:46 Dose: 5 mg Nebivolol (Bystolic) 10 mg PO QAM [facility] Last Admin: 09/27/18 08:43 Dose: 10 mg Febuxostat [Uloric] (1 Tab) 1 tab PO Q3D [facility] Isavuconazonium (Sulfate 2 Cap) 2 cap PO [facility] Ondansetron HCl (Zofran) 4 mg IVP Q6H PRN PRN Reason: Nausea/Vomiting Pantoprazole Sodium (Protonix) 40 mg PO DAILY [facility] Last Admin: 09/27/18 08:47 Dose: 40 mg Sodium Chloride (Flush - Normal Saline) 10 ml IVF PRN PRN PRN Reason: Saline Flush Zolpidem Tartrate (Ambien) 5 mg PO HS [facility] Last Admin: 09/26/18 20:20 Dose: 5 mg
--- NOTE | 2018-09-27 11:58 | PRG ---
DATE OF SERVICE: 09/27/2018 SUBJECTIVE: Mr. Greer is feeling okay. His abdominal pain does persist perhaps a bit better fro m yesterday. No nausea or vomiting. He is not feeling hungry. OBJECTIVE: VITAL SIGNS: Temperature 98.3, pulse 62, blood pressure 157/90, 96% oxygen saturation on room air. GENERAL: No acute distress. HEART: Regular rate and rhythm. LUNGS: Clear to auscultation bilaterally. ABDOMEN: Bowel sounds are present in the lower abdomen. The abdomen is nondistended and soft but st ill tender to palpation in the epigastrium. No guarding or rebound tenderness. EXTREMITIES: No peripheral edema. LABORATORY STUDIES: WBC 6.5, hemoglobin 10.0, platelets 237. Sodium 139, potassium 3.7, BUN 28, cre atinine down to 1.66, glucose 79. Lipase down from 2309 to 1359. ASSESSMENT AND PLAN: Recurrent acute pancreatitis. I discussed with Mr. Greer that all the labo ratory markers are favorable. He remains well hydrated and well perfused. I am inclined to wait ano ther day before starting to try him on a liquid diet. Continue with supportive care and pain control in the meantime. Continue n.p.o. status for now.
[2018-09-27] MEDS: Dextrose 50% Abboject 50 ML SYRINGE SLOW IVP PRN (16:19)
[2018-09-27] MEDS: Dextrose 5 % And 0.9 % NaCl 1,000 ML IV SCH (18:36)
[2018-09-27] MEDS: Zolpidem Tartrate 5 MG TAB PO SCH (20:13)
[2018-09-27] MEDS: Fenofibrate Nanocrystallized 145 MG TAB PO SCH (20:13)
[2018-09-27] MEDS: Gabapentin 300 MG CAP PO SCH (20:13)
[2018-09-27] MEDS: Atorvastatin Calcium 20 MG TAB PO SCH (20:13)
[2018-09-27] MEDS: ISAVUCONAZONIUM SULFATE PO SCH (20:14)
[2018-09-28] MEDS: Dextrose 5 % And 0.9 % NaCl 1,000 ML IV SCH ×2 (04:50→15:52)
[2018-09-28] MEDS: Fentanyl 100 MCG/2 ML VIAL SLOW IVP PRN ×2 (04:53→21:15)
[2018-09-28 04:54] LABS: #Eosinphils 0.1 thou/uL (0.0-0.7); #Lymphocytes 1.4 thou/uL (1.20-3.40); #Monocytes 0.4 thou/uL (0.11-0.59); #Neutrophils 3.8 thou/uL (1.40-6.50); %Basophils 0.2 % (0.0-1.0); %Monocytes 6.1 % (0.0-10.0); %Neutrophils 66.7 % (42.0-75.0); Hemoglobin 9.8 g/dL (14.0-18.0); Mean Corpuscular Hemoglobin 30.4 pg (27.0-31.0); Mean Corpuscular Volume 95.2 fL (78.0-98.0); Platelet Count 221 thou/uL (130-400); Red Blood Cell (RBC) Count 3.23 mill/uL (4.70-6.10); White Blood Cell (WBC) Count 5.7 thou/uL (4.8-10.8)
[2018-09-28 05:11] LABS: Anion Gap 9 mmol/L (10-20); BUN (Urea Nitrogen) 19 mg/dL (8.4-25.7); Calc. Creatinine Clearance 40 mL/min (70-130); Calcium 8.6 mg/dL (7.8-10.44); Carbon Dioxide 21 mmol/L (23-31); Chloride 113 mmol/L (98-107); Estimated GFR-MDRD 42; Glucose 160 mg/dL (80-115); Lipase 738 U/L (8-78); Potassium 3.7 mmol/L (3.5-5.1); Sodium 139 mmol/L (136-145)
[2018-09-28] MEDS: HumaLOG 300 UNITS/3 ML VIAL SC SCH ×3 (08:00→17:26)
[2018-09-28] MEDS: hydrALAZINE 25 MG TAB PO SCH ×2 (08:11→21:07)
[2018-09-28] MEDS: Bupropion 150 MG XL TAB PO SCH (08:11)
[2018-09-28] MEDS: Lisinopril 5 MG TAB PO SCH (08:12)
[2018-09-28] MEDS: Heparin 5,000 UNITS/ML VIAL SC SCH ×3 (08:14→21:07)
[2018-09-28] MEDS: Nebivolol HCl 5 MG TAB PO SCH (08:18)
--- NOTE | 2018-09-28 10:35 | PRG ---
DATE OF SERVICE: 09/28/2018 SUBJECTIVE: Mr. Greer is feeling a bit better. He says his abdominal pain has decreased, though not completely resolved. He is not nauseated. He is feeling hungry. He has been passing gas. He has remained hemodynamically stable. OBJECTIVE: VITAL SIGNS: Temperature 98.2, pulse 65, blood pressure 147/76, 94% oxygen saturation on room air. GENERAL: No acute distress. HEART: Regular rate and rhythm. LUNGS: Clear to auscultation bilaterally. ABDOMEN: Bowel sounds hypoactive, but present. The abdomen is soft. Minimal tenderness to palpatio n in the epigastrium. No guarding or rebound tenderness. EXTREMITIES: No peripheral edema. LABORATORY STUDIES: WBC 5.7, hemoglobin 9.8, platelets 221. Sodium 139, potassium 3.7, BUN 19, crea tinine 1.66, glucose 160, lipase trended down to 738. ASSESSMENT AND PLAN: Recurrent acute pancreatitis, idiopathic. Clinically, he has been improving ov er the past couple of days. His pain requirements have lessened and he is feeling hungry. We will c autiously advance him to a clear liquid diet today. I advised him that if he has any worsening of ab dominal pain with clear liquid intake, then he should stop it and let us know.
--- NOTE | 2018-09-28 15:05 | PDOC.PN ---
- Subjective Encounter Start Date: 09/28/18 Encounter Start Time: 10:00 Pt seen for followup re: acute pancreatitis. Denies chest pain. Abdo pain is better. Tried to eat but had abdo pain, so stopped eating. - Objective Resuscitation Status: Resuscitation Status FULL:Full Resuscitation MAR Reviewed: Yes Vital Signs & Weight: Vital Signs (12 hours) Temp Pulse Resp BP Pulse Ox 09/28/18 11:00 98.4 F 65 19 152/80 H 94 L 09/28/18 07:11 98.2 F 65 19 147/76 H 94 L 09/28/18 03:38 97.9 F 66 16 147/77 H 94 L Weight Admit Weight 144 lb Weight 144 lb I&O: 09/27/18 09/28/18 09/29/18 06:59 06:59 06:59 Intake Total 1200 Output Total Balance 1200 Result Diagrams: 09/28/18 04:02 09/28/18 04:02 Additional Labs: Accuchecks 09/28/18 09/28/18 09/27/18 11:07 03:40 19:18 POC Glucose 262 H 147 H 103 09/27/18 09/27/18 17:21 16:08 POC Glucose 123 H 60 L labs reviewed by me Phys Exam - Physical Examination Constitutional: NAD HEENT: moist MMs, sclera anicteric, oral pharynx no lesions, 2+ tonsils Neck: no nodes, no JVD, supple, full ROM Respiratory: no wheezing, no rales, no rhonchi, clear to auscultation bilateral Cardiovascular: RRR, no rub S1, S2 Gastrointestinal: soft, positive bowel sounds Mild epigastric tenderness, no guarding or rigidity Neurological: moves all 4 limbs Psychiatric: normal affect Dx/Plan (1) Acute pancreatitis Code(s): K85.90 - ACUTE PANCREATITIS WITHOUT NECROSIS OR INFECTION, UNSP Status: Acute Comment: lipase improved to 739, but pt not tolerating diet yet (2) CKD (chronic kidney disease) stage 3, GFR 30-59 ml/min Code(s): N18.3 - CHRONIC KIDNEY DISEASE, STAGE 3 (MODERATE) Status: Chronic Comment: creatinine stable at 1.66 (3) DM type 2 (diabetes mellitus, type 2) Status: Chronic Qualifiers: Diabetes mellitus long-term insulin use: with terminal supervisor use Diabetes mellitus complication status: with kidney complications Diabetes mellitus complication detail: with chronic kidney disease Chronic kidney disease stage : stage 3 (moderate) Qualified Code(s): E11.22 - Type 2 diabetes mellitus with diabetic chronic kidney disease; N18.3 - Chronic kidney disease, stage 3 ( moderate); N18.3 - Chronic kidney disease, stage 3 (moderate); Z79.4 - group home (current) use of insulin; Z79.4 - group home (current) use of insulin; Z79.4 - group home (current) use of insulin; Z79.4 - group home (current) use of insulin Comment: episodes of hypoglycemia, on hypoglycemia protocol and D5NS infusion (4) HTN (hypertension) Code(s): I10 - ESSENTIAL (PRIMARY) HYPERTENSION Status: Chronic Qualifiers: Hypertension type: essential hypertension Qualified Code(s): I10 - Essential (primary) hypertension Comment: reasonable control (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 Review of Systems - Review of Systems Constitutional: negative: fever, chills, sweats, weakness, malaise Cardiovascular: negative: chest pain, palpitations, orthopnea, paroxysmal nocturnal dyspnea, edema, light headedness Gastrointestinal: Nausea, Abdominal Pain. negative: Vomiting, Diarrhea, Constipation, Melena, Hematochezia Genitourinary: negative: Dysuria, Frequency, Incontinence, Hematuria, Retention Skin: negative: Rash, Lesions, Steve, Bruising - Medications/Allergies Allergies/Adverse Reactions: Allergies Allergy/AdvReac Type Severity Reaction Status Date / Time morphine Allergy Severe Emesis Verified 09/15/18 16:06 tizanidine [From Zanaflex] AdvReac hypotension Verified 05/29/18 11:21 Medications: Current Medications Atorvastatin Calcium (Lipitor) 20 mg PO HS [facility] Last Admin: 09/27/18 20:13 Dose: 20 mg Bupropion HCl (Wellbutrin Xl) 300 mg PO QAM [facility] Last Admin: 09/28/18 08:11 Dose: 300 mg Cholecalciferol (Vitamin D3) 2,000 units PO BID [facility] Last Admin: 09/28/18 08:11 Dose: 2,000 units Dextrose/Water (Dextrose 50%) 25 gm SLOW IVP PRN PRN PRN Reason: Hypoglycemia Last Admin: 09/27/18 16:19 Dose: 25 gm Fenofibrate (Tricor) 145 mg PO HS [facility] Last Admin: 09/27/18 20:13 Dose: 145 mg Fentanyl (Sublimaze) 12.5 mcg SLOW IVP Q6H PRN PRN Reason: Pain Last Admin: 09/28/18 04:53 Dose: 12.5 mcg Gabapentin (Neurontin) 300 mg PO HS [facility] Last Admin: 09/27/18 20:13 Dose: 300 mg Glucagon (Glucagon) 1 mg IM PRN PRN PRN Reason: Hypoglycemia Heparin Sodium (Porcine) (Heparin) 5,000 units SC TID [facility] Last Admin: 09/28/18 08:14 Dose: 5,000 units Hydralazine HCl (Apresoline) 25 mg PO BID [facility] Last Admin: 09/28/18 08:11 Dose: 25 mg Dextrose/Water (D5w) 1,000 mls @ 0 mls/hr IV .Q0M PRN PRN Reason: Hypoglycemia Dextrose/Sodium Chloride (D5 0.9% Ns) 1,000 mls @ 100 mls/hr IV .Q10H [facility] Last Admin: 09/28/18 04:50 Dose: 1,000 mls Insulin Human Lispro (Humalog) 0 units SC .MILD SLIDING SCALE PRN PRN Reason: Mild Correctional Scale Insulin Human Lispro (Humalog) 3 units SC TID-WM [facility] Last Admin: 09/28/18 14:41 Dose: 3 unit Lisinopril (Zestril) 5 mg PO DAILY [facility] Last Admin: 09/28/18 08:12 Dose: 5 mg Nebivolol (Bystolic) 10 mg PO QAM [facility] Last Admin: 09/28/18 08:18 Dose: 10 mg Febuxostat [Uloric] (1 Tab) 1 tab PO Q3D [facility] Ondansetron HCl (Zofran) 4 mg IVP Q6H PRN PRN Reason: Nausea/Vomiting Pantoprazole Sodium (Protonix) 40 mg PO DAILY [facility] Last Admin: 09/28/18 08:13 Dose: 40 mg Isavuconazonium (Sulfate 2 Cap) 0 each PO HS [facility] Last Admin: 09/27/18 20:14 Dose: 1 each Sodium Chloride (Flush - Normal Saline) 10 ml IVF PRN PRN PRN Reason: Saline Flush Sodium Chloride (Flush - Normal Saline) 10 ml IVF Q12HR [facility] Last Admin: 09/27/18 20:14 Dose: Not Given Sodium Chloride (Flush - Normal Saline) 10 ml IVF PRN PRN PRN Reason: Saline Flush Zolpidem Tartrate (Ambien) 5 mg PO HS [facility] Last Admin: 09/27/18 20:13 Dose: 5 mg
[2018-09-28] MEDS: Gabapentin 300 MG CAP PO SCH (21:06)
[2018-09-28] MEDS: Atorvastatin Calcium 20 MG TAB PO SCH (21:06)
[2018-09-28] MEDS: Fenofibrate Nanocrystallized 145 MG TAB PO SCH (21:07)
[2018-09-28] MEDS: ISAVUCONAZONIUM SULFATE PO SCH (21:14)
[2018-09-28] MEDS: Zolpidem Tartrate 5 MG TAB PO SCH (22:23)
[2018-09-29] MEDS: Dextrose 5 % And 0.9 % NaCl 1,000 ML IV SCH ×4 (01:23→21:39)
[2018-09-29 05:03] LABS: #Eosinphils 0.1 thou/uL (0.0-0.7); #Lymphocytes 1.6 thou/uL (1.20-3.40); #Monocytes 0.4 thou/uL (0.11-0.59); #Neutrophils 3.4 thou/uL (1.40-6.50); %Basophils 0.4 % (0.0-1.0); %Eosinophils 2.4 % (0.0-10.0); %Lymphocytes 28.4 % (21.0-51.0); %Monocytes 7.7 % (0.0-10.0); %Neutrophils 61.1 % (42.0-75.0); Hemoglobin 9.9 g/dL (14.0-18.0); Mean Corpuscular HGB CONC 30.1 g/dL (32.0-36.0); Mean Corpuscular Hemoglobin 28.5 pg (27.0-31.0); Mean Corpuscular Volume 94.9 fL (78.0-98.0); Mean Platelet Volume 9.4 fL (7.4-10.4); Platelet Count 229 thou/uL (130-400); RBC Distribution Width 16.1 % (11.5-14.5); Red Blood Cell (RBC) Count 3.48 mill/uL (4.70-6.10); White Blood Cell (WBC) Count 5.6 thou/uL (4.8-10.8)
[2018-09-29 05:25] LABS: Anion Gap 7 mmol/L (10-20); BUN (Urea Nitrogen) 15 mg/dL (8.4-25.7); Calc. Creatinine Clearance 41 mL/min (70-130); Calcium 8.9 mg/dL (7.8-10.44); Carbon Dioxide 27 mmol/L (23-31); Chloride 110 mmol/L (98-107); Estimated GFR-MDRD 43; Glucose 172 mg/dL (80-115); Lipase 481 U/L (8-78); Potassium 3.8 mmol/L (3.5-5.1); Sodium 140 mmol/L (136-145)
[2018-09-29] MEDS: Bupropion 150 MG XL TAB PO SCH (08:41)
[2018-09-29] MEDS: Heparin 5,000 UNITS/ML VIAL SC SCH ×3 (08:42→20:38)
[2018-09-29] MEDS: Nebivolol HCl 5 MG TAB PO SCH (08:42)
[2018-09-29] MEDS: hydrALAZINE 25 MG TAB PO SCH ×2 (08:42→20:37)
[2018-09-29] MEDS: Lisinopril 5 MG TAB PO SCH (08:42)
--- NOTE | 2018-09-29 08:48 | PQF ---
CLINICAL DOCUMENTATION IMPROVEMENT CLARIFICATION FORM: ICD-10 Updated PLEASE DO AN ADDENDUM TO THE PROGRESS NOTE WITH ANY DOCUMENTATION UPDATES OR ADDITIONS AND CARRY THROUGH TO DC SUMMARY. THANK YOU. DATE: 09/29 ATTN: DR. MARIA D SEN Please exercise your independent, professional judgment in responding to the clarification form. Clinical indicators are provided on the bottom of this form for your review. Please check appropriate box(s): [ ] Acute Renal Failure (ARF) / Acute Kidney Injury (JULIAN) [ ] Other Etiology or underlying conditions related to the diagnosis of ARF/ JULIAN: [ ] Other: [ ] Acute on Chronic Renal Failure Stg 3 [ ] CKD 3 without ARF/JULIAN [ ] Other diagnosis [ ] Unable to determine For continuity of documentation, please document condition throughout progress notes and discharge summary. Thank You. CLINICAL INDICATORS - SIGNS / SYMPTOMS / LABS BUN: 43 CR: 2.32 GFR: 28 (ADMIT, 09/26) 28 1.66 42 (09/27) 19 1.66 42 (09/28) 15 1.61 42 (09/29) RISK FACTOR: ACUTE PANCREATITIS CKD 3 TREATMENTS: IVF (3L NS IN ER 09/26; D5 NS 09/27 - PRESENT) THANK YOU! Carly (This form is maintained as a part of the permanent medical record) 2014 [id number]. All Rights Reserved Carly Quinonez RN, BSN [email or web address] Office: [phone] [facility]
[2018-09-29] MEDS: HumaLOG 300 UNITS/3 ML VIAL SC SCH ×3 (08:50→16:27)
[2018-09-29] MEDS: Fentanyl 100 MCG/2 ML VIAL SLOW IVP PRN ×2 (12:00→20:30)
--- NOTE | 2018-09-29 13:53 | PDOC.PN ---
- Subjective Encounter Start Date: 09/29/18 Encounter Start Time: 07:00 Pt seen for followup re: acute pancreatitis. Feels slightly better, but still not tolerating diet. - Objective Resuscitation Status: Resuscitation Status FULL:Full Resuscitation MAR Reviewed: Yes Vital Signs & Weight: Vital Signs (12 hours) Temp Pulse Resp BP BP Pulse Ox 09/29/18 11:13 98.1 F 75 18 135/81 92 L 09/29/18 08:42 65 09/29/18 07:27 98.2 F 65 20 154/81 H 95 09/29/18 04:25 98.2 F 61 20 158/79 H 95 Weight Admit Weight 144 lb Weight 144 lb I&O: 09/28/18 09/29/18 09/30/18 06:59 06:59 06:59 Intake Total 1200 Balance 1200 Result Diagrams: 09/30/18 09:31 09/30/18 09:31 Additional Labs: Accuchecks 09/29/18 09/29/18 09/28/18 11:12 04:23 19:11 POC Glucose 227 H 149 H 177 H 09/28/18 09/27/18 15:27 09:04 POC Glucose 254 H 77 Labs reviewed by me Phys Exam - Physical Examination Constitutional: NAD HEENT: moist MMs Neck: supple Respiratory: clear to auscultation bilateral Cardiovascular: RRR Gastrointestinal: soft Neurological: moves all 4 limbs Psychiatric: normal affect Dx/Plan (1) Acute pancreatitis Code(s): K85.90 - ACUTE PANCREATITIS WITHOUT NECROSIS OR INFECTION, UNSP Status: Acute Comment: lipase improved to 481, pt not tolerating diet yet (2) DM type 2 (diabetes mellitus, type 2) Status: Chronic Qualifiers: Diabetes mellitus terminal worker insulin use: with group home use Diabetes mellitus complication status: with kidney complications Diabetes mellitus complication detail: with chronic kidney disease Chronic kidney disease stage : stage 3 (moderate) Qualified Code(s): E11.22 - Type 2 diabetes mellitus with diabetic chronic kidney disease; N18.3 - Chronic kidney disease, stage 3 ( moderate); Z79.4 - terminal worker (current) use of insulin Comment: continue hypoglycemia protocol and D5NS infusion (3) HTN (hypertension) Code(s): I10 - ESSENTIAL (PRIMARY) HYPERTENSION Status: Chronic Qualifiers: Hypertension type: essential hypertension Qualified Code(s): I10 - Essential (primary) hypertension Comment: controlled (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 Review of Systems - Review of Systems Cardiovascular: negative: chest pain, palpitations, orthopnea, paroxysmal nocturnal dyspnea, edema, light headedness Gastrointestinal: Nausea, Abdominal Pain. negative: Vomiting, Diarrhea, Constipation, Melena, Hematochezia - Medications/Allergies Allergies/Adverse Reactions: Allergies Allergy/AdvReac Type Severity Reaction Status Date / Time morphine Allergy Severe Emesis Verified 09/15/18 16:06 tizanidine [From Zanaflex] AdvReac hypotension Verified 05/29/18 11:21 Medications: Current Medications Atorvastatin Calcium (Lipitor) 20 mg PO HS [facility] Last Admin: 09/28/18 21:06 Dose: 20 mg Bupropion HCl (Wellbutrin Xl) 300 mg PO QAM [facility] Last Admin: 09/29/18 08:41 Dose: 300 mg Cholecalciferol (Vitamin D3) 2,000 units PO BID [facility] Last Admin: 09/29/18 08:42 Dose: 2,000 units Dextrose/Water (Dextrose 50%) 25 gm SLOW IVP PRN PRN PRN Reason: Hypoglycemia Last Admin: 09/27/18 16:19 Dose: 25 gm Fenofibrate (Tricor) 145 mg PO [facility] Last Admin: 09/28/18 21:07 Dose: 145 mg Fentanyl (Sublimaze) 12.5 mcg SLOW IVP Q6H PRN PRN Reason: Pain Last Admin: 09/29/18 12:00 Dose: 12.5 mcg Gabapentin (Neurontin) 300 mg PO HS [facility] Last Admin: 09/28/18 21:06 Dose: 300 mg Glucagon (Glucagon) 1 mg IM PRN PRN PRN Reason: Hypoglycemia Heparin Sodium (Porcine) (Heparin) 5,000 units SC TID [facility] Last Admin: 09/29/18 08:42 Dose: 5,000 units Hydralazine HCl (Apresoline) 25 mg PO BID [facility] Last Admin: 09/29/18 08:42 Dose: 25 mg Dextrose/Water (D5w) 1,000 mls @ 0 mls/hr IV .Q0M PRN PRN Reason: Hypoglycemia Dextrose/Sodium Chloride (D5 0.9% Ns) 1,000 mls @ 100 mls/hr IV .Q10H [facility] Last Admin: 09/29/18 11:54 Dose: 1,000 mls Insulin Human Lispro (Humalog) 0 units SC .MILD SLIDING SCALE PRN PRN Reason: Mild Correctional Scale Insulin Human Lispro (Humalog) 3 units SC TID-WM [facility] Last Admin: 09/29/18 11:54 Dose: 3 unit Lisinopril (Zestril) 5 mg PO DAILY [facility] Last Admin: 09/29/18 08:42 Dose: 5 mg Nebivolol (Bystolic) 10 mg PO QAM [facility] Last Admin: 09/29/18 08:42 Dose: 10 mg Febuxostat [Uloric] (1 Tab) 1 tab PO Q3D [facility] Ondansetron HCl (Zofran) 4 mg IVP Q6H PRN PRN Reason: Nausea/Vomiting Pantoprazole Sodium (Protonix) 40 mg PO DAILY [facility] Last Admin: 09/29/18 08:42 Dose: 40 mg Isavuconazonium (Sulfate 2 Cap) 0 each PO [facility] Last Admin: 09/28/18 21:14 Dose: 2 each Sodium Chloride (Flush - Normal Saline) 10 ml IVF PRN PRN PRN Reason: Saline Flush Sodium Chloride (Flush - Normal Saline) 10 ml IVF Q12HR [facility] Last Admin: 09/29/18 08:50 Dose: Not Given Sodium Chloride (Flush - Normal Saline) 10 ml IVF PRN PRN PRN Reason: Saline Flush Zolpidem Tartrate (Ambien) 5 mg PO HS [facility] Last Admin: 09/28/18 22:23 Dose: 5 mg
[2018-09-29] MEDS: Benzonatate 100 MG CAP PO SCH ×2 (14:54→20:37)
[2018-09-29] MEDS ORDERED: Fentanyl 100 MCG/2 ML VIAL SLOW IVP SCH (16:15)
--- NOTE | 2018-09-29 18:55 | PRG ---
DATE OF SERVICE: 09/29/2018 SUBJECTIVE: Mr. Greer feels about the same. He thinks there has been some mild improvement in h is abdominal pain, but he does still require narcotics for it. He had developed a bit of an appetite , but after having some clear liquids earlier today, he feels this does worsen the pain is particular ly if he tries to go too fast, so he has backed off again. He remained hemodynamically stable. OBJECTIVE: VITAL SIGNS: Temperature 98.1, pulse 75, blood pressure 135/81, 92% oxygen saturation on room air. GENERAL: No acute distress. HEART: Regular rate and rhythm. LUNGS: Clear to auscultation bilaterally. ABDOMEN: Bowel sounds are present, though hypoactive. The abdomen is flat, soft. There is some ten derness to palpation in the upper abdomen, but no guarding, rebound tenderness. EXTREMITIES: No peripheral edema. LABORATORY STUDIES: WBC 5.6, hemoglobin 9.9, platelets 229. Sodium 140, potassium 3.8, BUN 15, crea tinine 1.61, glucose 154. Lipase is down to 481. ASSESSMENT AND PLAN: Acute pancreatitis, recurrent, idiopathic. Clinical improvement is slow. Stil l no alarm features or features concerning for complicated episode. Continue with supportive care an d analgesics and IV fluid. I advised the patient to advance diet only slowly and as tolerated, which he understands.
[2018-09-29] MEDS: Fenofibrate Nanocrystallized 145 MG TAB PO SCH (20:37)
[2018-09-29] MEDS: Atorvastatin Calcium 20 MG TAB PO SCH (20:37)
[2018-09-29] MEDS: Gabapentin 300 MG CAP PO SCH (20:37)
[2018-09-29] MEDS: ISAVUCONAZONIUM SULFATE PO SCH (20:38)
[2018-09-29] MEDS: Zolpidem Tartrate 5 MG TAB PO SCH (21:39)
[2018-09-30] MEDS: Fentanyl 100 MCG/2 ML VIAL SLOW IVP PRN ×2 (05:33→17:36)
[2018-09-30] MEDS: HumaLOG 300 UNITS/3 ML VIAL SC PRN (05:37)
[2018-09-30] MEDS: HumaLOG 300 UNITS/3 ML VIAL SC SCH ×3 (05:37→17:06)
[2018-09-30] MEDS: hydrALAZINE 25 MG TAB PO SCH ×2 (09:12→20:16)
[2018-09-30] MEDS: Nebivolol HCl 5 MG TAB PO SCH (09:12)
[2018-09-30] MEDS: Bupropion 150 MG XL TAB PO SCH (09:12)
[2018-09-30] MEDS: Dextrose 5 % And 0.9 % NaCl 1,000 ML IV SCH ×2 (09:13→18:03)
[2018-09-30] MEDS: Lisinopril 5 MG TAB PO SCH (09:13)
[2018-09-30] MEDS: Heparin 5,000 UNITS/ML VIAL SC SCH ×3 (09:13→20:16)
[2018-09-30] MEDS: Benzonatate 100 MG CAP PO SCH ×3 (09:13→20:16)
[2018-09-30 09:52] LABS: #Eosinphils 0.1 thou/uL (0.0-0.7); #Lymphocytes 1.2 thou/uL (1.20-3.40); #Monocytes 0.5 thou/uL (0.11-0.59); #Neutrophils 4.9 thou/uL (1.40-6.50); %Basophils 0.5 % (0.0-1.0); %Eosinophils 0.9 % (0.0-10.0); %Lymphocytes 17.3 % (21.0-51.0); %Neutrophils 73.3 % (42.0-75.0); Hemoglobin 10.6 g/dL (14.0-18.0); Mean Corpuscular HGB CONC 32.3 g/dL (32.0-36.0); Mean Corpuscular Hemoglobin 30.4 pg (27.0-31.0); Mean Corpuscular Volume 94.1 fL (78.0-98.0); Mean Platelet Volume 8.8 fL (7.4-10.4); Platelet Count 232 thou/uL (130-400); RBC Distribution Width 15.9 % (11.5-14.5); White Blood Cell (WBC) Count 6.7 thou/uL (4.8-10.8)
[2018-09-30 10:05] LABS: Anion Gap 9 mmol/L (10-20); BUN (Urea Nitrogen) 13 mg/dL (8.4-25.7); Calc. Creatinine Clearance 40 mL/min (70-130); Carbon Dioxide 25 mmol/L (23-31); Chloride 108 mmol/L (98-107); Estimated GFR-MDRD 42; Glucose 133 mg/dL (80-115); Lipase 372 U/L (8-78); Potassium 3.9 mmol/L (3.5-5.1); Sodium 138 mmol/L (136-145)
[2018-09-30] MEDS ORDERED: Acetaminophen/Codeine 30-300mg Tablet PO PRN (10:45)
[2018-09-30] MEDS ORDERED: traMADol HCl 50 MG TAB PO PRN (10:48)
[2018-09-30] MEDS: Acetaminophen/Codeine 30-300mg Tablet PO PRN ×2 (11:46→20:31)
--- NOTE | 2018-09-30 14:54 | PDOC.PN ---
- Subjective Encounter Start Date: 09/30/18 Encounter Start Time: 10:00 Pt seen for followup re: acute pancreatitis. Denies chest pain, shortness of breath, fevers or chills. Abdo pain is better. c/o CVA pain trung. - Objective Resuscitation Status: Resuscitation Status FULL:Full Resuscitation MAR Reviewed: Yes Vital Signs & Weight: Vital Signs (12 hours) Temp Pulse Resp BP BP Pulse Ox 09/30/18 09:13 67 143/78 H 09/30/18 09:12 67 143/78 H 09/30/18 08:00 94 L 09/30/18 07:13 98.9 F 67 16 143/78 H 94 L Weight Admit Weight 144 lb Weight 144 lb I&O: 09/29/18 09/30/18 10/01/18 06:59 06:59 06:59 Intake Total 2800 Balance 2800 Result Diagrams: 09/30/18 09:31 09/30/18 09:31 Additional Labs: Accuchecks 09/30/18 09/30/18 09/29/18 11:14 05:29 19:19 POC Glucose 130 H 235 H 231 H 09/29/18 15:55 POC Glucose 154 H Labs reviewed by me Phys Exam - Physical Examination Constitutional: NAD HEENT: moist MMs Neck: supple Respiratory: clear to auscultation bilateral Cardiovascular: RRR Gastrointestinal: soft, non-tender, positive bowel sounds no CVA tenderness Neurological: moves all 4 limbs Psychiatric: normal affect Dx/Plan (1) Acute pancreatitis Code(s): K85.90 - ACUTE PANCREATITIS WITHOUT NECROSIS OR INFECTION, UNSP Status: Acute Comment: pt tolerated clear fluids, will advance to full fluid diet. (2) DM type 2 (diabetes mellitus, type 2) Status: Chronic Qualifiers: Diabetes mellitus long term care pharmacist insulin use: with long term care pharmacist use Diabetes mellitus complication status: with kidney complications Diabetes mellitus complication detail: with chronic kidney disease Chronic kidney disease stage : stage 3 (moderate) Qualified Code(s): E11.22 - Type 2 diabetes mellitus with diabetic chronic kidney disease; N18.3 - Chronic kidney disease, stage 3 ( moderate); Z79.4 - correction (current) use of insulin Comment: Discontinue D5NS infusion when pt's oral intake improves (3) HTN (hypertension) Code(s): I10 - ESSENTIAL (PRIMARY) HYPERTENSION Status: Chronic Qualifiers: Hypertension type: essential hypertension Qualified Code(s): I10 - Essential (primary) hypertension Comment: controlled (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 Pt reports that oncology service gives him Procrit when hemoglobin drops below less than 11, will seek their opinion. Check urinalysis to r/o UTI Review of Systems - Review of Systems Respiratory: negative: Cough, Shortness of Breath, SOB with Excertion, Pleuritic Pain, Wheezing Cardiovascular: negative: chest pain, palpitations, orthopnea, paroxysmal nocturnal dyspnea, edema, light headedness Gastrointestinal: Abdominal Pain. negative: Nausea, Vomiting, Diarrhea, Constipation, Melena, Hematochezia Musculoskeletal: Back Pain - Medications/Allergies Allergies/Adverse Reactions: Allergies Allergy/AdvReac Type Severity Reaction Status Date / Time morphine Allergy Severe Emesis Verified 09/15/18 16:06 tizanidine [From Zanaflex] AdvReac hypotension Verified 05/29/18 11:21 Medications: Current Medications Acetaminophen/Codeine Phosphate (Tylenol #3) 1 tab PO Q6H PRN PRN Reason: Mild-Moderate Pain (1-5) Last Admin: 09/30/18 11:46 Dose: 1 tab Acetaminophen/Codeine Phosphate (Tylenol #3) 2 tab PO Q6H PRN PRN Reason: Moderate to Severe Pain (6-10) Atorvastatin Calcium (Lipitor) 20 mg PO HS [facility] Last Admin: 09/29/18 20:37 Dose: 20 mg Benzonatate (Tessalon) 100 mg PO TID [facility] Last Admin: 09/30/18 09:13 Dose: Not Given Bupropion HCl (Wellbutrin Xl) 300 mg PO QAM [facility] Last Admin: 09/30/18 09:12 Dose: 300 mg Cholecalciferol (Vitamin D3) 2,000 units PO BID [facility] Last Admin: 09/30/18 09:13 Dose: 2,000 units Dextrose/Water (Dextrose 50%) 25 gm SLOW IVP PRN PRN PRN Reason: Hypoglycemia Last Admin: 09/27/18 16:19 Dose: 25 gm Fenofibrate (Tricor) 145 mg PO HS [facility] Last Admin: 09/29/18 20:37 Dose: 145 mg Fentanyl (Sublimaze) 12.5 mcg SLOW IVP Q6H PRN PRN Reason: Pain Last Admin: 09/30/18 05:33 Dose: 12.5 mcg Gabapentin (Neurontin) 300 mg PO HS [facility] Last Admin: 09/29/18 20:37 Dose: 300 mg Glucagon (Glucagon) 1 mg IM PRN PRN PRN Reason: Hypoglycemia Heparin Sodium (Porcine) (Heparin) 5,000 units SC TID [facility] Last Admin: 09/30/18 09:13 Dose: 5,000 units Hydralazine HCl (Apresoline) 25 mg PO BID [facility] Last Admin: 09/30/18 09:12 Dose: 25 mg Dextrose/Water (D5w) 1,000 mls @ 0 mls/hr IV .Q0M PRN PRN Reason: Hypoglycemia Dextrose/Sodium Chloride (D5 0.9% Ns) 1,000 mls @ 100 mls/hr IV .Q10H [facility] Last Admin: 09/30/18 09:13 Dose: 1,000 mls Insulin Human Lispro (Humalog) 0 units SC .MILD SLIDING SCALE PRN PRN Reason: Mild Correctional Scale Last Admin: 09/30/18 05:37 Dose: 2 unit Insulin Human Lispro (Humalog) 3 units SC TID-WM [facility] Last Admin: 09/30/18 11:48 Dose: 3 unit Levofloxacin (Levaquin) 500 mg PO 1500 [facility] Last Admin: 09/29/18 14:48 Dose: 500 mg Lisinopril (Zestril) 5 mg PO DAILY [facility] Last Admin: 09/30/18 09:13 Dose: 5 mg Nebivolol (Bystolic) 10 mg PO QAM [facility] Last Admin: 09/30/18 09:12 Dose: 10 mg Pantoprazole Sodium (Protonix) 40 mg PO DAILY [facility] Last Admin: 09/30/18 09:12 Dose: 40 mg Isavuconazonium (Sulfate 2 Cap) 0 each PO HS [facility] Last Admin: 09/29/18 20:38 Dose: 2 each Sodium Chloride (Flush - Normal Saline) 10 ml IVF PRN PRN PRN Reason: Saline Flush Sodium Chloride (Flush - Normal Saline) 10 ml IVF Q12HR [facility] Last Admin: 09/30/18 09:14 Dose: Not Given Sodium Chloride (Flush - Normal Saline) 10 ml IVF PRN PRN PRN Reason: Saline Flush Tramadol HCl (Ultram) 50 mg PO Q6H PRN PRN Reason: Pain Zolpidem Tartrate (Ambien) 5 mg PO HS [facility] Last Admin: 09/29/18 21:39 Dose: 5 mg
[2018-09-30 15:18] LABS: Bilirubin Negative (Negative); Blood, Urine Negative (Negative); Clarity CLEAR (Clear); Glucose, Urine (Dipstick) 250 mg/dL (Negative); Leukocyte Negative (Negative); Nitrite Negative (Negative); Protein, Urine (Dipstick) Trace mg/dL (Neg-Trace); Specific Gravity, Urine 1.013 (1.002-1.036); Urobilinogen 0.2 mg/dL (0.2-1.0)
[2018-09-30] MEDS: Fenofibrate Nanocrystallized 145 MG TAB PO SCH (20:16)
[2018-09-30] MEDS: Gabapentin 300 MG CAP PO SCH (20:17)
[2018-09-30] MEDS: Atorvastatin Calcium 20 MG TAB PO SCH (20:17)
[2018-09-30] MEDS: ISAVUCONAZONIUM SULFATE PO SCH (20:19)
--- NOTE | 2018-09-30 20:58 | PRG ---
GASTROINTESTINAL INPATIENT DAILY PROGRESS NOTE DATE OF SERVICE: 09/30/2018 SUBJECTIVE: Mr. Greer is feeling a lot better today. He is advanced to a full-liquid diet and t olerating this well. His abdominal pain is 1 or 2/10. There is no nausea. He is having some back p ain and that is his primary complaint now. OBJECTIVE: VITAL SIGNS: Temperature 98.9, pulse 67, blood pressure 143/78, 94% oxygen saturation on room air. GENERAL: No acute distress. HEART: Regular rate and rhythm. LUNGS: Clear to auscultation bilaterally. ABDOMEN: Soft, nontender to palpation. EXTREMITIES: No peripheral edema. LABORATORY STUDIES: WBC 6.7, hemoglobin 10.6, platelets 232,000. Lipase down to 372, BUN 13, creati nine 1.64. Sodium 138, potassium 3.9, glucose 146. ASSESSMENT AND PLAN: Recurrent acute pancreatitis, clinically improving. I am encouraged by Mr. Nancie horton improvement over the past day. I think if he is continuing to tolerate full-liquid diet with minimal discomfort tomorrow, diet could be further advanced. Otherwise, continue current supportive measures.
--- NOTE | 2018-09-30 23:08 | CON ---
DATE OF CONSULTATION: 09/30/2018 REASON FOR CONSULTATION: Anemia. HISTORY OF PRESENT ILLNESS: Mr. Gerer is a pleasant 67-year-old gentleman who presented to the e mergency room on 09/26/2018 with abdominal discomfort. He was diagnosed with pancreatitis. His lipa se was greater than 2300. The patient has a history of pancreatitis, chronic kidney disease, mucormy cosis, B12 deficiency and stage I adenocarcinoma of the colon. He is treated in our clinic by Dr. Delio mccormack for Procrit. His last injection was 08/31/2018 for hemoglobin of 10.7. On admission, his hemo globin was 12.2. Over the course of the last 4 days, he has trended downward; however, it is back up to 10.6 today. His pancreatitis has improved. He is now taking full liquid intake. He did have ac [place] on chronic kidney disease at admission with a hemoglobin of 2.32. His baseline is around 1.2. H e had a CT scan of his abdomen and pelvis, which showed postoperative cholecystectomy and hemicolecto my changes. CT findings were consistent with pancreatitis. The patient continues to complain of rig ht abdominal pain and left back pain. No shortness of breath or chest pain. No bleeding issues. PAST MEDICAL HISTORY: 1. T2 N0 M0 adenocarcinoma of the colon, status post hemicolectomy. 2. Mucormycosis with right vision loss. 3. Chronic anemia secondary to chronic renal failure. 4. Chronic kidney disease, stage 3. 5. B12 deficiency. 6. Diabetes. 7. Reflux. 8. Hypertension. 9. Anxiety, depression. PAST SURGICAL HISTORY: 1. Hemicolectomy. 2. Back surgery. 3. Right knee replacement. 4. Cholecystectomy. ALLERGIES: To MORPHINE and TIZANIDINE. HOME MEDICATIONS: 1. Atorvastatin 20 mg daily. 2. Wellbutrin XL 300 mg daily. 3. D3 b.i.d. 4. Eszopiclone 3 mg daily. 5. Uloric 80 mg every 3 days. 6. Fenofibrate daily. 7. Gabapentin daily. 8. Humalog insulin t.i.d. 9. Apresoline b.i.d. 10. Cresemba daily. 11. Zestril 5 mg daily. 12. Bystolic 10 mg daily. 13. Protonix 40 mg daily. FAMILY HISTORY: His sister had breast cancer. SOCIAL HISTORY: , has one child. Lives with his spouse. No alcohol, tobacco or illicit drug use. REVIEW OF SYSTEMS: Twelve point review of systems is negative except for noted in the HPI. PHYSICAL EXAMINATION: VITAL SIGNS: Temperature is 98.9, pulse is 67, respiratory rate 16, BP is 143/78. He is 94% on room air. GENERAL: Well-developed, well-nourished male, in no acute distress. HEENT: Normocephalic, atraumatic. Pupils equal and reactive to light. NECK: Supple. CARDIOVASCULAR: Regular rate and rhythm. LUNGS: Clear to auscultation. ABDOMEN: Soft. Mildly tender in the right upper quadrant. Bowel sounds are positive. EXTREMITIES: No clubbing, cyanosis or edema. SKIN: No rash. LYMPHATIC: There is no adenopathy. HEMATOLOGIC: No petechia or purpura. NEUROLOGICAL: Nonfocal. PSYCHIATRIC: The patient is alert and oriented and appropriate. PERTINENT LABORATORY AND X-RAYS: Current WBCs are 6.7, hemoglobin 10.6, hematocrit 32.9, platelet co unt is 232,000. He has got 73% neutrophils, 17% lymphocytes, 8% monocytes. Sodium is 138, potassium 3.9, chloride 108, CO2 is 25, BUN is 13, creatinine 1.64, calcium is 9, phosphorus 2.7, magnesium 1. 9, total bilirubin is 0.6, AST is 20, ALT is 15, alkaline phosphatase is 52. Serum total protein is 7, albumin 4, globulin 3, lipase is 372. RADIOLOGY: Per HPI. ASSESSMENT: 1. Anemia, multifactorial secondary to chronic kidney disease, likely hemodilution. 2. Acute on chronic kidney disease. 3. Acute pancreatitis. 4. History of mucormycosis. 5. B12 deficiency. 6. History of stage I adenocarcinoma. PLAN: The patient is due for iron studies and B12 level. We will confirm that these are normal. If his hemoglobin remains below 11, we will consider Procrit injection. Once the patient is stable fro m his pancreatitis, he will be discharged and he can follow up in our clinic for continued Procrit in jections. Thank you for the consult. We will follow his hospital course remotely.
[2018-10-01] MEDS: Zolpidem Tartrate 5 MG TAB PO SCH ×2 (00:13→21:34)
[2018-10-01] MEDS: HumaLOG 300 UNITS/3 ML VIAL SC PRN (05:42)
[2018-10-01 06:17] LABS: #Eosinphils 0.1 thou/uL (0.0-0.7); #Lymphocytes 1.6 thou/uL (1.20-3.40); #Monocytes 0.4 thou/uL (0.11-0.59); #Neutrophils 3.3 thou/uL (1.40-6.50); %Basophils 0.6 % (0.0-1.0); %Eosinophils 1.8 % (0.0-10.0); %Monocytes 6.9 % (0.0-10.0); %Neutrophils 60.7 % (42.0-75.0); Hemoglobin 9.5 g/dL (14.0-18.0); Mean Corpuscular HGB CONC 31.3 g/dL (32.0-36.0); Mean Corpuscular Hemoglobin 30.2 pg (27.0-31.0); Mean Corpuscular Volume 96.4 fL (78.0-98.0); Mean Platelet Volume 9.8 fL (7.4-10.4); Platelet Count 202 thou/uL (130-400); RBC Distribution Width 16.1 % (11.5-14.5); Red Blood Cell (RBC) Count 3.16 mill/uL (4.70-6.10); White Blood Cell (WBC) Count 5.4 thou/uL (4.8-10.8)
[2018-10-01 06:48] LABS: Folate (Folic Acid) 6.4 ng/mL (7.0-31.4)
[2018-10-01] MEDS: Lisinopril 5 MG TAB PO SCH (08:38)
[2018-10-01] MEDS: Bupropion 150 MG XL TAB PO SCH (08:38)
[2018-10-01] MEDS: hydrALAZINE 25 MG TAB PO SCH ×2 (08:38→20:21)
[2018-10-01] MEDS: Heparin 5,000 UNITS/ML VIAL SC SCH ×3 (08:38→20:22)
[2018-10-01] MEDS: Benzonatate 100 MG CAP PO SCH ×3 (08:38→20:23)
[2018-10-01] MEDS: HumaLOG 300 UNITS/3 ML VIAL SC SCH ×3 (08:39→16:59)
[2018-10-01] MEDS: Nebivolol HCl 5 MG TAB PO SCH (09:44)
[2018-10-01] MEDS ORDERED: Folic Acid 1 MG TAB PO SCH (11:00)
[2018-10-01] MEDS: Dextrose 5 % And 0.9 % NaCl 1,000 ML IV SCH ×2 (11:11→16:58)
--- NOTE | 2018-10-01 16:53 | PDOC.PN ---
- Subjective Encounter Start Date: 10/01/18 Encounter Start Time: 16:50 Mr. Greer was seen today in follow-up of Pancreatitis. He says the abdominal pain has improved. He tolerated a full liquid diet. He denies any nausea or vomiting. - Objective Resuscitation Status: Resuscitation Status FULL:Full Resuscitation MAR Reviewed: Yes Vital Signs & Weight: Vital Signs (12 hours) Temp Pulse Resp BP BP Pulse Ox 10/01/18 16:00 98.6 F 61 16 165/89 H 97 10/01/18 11:09 98.4 F 62 18 147/81 H 94 L 10/01/18 08:38 68 131/80 10/01/18 08:37 95 10/01/18 07:49 98.2 F 68 18 131/80 95 Weight Admit Weight 144 lb Weight 144 lb I&O: 09/30/18 10/01/18 10/02/18 06:59 06:59 06:59 Intake Total 2800 3056 Balance 2800 3056 Result Diagrams: 10/01/18 04:26 09/30/18 09:31 Additional Labs: Accuchecks 10/01/18 10/01/18 10/01/18 16:20 11:13 04:07 POC Glucose 141 H 171 H 244 H 09/30/18 19:30 POC Glucose 202 H Phys Exam - Physical Examination HEENT: PERRLA Respiratory: no wheezing, no rales, no rhonchi, clear to auscultation bilateral Cardiovascular: RRR, no significant murmur, no rub Gastrointestinal: soft, non-tender, no distention, positive bowel sounds Musculoskeletal: no edema Dx/Plan (1) Acute pancreatitis Code(s): K85.90 - ACUTE PANCREATITIS WITHOUT NECROSIS OR INFECTION, UNSP Status: Acute Comment: pt tolerated clear fluids, will advance to full fluid diet. (2) HTN (hypertension) Code(s): I10 - ESSENTIAL (PRIMARY) HYPERTENSION Status: Chronic Qualifiers: Hypertension type: essential hypertension Qualified Code(s): I10 - Essential (primary) hypertension Comment: controlled - Plan * Acute Pancreatitis- recurrent with unknown etiology- he is improving. Will continue to advance diet * HTN - blood pressure is borderline elevated- will continue his home medications, and PRN hydralazine * Reassess in AM.
--- NOTE | 2018-10-01 17:50 | PRG ---
DATE OF SERVICE: 10/01/2018 SUBJECTIVE: Mr. Greer is feeling a lot better today. He has not required any pain medication. Abdominal pain has significantly improved. No nausea or vomiting. He has been tolerating a full liq uid diet. He is getting ready to eat some pork and broccoli for dinner tonight. OBJECTIVE: VITAL SIGNS: Temperature 98.6, pulse 61, blood pressure 165/89, 97% oxygen saturation on room air. GENERAL: No acute distress. HEART: Regular rate and rhythm. LUNGS: Clear to auscultation bilaterally. ABDOMEN: Soft and nontender to palpation throughout. EXTREMITIES: No peripheral edema. VESSELS: Radial pulses 2+ bilaterally. LABORATORY STUDIES: WBC 5.4, hemoglobin 9.5, platelets 202, folate 6.4. Vitamin B12 284. Ferritin 245, glucose 141. ASSESSMENT AND PLAN: Recurrent acute pancreatitis, idiopathic. This is clinically resolving. He is tolerating his diet well now. I think that if he tolerates dinner tonight and has a good night, he could potentially be discharged from the hospital tomorrow morning from a GI perspective.
[2018-10-01] MEDS: Gabapentin 300 MG CAP PO SCH (20:21)
[2018-10-01] MEDS: Atorvastatin Calcium 20 MG TAB PO SCH (20:21)
[2018-10-01] MEDS: Fenofibrate Nanocrystallized 145 MG TAB PO SCH (20:22)
[2018-10-01] MEDS: ISAVUCONAZONIUM SULFATE PO SCH (20:23)
[2018-10-02] MEDS: HumaLOG 300 UNITS/3 ML VIAL SC PRN (05:48)
[2018-10-02] MEDS: Benzonatate 100 MG CAP PO SCH ×2 (08:24→14:15)
[2018-10-02] MEDS: HumaLOG 300 UNITS/3 ML VIAL SC SCH ×2 (08:24→12:18)
[2018-10-02] MEDS: Bupropion 150 MG XL TAB PO SCH (08:25)
[2018-10-02] MEDS: Lisinopril 5 MG TAB PO SCH (08:25)
[2018-10-02] MEDS: hydrALAZINE 25 MG TAB PO SCH (08:25)
[2018-10-02] MEDS: Heparin 5,000 UNITS/ML VIAL SC SCH ×2 (08:26→14:15)
[2018-10-02] MEDS ORDERED: Folic Acid 1 MG TAB PO SCH (09:00)
--- NOTE | 2018-10-02 12:03 | PDOC.PN ---
- Subjective Encounter Start Date: 10/02/18 Encounter Start Time: 12:01 Mr. Greer was seen today in follow-up of pancreatits. He says he has tolerated a solid meal. No new complaints. - Objective Resuscitation Status: Resuscitation Status FULL:Full Resuscitation MAR Reviewed: Yes Vital Signs & Weight: Vital Signs (12 hours) Temp Pulse Resp BP BP BP Pulse Ox 10/02/18 08:25 71 138/83 10/02/18 08:24 95 10/02/18 07:29 98.2 F 71 18 138/83 95 10/02/18 04:00 98.3 F 71 16 126/69 95 Weight Admit Weight 144 lb Weight 144 lb I&O: 10/01/18 10/02/18 10/03/18 06:59 06:59 06:59 Intake Total 3056 880 Balance 3056 880 Result Diagrams: 10/01/18 04:26 09/30/18 09:31 Additional Labs: Accuchecks 10/02/18 10/01/18 10/01/18 05:24 19:32 16:20 POC Glucose 261 H 161 H 141 H Phys Exam - Physical Examination HEENT: PERRLA Respiratory: no wheezing, no rales, no rhonchi, clear to auscultation bilateral Cardiovascular: RRR, no significant murmur, no rub Gastrointestinal: soft, non-tender, no distention, positive bowel sounds Musculoskeletal: no edema Dx/Plan (1) Acute pancreatitis Code(s): K85.90 - ACUTE PANCREATITIS WITHOUT NECROSIS OR INFECTION, UNSP Status: Acute Comment: pt tolerated clear fluids, will advance to full fluid diet. (2) HTN (hypertension) Code(s): I10 - ESSENTIAL (PRIMARY) HYPERTENSION Status: Chronic Qualifiers: Hypertension type: essential hypertension Qualified Code(s): I10 - Essential (primary) hypertension Comment: controlled - Plan * Acute pancreatitis- resolved * Stable for discharge home.
[2018-10-02] MEDS: Nebivolol HCl 5 MG TAB PO SCH (12:18)
--- NOTE | 2018-10-02 13:26 | DIS ---
PRIMARY CARE PHYSICIAN: Dr. Townsend DATE OF ADMISSION: 09/26/2018 DATE OF DISCHARGE: 10/02/2018 DISCHARGE DISPOSITION: Home. PRIMARY DISCHARGE DIAGNOSES: 1. Acute pancreatitis. 2. Hypertension. 3. Diabetes mellitus, type 2. DISCHARGE MEDICATIONS: Protonix 40 mg daily, Bystolic 10 mg daily, Lisinopril 5 mg daily, Cresemba 1 86 mg 2 tablets at bedtime, Lantus insulin 20 units subcu at bedtime, hydralazine 25 mg twice daily, Humalog 3 units t.i.d. with meals, gabapentin 300 mg at bedtime, fenofibrate 145 mg at bedtime, Ulori c 80 mg 3 times a day, Eszopiclone 3 mg tablet at bedtime, vitamin D3 2000 units twice a day, Wellbut rin 300 mg daily, Atorvastatin 20 mg at bedtime. PROCEDURES DONE DURING ADMISSION: The patient had a CT scan of the abdomen and pelvis in which there was some post-cholecystectomy changes. There was dilatation of the proximal ileum similar in appear ance to the prior exam and findings associated with pancreatitis. CODE STATUS: Full code. ALLERGIES: MORPHINE and TIZANIDINE. HOSPITAL COURSE: Mr. Greer is a pleasant 67-year-old gentleman who has a history of hypertension and diabetes. He presented to the emergency room with complaints of severe abdominal pain. He was found to have recurrent pancreatitis. Lipase was 2000. He was placed on bowel rest. GI was consult ed due to the recurrent nature of this illness. It was felt that the pancreatitis is likely idiopath ic. He improved over the course of the next couple of days and eventually his diet was able to be ad vanced and he was subsequently discharged home in stable condition to have close followup with Dr. Shea obregon as an outpatient and also with Dr. Zamorano as needed.
[2018-10-02 15:50] VITALS: BP 119/77; TEMP 97.9
== END 2018-10-02 15:58 | disposition home or self-care (01) | DRG 438 ==
LOC: SCSER 11:15 → T4-B 16:20
PROVIDERS: ADMIT Internal Medicine; ATTEND Internal Medicine
DX: K85.90 Acute pancreatitis without necrosis or infection, unspecified (principal); B46.5 Mucormycosis, unspecified; N18.6 End stage renal disease; N17.9 Acute kidney failure, unspecified; Z79.4 Long term (current) use of insulin; I12.9 Hypertensive chronic kidney disease with stage 1 through stage 4 chronic kidney disease, or unspecified chronic kidney disease; E11.22 Type 2 diabetes mellitus with diabetic chronic kidney disease; Z91.81 History of falling; E78.5 Hyperlipidemia, unspecified; I25.2 Old myocardial infarction; Z85.038 Personal history of other malignant neoplasm of large intestine; F41.9 Anxiety disorder, unspecified; F32.9 Major depressive disorder, single episode, unspecified; G89.29 Other chronic pain; M54.9 Dorsalgia, unspecified; Z90.49 Acquired absence of other specified parts of digestive tract; K21.9 Gastro-esophageal reflux disease without esophagitis; K86.1 Other chronic pancreatitis; H54.61 Unqualified visual loss, right eye, normal vision left eye; D63.1 Anemia in chronic kidney disease; E53.8 Deficiency of other specified B group vitamins
CPT/HCPCS: 36415; 36416; 71045; 74176; 80048; 80053; 81003; 82010; 82330; 82553; 82607; 82728; 82746; 82803; 83605; 83690; 83735; 84100; 84484; 85025; 87040; 87086; 93005; 96361; 96374; 96375; 96376; J1644; J2405; J3010

== ENCOUNTER 2019-01-06 02:08 | Outpatient (CLI) | payer MEDICARE ==
[2019-01-06 15:01] LABS: Hemoglobin 11.3 g/dL (14.0-18.0); Mean Corpuscular HGB CONC 31.9 g/dL (32.0-36.0); Mean Corpuscular Hemoglobin 31.7 pg (27.0-31.0); Mean Corpuscular Volume 99.4 fL (78.0-98.0); Mean Platelet Volume 8.9 fL (7.4-10.4); Platelet Count 215 thou/uL (130-400); RBC Distribution Width 14.1 % (11.5-14.5); Red Blood Cell (RBC) Count 3.57 mill/uL (4.70-6.10)
[2019-01-06 15:22] LABS: Anion Gap 12 mmol/L (10-20); BUN (Urea Nitrogen) 36 mg/dL (8.4-25.7); Calc. Creatinine Clearance 0 mL/min (70-130); Calcium 9.8 mg/dL (7.8-10.44); Carbon Dioxide 22 mmol/L (23-31); Chloride 110 mmol/L (98-107); Estimated GFR-MDRD 29; Glucose 173 mg/dL (80-115); Potassium 5.2 mmol/L (3.5-5.1); Sodium 139 mmol/L (136-145)
== END 2019-01-06 02:09 | disposition home or self-care (01) ==
LOC: LABBT 02:08
PROVIDERS: ATTEND Orthopaedic Surgery Sports Medicine
DX: Z47.89 Encounter for other orthopedic aftercare (principal); Z98.890 Other specified postprocedural states
CPT/HCPCS: 80048; 85027; 93005; 93010

== ENCOUNTER 2019-01-08 07:27 | Day surgery (SDC) | payer MEDICARE ==
[2019-01-06 13:50] VITALS: BMI 22.8
[2019-01-08] MEDS ORDERED: Midazolam HCl 2 mg/2 ml Vial ONE (08:30)
[2019-01-08] MEDS ORDERED: Fentanyl 100 MCG/2 ML VIAL ONE ×2 (08:30→08:48)
[2019-01-08] MEDS ORDERED: Ropivacaine 0.2% 550 ML 550 ML NERVE BLCK SCH (08:58)
[2019-01-08] MEDS ORDERED: traMADol HCl 50 MG TAB PO PRN ×2 (08:58)
[2019-01-08] MEDS ORDERED: Ondansetron PF 4 MG/2 ML Vial IVP PRN (08:58)
[2019-01-08] MEDS ORDERED: Zolpidem Tartrate 5 MG TAB PO PRN (08:58)
[2019-01-08] MEDS ORDERED: HYDROcodone/Acetaminophen 10/325 mg Tablet PO PRN ×2 (08:58)
[2019-01-08] MEDS ORDERED: Promethazine HCl 25 MG/ML VIAL IM PRN (08:58)
[2019-01-08] MEDS ORDERED: Fentanyl 100 MCG/2 ML VIAL IV PRN (08:59)
[2019-01-08] MEDS ORDERED: Ropivacaine 0.2% HCl/PF (40 MG/20 ML VIAL) ONE (14:59)
[2019-01-08] MEDS ORDERED: Ropivacaine 0.5% HCl/PF (150 MG/30 ML VIAL) ONE (14:59)
[2019-01-08] MEDS ORDERED: Lidocaine 1% PF 5 ML VIAL ONE (16:21)
[2019-01-08] MEDS ORDERED: ePHEDrine 50 MG/ML VIAL ONE (16:21)
[2019-01-08] MEDS ORDERED: PROPOFOL 200 MG/20 ML VIAL ONE (16:21)
[2019-01-08] MEDS ORDERED: Rocuronium Bromide 10 MG/ML (10ML VIAL) ONE (16:21)
[2019-01-08] MEDS ORDERED: Ondansetron PF 4 MG/2 ML Vial ONE (16:21)
== END 2019-01-08 14:05 | disposition home or self-care (01) ==
LOC: SDC 07:27
PROVIDERS: ATTEND Orthopaedic Surgery Sports Medicine
PROC: 0LM14ZZ Reattachment of Right Shoulder Tendon, Percutaneous Endoscopic Approach (ICD-10-PCS; principal; 2019-01-08)
PROC: 0RHJ44Z Insertion of Internal Fixation Device into Right Shoulder Joint, Percutaneous Endoscopic Approach (ICD-10-PCS; 2019-01-08)
PROC: 0LU14KZ Supplement Right Shoulder Tendon with Nonautologous Tissue Substitute, Percutaneous Endoscopic Approach (ICD-10-PCS; 2019-01-08)
PROC: 0RNJ4ZZ Release Right Shoulder Joint, Percutaneous Endoscopic Approach (ICD-10-PCS; 2019-01-08)
DX: S46.011A Strain of muscle(s) and tendon(s) of the rotator cuff of right shoulder, initial encounter (principal); H54.61 Unqualified visual loss, right eye, normal vision left eye; I10 Essential (primary) hypertension; E11.9 Type 2 diabetes mellitus without complications; F32.9 Major depressive disorder, single episode, unspecified; F41.9 Anxiety disorder, unspecified; E78.5 Hyperlipidemia, unspecified; Z79.4 Long term (current) use of insulin; Z79.899 Other long term (current) drug therapy; Z88.5 Allergy status to narcotic agent; Z88.8 Allergy status to other drugs, medicaments and biological substances; Z98.890 Other specified postprocedural states; Z96.41 Presence of insulin pump (external) (internal); W19.XXXA Unspecified fall, initial encounter
CPT/HCPCS: 29826; 29827; A4306; C1713; J2001; J2250; J2405; J2704; J2795; J3010; J3490

== ENCOUNTER 2019-02-12 15:33 | Outpatient (CLI) | payer MEDICARE ==
--- NOTE | 2019-02-12 17:58 | MRI ---
MRI OF BRAIN NONCONTRAST: 02/12/19 COMPARISON: 08/17/18. INDICATION: History of mucormycosis and sinus surgery. FINDINGS: There is mild global atrophy with compensatory dilatation of ventricular system, stable. There is no new, significant parenchymal signal abnormality of the brain. Abnormal right carotid skull base flow void is again noted. No acute territorial infarction, intracranial mass effect of midline shift. Mini mal scattered T2 and FLAIR hyperintense parenchymal signal foci are grossly stable likely relating to minimal chronic ischemic disease. There is absence of the right [place] intraocular lens. IMPRESSION: No acute intracranial abnormalities. Persistent abnormality of the right carotid skull base flow void. The previously mentioned signal alteration just posterior to the right maxillary sinus is difficult t o reliably evaluate on the basis of this exam. There is heterogeneous signal remaining within this re gion. Dedicated MRI of the orbits with and without contrast is warranted to further evaluate this fin ding. Code T POS: ESTEE
== END 2019-02-12 15:34 | disposition home or self-care (01) ==
LOC: SCSMRI 15:33
PROVIDERS: ATTEND Internal Medicine Infectious Disease
DX: B46.5 Mucormycosis, unspecified (principal); R93.0 Abnormal findings on diagnostic imaging of skull and head, not elsewhere classified
CPT/HCPCS: 70551

== ENCOUNTER 2019-05-17 13:09 | Emergency (ER) | payer MEDICARE ==
[2019-05-17] MEDS ORDERED: HYDROcodone/Acetaminophen 5/325 mg Tablet ONE (13:22)
[2019-05-17 13:39] LABS: #Eosinphils 0.1 thou/uL (0.0-0.7); #Lymphocytes 1.3 thou/uL (1.20-3.40); #Monocytes 0.3 thou/uL (0.11-0.59); #Neutrophils 4.5 thou/uL (1.40-6.50); %Basophils 0.6 % (0.0-1.0); %Eosinophils 1.4 % (0.0-10.0); %Lymphocytes 20.8 % (21.0-51.0); %Monocytes 5.3 % (0.0-10.0); %Neutrophils 71.9 % (42.0-75.0); Hemoglobin 10.5 g/dL (14.0-18.0); Mean Corpuscular HGB CONC 31.8 g/dL (32.0-36.0); Mean Corpuscular Hemoglobin 29.7 pg (27.0-31.0); Mean Corpuscular Volume 93.4 fL (78.0-98.0); Mean Platelet Volume 7.9 fL (7.4-10.4); Platelet Count 182 thou/uL (130-400); RBC Distribution Width 14.7 % (11.5-14.5); Red Blood Cell (RBC) Count 3.53 mill/uL (4.70-6.10); White Blood Cell (WBC) Count 6.3 thou/uL (4.8-10.8)
[2019-05-17 13:46] LABS: INR-International Normal Ratio 1.1; PTT 25.7 SEC (22.9-36.1); Prothrombin Time 13.9 SEC (12.0-14.7)
[2019-05-17 13:55] LABS: ALT (SGPT) 14 U/L (8-55); AST (SGOT) 18 U/L (5-34); Albumin 3.7 g/dL (3.4-4.8); Alkaline Phosphatase 56 U/L (40-150); Anion Gap 14 mmol/L (10-20); BUN (Urea Nitrogen) 42 mg/dL (8.4-25.7); Bilirubin, Total 0.4 mg/dL (0.2-1.2); Calc. Creatinine Clearance 0 mL/min (70-130); Calcium 9.6 mg/dL (7.8-10.44); Carbon Dioxide 21 mmol/L (23-31); Chloride 110 mmol/L (98-107); Estimated GFR-MDRD 22; Globulin 2.5 g/dL (2.4-3.5); Glucose 185 mg/dL (80-115); Potassium 4.9 mmol/L (3.5-5.1); Protein, Total 6.2 g/dL (5.8-8.1); Sodium 140 mmol/L (136-145)
--- NOTE | 2019-05-17 14:27 | CT ---
Exam: Chest abdomen and pelvic CT scan without IV contrast: Thoracic spine CT scan without IV contrast Limited: Lumbar spine CT scan without IV contrast Limited: HISTORY: Injury following a fall from standing, landing on right side with right rib pain FINDINGS: No evidence for pneumothorax or pleural effusion. No convincing CT evidence for acute rib fracture. 3 vessel coronary artery calcific disease. No evidence for pericardial effusion. No mediastinal hematoma. The visualized liver, status post cholecystectomy region, pancreas,, spleen, adrenal glands are unrem arkable as evaluated with IV contrast. The lack of IV contrast considerably limits sensitivity for solid organ injury. Bilateral renal cysts are noted up to 4.2 cm on the right side which has a somewh at complicated possibly minimally septated appearance. No renal calculus or acute obstruction. Postoperative small bowel anastomotic changes as well as postoperative changes in the region of the r ectal sigmoid portion colon. Postop laminectomy. No free intraperitoneal fluid or evidence for retroperitoneal hematoma. Several very small fat-containing anterior abdominal wall hernias at and ab ove the level of the umbilicus. Bilateral fat-containing inguinal hernias. No evidence for free intraperitoneal fluid within the abdomen or pelvis. No retroperitoneal,. IMPRESSION: No significant acute posttraumatic process involving the chest, abdomen, and pelvis as evaluated with out IV contrast. Other nonemergent findings as above. Thoracic spine CT scan without IV contrast Limited: Findings/impression: No fracture or dislocation or other acute process. Lumbar spine CT scan without IV contrast Limited: Status post laminectomy at L4 and L5 with some retrolisthesis of L4 and L5 and severe disc space narr owing with sclerosis. No acute fracture or dislocation. Bilateral foraminal stenosis at L4-L5. IMPRESSION: No acute fracture or dislocation. Status post laminectomy.
== END 2019-05-17 14:37 | disposition home or self-care (01) ==
LOC: SCSER 13:09
DX: S20.211A Contusion of right front wall of thorax, initial encounter (principal); E78.5 Hyperlipidemia, unspecified; I12.0 Hypertensive chronic kidney disease with stage 5 chronic kidney disease or end stage renal disease; N18.6 End stage renal disease; E11.22 Type 2 diabetes mellitus with diabetic chronic kidney disease; I25.2 Old myocardial infarction; F41.9 Anxiety disorder, unspecified; F32.9 Major depressive disorder, single episode, unspecified; W18.30XA Fall on same level, unspecified, initial encounter; Z99.2 Dependence on renal dialysis; Z79.899 Other long term (current) drug therapy
CPT/HCPCS: 36415; 71250; 74177; 80053; 85025; 85610; 85730

== ENCOUNTER 2019-09-09 08:51 | Outpatient (CLI) | payer MEDICARE ==
--- NOTE | 2019-09-09 11:49 | PET ---
PET CT: HISTORY: A 68-year-old male with colon cancer. Mucormycosis infection in sinus. Exam requested to evaluate f or metastatic disease in the sinus infection. TECHNIQUE: PET scanning with CT attenuation correction was performed from the vertex through the proximal thighs following the intravenous administration of 10.4 mCi [id number]. COMPARISON: None. FINDINGS: No abnormal FDG localization was seen in the sinuses. No keenan hypermetabolism is noted in the chest, axilla, abdomen, pelvis, or inguinal regions. No hyp ermetabolic pulmonary nodules, liver, adrenal, or skeletal lesions are seen. There is focal increased uptake in the right colon with an SUV of 7.5. There is physiologic activity in the GI and tracts and visualized portions of the brain. The CT scan used for attenuation correction demonstrates no evidence of pleural effusions or ascites. IMPRESSION: 1. No evidence of sinus infection. 2. No evidence of distant metastatic disease. 3. Focally increased uptake in the right colon should be evaluated with colonoscopy. POS: [place]
== END 2019-09-09 08:52 | disposition home or self-care (01) ==
LOC: PET 08:51
PROVIDERS: ATTEND Internal Medicine Hematology & Oncology
DX: C18.9 Malignant neoplasm of colon, unspecified (principal); J32.9 Chronic sinusitis, unspecified; B46.5 Mucormycosis, unspecified
CPT/HCPCS: 78815; A9552

== ENCOUNTER 2019-12-14 19:30 | Outpatient (CLI) | payer MEDICARE | END 2019-12-14 19:31 | disposition home or self-care (01) | LOC: SLEEPLAB 19:30 | PROVIDERS: ATTEND Otolaryngology Plastic Surgery within the Head & Neck | DX: G47.33 Obstructive sleep apnea (adult) (pediatric) (principal); R51 Headache; R53.83 Other fatigue; R06.83 Snoring | CPT/HCPCS: 95810 ==

== ENCOUNTER 2023-11-05 15:09 | Outpatient (CLI) | payer MEDICARE ==
[2023-11-05 16:51] LABS: INR-International Normal Ratio 0.9; PTT 26.2 sec (22.0-33.0); Prothrombin Time 10.1 sec (9.5-12.1)
[2023-11-05 16:53] LABS: Anion Gap 17 mmol/L (10-20); BUN (Urea Nitrogen) 60 mg/dL (8.4-25.7); Calc. Creatinine Clearance 0 mL/min (70-130); Calcium 9.1 mg/dL (7.8-10.44); Carbon Dioxide 19 mmol/L (23-31); Chloride 109 mmol/L (98-107); Estimated GFR 17; Glucose 203 mg/dL (83-110); Potassium 4.7 mmol/L (3.5-5.1); Sodium 140 mmol/L (136-145)
[2023-11-05 17:05] LABS: Hematocrit 36.5 % (38.8-50.0); Mean Corpuscular HGB CONC 32.9 g/dL (32.0-36.0); Mean Corpuscular Hemoglobin 30.2 pg (27.0-33.0); Mean Corpuscular Volume 91.9 fl (81.2-95.1); Mean Platelet Volume 11.1 fl (7.4-10.4); Platelet Count 228 10x3/uL (150-450); RBC Distribution Width 13.1 % (11.5-14.5); Red Blood Cell (RBC) Count 3.97 10x6/uL (4.32-5.72); White Blood Cell (WBC) Count 7.6 10x3/uL (3.5-10.5)
== END 2023-11-05 15:10 | disposition home or self-care (01) ==
LOC: LABBT 15:09
PROVIDERS: ATTEND Surgery
DX: Z01.818 Encounter for other preprocedural examination (principal)
CPT/HCPCS: 80048; 85027; 85610; 85730; 93005; 93010

== ENCOUNTER 2023-11-05 15:30 | Inpatient (IN) | payer MEDICARE ==
[2023-11-07] MEDS ORDERED: Thrombin 5000 UNITS/5 ML VIAL ONE (06:33)
[2023-11-07] MEDS ORDERED: CEFAZOLIN 2 GM VIAL ONE ×2 (07:23→12:43)
[2023-11-07] MEDS ORDERED: Sodium Chloride 0.9% 100 ML ONE ×2 (07:23→12:43)
[2023-11-07] MEDS ORDERED: fentaNYL PF 100 MCG/2 ML SYRINGE ONE (07:29)
[2023-11-07] MEDS ORDERED: Rocuronium Bromide 10 MG/ML (10ML VIAL) ONE (07:40)
[2023-11-07] MEDS ORDERED: Succinylcholine 200 MG/10 ml SYRINGE FS ONE (07:40)
[2023-11-07] MEDS ORDERED: PROPOFOL 200 MG/20 ML VIAL ONE (07:40)
[2023-11-07] MEDS ORDERED: Lidocaine 1% PF 5 ML VIAL ONE (07:40)
[2023-11-07] MEDS ORDERED: HYDROmorphone 0.5 MG/0.5 ML SYRINGE ONE (10:59)
[2023-11-07] MEDS ORDERED: CEFAZOLIN 2 GM in Sodium Chloride 0.9% 100 ML IVPB SCH (11:00)
[2023-11-07] MEDS ORDERED: Milk Of Magnesia 30 ML UDCUP PO PRN (11:01)
[2023-11-07] MEDS ORDERED: diphenhydrAMINE 25 MG CAP PO PRN (11:01)
[2023-11-07] MEDS ORDERED: Ondansetron PF 4 MG/2 ML Vial IVP PRN (11:01)
[2023-11-07] MEDS ORDERED: fentaNYL 50 mcg/mL 1 mL Vial SLOW IVP PRN (11:01)
[2023-11-07] MEDS ORDERED: oxyCODONE 5 MG TAB PO PRN ×2 (11:05)
[2023-11-07] MEDS ORDERED: Methocarbamol 500 MG TAB PO PRN (11:05)
[2023-11-07] MEDS ORDERED: Benzocaine/Menthol 1 LOZ LOZ PO PRN (11:08)
[2023-11-07] MEDS ORDERED: hydrALAZINE 20 MG/ML VIAL SLOW IVP PRN (11:08)
[2023-11-07] MEDS ORDERED: Phenol 177 ML BOT PO PRN (11:08)
[2023-11-07] MEDS ORDERED: Glucagon 1 MG/ML KIT IVP PRN (11:09)
[2023-11-07] MEDS ORDERED: HUMULIN R 100 UNITS in Sodium Chloride 0.9% 100 ML IVPB SCH (11:15)
[2023-11-07] MEDS ORDERED: HYDROmorphone 2 MG/ML VIAL ONE (11:20)
[2023-11-07] MEDS ORDERED: Ketorolac Tromethamine 30 MG/ML VIAL IVP SCH (12:00)
[2023-11-07] MEDS: Sodium Chloride 0.9% 1,000 ML IV SCH (12:00)
[2023-11-07] MEDS ORDERED: Insulin Regular 300 UNITS/3 ML VIAL ONE (12:23)
[2023-11-07] MEDS ORDERED: Insulin Regular 300 UNITS/3 ML VIAL IVP SCH (12:30)
[2023-11-07] MEDS ORDERED: Glucagon 1 MG/ML KIT IM PRN (12:38)
[2023-11-07] MEDS ORDERED: Dextrose 5% in Water 1,000 ML IV PRN (12:38)
[2023-11-07] MEDS ORDERED: Dextrose 50% Abboject 50 ML SYRINGE SLOW IVP PRN (12:38)
[2023-11-07] MEDS: Insulin Regular 300 UNITS/3 ML VIAL SC PRN ×3 (13:09→15:23)
[2023-11-07] MEDS ORDERED: fentaNYL 50 mcg/mL 1 mL Vial ONE (14:22)
[2023-11-07] MEDS ORDERED: Insulin Glargine 30 UNITS/0.3 ML VIAL SC SCH (16:00)
[2023-11-07 16:21] VITALS: BMI 25.2
[2023-11-07] MEDS: Calcitriol 0.25 MCG CAP PO SCH ×2 (17:21→20:12)
[2023-11-07] MEDS: hydrALAZINE 25 MG TAB PO SCH ×2 (17:22→20:13)
[2023-11-07] MEDS: Sodium Bicarbonate Tab 325 MG TAB PO SCH ×2 (17:22→20:12)
[2023-11-07] MEDS: Acetaminophen 325 MG TAB PO PRN (19:28)
[2023-11-07] MEDS: CEFAZOLIN 2 GM in Sodium Chloride 0.9% 100 ML IVPB SCH (19:33)
[2023-11-07] MEDS: Amlodipine 5 MG TAB PO SCH (19:50)
[2023-11-07 20:12] VITALS: BP 150/70
[2023-11-07] MEDS ORDERED: Furosemide 20 MG TAB PO SCH (21:00)
[2023-11-08] MEDS: Sodium Chloride 0.9% 1,000 ML IV SCH (01:21)
[2023-11-08 04:05] LABS: #Eosinphils 0.1 thou/uL (0.0-0.7); #Monocytes 0.6 thou/uL (0.11-0.59); #Neutrophils 7.4 thou/uL (1.40-6.50); %Basophils 0.4 % (0.0-1.0); %Eosinophils 1.2 % (0.0-10.0); %Lymphocytes 13.2 % (21.0-51.0); %Monocytes 6.7 % (0.0-10.0); Hematocrit 33.1 % (42.0-52.0); Hemoglobin 10.4 g/dL (14.0-18.0); Mean Corpuscular HGB CONC 31.4 g/dL (32.0-36.0); Mean Corpuscular Hemoglobin 29.8 pg (27.0-31.0); Mean Corpuscular Volume 94.8 fl (78.0-98.0); Platelet Count 196 10x3/uL (130-400); RBC Distribution Width 13.2 % (11.5-14.5); Red Blood Cell (RBC) Count 3.49 mill/uL (4.70-6.10); White Blood Cell (WBC) Count 9.5 10x3/uL (4.8-10.8)
[2023-11-08] MEDS: Acetaminophen 325 MG TAB PO PRN (04:19)
[2023-11-08] MEDS: CEFAZOLIN 2 GM in Sodium Chloride 0.9% 100 ML IVPB SCH ×2 (04:19→11:48)
[2023-11-08 04:32] LABS: Anion Gap 16 mmol/L (10-20); BUN (Urea Nitrogen) 55 mg/dL (8.4-25.7); Calc. Creatinine Clearance 22 mL/min (70-130); Calcium 7.8 mg/dL (7.8-10.44); Carbon Dioxide 15 mmol/L (23-31); Chloride 112 mmol/L (98-107); Estimated GFR 20; Glucose 175 mg/dL (83-110); Potassium 4.1 mmol/L (3.5-5.1); Sodium 139 mmol/L (136-145)
[2023-11-08] MEDS: Insulin Regular 300 UNITS/3 ML VIAL SC PRN ×2 (05:33→06:26)
[2023-11-08] MEDS ORDERED: Insulin Regular 300 UNITS/3 ML VIAL SC PRN ×2 (07:57→08:30)
[2023-11-08 08:52] VITALS: TEMP 98.1
[2023-11-08] MEDS: Sodium Bicarbonate Tab 325 MG TAB PO SCH ×2 (08:58→14:26)
[2023-11-08] MEDS: hydrALAZINE 25 MG TAB PO SCH ×2 (08:58→14:26)
[2023-11-08] MEDS: Amlodipine 5 MG TAB PO SCH (08:58)
[2023-11-08] MEDS: Calcitriol 0.25 MCG CAP PO SCH ×2 (08:59→14:26)
[2023-11-08] MEDS ORDERED: Cyanocobalamin 1000 MCG/ML VIAL IM SCH (09:00)
[2023-11-08] MEDS ORDERED: Insulin Glargine 30 UNITS/0.3 ML VIAL SC SCH (09:00)
[2023-11-08] MEDS ORDERED: Cholecalciferol 1,000 UNITS (25 MCG) TAB PO SCH (09:00)
[2023-11-10] MEDS ORDERED: FLU VACC QS2023(65UP)/MF59C/PF 60 MCG/0.5 ML SYRINGE IM ONE (16:45)
== END 2023-11-08 15:05 | disposition home or self-care (01) | DRG 472 ==
LOC: SURG A 11-07 05:56 → CCU 11-07 16:10
PROVIDERS: ADMIT Surgery; ATTEND Surgery
PROC: 0RG20A0 Fusion of 2 or more Cervical Vertebral Joints with Interbody Fusion Device, Anterior Approach, Anterior Column, Open Approach (ICD-10-PCS; principal; 2023-11-07)
PROC: 0RB30ZZ Excision of Cervical Vertebral Disc, Open Approach (ICD-10-PCS; 2023-11-07)
PROC: 01N10ZZ Release Cervical Nerve, Open Approach (ICD-10-PCS; 2023-11-07)
PROC: 00NW0ZZ Release Cervical Spinal Cord, Open Approach (ICD-10-PCS; 2023-11-07)
DX: M48.02 Spinal stenosis, cervical region (principal); N18.4 Chronic kidney disease, stage 4 (severe); M54.12 Radiculopathy, cervical region; E11.22 Type 2 diabetes mellitus with diabetic chronic kidney disease; I12.9 Hypertensive chronic kidney disease with stage 1 through stage 4 chronic kidney disease, or unspecified chronic kidney disease; E78.5 Hyperlipidemia, unspecified; E11.65 Type 2 diabetes mellitus with hyperglycemia; G47.33 Obstructive sleep apnea (adult) (pediatric); Z86.16 Personal history of COVID-19; Z99.81 Dependence on supplemental oxygen; Z98.890 Other specified postprocedural states; Z90.49 Acquired absence of other specified parts of digestive tract; Z88.5 Allergy status to narcotic agent; Z88.6 Allergy status to analgesic agent; Z88.8 Allergy status to other drugs, medicaments and biological substances
CPT/HCPCS: 36415; 36416; 36430; 70450; 71045; 80048; 80053; 81001; 83880; 84484; 85025; 85027; 85610; 85730; 86850; 86900; 86901; 87086; 93005; 96360; 96361; C1713; J1170; J1815; J2704; J3010; J3490; J7050; P9035